=== PATIENT | female | born 1955 | race Caucasian/White ===

== ENCOUNTER 2020-03-17 12:08 | Day surgery (SDC) | payer OTHER, SELFPAY ==
[2020-03-11 13:39] VITALS: BMI 32.4
[2020-03-17 12:54] VITALS: BMI 32.4
[2020-03-17 12:56] VITALS: BP 137/65; PULSE 64; RESP 16; TEMP 36.3; O2SAT 95
--- NOTE | 2020-03-17 13:58 | HO.ANESPROP2 ---
[facility] [place] Past Medical History Medical History Arthritis Celiac disease Depression Elevated cholesterol GERD (gastroesophageal reflux disease) HTN (hypertension) Sleep apnea TIA (transient ischemic attack) Surgical History Surgical History H/O hemorrhoidectomy H/O shoulder surgery H/O: hysterectomy History of bladder suspension procedure Hx of cholecystectomy Hx of colonoscopy Hx of esophagogastroduodenoscopy Social History Social History Smoking Status: Never smoker Use of substances other than those prescribed or required for medical reasons: No Advance Directives Information Provided: No Recently lost weight without trying: No Meds Allergies Allergy/AdvReac Type Severity Reaction Status Date / Time cheese [CHEESE] Allergy Unknown + ALLERGY Verified 03/17/20 12:50 TESTING egg [EGGS] Allergy Unknown + ALLERGY Verified 03/17/20 12:51 TEST gluten [GLUTEN] Allergy Unknown + ALLERGY Verified 03/17/20 12:51 TEST milk [MILK] Allergy Unknown + ALLERGY Verified 03/17/20 12:51 TEST soy [SOY] Allergy Unknown + ALLERGY Verified 03/17/20 12:51 TEST strawberry [STRAWBERRY] Allergy Unknown + ALLERGY Verified 03/17/20 12:51 TEST banana [BANANA] AdvReac Unknown + ALLERGY Verified 03/17/20 12:49 TEST Home Medications Medication Instructions Recorded Confirmed Type aspirin 81 mg PO DAILY 03/11/20 03/11/20 History atorvastatin 20 mg PO BEDTIME 03/11/20 03/11/20 History bisacodyl [Dulcolax (bisacodyl)] 10 mg PO BEDTIME 03/11/20 03/11/20 History fluoxetine 20 mg PO DAILY 03/11/20 03/11/20 History rabeprazole 20 mg PO BID 03/11/20 03/11/20 History sertraline 100 mg PO DAILY 03/11/20 03/11/20 History simethicone 180 mg PO BID 03/11/20 03/11/20 History zolpidem 10 mg PO BEDTIME PRN 03/11/20 03/11/20 History Exam Exam Date and Time: March 17, 2020 1358 Height,Weight and Vital Signs: Height 5 ft 4.5 in Weight 87.09 kg Last Vital Signs Temp 97.3 F 03/17/20 12:56 Pulse 64 03/17/20 12:56 Resp 16 03/17/20 12:56 BP 137/65 03/17/20 12:56 Pulse Ox 95 03/17/20 12:56 Airway Mallampati Class: II TM Dist: >3cm Neck ROM: Full Denture: Upper Heart: RRR Lungs: CTA BL
--- NOTE | 2020-03-17 14:03 | MHC.SHP ---
Pre-Procedural Eval Section A Changes since office visit: Yes Patient answered all questions The History & Physical has been completed within 30 days and I have reviewed it.: No Section B Chief Complaint: FAMILY HX OF COLON CA Details of Present Illness: Colon cancer screening Chronic constipation Relevant Family History (Specify if Yes): Yes Present Medications: see Short Stay Collaborative assessment Medical History: Significant History (GERD, depression, allergic rhinitis, Htn, Celiac disease, constipation, gallstones) Allergies: Allergies Allergy/AdvReac Type Severity Reaction Status Date / Time cheese [CHEESE] Allergy Unknown + ALLERGY Verified 03/17/20 12:50 TESTING egg [EGGS] Allergy Unknown + ALLERGY Verified 03/17/20 12:51 TEST gluten [GLUTEN] Allergy Unknown + ALLERGY Verified 03/17/20 12:51 TEST milk [MILK] Allergy Unknown + ALLERGY Verified 03/17/20 12:51 TEST soy [SOY] Allergy Unknown + ALLERGY Verified 03/17/20 12:51 TEST strawberry [STRAWBERRY] Allergy Unknown + ALLERGY Verified 03/17/20 12:51 TEST banana [BANANA] AdvReac Unknown + ALLERGY Verified 03/17/20 12:49 TEST Review of Systems Sugical H&P ROS: Negative: Constitution, Cardiovascular, Respiratory and Neurological and Yes, Specify: Gastrointestinal (chronic constipation) Exam Surgical H&P Exam: Normal: HEENT, Normal: Heart, Normal: Lungs, Normal: Extremities, Normal: Abdomen and Normal: Skin Plan Diagnosis/Plan: Unchanged Patient has been examined and remains a candidate for the planned procedure
[2020-03-17] MEDS: Lactated Ringers 1,000 ML 50 ML IVCONT (14:04)
--- NOTE | 2020-03-17 14:04 | PM.OP ---
Brief Operative Note Date of procedure: 03/17/20 Pre-op diagnosis: Colon cancer screening, chronic constipation Post-op diagnosis: other (Colon polyps, diverticulosis, hemorrhoids) Procedure: COLONOSCOPY PROCEDURE NOTE Consent: Indications for the procedure and potential complications of bleeding, perforation, reaction to medications and missed diagnosis were discussed with the patient and informed consent was obtained. Instrument: Olympus PCF H 190 L variable stiffness pediatric colonoscope Monitoring: Vital signs and clinical assessment, intermittent blood pressure monitoring, continuous EKG monitoring, Pulse oximetry and Carbon Dioxide monitoring were done throughout the procedure. Colon withdrawl time was 32 minutes. Procedure: The patient was placed in the left lateral decubitis position and pre-procedure medications were administered. After a digital rectal examination of the ano-rectum, the video colonoscope was inserted into the rectum and advanced through the colon to the cecum. The colonoscope was slowly withdrawn in a retrograde panoramic fashion and the colon mucosa was carefully examined including a retroflexed view of the rectum. Findings and interventions are described below. Procedure Difficulty: The colon was long and tortuous and there was some loop formation Findings: Terminal Ileum: Not evaluated Cecum: Normal Ascending Colon: Normal Transverse Colon: Two 5-6 mm sessile polyps removed with a cold bx. Descending Colon: A 4-5 mm sessile polyp removed with a cold bx and moderate diverticulosis Sigmoid Colon: Severe diverticulosis with luminal narrowing Rectum: A 4-5 mm sessile polyp removed with a cold bx and a 6-7 mm sessile polyp removed with a cold snare. Ano-rectum: Moderate internal hemorrhoids Colon preparation: Good after copious irrigation Impression and Post Procedure Diagnosis: Colonoscopy Findings: Five small polyps removed Moderate to severe diverticulosis seen in the left colon Moderate hemorrhoids on retroflexed exam. Plan: Await pathology results Patient has an appointment on 03/24/20 in the [facility] with Alma Parsons NP. Repeat Colonoscopy interval based on path results - in 3-5 years if polyps are adenomatous and 10 years if polyps are hyperplastic. Above findings were reviewed with the patient and colon polyps and diverticulosis handouts were given in the discharge area Anesthesia: MAC (Dr Harding & Romelia Tee CRNA) Surgeon: Raúl Blandon Pathology: other (A. TC polyps x 2, B. DC polyp x 1, C. Rectal polyps x 2) Condition: stable Disposition: PACU
[2020-03-17 15:12] VITALS: BP 94/68; PULSE 77; RESP 12; TEMP 36.4; O2SAT 95
[2020-03-17 15:28] VITALS: BP 135/71; PULSE 65; RESP 14; O2SAT 97
[2020-03-17 15:46] VITALS: BP 135/59; PULSE 63; RESP 11; O2SAT 99
--- NOTE | 2020-03-17 16:32 | SUR.PHASEI ---
AMBULATED TO BATHROOM, CONTACT GUARD FOR SUPPORT. REPORTS MILD DIZZINESS. OFFERED PO FLUIDS REFUSED AT THIS TIME. NO NAUSEA. PATIENT REPORTS DIZZINESS RESOLVING. CONVERSING WITH RN. AWAITING DISCHARGE HOME WITH FAMILY
== END 2020-03-17 23:59 | disposition home or self-care (01) ==
PROVIDERS: PCP Family Medicine; Visit Provider Internal Medicine Gastroenterology
PROC: 0DJD8ZZ Inspection of Lower Intestinal Tract, Via Natural or Artificial Opening Endoscopic (ICD-10-PCS; CPT 45378; principal; 2020-03-17 13:00)
DX: Z12.11 Encounter for screening for malignant neoplasm of colon (principal); Z80.0 Family history of malignant neoplasm of digestive organs; D12.3 Benign neoplasm of transverse colon; K63.5 Polyp of colon; K62.1 Rectal polyp; K57.30 Diverticulosis of large intestine without perforation or abscess without bleeding; K64.8 Other hemorrhoids; K90.0 Celiac disease; K21.9 Gastro-esophageal reflux disease without esophagitis; I10 Essential (primary) hypertension; G47.33 Obstructive sleep apnea (adult) (pediatric); Z79.82 Long term (current) use of aspirin; Z79.899 Other long term (current) drug therapy; Z90.49 Acquired absence of other specified parts of digestive tract; Z90.710 Acquired absence of both cervix and uterus; Z86.73 Personal history of transient ischemic attack (TIA), and cerebral infarction without residual deficits; Z91.012 Allergy to eggs; Z91.011 Allergy to milk products; Z91.018 Allergy to other foods
CPT/HCPCS: 45385; 45380; 88305

== ENCOUNTER → 2020-03-24 15:03 | Outpatient (BNVA) | payer OTHER, SELFPAY | PROVIDERS: PCP Family Medicine; Referring Provider Family Medicine; Visit Provider Nurse Practitioner Family | DX: K59.04 Chronic idiopathic constipation (principal); K57.30 Diverticulosis of large intestine without perforation or abscess without bleeding; K64.8 Other hemorrhoids; Z79.899 Other long term (current) drug therapy; Z86.010 Personal history of colon polyps; Z98.890 Other specified postprocedural states; Z80.0 Family history of malignant neoplasm of digestive organs | CPT/HCPCS: 99214 ==

== ENCOUNTER → 2020-05-06 16:30 | Outpatient (BNVA) | payer OTHER, SELFPAY | PROVIDERS: Visit Provider Physician Assistant | DX: Z76.89 Persons encountering health services in other specified circumstances (principal) ==

== ENCOUNTER → 2020-05-22 08:18 | Outpatient (BNVA) | payer OTHER, SELFPAY | PROVIDERS: PCP Internal Medicine; Referring Provider Internal Medicine; Visit Provider Physician Assistant | DX: E66.9 Obesity, unspecified (principal); Z68.33 Body mass index [BMI] 33.0-33.9, adult | CPT/HCPCS: Q3014 ==

== ENCOUNTER → 2020-06-02 08:24 | Outpatient (BNVA) | payer OTHER, SELFPAY | PROVIDERS: PCP Internal Medicine; Visit Provider Physician Assistant | DX: E66.9 Obesity, unspecified (principal); Z68.33 Body mass index [BMI] 33.0-33.9, adult | CPT/HCPCS: Q3014 ==

== ENCOUNTER → 2020-06-03 15:29 | Outpatient (BNVA) | payer OTHER, SELFPAY | PROVIDERS: PCP Internal Medicine; Visit Provider Physician Assistant | DX: E66.9 Obesity, unspecified (principal); Z68.33 Body mass index [BMI] 33.0-33.9, adult | CPT/HCPCS: 99212 ==

== ENCOUNTER 2020-06-16 12:35 | Outpatient (REF) | payer OTHER, SELFPAY ==
[2020-06-16 13:21] LABS: Basophils Absolute Auto 0.1 X10*3/uL (0.0-0.2); Basophils Percent Auto 0.8 % (0-2); Eosinophils Absolute Auto 0.2 X10*3/uL (0.0-0.4); Eosinophils Percent Auto 3.8 % (0-4); Hematocrit 42.8 % (37-47); Hemoglobin 14.4 g/dl (12.0-16.0); Imm Gran Abs Auto 0.01 X10*3/uL (0.00-0.03); Imm Gran Pct Auto 0.2 % (0.0-0.4); Lymphocytes Absolute Auto 2.7 X10*3/uL (1.2-4.9); Lymphocytes Percent Auto 45.8 % (20-40); MANUAL DIFF FLAG NO; Mean Corpuscular HGB Conc 33.6 g/dl (31.0-35.0); Mean Corpuscular Hemoglobin 28.5 pg (27.0-33.0); Mean Corpuscular Volume 84.6 fL (80-98); Mean Platelet Volume 10.7 fL (9.4-12.3); Monocytes Absolute Auto 0.4 X10*3/uL (0.1-1.2); Neutrophils Absolute Auto 2.5 X10*3/uL (2.0-8.3); Neutrophils Percent Auto 42.4 % (45-73); Platelet Count 229 X10*3/uL (160-400); Red Blood Count 5.06 X10*6/uL (4.20-5.50); Red Cell Distribution Width 12.8 % (11.0-16.0)
[2020-06-16 13:32] LABS: Estimated Average Glucose 117 mg/dL; Hemoglobin A1c % 5.7 %
[2020-06-16 13:48] LABS: Alanine Aminotransferase 71 U/L (0-31); Albumin Level 4.5 g/dL (3.5-5.0); Alkaline Phosphatase 117 U/L (39-117); Anion Gap 15 (12-20); Aspartate Amino Transferase 63 U/L (5-31); Blood Urea Nitrogen 15 mg/dL (9-16); C Reactive Protein 0.78 mg/dL (< or = 0.50); Calcium 9.4 mg/dL (8.4-10.2); Carbon Dioxide 27 mmol/L (22-29); Chloride 101 mmol/L (96-108); Cholesterol 169 mg/dL; Estimated Glomerular Filt Rate > 60; Glucose Fasting 108 mg/dL (60-99); HDL Cholesterol 48 mg/dL; Iron 84 mcg/dL (30-160); LDL Cholesterol Calculated 103 mg/dl; Percent Iron Saturation 24 % (15-50); Potassium 3.8 mmol/l (3.3-5.1); Sodium 139 mmol/L (135-145); Total Iron Binding Capacity 349 mcg/dL (228-428); Total Protein 7.9 g/dL (6.5-8.0); Triglycerides 93 mg/dL; Unsaturated Iron Binding 265 ug/dL
[2020-06-16 14:09] LABS: Ferritin 173 ng/mL (10-250); TSH reflex Free T4 1.29 mIU/mL (0.32-4.0); Vitamin D 25-OH Total 27.8 ng/mL (>30)
[2020-06-16 14:20] LABS: Vitamin B12 722 pg/mL (200-900)
[2020-06-17 17:28] LABS: Calcium (PTHI) 9.6 mg/dL (8.6-10.4); PTHI 71 pg/mL (14-64)
[2020-06-17 18:13] LABS: Insulin Level Total 15.3 uIU/mL
[2020-06-19 06:56] LABS: Zinc 85 mcg/dL (60-130)
[2020-06-20 21:12] LABS: Vitamin A 49 mcg/dL (38-98)
[2020-06-21 10:23] LABS: Vitamin B1 6 nmol/L (8-30)
== END 2020-06-16 12:36 | disposition home or self-care (01) ==
LOC: HO.LAB 12:35
PROVIDERS: PCP Family Medicine; Visit Provider Physician Assistant
DX: E66.01 Morbid (severe) obesity due to excess calories (principal); E66.9 Obesity, unspecified
CPT/HCPCS: 36415; 80053; 80061; 82306; 82607; 82728; 82746; 83036; 83525; 83540; 83970; 84425; 84443; 84590; 84630; 85025; 86140

== ENCOUNTER → 2020-07-06 08:25 | Outpatient (BNVA) | payer OTHER, SELFPAY | PROVIDERS: PCP Internal Medicine; Visit Provider Dietitian, Registered ==

== ENCOUNTER → 2020-07-15 13:58 | Outpatient (BNVA) | payer OTHER, SELFPAY | PROVIDERS: PCP Family Medicine; Visit Provider Physician Assistant ==

== ENCOUNTER → 2020-07-21 08:06 | Outpatient (BNVA) | payer OTHER, SELFPAY | PROVIDERS: PCP Internal Medicine; Visit Provider Physician Assistant | DX: E66.9 Obesity, unspecified (principal) | CPT/HCPCS: Q3014 ==

== ENCOUNTER 2020-07-30 14:55 | Outpatient (REF) | payer OTHER, SELFPAY ==
--- NOTE | ~2020-07-30 | MM_ITS ---
EXAMINATION: BONE DENSITOMETRY CLINICAL INDICATION: Hyperparathyroidism. CT abdomen and pelvis noncontrast 08/19/2019. COMPARISON: Baseline BD dated 06/08/2010. TECHNIQUE: Using a [employer] DXA System (software version: 13.1) manufactured by [employer], dual-energy x-ray absorptiometry was performed of the lumbar spine, left hip, and left forearm radius 33%. The images are of good technical quality. Summary results are attached. FINDINGS: AP SPINE L1-L3 (excluding L4): The data of L1-L4 has been changed to exclude the L4 vertebral body, because statistical variation at this level may cause overestimation of lumbar spine density. Current: BMD 0.833 g/cm2, Z-score -1.7, T-score -2.8, osteoporosis, 12.3% decrease from baseline (<5% change is not significant). Baseline: BMD 0.950 g/cm2. LEFT FEMUR, NECK: Current: BMD 0.727 g/cm2, Z-score -1.1, T-score -2.2, osteopenia. Baseline: BMD 0.803 g/cm2. LEFT FEMUR, TOTAL: Current: BMD 0.815 g/cm2, Z-score -0.7, T-score -1.5, osteopenia, 2.7% decrease from baseline (<5% change is not significant). Baseline: BMD 0.838 g/cm2. LEFT FOREARM RADIUS 33%: BMD 0.689 g/cm2, Z-score -0.8, T-score -2.1, osteopenia. Prior: Not previously measured. IDENTIFIED RISK FACTORS: Menopause, low calcium intake, family history (parent hip fracture), history of fracture (adult), hyperparathyroidism, secondary osteoporosis. HISTORY OF FRACTURE: Ankle. MEDICATIONS: Calcium, vitamin D. MM/XR DEXA appendicular skeleton IMPRESSION: 1. DIAGNOSIS: Osteoporosis based on the lowest T-score value of -2.8 in the lumbar spine applying World Health Organization criteria. 2. 10-YEAR FRACTURE RISK PREDICTION, FRAX: Major osteoporotic fracture (clinical spine, forearm, hip or shoulder) 19.9%. Hip fracture 2.0%. 3. Treatment Recommendations: NOF guidelines recommend consideration for treatment in postmenopausal women and men age 50 and older presenting with the following: -A hip or vertebral (clinical or morphometric) fracture. -T-score less than or equal to -2.5 at the femoral neck or spine after appropriate evaluation to exclude secondary causes. -Low bone mass at the hip or spine and a 10-year fracture probability by FRAX of greater than or equal to 3% for hip fracture or greater than or equal to 20% for major osteoporotic fracture based on the [place] adapted WHO algorithm. 4. Other Recommendations: All treatment decisions require clinical judgment and consideration of individual patient factors, including patient preferences, comorbidities, previous drug use, risk factors not captured in the FRAX model (e.g. frailty, falls, vitamin D deficiency, increased bone turnover, interval significant decline in bone density) and possible under or overestimation of fracture risk by FRAX. Additional medical evaluation for secondary cause of low bone mineral density may be appropriate. FUTURE SCAN RECOMMENDATION: People with diagnosed cases of osteoporosis or at high risk for fracture should have regular bone mineral density tests. For patients eligible for Medicare, routine testing is allowed once every 2 years. The testing frequency can be increased to one year for patients who have rapidly progressing disease, those who are receiving or discontinuing medical therapy to restore bone mass, or have additional risk factors.
== END 2020-07-30 14:56 | disposition home or self-care (01) ==
LOC: HO.MAMMO 14:55
PROVIDERS: Visit Provider Family Medicine
DX: Z13.820 Encounter for screening for osteoporosis (principal); Z78.0 Asymptomatic menopausal state; E21.3 Hyperparathyroidism, unspecified; Z79.899 Other long term (current) drug therapy
CPT/HCPCS: 77081

== ENCOUNTER → 2020-08-12 15:45 | Outpatient (BNVA) | payer OTHER, SELFPAY | PROVIDERS: PCP Family Medicine; Visit Provider Physician Assistant ==

== ENCOUNTER → 2020-08-21 07:53 | Outpatient (BNVA) | payer OTHER, SELFPAY | PROVIDERS: PCP Internal Medicine; Visit Provider Physician Assistant | DX: E66.9 Obesity, unspecified (principal); Z71.3 Dietary counseling and surveillance | CPT/HCPCS: Q3014 ==

== ENCOUNTER → 2020-10-19 14:29 | Outpatient (BNVA) | payer OTHER, SELFPAY | PROVIDERS: PCP Family Medicine; Referring Provider Family Medicine; Visit Provider Physician Assistant | DX: E66.9 Obesity, unspecified (principal); Z68.30 Body mass index [BMI] 30.0-30.9, adult | CPT/HCPCS: 99212 ==

== ENCOUNTER → 2020-11-17 15:12 | Outpatient (BNVA) | payer OTHER, SELFPAY | PROVIDERS: PCP Family Medicine; Visit Provider Nurse Practitioner Family | CPT/HCPCS: Q3014 ==

== ENCOUNTER → 2020-11-18 13:12 | Outpatient (BNVA) | payer OTHER, SELFPAY | PROVIDERS: PCP Family Medicine; Referring Provider Family Medicine; Visit Provider Physician Assistant | DX: E66.9 Obesity, unspecified (principal); Z68.29 Body mass index [BMI] 29.0-29.9, adult | CPT/HCPCS: 99212 ==

== ENCOUNTER 2020-11-28 08:53 | Emergency (ER) | payer OTHER, SELFPAY ==
--- NOTE | 2020-11-28 | ECG_ITS ---
Test Reason : CP Blood Pressure : / mmHG Vent. Rate : 079 BPM Atrial Rate : 079 BPM P-R Int : 162 ms QRS Dur : 076 ms QT Int : 384 ms P-R-T Axes : 042 024 055 degrees QTc Int : 440 ms Normal sinus rhythm Normal ECG When compared with ECG of 19-OCT-2016 16:38, No significant change was found Referred By: Jessica Jay Electronically Signed By:JOSELYN WINCHESTER
--- NOTE | ~2020-11-28 | XR_ITS ---
EXAMINATION: CHEST 2 VIEWS CLINICAL INFORMATION: pt c left scapular/back pain radiating to chest x 4 days . COMPARISON: 10/19/2016 chest x-ray. TECHNIQUE: PA and lateral views of the chest obtained. FINDINGS: The lungs are well expanded. No focal infiltrate, effusion, edema, or pneumothorax. Cardiac and mediastinal silhouettes are within normal limits for technique. No acute bony abnormality seen with cervical spine hardware again noted XR/XR chest 2V IMPRESSION: No evidence of acute disease
[2020-11-28 08:59] VITALS: BP 188/77; PULSE 79; RESP 18; TEMP 37.1; O2SAT 100; BMI 29.2
--- NOTE | 2020-11-28 09:42 | PC.NURSE ---
EKG documented for ID#[id number]
[2020-11-28] MEDS: Ketorolac Tromethamine 30 MG/ML VIAL IVPUSH (09:51)
[2020-11-28] MEDS: Lidocaine 4 % Patch ADH..PATCH 1 PATCH TRANSDERMA (09:52)
[2020-11-28] MEDS: diazePAM 5 MG TABLET PO (09:53)
[2020-11-28 09:56] LABS: MANUAL DIFF FLAG NO
--- NOTE | 2020-11-28 10:01 | PC.NURSE ---
Patient to ED complaining of chest pain x 4 days. Reports pain travels from left shoulder/upper back to chest. Describes as sharp and constant. Respirations regular and even. Skin PWD. Patient is alert and oriented, tearful. Reports some stress at home. IV established and labs drawn. EKG obtained by cytology technologist at bedside showing normal sinus rhythm. Placed on life educator. Hamida AG at bedside to evaluate.
[2020-11-28 10:06] LABS: Basophils Percent Auto 0.5 % (0-2); Eosinophils Absolute Auto 0.3 X10*3/uL (0.0-0.4); Eosinophils Percent Auto 4.7 % (0-4); Hematocrit 41.1 % (37-47); Hemoglobin 13.6 g/dl (12.0-16.0); Imm Gran Abs Auto 0.01 X10*3/uL (0.00-0.03); Imm Gran Pct Auto 0.2 % (0.0-0.4); Lymphocytes Absolute Auto 2.4 X10*3/uL (1.2-4.9); Mean Corpuscular HGB Conc 33.1 g/dl (31.0-35.0); Mean Corpuscular Hemoglobin 28.1 pg (27.0-33.0); Mean Corpuscular Volume 84.9 fL (80-98); Mean Platelet Volume 10.7 fL (9.4-12.3); Monocytes Absolute Auto 0.4 X10*3/uL (0.1-1.2); Monocytes Percent Auto 5.5 % (2-11); Neutrophils Absolute Auto 3.3 X10*3/uL (2.0-8.3); Neutrophils Percent Auto 51.1 % (45-73); Platelet Count 272 X10*3/uL (160-400); Red Blood Count 4.84 X10*6/uL (4.20-5.50); Red Cell Distribution Width 13.2 % (11.0-16.0); White Blood Count 6.4 X10*3/uL (4.8-10.8)
[2020-11-28 10:22] LABS: Glucose Urine UA NEG (NEG); Leukocyte Esterase Urine TRACE (NEG); Nitrite Urine NEG (NEG); PH 5.5 (5.0-8.0); UACC Culture Trigger YES; Urine Blood NEG (NEG); Urine Ketones NEG (NEG); Urine Protein NEG (NEG-TRACE)
[2020-11-28 10:23] LABS: Appearance Urine HAZY; Color Urine STRAW
[2020-11-28 10:23] LABS: B Type Natriuretic Peptide 22 pg/mL (<100); Troponin-I High Sensitivity < 3.5 ng/L (<3.5-17.0)
--- NOTE | 2020-11-28 10:28 | ED.CHESTPAIN ---
HPI - Chest Pain General Chief Complaint: Chest Pain Stated Complaint: chest pain Time Seen by Provider: 11/28/20 09:03 Source: patient Mode of arrival: ambulatory Limitations: no limitations History of Present Illness HPI narrative: 65-year-old female with a past medical history of hypertension, hyperlipidemia, TIA currently on a baby aspirin daily, obesity, gout, arthritis, celiac disease, GERD, chronic idiopathic constipation, urinary incontinence, insomnia and depression presenting to the ED with complaints of atraumatic left back/scapular pain radiating to her left chest for the past 4 days that has been constant worse today. Reports it feels like someone is hammering her back. Reports she has been taking Motrin [id number] no symptomatic relief. Denies any trauma/fall/lifting recently. She cannot recall what she was doing when this started although it did not wake her up from her sleep. She denies anything making the pain better or worse. She denies any other symptoms related to this which include but is not limited to dizziness, lightheadedness, headaches, changes in vision, jaw pain, paresthesias, nausea/vomiting, palpitations, shortness of breath, cough, dyspnea exertion, orthopnea, abdominal pain, diarrhea, constipation, dysuria, hematuria, lower extremity edema, rashes carefully checked paraplegic paraplegic or any other symptoms complaints or concerns at this time. MD complaint: chest pain Pertinent past history: other (HTN/HLD/TIA) Onset (ago): day(s) (Four days worse today) Timing of current episode: constant, increasing and still present Prior episodes: No Onset: other (Cannot recall) Pain location: posterior (Started at left scapula) Pain radiation: other (To left chest) Severity: moderate Quality: other (Like a hammer is hitting her she reports) Relieving factors: nothing Exacerbating factors: nothing Treatment prior to arrival: other (She reports she took Motrin last night no symptomatic relief) Related Data Home Medications Medication Instructions Recorded Confirmed atorvastatin 20 mg PO BEDTIME 03/11/20 10/19/20 allopurinol 100 mg tablet 100 mg PO DAILY 06/03/20 10/19/20 aspirin 81 mg tablet,delayed 81 mg PO DAILY 06/03/20 10/19/20 release celecoxib 100 mg capsule 100 mg PO BID 06/03/20 10/19/20 docusate sodium 100 mg capsule 100 mg PO BID PRN 06/03/20 10/19/20 fluticasone propionate 50 1 spray INTRANASAL BID 06/03/20 10/19/20 mcg/actuation nasal spray,suspension gabapentin 300 mg capsule 300 mg PO BEDTIME 06/03/20 10/19/20 hydrochlorothiazide 25 mg tablet 25 mg PO DAILY 06/03/20 10/19/20 loratadine 10 mg tablet 10 mg PO DAILY 06/03/20 10/19/20 simethicone 180 mg capsule 180 mg PO QID 06/03/20 10/19/20 zolpidem 5 mg tablet 5 mg PO BEDTIME PRN 06/03/20 10/19/20 Previous Rx's Medication Instructions Recorded calcium citrate 250 mg PO BID #30 tab 06/23/20 cholecalciferol (vitamin D3) 50 50 mcg PO DAILY #30 cap 06/23/20 mcg (2,000 unit) capsule thiamine HCl (vitamin B1) 100 mg 100 mg PO DAILY 30 Days #30 tab 06/23/20 tablet bisacodyl 5 mg tablet,delayed 10 mg PO BEDTIME 30 Days #60 tab 11/17/20 release rabeprazole 20 mg tablet,delayed 40 mg PO BID #120 tab 11/17/20 release acetaminophen [Tylenol Extra 1,000 mg PO QID PRN #14 tab 11/28/20 Strength] diazepam [Valium] 5 mg PO TID PRN #14 tab 11/28/20 lidocaine HCl [Aspercreme 1 appl TOPICAL BID PRN #120 g 11/28/20 (lidocaine HCl)] naproxen 500 mg PO BID PRN #10 tab 11/28/20 oxycodone 5 mg PO BID PRN #10 tab 11/28/20 Allergies Allergy/AdvReac Type Severity Reaction Status Date / Time cheese [CHEESE] Allergy Unknown + ALLERGY Verified 11/18/20 13:54 TESTING egg [EGGS] Allergy Unknown + ALLERGY Verified 11/18/20 13:54 TEST gluten [GLUTEN] Allergy Unknown + ALLERGY Verified 11/18/20 13:54 TEST milk [MILK] Allergy Unknown + ALLERGY Verified 11/18/20 13:54 TEST soy [SOY] Allergy Unknown + ALLERGY Verified 11/18/20 13:54 TEST strawberry [STRAWBERRY] Allergy Unknown + ALLERGY Verified 11/18/20 13:54 TEST banana [BANANA] AdvReac Unknown + ALLERGY Verified 11/18/20 13:54 TEST Review of Systems Review of Systems: Constitutional : No Weight loss, No Fever, No Chills, No Night Sweats, No Fatigue, No Malaise ENT/Mouth : No Hearing loss, No Ear Pain, No Nasal Congestion, No Sinus Pain, No Hoarseness, No sore throat, No Rhinorrhea, No Swallowing Difficulty Eyes: No Eye Pain, No Swelling, No Redness, No Foreign Body, No Discharge, No Vision Changes Cardiovascular : Positive chest pain, No SOB, no Dyspnea on Exertion, No Orthopnea, No Edema, No extremity swelling, No Palpitations Respiratory : No Cough, No Sputum, No Wheezing, No Dyspnea Gastrointestinal : No Nausea, No Vomiting, No Diarrhea, No abdominal Pain, No Hematochezia, No Melena Genitourinary : No irregular bleeding, No Dysuria, No Urinary Frequency, No Hematuria, No Urinary Incontinence, No Urgency, No Flank Pain, No Urinary Flow Changes, No Hesitancy Musculoskeletal : Positive left scapula pain, No joint pain, No Myalgias, No Joint Swelling Skin : No Skin Lesions, No rash Neuro : No Weakness, No Numbness, No Paresthesias, No Loss of Consciousness, No Dizziness, No Headache Psych : No Anxiety/Panic, No Depression, No SI/HI/AH/VH Heme/Lymph: No Bruising, No Bleeding,No Lymphadenopathy Endocrine : No Polyuria, No Polydipsia, No Temperature Intolerance Yes all other systems are reviewed and are negative [facility], [facility] Past Medical History Attestation statement: The following information was validated with the patient. Medical History Allergic rhinitis Arthritis Celiac disease Chronic idiopathic constipation Depression Elevated cholesterol GERD (gastroesophageal reflux disease) Hemorrhoids HTN (hypertension) Insomnia Obesity (BMI 30-39.9) Overweight (BMI 25.0-29.9) Sleep apnea TIA (transient ischemic attack) Urinary incontinence Surgical History H/O hemorrhoidectomy H/O shoulder surgery H/O: hysterectomy History of bladder suspension procedure Hx of cholecystectomy Hx of colonoscopy Hx of esophagogastroduodenoscopy S/P colonoscopy Family History Family History Father Myocardial infarction NIDDY (non-insulin dependent diabetes mellitus in young) Mother Breast cancer Colon cancer NIDDY (non-insulin dependent diabetes mellitus in young) Hypertension Sister AIDS (acquired immune deficiency syndrome) NIDDY (non-insulin dependent diabetes mellitus in young) Hypertension Maternal Grandfather Bone cancer Maternal Grandmother Bone cancer Social History Social History Household Members: None Alcohol intake: never Patient Tobacco Use Status: Never used Tobacco Use of substances other than those prescribed or required for medical reasons: No Advance Directives: Yes Advance Directives Information Provided: Yes Advance Directives on File: No Physical Exam Vital Signs: Vital Signs: Last Vital Signs Temp 98.7 F 11/28/20 08:59 Pulse 79 11/28/20 08:59 Resp 18 11/28/20 08:59 BP 188/77 H 11/28/20 08:59 Pulse Ox 100 11/28/20 08:59 Body Mass Index 29.2 vital signs have been reviewed as normal and appeared to be correct. Blood pressure normal. Heart rate normal. Respiration rate normal. Temperature normal. Oxygen saturation normal. Appearance: Alert. Oriented X3. No acute distress. Head: Normal external exam. Normocephalic. Atraumatic. Eyes: PERRLA. EOMI. Conjunctiva and sclera normal. Eyelids normal. ENT: Pharynx normal. Uvula midline. Moist mucous membranes. Neck: Normal inspection. Neck supple. FROM. No adenopathy. Thyroid Normal. No meningeal signs. No neck mass noted. CVS: Normal heart rate and rhythm. Heart sound normal. Pulses normal throughout. No murmurs/rales/gallops. Respiratory: No respiratory distress. Painless inspiration. Breath sounds normal. No wheezes/rales/rhonchi noted. Chest nontender. No accessory muscle usage noted or decreased air movement noted. Abdomen: Soft and nontender. Bowel sounds normal in all 4 quadrants. No distention noted. No organomegaly noted. No visible injury noted. Back: No CVA tenderness. Full range of motion noted. No rashes/lesion/induration/fluctuance or signs of infection noted. Skin: Skin warm and dry. Normal skin color. Normal skin turgor. No rashes/lesions/lacerations noted. Extremities: To left scapula patient has reproducible tenderness/muscle spasm. No signs of infection. No tenderness to palpation to left AC joint. No laxity is noted. No edema to upper extremity noted No lower extremity edema. Otherwise all other Extremities exhibit normal range of motion and nontender. Neuro: Oriented X 3. No motor deficit. No sensory deficit. Reflexes normal. Normal steady gait. No focal neuro deficits noted. Vascular: + radial pulses/+ 2 distal pedal pulses/+2 dorsalis pedis b/l. Normal cap refill. No cyanosis noted to upper extremity nails and lower extremity toes nails. Course Course Course Narrative: 11am - 65-year-old female presenting to the ED with complaints of atraumatic left back/scapular pain radiating to her left chest for the past 4 days that has been constant worse today. Reports it feels like someone is hammering her back. Reports she has been taking Motrin [id number] no symptomatic relief. Not on any blood thinner. Denies any injuries that she can recall. - Labs obtained and all within normal limits. UA within normal limits no evidence of UTI. Chest x-ray within normal limits no acute processes are noted. EKG is normal sinus rhythm no acute ischemic changes are noted with ventricular rate of 79 with normal WI interval normal QRS duration with QT/QTC interval. Patient reports mild to moderate symptomatic relief after given the Toradol/Valium and lidocaine patch. Therefore will DC home with similar therapy and instructions to return if any new or worsening symptoms to follow up with primary care provider. Patient understands agrees with this plan. MDM - Chest Pain Medical Records Data Attestation: I reviewed the patient's medical records. Lab Data Attestation: I reviewed the patient's lab results. Result diagrams: 11/28/20 09:35 11/28/20 09:35 Labs: Lab Results 11/28/20 11/28/20 11/28/20 Range/Units 09:35 09:35 09:35 WBC 6.4 (4.8-10.8) X10*3/uL RBC 4.84 (4.20-5.50) X10*6/uL Hgb 13.6 (12.0-16.0) g/dl Hct 41.1 (37-47) % MCV 84.9 (80-98) fL MCH 28.1 (27.0-33.0) pg MCHC 33.1 (31.0-35.0) g/dl RDW 13.2 (11.0-16.0) % Plt Count 272 (160-400) X10*3/uL MPV 10.7 (9.4-12.3) fL Immature Gran % (Auto) 0.2 (0.0-0.4) % Neut % (Auto) 51.1 (45-73) % Lymph % (Auto) 38.0 (20-40) % [place] % (Auto) 5.5 (2-11) % Eos % (Auto) 4.7 H (0-4) % Baso % (Auto) 0.5 (0-2) % Lymph # (Auto) 2.4 (1.2-4.9) X10*3/uL [place] # (Auto) 0.4 (0.1-1.2) X10*3/uL Eos # (Auto) 0.3 (0.0-0.4) X10*3/uL Baso # (Auto) 0.0 (0.0-0.2) X10*3/uL Abs Immat Gran (auto) 0.01 (0.00-0.03) X10*3/uL Absolute Neuts (auto) 3.3 (2.0-8.3) X10*3/uL Absolute Nucleated RBC 0.000 (0.0-0.012) X10*3/uL Nucleated RBC % (auto) 0.0 (0.0-0.2) /100WBC PT (10.8-13.0) SEC INR (0.9-1.1) Sodium 140 (135-145) mmol/L Potassium 4.0 (3.3-5.1) mmol/L Chloride 107 (96-108) mmol/L Carbon Dioxide 22 (22-29) mmol/L Anion Gap 15 (12-20) BUN 18 H (9-16) mg/dL Creatinine 0.74 (0.5-1.4) mg/dL Estim Creat Clear Calc 76.2 Estimated GFR > 60 Random Glucose 104 (60-115) mg/dL Calcium 9.6 (8.4-10.2) mg/dL Magnesium 2.0 (1.6-2.6) mg/dL Total Bilirubin 0.5 (0.0-1.0) mg/dL AST 22 D (5-31) U/L ALT 15 (0-31) U/L Alkaline Phosphatase 106 (39-117) U/L Troponin I High Sens < 3.5 (<3.5-17.0) ng/L B-Natriuretic Peptide 22 (<100) pg/mL Total Protein 7.8 (6.5-8.0) g/dL Albumin 4.4 (3.5-5.0) g/dL Urine Color Urine Appearance Urine pH (5.0-8.0) Ur Specific [place] (1.005-1.025) Urine Protein (NEG-TRACE) MG/DL Urine Glucose (UA) (NEG) MG/DL Urine Ketones (NEG) MG/DL Urine Blood (NEG) Urine Nitrite (NEG) Ur Leukocyte Esterase (NEG) Urine RBC (0) /HPF Urine WBC (0-4) /HPF Ur Squamous Epith Cells /LPF Urine Bacteria /LPF 11/28/20 11/28/20 Range/Units 10:16 10:31 WBC (4.8-10.8) X10*3/uL RBC (4.20-5.50) X10*6/uL Hgb (12.0-16.0) g/dl Hct (37-47) % MCV (80-98) fL MCH (27.0-33.0) pg MCHC (31.0-35.0) g/dl RDW (11.0-16.0) % Plt Count (160-400) X10*3/uL MPV (9.4-12.3) fL Immature Gran % (Auto) (0.0-0.4) % Neut % (Auto) (45-73) % Lymph % (Auto) (20-40) % [place] % (Auto) (2-11) % Eos % (Auto) (0-4) % Baso % (Auto) (0-2) % Lymph # (Auto) (1.2-4.9) X10*3/uL [place] # (Auto) (0.1-1.2) X10*3/uL Eos # (Auto) (0.0-0.4) X10*3/uL Baso # (Auto) (0.0-0.2) X10*3/uL Abs Immat Gran (auto) (0.00-0.03) X10*3/uL Absolute Neuts (auto) (2.0-8.3) X10*3/uL Absolute Nucleated RBC (0.0-0.012) X10*3/uL Nucleated RBC % (auto) (0.0-0.2) /100WBC PT 12.5 (10.8-13.0) SEC INR 1.1 (0.9-1.1) Sodium (135-145) mmol/L Potassium (3.3-5.1) mmol/L Chloride (96-108) mmol/L Carbon Dioxide (22-29) mmol/L Anion Gap (12-20) BUN (9-16) mg/dL Creatinine (0.5-1.4) mg/dL Estim Creat Clear Calc Estimated GFR Random Glucose (60-115) mg/dL Calcium (8.4-10.2) mg/dL Magnesium (1.6-2.6) mg/dL Total Bilirubin (0.0-1.0) mg/dL AST (5-31) U/L ALT (0-31) U/L Alkaline Phosphatase (39-117) U/L Troponin I High Sens (<3.5-17.0) ng/L B-Natriuretic Peptide (<100) pg/mL Total Protein (6.5-8.0) g/dL Albumin (3.5-5.0) g/dL Urine Color STRAW Urine Appearance HAZY Urine pH 5.5 (5.0-8.0) Ur Specific [place] 1.020 (1.005-1.025) Urine Protein NEG (NEG-TRACE) MG/DL Urine Glucose (UA) NEG (NEG) MG/DL Urine Ketones NEG (NEG) MG/DL Urine Blood NEG (NEG) Urine Nitrite NEG (NEG) Ur Leukocyte Esterase TRACE H (NEG) Urine RBC 1-4 (0) /HPF Urine WBC 1-4 (0-4) /HPF Ur Squamous Epith Cells 2+ /LPF Urine Bacteria 1+ /LPF Imaging Data Chest x-ray: Attestation: I personally reviewed and interpreted this imaging study as follows: Radiologist's impression: FINDINGS: The lungs are well expanded. No focal infiltrate, effusion, edema, or pneumothorax. Cardiac and mediastinal silhouettes are within normal limits for technique. No acute bony abnormality seen with cervical spine hardware again noted XR/XR chest 2V IMPRESSION: No evidence of acute disease ECG Data ECG #1: Attestation: I personally reviewed and interpreted this ECG as follows: ECG interpretation date: 11/28/20 ECG interpretation time: 09:02 Interpretation: Normal sinus rhythm and circulated 79 with normal WI interval normal QRS duration with QT/QTC interval. No acute ischemic change noted. Similar compared to prior EKG 10/19/2016. Discharge Plan Discharge Clinical Impression: Pain of left scapula, Left-sided chest wall pain Patient Disposition: Home, Self-Care Instructions: Muscle Spasm (ED) Prescriptions: New acetaminophen [Tylenol Extra Strength] 500 mg tablet 1,000 mg PO QID PRN (Reason: fever or pain) Qty: 14 RF: 0 naproxen 500 mg tablet 500 mg PO BID PRN (Reason: pain) Qty: 10 RF: 0 diazepam [Valium] 5 mg tablet 5 mg PO TID PRN (Reason: muscle spasm) Qty: 14 RF: 0 oxycodone 5 mg tablet 5 mg PO BID PRN (Reason: pain) Qty: 10 RF: 0 lidocaine HCl [Aspercreme (lidocaine HCl)] 4 % cream 1 appl topical BID PRN (Reason: pain) Qty: 120 RF: 0 No Action thiamine HCl (vitamin B1) 100 mg tablet 100 mg PO DAILY 30 Days Qty: 30 RF: 5 cholecalciferol (vitamin D3) 50 mcg (2,000 unit) capsule 50 mcg PO DAILY Qty: 30 RF: 5 calcium citrate 250 mg calcium tablet 250 mg PO BID Qty: 30 RF: 5 atorvastatin 20 mg Tablet 20 mg PO BEDTIME RF: 0 zolpidem 5 mg tablet 5 mg PO BEDTIME PRNRF: 0 loratadine 10 mg tablet 10 mg PO DAILY RF: 0 fluticasone propionate 50 mcg/actuation spray,suspension 1 spray intranasal BID RF: 0 hydrochlorothiazide 25 mg tablet 25 mg PO DAILY RF: 0 aspirin 81 mg tablet,delayed release (DR/EC) 81 mg PO DAILY RF: 0 allopurinol 100 mg tablet 100 mg PO DAILY RF: 0 simethicone 180 mg capsule 180 mg PO QID RF: 0 docusate sodium 100 mg capsule 100 mg PO BID PRNRF: 0 celecoxib 100 mg capsule 100 mg PO BID RF: 0 gabapentin 300 mg capsule 300 mg PO BEDTIME RF: 0 bisacodyl 5 mg tablet,delayed release (DR/EC) 10 mg PO BEDTIME 30 Days Qty: 60 RF: 3 rabeprazole 20 mg tablet,delayed release (DR/EC) 40 mg PO BID Qty: 120 RF: 3 Referrals: Albertina Danielle MD [Primary Care Provider] - 2 days Print Language: [place] Citizen
[2020-11-28 10:35] LABS: Bacteria Urine 1+ /LPF; Squamous Epithelial Cell Urine 2+ /LPF
[2020-11-28 10:35] LABS: Alanine Aminotransferase 15 U/L (0-31); Albumin Level 4.4 g/dL (3.5-5.0); Alkaline Phosphatase 106 U/L (39-117); Anion Gap 15 (12-20); Aspartate Amino Transferase 22 U/L (5-31); Bilirubin Total 0.5 mg/dL (0.0-1.0); Blood Urea Nitrogen 18 mg/dL (9-16); Calcium 9.6 mg/dL (8.4-10.2); Carbon Dioxide 22 mmol/L (22-29); Chloride 107 mmol/L (96-108); Creatinine Clr Calc Pharmacy 76.2; Estimated Glomerular Filt Rate > 60; Glucose Random 104 mg/dL (60-115); Sodium 140 mmol/L (135-145); Total Protein 7.8 g/dL (6.5-8.0)
[2020-11-28 10:45] LABS: INTERNATIONAL NORM RATIO 1.1 (0.9-1.1); Prothrombin Time 12.5 SEC (10.8-13.0)
[2020-11-28] MEDS: oxyCODONE HCl Immed Release 5 MG TABLET PO (11:25)
== END 2020-11-28 11:54 | disposition home or self-care (01) ==
PROVIDERS: Physician Assistant Medical; Emergency Provider Emergency Medicine; PCP Family Medicine
DX: R07.89 Other chest pain (principal); M25.512 Pain in left shoulder; I10 Essential (primary) hypertension; Z86.73 Personal history of transient ischemic attack (TIA), and cerebral infarction without residual deficits; Z79.82 Long term (current) use of aspirin; Z79.899 Other long term (current) drug therapy
CPT/HCPCS: 36415; 71046; 80053; 81001; 81003; 83735; 83880; 84484; 85025; 85610; 87086; 93005; 96374; 99285; J1885

== ENCOUNTER 2021-01-08 15:00 | Outpatient (REF) | payer OTHER, SELFPAY ==
[2021-01-08 17:22] LABS: C Reactive Protein 0.76 mg/dL (< or = 0.50)
[2021-01-08 17:44] LABS: TSH reflex Free T4 1.38 uIU/mL (0.32-4.0)
[2021-01-12 13:56] LABS: Transglutaminase Ab IgG 1 U/mL; Transglutaminase IgA 3 U/mL
== END 2021-01-08 15:01 | disposition home or self-care (01) ==
LOC: HO.LAB 15:00
PROVIDERS: PCP Family Medicine; Visit Provider Nurse Practitioner Family
DX: R10.11 Right upper quadrant pain (principal); R14.0 Abdominal distension (gaseous); K21.9 Gastro-esophageal reflux disease without esophagitis; K90.0 Celiac disease
CPT/HCPCS: 36415; 83516; 84443; 86140; 99212

== ENCOUNTER → 2021-04-09 13:18 | Outpatient (BNVA) | payer OTHER, SELFPAY | PROVIDERS: PCP Family Medicine; Referring Provider Family Medicine; Visit Provider Nurse Practitioner Family | DX: K90.0 Celiac disease (principal); K21.9 Gastro-esophageal reflux disease without esophagitis; K59.04 Chronic idiopathic constipation | CPT/HCPCS: 99212 ==

== ENCOUNTER 2021-07-02 14:32 | Outpatient (REF) | payer OTHER, SELFPAY ==
--- NOTE | ~2021-07-02 | MM_ITS ---
EXAMINATION: MM SCREENING DIGITAL BREAST TOMOSYNTHESIS, BILATERAL CLINICAL INFORMATION: Screening. Asymptomatic. The lifetime risk of breast cancer based on the Tyrer-Cuzick Model is 9%. COMPARISON: Mammography: 02/22/2018, 09/17/2015, 02/19/2014 TECHNIQUE: Digital breast tomosynthesis is performed in both the craniocaudal and mediolateral oblique views along with computer-aided detection (CAD). Synthesized 2D images are generated from the tomosynthesis. FINDINGS: There are scattered areas of fibroglandular density (ACR BI-RADS breast composition Category b). There are no significant masses, abnormal calcifications, or other abnormalities. Parenchymal pattern is similar to prior studies. There is no developing density or architectural abnormality. The axilla and skin contours are unremarkable. No significant changes. MM/MM tomosynthesis screening BI IMPRESSION: No mammographic evidence of malignancy. ASSESSMENT: BI-RADS 1: Negative RECOMMENDATION: Routine annual mammography screening. This patient's information was entered into a reminder system with a target due date for their next mammogram.
== END 2021-07-02 14:33 | disposition home or self-care (01) ==
LOC: HO.MAMMO 14:32
PROVIDERS: PCP Family Medicine; Visit Provider Family Medicine
DX: Z12.31 Encounter for screening mammogram for malignant neoplasm of breast (principal)
CPT/HCPCS: 77063; 77067

== ENCOUNTER 2021-07-08 12:47 | Outpatient (REF) | payer OTHER, SELFPAY ==
[2021-07-08 15:22] LABS: TSH reflex Free T4 1.12 uIU/mL (0.32-4.0)
[2021-07-08 15:43] LABS: Folate 7.9 ng/mL (> or = 4.0); Vitamin B12 653 pg/mL (200-900)
[2021-07-13 17:07] LABS: Vitamin D 25-OH, D2 <4 ng/mL; Vitamin D 25-OH, D3 33 ng/mL; Vitamin D 25-OH, Total 33 ng/mL (30-100)
== END 2021-07-08 12:48 | disposition home or self-care (01) ==
LOC: HO.LAB 12:47
PROVIDERS: PCP Family Medicine; Referring Provider Family Medicine; Visit Provider Nurse Practitioner Family
DX: K90.0 Celiac disease (principal); K21.9 Gastro-esophageal reflux disease without esophagitis; K59.04 Chronic idiopathic constipation; R19.7 Diarrhea, unspecified; E55.9 Vitamin D deficiency, unspecified
CPT/HCPCS: 36415; 82306; 82607; 82746; 84443; 99212

== ENCOUNTER 2021-07-13 08:46 | Outpatient (REF) | payer OTHER, SELFPAY | END 2021-07-13 08:47 | disposition home or self-care (01) | LOC: HO.LNP 08:46 | PROVIDERS: Visit Provider Nurse Practitioner Family | DX: K21.9 Gastro-esophageal reflux disease without esophagitis (principal) | CPT/HCPCS: 87338 ==

== ENCOUNTER 2021-10-11 07:57 | Day surgery (SDC) | payer OTHER, SELFPAY ==
[2021-10-06 09:03] VITALS: BMI 29.0
--- NOTE | 2021-10-08 09:34 | P.CONAN_ITS ---
Documented by User: Renetta Kilpatrick NP 10/08/21 09:34 HPI - Anesthesia Eval Consult details Narrative: 66yo F for Upper Endoscopy PMFSH Active Problems Active Problems: All Active Problems (Updated 04/11/21 @ 21:44 by April Jackson, [facility]) Vitamin B1 deficiency (Acute) Gout (Acute) Overweight (BMI 25.0-29.9) (Acute) Obesity (BMI 30-39.9) (Acute) Arthritis (Acute) Celiac disease (Acute) Depression (Acute) Elevated cholesterol (Acute) GERD (gastroesophageal reflux disease) (Acute) HTN (hypertension) (Acute) Sleep apnea (Acute) TIA (transient ischemic attack) (Acute) Chronic idiopathic constipation (Acute) Urinary incontinence (Acute) Allergic rhinitis (Acute) Insomnia (Acute) S/P colonoscopy (Acute) Past Medical History Medical History Allergic rhinitis Arthritis Celiac disease Chronic idiopathic constipation Depression Elevated cholesterol GERD (gastroesophageal reflux disease) Hemorrhoids HTN (hypertension) Hx of hemorrhoids Insomnia Obesity (BMI 30-39.9) Overweight (BMI 25.0-29.9) Sleep apnea TIA (transient ischemic attack) Urinary incontinence Vitamin B1 deficiency Family History Family History Father Myocardial infarction NIDDY (non-insulin dependent diabetes mellitus in young) Mother Breast cancer Colon cancer NIDDY (non-insulin dependent diabetes mellitus in young) Hypertension Sister AIDS (acquired immune deficiency syndrome) NIDDY (non-insulin dependent diabetes mellitus in young) Hypertension Maternal Grandfather Bone cancer Maternal Grandmother Bone cancer Surgical History Surgical History H/O hemorrhoidectomy H/O shoulder surgery H/O: hysterectomy History of bladder suspension procedure Hx of cholecystectomy Hx of colonoscopy Hx of esophagogastroduodenoscopy S/P colonoscopy Social History Social History Household Members: None Alcohol intake: never Patient Tobacco Use Status: Never used Tobacco Use of substances other than those prescribed or required for medical reasons: No Are you DNR?: No Advance Directives: No Advance Directives Information Provided: Yes Recently lost weight without trying: No Meds Allergies Allergy/AdvReac Type Severity Reaction Status Date / Time cheese [CHEESE] Allergy Unknown + ALLERGY Verified 07/08/21 13:05 TESTING egg [EGGS] Allergy Unknown + ALLERGY Verified 07/08/21 13:05 TEST gluten [GLUTEN] Allergy Unknown + ALLERGY Verified 07/08/21 13:05 TEST milk [MILK] Allergy Unknown + ALLERGY Verified 07/08/21 13:05 TEST soy [SOY] Allergy Unknown + ALLERGY Verified 07/08/21 13:05 TEST strawberry [STRAWBERRY] Allergy Unknown + ALLERGY Verified 07/08/21 13:05 TEST banana [BANANA] AdvReac Unknown + ALLERGY Verified 07/08/21 13:05 TEST Home Medications Medication Instructions Recorded Confirmed Last Taken Type atorvastatin 20 mg tablet 20 mg PO BEDTIME 03/11/20 10/19/20 Unknown History allopurinol 100 mg tablet 100 mg PO DAILY 06/03/20 10/19/20 Unknown History aspirin 81 mg tablet,delayed 81 mg PO DAILY 06/03/20 10/19/20 Unknown History release celecoxib 100 mg capsule 100 mg PO BID 06/03/20 10/19/20 Unknown History docusate sodium 100 mg capsule 100 mg PO BID PRN 06/03/20 10/19/20 Unknown History fluticasone propionate 50 1 spray INTRANASAL BID 06/03/20 10/19/20 Unknown History mcg/actuation nasal spray,suspension gabapentin 300 mg capsule 300 mg PO BEDTIME 06/03/20 10/19/20 Unknown History hydrochlorothiazide 25 mg tablet 25 mg PO DAILY 06/03/20 10/19/20 Unknown History loratadine 10 mg tablet 10 mg PO DAILY 06/03/20 10/19/20 Unknown History simethicone 180 mg capsule 180 mg PO QID 06/03/20 10/19/20 Unknown History zolpidem 5 mg tablet 5 mg PO BEDTIME PRN 06/03/20 10/19/20 Unknown History alendronate 70 mg tablet 70 mg PO QWEEK 01/08/21 Unknown History enalapril maleate 10 mg tablet 10 mg PO DAILY 01/08/21 Unknown History Exam Exam Date and Time: October 08, 2021 0934 Height,Weight and Vital Signs: Height 5 ft 4 in Weight 76.657 kg Assessment and Plan Assessment Anesthesia Assessment: Chart Reviewed Documented by User: Salma Monterroso MD 10/11/21 09:22 [facility] Past Medical History Medical History Allergic rhinitis Arthritis Celiac disease Chronic idiopathic constipation Depression Elevated cholesterol GERD (gastroesophageal reflux disease) Hemorrhoids HTN (hypertension) Hx of hemorrhoids Insomnia Obesity (BMI 30-39.9) Overweight (BMI 25.0-29.9) Sleep apnea TIA (transient ischemic attack) Urinary incontinence Vitamin B1 deficiency Family History Family History Father Myocardial infarction NIDDY (non-insulin dependent diabetes mellitus in young) Mother Breast cancer Colon cancer NIDDY (non-insulin dependent diabetes mellitus in young) Hypertension Sister AIDS (acquired immune deficiency syndrome) NIDDY (non-insulin dependent diabetes mellitus in young) Hypertension Maternal Grandfather Bone cancer Maternal Grandmother Bone cancer Family history of problems with anesthesia: No Surgical History Surgical History H/O hemorrhoidectomy H/O shoulder surgery H/O: hysterectomy History of bladder suspension procedure Hx of cholecystectomy Hx of colonoscopy Hx of esophagogastroduodenoscopy S/P colonoscopy History of Problems with Anesthesia: No Social History Social History Household Members: None Alcohol intake: never Patient Tobacco Use Status: Never used Tobacco Use of substances other than those prescribed or required for medical reasons: No Are you DNR?: No Advance Directives: No Advance Directives Information Provided: Yes Recently lost weight without trying: No Meds Allergies Allergy/AdvReac Type Severity Reaction Status Date / Time cheese [CHEESE] Allergy Unknown + ALLERGY Verified 07/08/21 13:05 TESTING egg [EGGS] Allergy Unknown + ALLERGY Verified 07/08/21 13:05 TEST gluten [GLUTEN] Allergy Unknown + ALLERGY Verified 07/08/21 13:05 TEST milk [MILK] Allergy Unknown + ALLERGY Verified 07/08/21 13:05 TEST soy [SOY] Allergy Unknown + ALLERGY Verified 07/08/21 13:05 TEST strawberry [STRAWBERRY] Allergy Unknown + ALLERGY Verified 07/08/21 13:05 TEST banana [BANANA] AdvReac Unknown + ALLERGY Verified 07/08/21 13:05 TEST Home Medications Medication Instructions Recorded Confirmed Last Taken Type atorvastatin 20 mg tablet 20 mg PO BEDTIME 03/11/20 10/19/20 Unknown History allopurinol 100 mg tablet 100 mg PO DAILY 06/03/20 10/19/20 Unknown History aspirin 81 mg tablet,delayed 81 mg PO DAILY 06/03/20 10/19/20 Unknown History release celecoxib 100 mg capsule 100 mg PO BID 06/03/20 10/19/20 Unknown History docusate sodium 100 mg capsule 100 mg PO BID PRN 06/03/20 10/19/20 Unknown History fluticasone propionate 50 1 spray INTRANASAL BID 06/03/20 10/19/20 Unknown History mcg/actuation nasal spray,suspension gabapentin 300 mg capsule 300 mg PO BEDTIME 06/03/20 10/19/20 Unknown History hydrochlorothiazide 25 mg tablet 25 mg PO DAILY 06/03/20 10/19/20 Unknown History loratadine 10 mg tablet 10 mg PO DAILY 06/03/20 10/19/20 Unknown History simethicone 180 mg capsule 180 mg PO QID 06/03/20 10/19/20 Unknown History zolpidem 5 mg tablet 5 mg PO BEDTIME PRN 06/03/20 10/19/20 Unknown History alendronate 70 mg tablet 70 mg PO QWEEK 01/08/21 Unknown History enalapril maleate 10 mg tablet 10 mg PO DAILY 01/08/21 Unknown History Exam Airway Mallampati Class: II TM Dist: >3cm Neck ROM: Full Denture: Upper Heart: rrr Lungs: cta Assessment and Plan Assessment Anesthesia Assessment: Anesthesia Plan Discussed and Chart Reviewed Final Anesthetic Review Family History of Problems with Anesthesia: No History of Problems with Anesthesia: No NPO: Yes ASA Class: II Final Preanesthetic Review: No Changes in Pt Med Stat, Meds/Allgs Chart Reviewed and Consent Obtained/Reviewed Patient Risk: Intermediate Procedure Risk: Intermediate Anesthetic Plan Anesthetic Plan: MAC: Disposition: Standard PACU
[2021-10-11 08:42] VITALS: BP 126/59; PULSE 64; RESP 18; TEMP 36.2; O2SAT 98
--- NOTE | 2021-10-11 08:47 | MHC.SHP ---
Pre-Procedural Eval Section A Date of Service: 10/11/21 The patient is an INPATIENT: No The History & Physical has been completed within 30 days and I have reviewed it.: No Section B Chief Complaint: Celiac disease,reflux disease Relevant Family History (Specify if Yes): Yes Relevant Social History: None Present Medications: see Short Stay Collaborative assessment Medical History: Significant History (Allergic rhinitis Arthritis Celiac disease Chronic idiopathic constipation Depression Elevated cholesterol GERD (gastroesophageal reflux disease) Hemorrhoids HTN (hypertension) Hx of hemorrhoids Insomnia Obesity (BMI 30-39.9) Overweight (BMI 25.0-29.9) Sleep apnea TIA (transient ischemic attack) [place]) History of Previous Operations: Relevant previous surgery/procedure and date(s) (H/O hemorrhoidectomy H/O shoulder surgery H/O: hysterectomy History of bladder suspension procedure Hx of cholecystectomy Hx of colonoscopy Hx of esophagogastroduodenoscopy S/P colonoscopy) Allergies: Allergies Allergy/AdvReac Type Severity Reaction Status Date / Time cheese [CHEESE] Allergy Unknown + ALLERGY Verified 07/08/21 13:05 TESTING egg [EGGS] Allergy Unknown + ALLERGY Verified 07/08/21 13:05 TEST gluten [GLUTEN] Allergy Unknown + ALLERGY Verified 07/08/21 13:05 TEST milk [MILK] Allergy Unknown + ALLERGY Verified 07/08/21 13:05 TEST soy [SOY] Allergy Unknown + ALLERGY Verified 07/08/21 13:05 TEST strawberry [STRAWBERRY] Allergy Unknown + ALLERGY Verified 07/08/21 13:05 TEST banana [BANANA] AdvReac Unknown + ALLERGY Verified 07/08/21 13:05 TEST Review of Systems Sugical H&P ROS: Negative: Constitution, Cardiovascular and Respiratory and Yes, Specify: Gastrointestinal (GERD, constipation) Exam Surgical H&P Exam: Normal: Heart, Normal: Lungs, Normal: Extremities and Normal: Abdomen Plan Diagnosis/Plan: Unchanged I have reviewed the history and physical and performed a pertinent physical examination on my patient. No changes have occurred unless specified.
--- NOTE | 2021-10-11 08:50 | P.OP_ITS ---
Operative Note Operative Note Date of Service: 10/11/21 Narrative: Pre-op diagnosis: GERD, dyspepsia, abdominal pain, gluten inrolerance Post-op diagnosis:?other (GERD, Hiatal hernia, Gastritis, duodenal diverticulum) Procedure: FLEXIBLE TRANSORAL UPPER GASTROINTESTINAL ENDOSCOPY WITH BIOPSIES Consent:?Indications for the procedure and potential complications of bleeding, perforation, reaction to medications and missed diagnosis were discussed with the patient and informed consent was obtained. Instrument:?Olympus GIF H 190 mid size upper endoscope Monitoring: Vital signs and clinical assessment, continuous EKG monitoring, Pulse oximetry, Carbon Dioxide monitoring and blood pressure monitoring were done throughout the procedure. Procedure:?The patient was placed in the left lateral decubitis position and pre-procedure medications were administered and a bite block was placed. The endoscope was inserted into the mouth and advanced under direct vision to the third part of duodenum. A careful inspection was made as the upper endoscope was withdrawn including a retroflexed examination of the proximal stomach; Findings and interventions are described below. Findings: Larynx:? Normal Esophagus: GE junction at 34 cms, small hiatal hernia 34 to 36 cms. A small 1 cms healing erosion at the GE junction. Stomach: Moderate gastric erythema. Biopsies were obtained. Grade 2 flap valve on retroflexed examination of the cardia. Duodenum: Normal bulb.? A small diverticulum in the medial wall of descending duodenum. Biopsies were obtained from 3rd part of duodenum to check for celiac sprue. Intervention: Biopsies as noted above Impression and Post Procedure Diagnosis: Endoscopy Findings: ESOPHAGUS:? GE junction at 34 cms, small hiatal hernia 34 to 36 cms. A small 1 cms healing erosion at the GE junction. STOMACH: Gastritis DUODENUM: Normal - biopsied to check for celiac sprue Plan: Await pathology results Patient has an appointment on 10/26/21 in the [facility] with April Jackson FNP- [facility] . Above findings were reviewed with the patient and [GERD] and [Gastritis] handouts were given in the discharge area Surgeon: Raúl Blandon MD Anesthesia:?MAC (Dr Addison) Was an Supervisor Payroll used for this Procedure?:?Yes Supervisor Payroll:?Janiya Monsalve Estimated blood loss (mL):?0 Pathology:?other (A. small bowel bxs, R/O celiac (has antibodies)? B. gastric antrum, R/O H. pylori) Condition:?stable Disposition:?PACU
[2021-10-11] MEDS: Lactated Ringers 1,000 ML 100 ML IVCONT (09:19)
[2021-10-11 09:54] VITALS: BP 124/68; PULSE 76; RESP 16; TEMP 36.2; O2SAT 96
[2021-10-11 10:09] VITALS: BP 125/75; PULSE 70; RESP 16; TEMP 36.2; O2SAT 99
== END 2021-10-11 11:19 | disposition home or self-care (01) ==
PROVIDERS: PCP Family Medicine; Visit Provider Internal Medicine Gastroenterology
PROC: 0DJ08ZZ Inspection of Upper Intestinal Tract, Via Natural or Artificial Opening Endoscopic (ICD-10-PCS; CPT 43235; principal; 2021-10-11 09:20)
DX: K90.0 Celiac disease (principal); K21.9 Gastro-esophageal reflux disease without esophagitis; K90.41 Non-celiac gluten sensitivity; K29.50 Unspecified chronic gastritis without bleeding; K57.10 Diverticulosis of small intestine without perforation or abscess without bleeding; R10.9 Unspecified abdominal pain; K44.9 Diaphragmatic hernia without obstruction or gangrene; K59.04 Chronic idiopathic constipation; I10 Essential (primary) hypertension; E78.00 Pure hypercholesterolemia, unspecified; J30.9 Allergic rhinitis, unspecified; Z79.899 Other long term (current) drug therapy; Z79.51 Long term (current) use of inhaled steroids; Z90.49 Acquired absence of other specified parts of digestive tract
CPT/HCPCS: 43239; 88305; 88342

== ENCOUNTER → 2021-10-29 15:44 | Outpatient (REF) | payer OTHER, SELFPAY ==
--- NOTE | 2021-10-29 15:50 | ECG_ITS ---
Test Reason : htn, preproc Blood Pressure : / mmHG Vent. Rate : 064 BPM Atrial Rate : 064 BPM P-R Int : 160 ms QRS Dur : 072 ms QT Int : 404 ms P-R-T Axes : 048 041 043 degrees QTc Int : 416 ms Normal sinus rhythm Normal ECG When compared with ECG of 28-NOV-2020 09:02, No significant change was found Referred By: Desi Wheeler Electronically Signed By:JOSELYN WINCHESTER
[2021-10-29 16:59] LABS: Hematocrit 36.8 % (37.0-47.0); Hemoglobin 12.3 g/dl (12.0-16.0); Mean Corpuscular HGB Conc 33.4 g/dl (31.0-35.0); Mean Corpuscular Hemoglobin 28.3 pg (27.0-33.0); Mean Corpuscular Volume 84.8 fL (80.0-98.0); Mean Platelet Volume 10.2 fL (9.4-12.3); Platelet Count 256 X10*3/uL (160-400); Red Blood Count 4.34 X10*6/uL (4.20-5.50); Red Cell Distribution Width 12.5 % (11.0-16.0)
[2021-10-29 17:03] LABS: Estimated Average Glucose 126 mg/dL
[2021-10-29 17:11] LABS: INTERNATIONAL NORM RATIO 1.1 (0.9-1.1); Prothrombin Time 12.1 SEC (9.9-13.0)
[2021-10-29 17:37] LABS: Alanine Aminotransferase 17 U/L (0-31); Alkaline Phosphatase 95 U/L (39-117); Anion Gap 12 (12-20); Aspartate Amino Transferase 17 U/L (5-31); Bilirubin Total 0.5 mg/dL (0.0-1.0); Blood Urea Nitrogen 10 mg/dL (9-16); Calcium 9.1 mg/dL (8.4-10.2); Carbon Dioxide 24 mmol/L (22-29); Chloride 106 mmol/L (96-108); Estimated Glomerular Filt Rate > 60; Glucose Random 91 mg/dL (60-115); Potassium 3.9 mmol/L (3.3-5.1); Sodium 138 mmol/L (135-145); Total Protein 6.9 g/dL (6.5-8.0)
[2021-10-29 18:23] LABS: Creatinine Urine 63.01 mg/dL; Microalbumin Urine < 5.0 mg/L
[2021-11-01 04:03] LABS: ~HepC Num1 0.27 S/CO (0.00-0.79); ~Hepatitis C Antibody Nonreactive (Nonreactive)
[2021-11-01 04:13] LABS: HIV AB/AG Nonreactive (Nonreactive); HIV Num 1 0.07 S/CO (0.00-0.99)
== END ==
LOC: HO.CARD 15:44
PROVIDERS: Absent Provider Family Medicine; PCP Family Medicine; Visit Provider Nurse Practitioner Primary Care
DX: Z01.818 Encounter for other preprocedural examination (principal); Z11.4 Encounter for screening for human immunodeficiency virus [HIV]; I10 Essential (primary) hypertension
CPT/HCPCS: 36415; 80053; 82043; 83036; 85027; 85610; 86803; 87389; 93005

== ENCOUNTER → 2021-12-17 10:51 | Outpatient (BNVA) | payer OTHER, SELFPAY | PROVIDERS: PCP Family Medicine; Visit Provider Nurse Practitioner Family | DX: K21.9 Gastro-esophageal reflux disease without esophagitis (principal); K90.0 Celiac disease; K59.04 Chronic idiopathic constipation; Z79.899 Other long term (current) drug therapy | CPT/HCPCS: 99212 ==

== ENCOUNTER 2022-03-04 12:55 | Outpatient (REF) | payer OTHER, SELFPAY ==
--- NOTE | ~2022-03-04 | US_ITS ---
EXAMINATION: ULTRASOUND EXTREMITY NONVASCULAR CLINICAL INFORMATION: Mass/lump in right lower leg COMPARISON: None TECHNIQUE: Sonographic evaluation in the region of concern of the anterior right thigh. FINDINGS: In the area of concern there is a mixed echogenicity structure which has internal low echogenicity and increased echogenicity. There is no Doppler vascularity. The margins are somewhat ill-defined. This measures 11.7 x 8.3 x 6.4 cm. This is superficially positioned compared to the musculature. US/US extremity nonvascular IMPRESSION: Elongated complex structure in the anterior thigh at the region of concern. Suspect that this is complex fluid, as there is no Doppler vascularity. This could represent hematoma. Follow-up ultrasound can be performed to evaluate for improvement/resolution. In the absence of trauma, MRI could be considered to evaluate further.
== END 2022-03-04 12:56 | disposition home or self-care (01) ==
LOC: HO.US 12:55
PROVIDERS: PCP Family Medicine; Visit Provider Family Medicine
DX: R22.41 Localized swelling, mass and lump, right lower limb (principal)
CPT/HCPCS: 76882

== ENCOUNTER → 2022-03-30 09:49 | Outpatient (BNVA) | payer OTHER, SELFPAY | PROVIDERS: PCP Family Medicine; Visit Provider Surgery | DX: R22.41 Localized swelling, mass and lump, right lower limb (principal); K90.0 Celiac disease; G47.30 Sleep apnea, unspecified; K21.9 Gastro-esophageal reflux disease without esophagitis; Z98.890 Other specified postprocedural states; Z86.73 Personal history of transient ischemic attack (TIA), and cerebral infarction without residual deficits | CPT/HCPCS: 99202 ==

== ENCOUNTER → 2022-10-03 11:15 | Outpatient (BNVA) | payer OTHER, SELFPAY | PROVIDERS: PCP Family Medicine; Referring Provider Family Medicine; Visit Provider Nurse Practitioner Family | DX: Z76.0 Encounter for issue of repeat prescription (principal); K21.9 Gastro-esophageal reflux disease without esophagitis; K59.04 Chronic idiopathic constipation | CPT/HCPCS: 99212 ==

== ENCOUNTER → 2022-12-21 13:30 | Outpatient (BNV) | payer OTHER, SELFPAY | PROVIDERS: PCP Family Medicine; Visit Provider Radiology Diagnostic Radiology | DX: Z12.31 Encounter for screening mammogram for malignant neoplasm of breast (principal) | CPT/HCPCS: 77063; 77067 ==

== ENCOUNTER 2022-12-21 13:32 | Outpatient (REF) | payer OTHER, SELFPAY ==
--- NOTE | ~2022-12-21 | MM_ITS ---
EXAMINATION: MM SCREENING DIGITAL BREAST TOMOSYNTHESIS, BILATERAL CLINICAL INFORMATION: Screening. Asymptomatic. The lifetime risk of breast cancer based on the Tyrer-Cuzick Model is 7.1 %. COMPARISON: Mammography: This study is compared with prior exams dating back to 2018. TECHNIQUE: Digital breast tomosynthesis is performed in both the craniocaudal and mediolateral oblique views along with computer-aided detection (CAD). Synthesized 2D images are generated from the tomosynthesis. FINDINGS: The breasts are almost entirely fatty (ACR BI-RADS breast composition Category a). There are no significant masses, abnormal calcifications, or other abnormalities. MM/MM tomosynthesis screening BI IMPRESSION: No mammographic evidence of malignancy. ASSESSMENT: BI-RADS BI-RADS 1 - Negative RECOMMENDATION: Routine annual mammography screening. 1 year F/U This examination should not preclude the clinical evaluation of a suspicious palpable abnormality. This patient's information was entered into a reminder system with a target due date for their next mammogram.
--- NOTE | ~2022-12-21 | MM_ITS ---
EXAMINATION: BONE DENSITOMETRY CLINICAL INDICATION: Osteoporosis. COMPARISON: Previous BD dated 07/30/2020 and baseline BD dated 06/08/2010. TECHNIQUE: Using a [employer] DXA System (software version: 13.1) manufactured by [employer], dual-energy x-ray absorptiometry was performed of the lumbar spine and left hip. The images are of good technical quality. Summary results are attached. FINDINGS: LEFT FEMUR, NECK: Current: BMD 0.674 g/cm2, Z-score -1.2, T-score -2.6, osteoporosis. Prior: BMD 0.727 g/cm2. Baseline: BMD 0.803 g/cm2. LEFT FEMUR, TOTAL: Current: BMD 0.726 g/cm2, Z-score -1.1, T-score -2.2, osteopenia, 10.9% decrease from previous, 13.4% decrease from baseline (<5% change is not significant). Prior: BMD 0.815 g/cm2. Baseline: BMD 0.838 g/cm2. AP SPINE L1-L4: Current: BMD 0.890 g/cm2, Z-score -1.0, T-score -2.4, osteopenia, 0.0% no change from previous, 6.4% decrease from baseline (<5% change is not significant). Prior: BMD 0.890 g/cm2. Baseline: BMD 0.951 g/cm2. IDENTIFIED RISK FACTORS: Menopause, family history (parental hip fracture), history of fracture (adult), osteoporosis. HISTORY OF FRACTURE: Other. Spine. MEDICATIONS: Calcium supplements or multivitamin, vitamin D. MM/XR DEXA axial skeleton IMPRESSION: 1. DIAGNOSIS: Severe osteoporosis based on the lowest T-score value of -2.6 in the femoral neck and history of fracture applying World Health Organization criteria. 2. 10-YEAR FRACTURE RISK PREDICTION, FRAX: According to the guidelines, FRAX calculation should only be performed on patients in the osteopenia bone density category. Therefore, FRAX was not performed on this patient. 3. Treatment Recommendations: NOF guidelines recommend consideration for treatment in postmenopausal women and men age 50 and older presenting with the following: -A hip or vertebral (clinical or morphometric) fracture. -T-score less than or equal to -2.5 at the femoral neck or spine after appropriate evaluation to exclude secondary causes. -Low bone mass at the hip or spine and a 10-year fracture probability by FRAX of greater than or equal to 3% for hip fracture or greater than or equal to 20% for major osteoporotic fracture based on the [place] adapted WHO algorithm. 4. Other Recommendations: All treatment decisions require clinical judgment and consideration of individual patient factors, including patient preferences, comorbidities, previous drug use, risk factors not captured in the FRAX model (e.g. frailty, falls, vitamin D deficiency, increased bone turnover, interval significant decline in bone density) and possible under or overestimation of fracture risk by FRAX. Additional medical evaluation for secondary cause of low bone mineral density may be appropriate. FUTURE SCAN RECOMMENDATION: People with diagnosed cases of osteoporosis or at high risk for fracture should have regular bone mineral density tests. For patients eligible for Medicare, routine testing is allowed once every 2 years. The testing frequency can be increased to one year for patients who have rapidly progressing disease, those who are receiving or discontinuing medical therapy to restore bone mass, or have additional risk factors.
== END 2022-12-21 13:33 | disposition home or self-care (01) ==
LOC: HO.MAMMO 13:32
PROVIDERS: PCP Family Medicine; Visit Provider Family Medicine
DX: Z12.31 Encounter for screening mammogram for malignant neoplasm of breast (principal); Z13.820 Encounter for screening for osteoporosis; M81.0 Age-related osteoporosis without current pathological fracture; Z78.0 Asymptomatic menopausal state
CPT/HCPCS: 77063; 77067; 77080

== ENCOUNTER 2023-02-20 12:21 | Outpatient (REF) | payer OTHER, SELFPAY ==
--- NOTE | ~2023-02-20 | XR_ITS ---
EXAMINATION: XR SHOULDER, RIGHT CLINICAL INFORMATION: Right shoulder pain. Limited range of motion. COMPARISON: Right shoulder radiographs dated 09/26/2014. TECHNIQUE: AP external rotation, Grashey, scapular Y, and axillary views of the right shoulder. FINDINGS: No acute fracture or dislocation. [id number] acromioclavicular osteoarthritis. Glenohumeral joint space narrowing with prominent marginal osteophytes. No osseous erosion. No concerning lytic or blastic osseous lesion. Ossification adjacent to the greater tuberosity measuring up to 1.0 cm, consistent with junctional fiber calcific tendinitis. XR/XR shoulder RT min 2V IMPRESSION: 1. [id number] glenohumeral osteoarthritis. 2. Wavi-[id number] acromioclavicular osteoarthritis. 3. Distal supraspinatus calcific tendinitis.
== END 2023-02-20 12:22 | disposition home or self-care (01) ==
LOC: HO.HHCX 12:21
PROVIDERS: Visit Provider Family Medicine
DX: M25.511 Pain in right shoulder (principal)
CPT/HCPCS: 73030

== ENCOUNTER 2023-02-28 12:22 | Outpatient (AMB) | payer OTHER, SELFPAY ==
--- NOTE | 2023-02-28 12:35 | MHC.OFFVIS ---
Intake Vital Signs 02/28/23 12:49 Height 5 ft 4 in Weight 166 lb BMI 28.5 Intake Visit Reasons: RECORDER GRAVITY PROSPECTING- RT Shoulder pain Intake Note: Roberth 67 year old female who presents today as a new patient with complaints of right shoulder pain and weakness. The patient did undergo left shoulder surgery approximately 10 years ago. She denies any pain or weakness in her left shoulder. She describes her right shoulder pain as sharp in nature. She did injure her right shoulder several years ago while lifting a heavy object. Since that time her symptoms have gotten worse in spite of continued non operative treatments. She has done physical therapy which aggravated her pain. She has also tried Tylenol and anti-inflammatory medicines which gave her minimal relief. She has had injections in the past which gave her only temporary relief. The patient states that she has difficulty lifting her right hand above shoulder height. 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 Allergies cheese [CHEESE] Allergy (Unknown, Verified 02/28/23 12:49) + ALLERGY TESTING egg [EGGS] Allergy (Unknown, Verified 02/28/23 12:49) + ALLERGY TEST gluten [GLUTEN] Allergy (Unknown, Verified 02/28/23 12:49) + ALLERGY TEST milk [MILK] Allergy (Unknown, Verified 02/28/23 12:49) + ALLERGY TEST soy [SOY] Allergy (Unknown, Verified 02/28/23 12:49) + ALLERGY TEST strawberry [STRAWBERRY] Allergy (Unknown, Verified 02/28/23 12:49) + ALLERGY TEST banana [BANANA] Adverse Reaction (Unknown, Verified 02/28/23 12:49) + ALLERGY TEST Medication List - Last Reconciled 02/28/23 by Fletcher Wong MD acetaminophen (Tylenol Extra Strength) 1,000 mg (2 x 500 mg) PO QID PRN allopurinol 100 mg PO DAILY aspirin 81 mg PO DAILY atorvastatin 20 mg PO BEDTIME bisacodyl 10 mg (2 x 5 mg) PO BEDTIME celecoxib 100 mg PO BID cholecalciferol (vitamin D3) 50 mcg PO DAILY diazepam (Valium) 5 mg PO TID PRN enalapril maleate 10 mg PO DAILY famotidine 40 mg PO BEDTIME fluticasone propionate 50 mcg/actuation 1 spray intranasal BID gabapentin 300 mg PO BEDTIME hydrochlorothiazide 25 mg PO DAILY lidocaine HCl 4% (Aspercreme (lidocaine HCl)) 1 appl topical BID PRN loratadine 10 mg PO DAILY lubiprostone (Amitiza) 24 mcg PO BID omeprazole 40 mg PO DAILY peg 3350-electrolytes 236-22.74-6.74 -5.86 gram 240 mL PO Q10M simethicone 180 mg PO QID thiamine HCl (vitamin B1) 100 mg PO DAILY 30 days zolpidem 5 mg PO BEDTIME PRN PFSH Medical History (Updated 02/28/23 @ 12:58 by Fletcher Wong MD) Hx of hemorrhoids Vitamin B1 deficiency Hemorrhoids Overweight (BMI 25.0-29.9) Obesity (BMI 30-39.9) Insomnia Allergic rhinitis Urinary incontinence Chronic idiopathic constipation Arthritis Celiac disease GERD (gastroesophageal reflux disease) TIA (transient ischemic attack) Depression Sleep apnea Elevated cholesterol HTN (hypertension) Surgical History (Updated 02/28/23 @ 12:37 by SUZANNE Madera) S/P colonoscopy H/O hemorrhoidectomy Hx of cholecystectomy History of bladder suspension procedure H/O: hysterectomy H/O shoulder surgery Hx of colonoscopy Hx of esophagogastroduodenoscopy Family History Father Myocardial infarction NIDDY (non-insulin dependent diabetes mellitus in young) Mother Breast cancer Colon cancer NIDDY (non-insulin dependent diabetes mellitus in young) Hypertension Sister AIDS (acquired immune deficiency syndrome) NIDDY (non-insulin dependent diabetes mellitus in young) Hypertension Maternal Grandfather Bone cancer Maternal Grandmother Bone cancer Social History Household Members: None Alcohol intake: never Patient Tobacco Use Status: Never used Tobacco Physical Exam Vital Signs: BMI result Body Mass Index 28.5 Const Other: Well-nourished well-developed very friendly female awake alert and oriented x3 in no acute distress Extrem Other: Bilateral upper extremity examination shows good capillary refill, no skin lesions noted, normal sensation light touch Right shoulder examination shows decreased range of motion when compared to her left shoulder, 4/5 strength with supraspinatus testing, positive impingement signs, tenderness over her acromioclavicular joint, no instability Results Reviewed Results Reviewed: X-rays of the patient's right shoulder show severe acromioclavicular joint narrowing, a type 2 acromion, no acute bony abnormalities Assessment & Plan Assessment & Plan (1) Right shoulder pain: Code(s): M25.511 - Pain in right shoulder Plan Ms. Castillo presents with right shoulder pain and weakness due to impingement syndrome as well as possible full-thickness rotator cuff tearing. Thus, I will send her for an MRI of her right shoulder for further evaluation. I will see her back once the MRI is completed to discuss the findings and treatment options. She will continue with her range of motion exercises in the meantime to prevent stiffness. Feel free to call me at any time should questions regarding her orthopedic management arise. Thank you very much for asking me to see this very friendly patient during I spent 22 minutes in reviewing the patient's records and imaging studies, seeing the patient and documenting in the medical record. Orders: Orders MR shoulder RT wo con Today M25.511 - Pain in right shoulder Coding Level of Care Code New Pt Level 2 (04839) Diagnoses Right shoulder pain M25.511
[2023-02-28 12:49] VITALS: BMI 28.5
== END 2023-02-28 13:02 | disposition home or self-care (01) ==
PROVIDERS: PCP Family Medicine; Visit Provider Orthopaedic Surgery
DX: M25.511 Pain in right shoulder (principal)
CPT/HCPCS: 99202

== ENCOUNTER → 2023-02-28 12:22 | Outpatient (BNVA) | payer OTHER, SELFPAY | PROVIDERS: PCP Family Medicine; Visit Provider Orthopaedic Surgery | DX: M25.511 Pain in right shoulder (principal) | CPT/HCPCS: 99202 ==

== ENCOUNTER 2023-03-06 10:09 | Day surgery (SDC) | payer OTHER, SELFPAY ==
--- NOTE | 2023-03-03 10:13 | HO.ANESPROP2 ---
Documented by User: Renetta Kilpatrick NP 03/03/23 10:14 HPI - Anesthesia Eval Consult details Narrative: 67yo F for Colonoscopy PMFSH Active Problems Active Problems: All Active Problems (Updated 02/28/23 @ 12:37 by Beba Pop [facility]) Right shoulder pain (Acute) H/O cosmetic plastic surgery (Acute) Vitamin B1 deficiency (Acute) Gout (Acute) Overweight (BMI 25.0-29.9) (Acute) Obesity (BMI 30-39.9) (Acute) Arthritis (Acute) Celiac disease (Acute) Depression (Acute) Elevated cholesterol (Acute) GERD (gastroesophageal reflux disease) (Acute) HTN (hypertension) (Acute) Sleep apnea (Acute) TIA (transient ischemic attack) (Acute) Chronic idiopathic constipation (Acute) Urinary incontinence (Acute) Allergic rhinitis (Acute) Insomnia (Acute) S/P colonoscopy (Acute) Past Medical History Medical History Hx of hemorrhoids Vitamin B1 deficiency Hemorrhoids Overweight (BMI 25.0-29.9) Obesity (BMI 30-39.9) Insomnia Allergic rhinitis Urinary incontinence Chronic idiopathic constipation Arthritis Celiac disease GERD (gastroesophageal reflux disease) TIA (transient ischemic attack) Depression Sleep apnea Elevated cholesterol HTN (hypertension) Family History Family History Father Myocardial infarction NIDDY (non-insulin dependent diabetes mellitus in young) Mother Breast cancer Colon cancer NIDDY (non-insulin dependent diabetes mellitus in young) Hypertension Sister AIDS (acquired immune deficiency syndrome) NIDDY (non-insulin dependent diabetes mellitus in young) Hypertension Maternal Grandfather Bone cancer Maternal Grandmother Bone cancer Family history of problems with anesthesia: No Surgical History Surgical History S/P colonoscopy H/O hemorrhoidectomy Hx of cholecystectomy History of bladder suspension procedure H/O: hysterectomy H/O shoulder surgery Hx of colonoscopy Hx of esophagogastroduodenoscopy History of Problems with Anesthesia: No Social History Social History Household Members: None Alcohol intake: never Patient Tobacco Use Status: Former Tobacco user Quit Date: 3 months Use of substances other than those prescribed or required for medical reasons: No Are you DNR?: No Advance Directives: No Advance Directives Information Provided: Yes Meds Allergies Allergy/AdvReac Type Severity Reaction Status Date / Time cheese [CHEESE] Allergy Unknown + ALLERGY Verified 02/28/23 12:49 TESTING egg [EGGS] Allergy Unknown + ALLERGY Verified 02/28/23 12:49 TEST gluten [GLUTEN] Allergy Unknown + ALLERGY Verified 02/28/23 12:49 TEST milk [MILK] Allergy Unknown + ALLERGY Verified 02/28/23 12:49 TEST soy [SOY] Allergy Unknown + ALLERGY Verified 02/28/23 12:49 TEST strawberry [STRAWBERRY] Allergy Unknown + ALLERGY Verified 02/28/23 12:49 TEST banana [BANANA] AdvReac Unknown + ALLERGY Verified 02/28/23 12:49 TEST Home Medications Medication Instructions Recorded Confirmed Last Taken Type atorvastatin 20 mg tablet 20 mg PO BEDTIME 03/11/20 02/28/23 03/06/23 History allopurinol 100 mg tablet 100 mg PO DAILY 06/03/20 02/28/23 Unknown History aspirin 81 mg tablet,delayed 81 mg PO DAILY 06/03/20 02/28/23 Unknown History release celecoxib 100 mg capsule 100 mg PO BID 06/03/20 02/28/23 Unknown History fluticasone propionate 50 1 spray intranasal BID 06/03/20 02/28/23 Unknown History mcg/actuation nasal spray,suspension gabapentin 300 mg capsule 300 mg PO BEDTIME 06/03/20 02/28/23 Unknown History hydrochlorothiazide 25 mg tablet 25 mg PO DAILY 06/03/20 02/28/23 Unknown History loratadine 10 mg tablet 10 mg PO DAILY 06/03/20 02/28/23 Unknown History zolpidem 5 mg tablet 5 mg PO BEDTIME PRN 06/03/20 02/28/23 Unknown History enalapril maleate 10 mg tablet 10 mg PO DAILY 01/08/21 02/28/23 03/06/23 History Exam Exam Date and Time: March 03, 2023 101 Assessment and Plan Assessment Anesthesia Assessment: Chart Reviewed Final Anesthetic Review Family History of Problems with Anesthesia: No History of Problems with Anesthesia: No Documented by User: Beatris Gilbert MD 03/06/23 10:49 [facility] Past Medical History Medical History Hx of hemorrhoids Vitamin B1 deficiency Hemorrhoids Overweight (BMI 25.0-29.9) Obesity (BMI 30-39.9) Insomnia Allergic rhinitis Urinary incontinence Chronic idiopathic constipation Arthritis Celiac disease GERD (gastroesophageal reflux disease) TIA (transient ischemic attack) Depression Sleep apnea Elevated cholesterol HTN (hypertension) Family History Family History Father Myocardial infarction NIDDY (non-insulin dependent diabetes mellitus in young) Mother Breast cancer Colon cancer NIDDY (non-insulin dependent diabetes mellitus in young) Hypertension Sister AIDS (acquired immune deficiency syndrome) NIDDY (non-insulin dependent diabetes mellitus in young) Hypertension Maternal Grandfather Bone cancer Maternal Grandmother Bone cancer Surgical History Surgical History S/P colonoscopy H/O hemorrhoidectomy Hx of cholecystectomy History of bladder suspension procedure H/O: hysterectomy H/O shoulder surgery Hx of colonoscopy Hx of esophagogastroduodenoscopy Social History Social History Household Members: None Alcohol intake: never Patient Tobacco Use Status: Former Tobacco user Quit Date: 3 months Use of substances other than those prescribed or required for medical reasons: No Are you DNR?: No Advance Directives: No Advance Directives Information Provided: Yes Meds Allergies Allergy/AdvReac Type Severity Reaction Status Date / Time cheese [CHEESE] Allergy Unknown + ALLERGY Verified 02/28/23 12:49 TESTING egg [EGGS] Allergy Unknown + ALLERGY Verified 02/28/23 12:49 TEST gluten [GLUTEN] Allergy Unknown + ALLERGY Verified 02/28/23 12:49 TEST milk [MILK] Allergy Unknown + ALLERGY Verified 02/28/23 12:49 TEST soy [SOY] Allergy Unknown + ALLERGY Verified 02/28/23 12:49 TEST strawberry [STRAWBERRY] Allergy Unknown + ALLERGY Verified 02/28/23 12:49 TEST banana [BANANA] AdvReac Unknown + ALLERGY Verified 02/28/23 12:49 TEST Home Medications Medication Instructions Recorded Confirmed Last Taken Type atorvastatin 20 mg tablet 20 mg PO BEDTIME 03/11/20 02/28/23 03/06/23 History allopurinol 100 mg tablet 100 mg PO DAILY 06/03/20 02/28/23 Unknown History aspirin 81 mg tablet,delayed 81 mg PO DAILY 06/03/20 02/28/23 Unknown History release celecoxib 100 mg capsule 100 mg PO BID 06/03/20 02/28/23 Unknown History fluticasone propionate 50 1 spray intranasal BID 06/03/20 02/28/23 Unknown History mcg/actuation nasal spray,suspension gabapentin 300 mg capsule 300 mg PO BEDTIME 06/03/20 02/28/23 Unknown History hydrochlorothiazide 25 mg tablet 25 mg PO DAILY 06/03/20 02/28/23 Unknown History loratadine 10 mg tablet 10 mg PO DAILY 06/03/20 02/28/23 Unknown History zolpidem 5 mg tablet 5 mg PO BEDTIME PRN 06/03/20 02/28/23 Unknown History enalapril maleate 10 mg tablet 10 mg PO DAILY 01/08/21 02/28/23 03/06/23 History Exam Airway Mallampati Class: II TM Dist: >3cm Neck ROM: Full Denture: Upper Loose/Missing/Broken Teeth: Yes and Upper Heart: RRR Lungs: CTA Assessment and Plan Assessment Anesthesia Assessment: Anesthesia Plan Discussed Final Anesthetic Review NPO: Yes ASA Class: III Final Preanesthetic Review: Meds/Allgs Chart Reviewed, Consent Obtained/Reviewed and Anes Risks/Benef Reviewed Patient Risk: Intermediate Procedure Risk: Low Anesthetic Plan Anesthetic Plan: MAC: Disposition: Standard PACU
[2023-03-06 10:23] VITALS: BP 147/82; PULSE 51; RESP 18; TEMP 36.8; O2SAT 100; BMI 28.1
--- NOTE | 2023-03-06 10:27 | MHC.SHP ---
Pre-Procedural Eval Section A Date of Service: 03/06/23 The patient is an INPATIENT: No The History & Physical has been completed within 30 days and I have reviewed it.: No Section B Chief Complaint: colon polyp surveillance, chronic constipation Details of Present Illness: surveillance for colon polyps Relevant Family History (Specify if Yes): Yes Relevant Social History: None Present Medications: see Short Stay Collaborative assessment Medical History: Significant History (Celiac disease Chronic idiopathic constipation Depression Elevated cholesterol GERD (gastroesophageal reflux disease) Hemorrhoids HTN (hypertension) Hx of hemorrhoids Insomnia Obesity (BMI 30-39.9) Overweight (BMI 25.0-29.9) Sleep apnea TIA (transient ischemic attack) Urinary incontinence Vitamin B1) History of Previous Operations: Relevant previous surgery/procedure and date(s) (H/O hemorrhoidectomy H/O shoulder surgery H/O: hysterectomy History of bladder suspension procedure Hx of cholecystectomy Hx of colonoscopy Hx of esophagogastroduodenoscopy S/P colonoscopy) Allergies: Allergies Allergy/AdvReac Type Severity Reaction Status Date / Time cheese [CHEESE] Allergy Unknown + ALLERGY Verified 02/28/23 12:49 TESTING egg [EGGS] Allergy Unknown + ALLERGY Verified 02/28/23 12:49 TEST gluten [GLUTEN] Allergy Unknown + ALLERGY Verified 02/28/23 12:49 TEST milk [MILK] Allergy Unknown + ALLERGY Verified 02/28/23 12:49 TEST soy [SOY] Allergy Unknown + ALLERGY Verified 02/28/23 12:49 TEST strawberry [STRAWBERRY] Allergy Unknown + ALLERGY Verified 02/28/23 12:49 TEST banana [BANANA] AdvReac Unknown + ALLERGY Verified 02/28/23 12:49 TEST Review of Systems Sugical H&P ROS: Negative: Constitution, Cardiovascular, Respiratory and Gastrointestinal Exam Surgical H&P Exam: Normal: Heart, Normal: Lungs, Normal: Extremities and Normal: Abdomen Plan Diagnosis/Plan: Unchanged I have reviewed the history and physical and performed a pertinent physical examination on my patient. No changes have occurred unless specified. Time Spent With Patient Time: Total time managing care of this patient today ____ minutes.
[2023-03-06 10:35] VITALS: BMI 28.7
--- NOTE | 2023-03-06 10:43 | W.PM.OPN ---
Operative Note Operative Note Date of Service: 03/06/23 Narrative: COLONOSCOPY TILL CECUM WITH BIOPSIES AND SNARE POLYPECTOMY Pre-op diagnosis: Surveillance for colon polyp Post-op diagnosis:? colon polyps, diverticulosis, hemorrhoids Endoscopist:? Raúl Blandon MD Anesthesia:?MAC Consent: Indications for the procedure and potential complications of bleeding, perforation, reaction to medications and missed diagnosis were discussed with the patient and informed consent was obtained. Instrument: Olympus PCF H 190 L variable stiffness pediatric colonoscope Monitoring: Vital signs and clinical assessment, intermittent blood pressure monitoring, continuous EKG monitoring, Pulse oximetry and Carbon Dioxide monitoring were done throughout the procedure. Please see anesthesia flowsheet. Colon withdrawl time was 18 minutes. Procedure: The patient was placed in the left lateral decubitis position and pre-procedure medications were administered. After a digital rectal examination of the ano-rectum, the video colonoscope was inserted into the rectum and advanced through the colon to the cecum. The colonoscope was slowly withdrawn in a retrograde panoramic fashion and the colon mucosa was carefully examined including a retroflexed view of the rectum. Findings and interventions are described below. Procedure Difficulty: Without difficulty Findings: Terminal Ileum: Not evaluated Cecum: A 12 -15 mm sessile polyp adjacent to the ICV. Polyp was removed with a hot snare and retrieved with a Miranda Net. A 6-7 mm sessile polyp - removed with a hot snare Ascending Colon: Normal Transverse Colon: A 3-4 mm sessile polyp - removed with a cold bx. Descending Colon: moderate diverticulosis Sigmoid Colon: Moderate diverticulosis Rectum: Normal Ano-rectum: Moderate internal hemorrhoids Colon preparation: Good after some irrigation Impression and Post Procedure Diagnosis: Colonoscopy Findings: Two small and one medium sized polyps removed Moderate diverticulosis seen in the left colon Moderate hemorrhoids on retroflexed exam. Plan: Await pathology results Patient has an appointment on 03/27/23 in the [facility] with April Jackson FNP-BC. Repeat Colonoscopy interval based on path results - in 3-5 years if polyps are adenomatous and 10 years if polyps are hyperplastic. Above findings were reviewed with the patient and colon polyps and diverticulosis handouts were given in the discharge area
[2023-03-06] MEDS: Lactated Ringers 1,000 ML 100 ML IVCONT (10:58)
[2023-03-06 11:45] VITALS: BP 146/54; PULSE 72; RESP 18; TEMP 36.2; O2SAT 100
[2023-03-06 12:00] VITALS: BP 140/69; PULSE 61; RESP 18; O2SAT 100
[2023-03-06 12:18] VITALS: BP 142/70; PULSE 67; RESP 17; TEMP 36.1; O2SAT 100
== END 2023-03-06 14:41 | disposition home or self-care (01) ==
PROVIDERS: PCP Family Medicine; Visit Provider Internal Medicine Gastroenterology
PROC: 0DJD8ZZ Inspection of Lower Intestinal Tract, Via Natural or Artificial Opening Endoscopic (ICD-10-PCS; CPT 45378; principal; 2023-03-06 11:50)
DX: Z12.11 Encounter for screening for malignant neoplasm of colon (principal); Z86.010 Personal history of colon polyps; D12.3 Benign neoplasm of transverse colon; D12.0 Benign neoplasm of cecum; K59.04 Chronic idiopathic constipation; K57.30 Diverticulosis of large intestine without perforation or abscess without bleeding; K64.8 Other hemorrhoids; K21.9 Gastro-esophageal reflux disease without esophagitis; K90.0 Celiac disease; I10 Essential (primary) hypertension; E78.00 Pure hypercholesterolemia, unspecified; Z79.82 Long term (current) use of aspirin; Z79.899 Other long term (current) drug therapy
CPT/HCPCS: 45385; 45380; 88305

== ENCOUNTER → 2023-03-06 10:09 | Outpatient (BNV) | payer OTHER, SELFPAY | PROVIDERS: PCP Family Medicine; Visit Provider Internal Medicine Gastroenterology | DX: Z12.11 Encounter for screening for malignant neoplasm of colon (principal); K57.30 Diverticulosis of large intestine without perforation or abscess without bleeding; K64.8 Other hemorrhoids; D12.0 Benign neoplasm of cecum; D12.3 Benign neoplasm of transverse colon | CPT/HCPCS: 45380; 45385 ==

== ENCOUNTER 2023-03-27 10:52 | Outpatient (AMB) | payer OTHER, SELFPAY ==
--- NOTE | 2023-03-27 11:02 | A.OFFVIS_ITS ---
Intake Vital Signs 03/27/23 11:03 Height 5 ft 4 in Weight 171 lb 8.314 oz BMI 29.4 BP 154/81 H Blood Pressure Location Lt brachial Position Sitting Pulse 75 Intake Visit Reasons: s/p colonoscopy Intake Note: Patient returns to post operative follow up s/p colonoscopy. Elizabet underwent colonoscopy with Dr. Blandon on 03/06/23. CC:Patient reports she has been able to have BMs with Dulcolax and Amitiza. Patient states she has celiac disease and would like to have an endoscopy done. Denies having other GI symptoms or concerns today. Surgical First Assistant Required: No Accompanied by: Self / Same As Patient Allergies cheese [CHEESE] Allergy (Unknown, Verified 03/27/23 11:11) + ALLERGY TESTING egg [EGGS] Allergy (Unknown, Verified 03/27/23 11:11) + ALLERGY TEST gluten [GLUTEN] Allergy (Unknown, Verified 03/27/23 11:11) + ALLERGY TEST milk [MILK] Allergy (Unknown, Verified 03/27/23 11:11) + ALLERGY TEST soy [SOY] Allergy (Unknown, Verified 03/27/23 11:11) + ALLERGY TEST strawberry [STRAWBERRY] Allergy (Unknown, Verified 03/27/23 11:11) + ALLERGY TEST banana [BANANA] Adverse Reaction (Unknown, Verified 03/27/23 11:11) + ALLERGY TEST HPI s/p colonoscopy HPI Details LAST VISIT: GERD (gastroesophageal reflux disease) Continue on omeprazole and famotidine. Discussed with patient avoiding dietary triggers and late night snacking. Staying upright for minimal 3 hours after meals discussed with her. Chronic idiopathic constipation Referral for Dulcolax tablets sent to pharmacy. Patient states that she was doing well and when she was taking them. Patient was encouraged to increase fluid intake and activity to promote better bowel motility. I will see patient in 6 months, sooner on as needed basis. Patient is agreeable to this plan and verbalizes understanding of instructions. She was given the opportunity to ask questions and all questions answered. ? COLONOSCOPY: Findings: Terminal Ileum: Not evaluated Cecum: A 12 -15 mm sessile polyp adjacent to the ICV. Polyp was removed with a hot snare and retrieved with a Miranda Net. A 6-7 mm sessile polyp - removed with a hot snare Ascending Colon: Normal Transverse Colon: A 3-4 mm sessile polyp - removed with a cold bx. Descending Colon: moderate diverticulosis Sigmoid Colon: Moderate diverticulosis Rectum: Normal Ano-rectum: Moderate internal hemorrhoids Colon preparation: Good after some irrigation Impression and Post Procedure Diagnosis: Colonoscopy Findings: Two small and one medium sized polyps removed Moderate diverticulosis seen in the left colon Moderate hemorrhoids on retroflexed exam. Plan: Repeat Colonoscopy interval based on path results - in 3-5 years if polyps are adenomatous and 10 years if polyps are hyperplastic. PATHOLOGY: Diagnosis A. Colon, transverse, polypectomy: Early features of sessile serrated polyp/lesion without cytologic dysplasia. B. Colon, cecum, polypectomy x2: Tubular adenoma (2); negative for high-grade dysplasia TODAY'S VISIT Patient is here today for follow-up and to discuss colonoscopy results. Patient reports no ill effects from prep, anesthesia procedure itself. Patient reports that she is moving her bowels better now. Reports that she is taking Dulcolax which is helping her move her bowels better. Patient has not been taking Amitiza. Patient reports that she is taking omeprazole in the morning and famotidine at bedtime. Her symptoms of acid reflux or suppressed. Patient denies any dyspepsia, dysphagia or odynophagia. Denies any melena, hematochezia, unintentional weight loss or ribbon like stools. Patient has a history of celiac disease will need to go for upper endoscopy soon. Colonoscopy results discussed with patient. Tubular adenoma found in the cecum, negative for dysplasia or carcinoma. Overall patient reports that she has been feeling better. Tries to avoid dietary triggers. Trying to avoid gluten. Denies any abdominal pain, discomfort, cramping. [facility] Medical History (Updated 04/08/23 @ 15:58 by April Jackson, [facility]-) Diverticulosis Tubular adenoma Hx of hemorrhoids Vitamin B1 deficiency Hemorrhoids Overweight (BMI 25.0-29.9) Obesity (BMI 30-39.9) Insomnia Allergic rhinitis Urinary incontinence Chronic idiopathic constipation Arthritis Celiac disease GERD (gastroesophageal reflux disease) TIA (transient ischemic attack) Depression Sleep apnea Elevated cholesterol HTN (hypertension) Surgical History (Updated 03/27/23 @ 11:16 by DAVE Robbins) S/P colonoscopy H/O hemorrhoidectomy Hx of cholecystectomy History of bladder suspension procedure H/O: hysterectomy H/O shoulder surgery Hx of colonoscopy Hx of esophagogastroduodenoscopy Family History Father Myocardial infarction NIDDY (non-insulin dependent diabetes mellitus in young) Mother Breast cancer Colon cancer NIDDY (non-insulin dependent diabetes mellitus in young) Hypertension Sister AIDS (acquired immune deficiency syndrome) NIDDY (non-insulin dependent diabetes mellitus in young) Hypertension Maternal Grandfather Bone cancer Maternal Grandmother Bone cancer Social History Household Members: None Alcohol intake: never Patient Tobacco Use Status: Former Tobacco user Quit Date: 3 months Review of Systems Const Denies weight gain and Denies weight loss ENT Reports no additional complaints, Denies dysphagia and Denies odynophagia Card Reports no additional complaints Resp Reports no additional complaints GI Denies abdominal pain, Denies belching, Denies melena, Denies bloating, Denies change in bowel habits, Denies dysphagia, Denies excessive flatus, Denies dyspepsia, Denies heartburn, Denies diarrhea, Denies loose stools, Denies nausea, Denies odynophagia and Denies vomiting Reports no additional complaints Musc Reports no additional complaints Neuro Reports no additional complaints Psych Reports no additional complaints Endo Reports no additional complaints Physical Exam Vital Signs: Last Vital Signs Pulse 75 03/27/23 11:03 BP 154/81 H 03/27/23 11:03 BMI result Body Mass Index 29.4 Const General: healthy appearing, no acute distress and well developed Nutritional Appearance: obese Orientation/consciousness: patient oriented x3 HEENT Head: Yes normal to inspection, Yes normocephalic and Yes atraumatic Face and sinus: Yes normal facial exam Mouth: Normal oral and palatal mucosa present Throat: Yes posterior oropharynx normal, Yes tonsils normal and Yes uvula midline Eyes General: appearance normal, both eyes and all related structures Neck Neck: Yes normal visual inspection, Yes full ROM and Yes trachea midline Thyroid: Thyroid normal Resp Effort & Inspection: normal respiratory effort, able to speak in complete sentences, no tracheal deviation and symmetric chest movement Auscultation: clear to auscultation bilaterally Cardio Rate: regular rate Heart sounds: S1 normal heart sound present and S2 normal heart sound present GI Inspection: Yes normal to inspection, No distended and Yes obesity Palpation (GI): Soft to palpation, not firm, nontender and No hepatosplenomegaly present Auscultation: normal bowel sounds General: Yes no CVA tenderness Back/Spine/Pelvis Back: no CVA tenderness Skin General skin exam: elasticity normal, turgor normal and dry skin Neuro General: patient oriented x3 Psych Appearance: grossly normal Mental Status: mental status grossly normal Affect: normal affect Assessment & Plan Assessment & Plan (1) Celiac disease: Code(s): K90.0 - Celiac disease (2) GERD (gastroesophageal reflux disease): Code(s): K21.9 - Gastro-esophageal reflux disease without esophagitis Qualifiers: Esophagitis presence: esophagitis presence not specified Qualified Code(s): K21.9 - Gastro-esophageal reflux disease without esophagitis (3) Chronic idiopathic constipation: Code(s): K59.04 - Chronic idiopathic constipation (4) Tubular adenoma: Code(s): D36.9 - Benign neoplasm, unspecified site (5) Diverticulosis: Code(s): K57.90 - Diverticulosis of intestine, part unspecified, without perforation or abscess without bleeding Plan Tubular adenoma found in cecum, no dysplasia or carcinoma. Moderate diverticulosis found to left side of her colon. Patient will repeat colonoscopy in 3 years. Patient can start taking probiotics. Continue high-fiber diet. Continue pantoprazole in the morning and famotidine at bedtime. Patient was encouraged to avoid dietary triggers and late night snacking. Staying upright for minimum 3 hours after meals discussed with patient. Patient had upper endoscopy in October of 2021, biopsy confirmed celiac disease. Patient was encouraged to continue avoiding gluten. Patient denies any epigastric pain postprandially. Continue current therapy and gluten free diet adherence. We can check transglutaminase for diet adherence next visit. High-fiber diet discussed with patient. Due to her gluten allergy patient needs to avoid wheat. She can take [id number] fiber supplements. Probiotic recommended and ordered.. I will see patient in 5 months, sooner on as needed basis. Patient is agreeable to this plan and verbalizes understanding of instructions. She was given the opportunity to ask questions and all questions answered. Thank you for allowing me to participate in her care Medications: New lactobacillus combination no.9 (Adult 50 Plus Probiotic) administer with a meal 4,000 mmu cells PO DAILY 90 caps 3RF Refilled famotidine 40 mg PO BEDTIME 90 tabs 3RF K21.9 - Gastro-esophageal reflux disease without esophagitis Discontinued lubiprostone Discontinued Reason: Doctor's Order 24 mcg PO BID 60 caps 3RF Coding Level of Care Code Est Pt Level 4 (69446) Diagnoses Celiac disease K90.0 Gastroesophageal reflux disease, unspecified whether esophagitis present K21.9 Esophagitis presence: esophagitis presence not specified Chronic idiopathic constipation K59.04 Tubular adenoma D36.9 Diverticulosis K57.90 Time Spent (min) 35 Comment 20 spent with patient and additional 15 minutes spent reviewing her records
[2023-03-27 11:03] VITALS: BP 154/81; PULSE 75; BMI 29.4
== END 2023-03-27 11:37 | disposition home or self-care (01) ==
PROVIDERS: Visit Provider Nurse Practitioner Family
DX: K90.0 Celiac disease (principal); K21.9 Gastro-esophageal reflux disease without esophagitis; D36.9 Benign neoplasm, unspecified site; K57.90 Diverticulosis of intestine, part unspecified, without perforation or abscess without bleeding
CPT/HCPCS: 99214

== ENCOUNTER → 2023-03-27 10:52 | Outpatient (BNVA) | payer OTHER, SELFPAY | PROVIDERS: Visit Provider Nurse Practitioner Family | DX: K90.0 Celiac disease (principal); K21.9 Gastro-esophageal reflux disease without esophagitis; K59.04 Chronic idiopathic constipation; K57.90 Diverticulosis of intestine, part unspecified, without perforation or abscess without bleeding; D36.9 Benign neoplasm, unspecified site | CPT/HCPCS: 99212 ==

== ENCOUNTER 2023-04-06 13:41 | Outpatient (REF) | payer OTHER, SELFPAY ==
[2023-04-06 16:20] LABS: Anion Gap 15 (12-20); Blood Urea Nitrogen 10 mg/dL (9-16); Carbon Dioxide 24 mmol/L (22-29); Chloride 104 mmol/L (96-108); Estimated Glomerular Filt Rate > 60; Glucose Random 99 mg/dL (60-115); Potassium 4.6 mmol/L (3.3-5.1); Sodium 138 mmol/L (135-145)
== END 2023-04-06 13:42 | disposition home or self-care (01) ==
LOC: HO.HHCL 13:41
PROVIDERS: Visit Provider Family Medicine
DX: I10 Essential (primary) hypertension (principal)
CPT/HCPCS: 36415; 80048

== ENCOUNTER 2023-05-03 11:00 | Outpatient (RCR) | payer OTHER, SELFPAY | END 2023-05-29 13:21 | disposition home or self-care (01) | LOC: HO.PT 11:00 | PROVIDERS: PCP Family Medicine; Visit Provider Family Medicine | DX: M25.511 Pain in right shoulder (principal) | CPT/HCPCS: 97110; 97140; 97162 ==

== ENCOUNTER 2023-05-08 18:53 | Outpatient (REF) | payer OTHER, SELFPAY ==
--- NOTE | ~2023-05-08 | MR_ITS ---
EXAMINATION: MR SHOULDER WITHOUT CONTRAST, RIGHT CLINICAL INFORMATION: Pain in the right shoulder. COMPARISON: X-ray of the right shoulder February 2023. TECHNIQUE: MRI of the shoulder without contrast was performed on a high-field scanner. FINDINGS: ROTATOR CUFF: Supraspinatus and infraspinatus: There is a focal bursal sided partial tear involving approximately 50% of the supraspinatus tendon thickness. I do not see a full-thickness defect. The tear measures 7 mm transverse and 5 mm AP. Additional heterogeneity of the tendon compatible with tendinosis. Additional focal area of low signal embedded within the junction of the infraspinatus and supraspinatus tendon compatible with a calcific deposit measuring approximately 5 mm with some mild surrounding tendon heterogeneity. Calcification is identified on prior x-rays dating back to September 2014. Mild heterogeneity of the surrounding tendon. Findings compatible with concomitant calcific tendinosis or minimal calcific tendinitis. Minimal heterogeneity of the remaining infraspinatus compatible with tendinosis. No atrophy or fatty infiltration of either muscle. Teres minor: Normal. Subscapularis: Minimal heterogeneity compatible with tendinosis or minimal intrasubstance partial tearing at the insertion. No measurable defect. Muscle: Normal. BICEPS: Mild heterogeneity of the intra-articular portion of the biceps which also appears slightly enlarged. This is compatible with tendinosis and perhaps areas of intrasubstance partial tearing. No transverse defect or tendon retraction. CORACOACROMIAL ARCH: The undersurface of the acromion is curved with no subacromial spur. There is [id number] hypertrophic osteoarthritis of the acromioclavicular joint. LABRUM/CAPSULE: There is a blunted and attenuated appearance of the posterior half of the superior labrum. Additional heterogeneity and increased signal in the upper two-thirds portion of the posterior labrum. Anterior and inferior labrum intact. Findings indicative of nondisplaced tearing of the superior and posterior labrum. GLENOHUMERAL JOINT/MARROW: There is scattered nonuniform up to high-grade cartilage loss in the glenoid most prominent in the posterior half. There is associated subchondral cystic change and marginal osteophytes. There is also scattered cartilage heterogeneity and nonuniform up high-grade cartilage loss in the humeral head cartilage. Prominent marginal osteophytes are noted inferiorly. Overall moderate glenohumeral arthrosis. There is a mild joint effusion and synovitis associated with this. MR/MR shoulder RT wo con IMPRESSION: 1. Partial tear of the supraspinatus tendon. 2. Calcific tendinosis versus minimal calcific tendinitis at the junction of the supraspinatus and infraspinatus tendons. 3. Tendinosis and/or minimal intrasubstance partial tearing of the subscapularis. 4. Tendinosis and perhaps small areas of intrasubstance partial tearing of the intra-articular portion of the biceps. 5. Vuph-cs-cucqodkw hypertrophic osteoarthritis of the acromioclavicular joint. 6. Moderate osteoarthritis of the glenohumeral joint. 2. Degenerative tearing of the superior and posterior labrum.
== END 2023-05-08 18:54 | disposition home or self-care (01) ==
LOC: HO.MRI 18:53
PROVIDERS: PCP Family Medicine; Visit Provider Orthopaedic Surgery
DX: M25.511 Pain in right shoulder (principal)
CPT/HCPCS: 73221

== ENCOUNTER 2023-08-28 10:33 | Outpatient (AMB) | payer OTHER, SELFPAY ==
[2023-08-28 11:12] VITALS: BP 147/70; PULSE 76
--- NOTE | 2023-08-28 11:12 | MHC.OFFVIS ---
Intake Vital Signs 08/28/23 11:12 Height 5 ft 4 in Weight 175 lb 0.752 oz BMI 30.0 BP 147/70 H Blood Pressure Location Rt brachial Position Sitting Pulse 76 Intake Visit Reasons: 5 month follow up GERD, celiac, constipation Intake Note: Elizabet returns to in office 5 months follow up of GERD, celiac, and constipation. CC: Patient reports having regular BMs with medications. Denies having any GI concern today. Principal Statistical Scientist Required: Yes Accompanied by: Self / Same As Patient Allergies cheese [CHEESE] Allergy (Unknown, Verified 03/27/23 11:11) + ALLERGY TESTING egg [EGGS] Allergy (Unknown, Verified 03/27/23 11:11) + ALLERGY TEST gluten [GLUTEN] Allergy (Unknown, Verified 03/27/23 11:11) + ALLERGY TEST milk [MILK] Allergy (Unknown, Verified 03/27/23 11:11) + ALLERGY TEST No Known Drug Allergies Allergy (Unknown, Verified 08/28/23 11:15) none soy [SOY] Allergy (Unknown, Verified 03/27/23 11:11) + ALLERGY TEST strawberry [STRAWBERRY] Allergy (Unknown, Verified 03/27/23 11:11) + ALLERGY TEST banana [BANANA] Adverse Reaction (Unknown, Verified 03/27/23 11:11) + ALLERGY TEST HPI 5 month follow up GERD, celiac, constipation HPI Details LAST VISIT Plan Tubular adenoma found in cecum, no dysplasia or carcinoma. Moderate diverticulosis found to left side of her colon. Patient will repeat colonoscopy in 3 years. Patient can start taking probiotics. Continue high-fiber diet. Continue pantoprazole in the morning and famotidine at bedtime. Patient was encouraged to avoid dietary triggers and late night snacking. Staying upright for minimum 3 hours after meals discussed with patient. Patient had upper endoscopy in October of 2021, biopsy confirmed celiac disease. Patient was encouraged to continue avoiding gluten. Patient denies any epigastric pain postprandially. Continue current therapy and gluten free diet adherence. We can check transglutaminase for diet adherence next visit. High-fiber diet discussed with patient. Due to her gluten allergy patient needs to avoid wheat. She can take [id number] fiber supplements. Probiotic recommended and ordered.. I will see patient in 5 months, sooner on as needed basis. Patient is agreeable to this plan and verbalizes understanding of instructions. She was given the opportunity to ask questions and all questions answered. ? Thank you for allowing me to participate in her care Medications New lactobacillus combination no.9 (Adult 50 Plus Probiotic) administer with a meal 4,000 mmu cells PO DAILY 90 caps 3RF Refilled famotidine 40 mg PO BEDTIME 90 tabs 3RF K21.9 Discontinued lubiprostone Discontinued Reason: Doctor's Order 24 mcg PO BID 60 caps 3RF TODAY'S VISIT: Patient is here today for follow-up. Patient reports that she has been doing well. Symptoms of acid reflux are suppressed with PPI and H2 mackenzie. Patient reports that she takes it every day. Patient states that if she will have symptoms if she misses medications for couple days. Patient is trying to stay away from gluten as much as possible. Last transglutaminase was negative. Patient reports that she is also using her bowels without any issues. Currently patient is taking Dulcolax every evening and is able to move her bowels. Denies melena, hematochezia, unintentional weight loss or ribbon like stools. Patient denies dyspepsia, dysphagia or odynophagia. Patient reports that she has been doing well [facility] Medical History Diverticulosis Tubular adenoma Hx of hemorrhoids Vitamin B1 deficiency Hemorrhoids Overweight (BMI 25.0-29.9) Obesity (BMI 30-39.9) Insomnia Allergic rhinitis Urinary incontinence Chronic idiopathic constipation Arthritis Celiac disease GERD (gastroesophageal reflux disease) TIA (transient ischemic attack) Depression Sleep apnea Elevated cholesterol HTN (hypertension) Surgical History S/P colonoscopy H/O hemorrhoidectomy Hx of cholecystectomy History of bladder suspension procedure H/O: hysterectomy H/O shoulder surgery Hx of colonoscopy Hx of esophagogastroduodenoscopy Family History Father Myocardial infarction NIDDY (non-insulin dependent diabetes mellitus in young) Mother Breast cancer Colon cancer NIDDY (non-insulin dependent diabetes mellitus in young) Hypertension Sister AIDS (acquired immune deficiency syndrome) NIDDY (non-insulin dependent diabetes mellitus in young) Hypertension Maternal Grandfather Bone cancer Maternal Grandmother Bone cancer Social History Household Members: None Alcohol intake: never Patient Tobacco Use Status: Former Tobacco user Quit Date: 3 months Review of Systems Const Denies weight gain and Denies weight loss ENT Reports no additional complaints, Denies dysphagia and Denies odynophagia Card Reports no additional complaints Resp Reports no additional complaints GI Denies abdominal pain, Denies belching, Denies melena, Denies bloating, Denies change in bowel habits, Denies dysphagia, Denies excessive flatus, Denies dyspepsia, Denies heartburn, Denies diarrhea, Denies loose stools, Denies nausea, Denies odynophagia and Denies vomiting Musc Reports no additional complaints Neuro Reports no additional complaints Psych Reports no additional complaints Endo Reports no additional complaints Physical Exam Vital Signs: Last Vital Signs Pulse 76 08/28/23 11:12 BP 147/70 H 08/28/23 11:12 BMI result Body Mass Index 30.0 Const General: healthy appearing, no acute distress and well developed Nutritional Appearance: obese Orientation/consciousness: patient oriented x3 Resp Effort & Inspection: normal respiratory effort, able to speak in complete sentences, no tracheal deviation and symmetric chest movement Auscultation: clear to auscultation bilaterally Cardio Rate: regular rate GI Inspection: Yes normal to inspection, No distended and Yes obesity Palpation (GI): Soft to palpation, not firm, nontender and No hepatosplenomegaly present Auscultation: normal bowel sounds General: Yes no CVA tenderness Back/Spine/Pelvis Back: no CVA tenderness Skin General skin exam: elasticity normal, turgor normal and dry skin Neuro General: patient oriented x3 Psych Appearance: grossly normal Mental Status: mental status grossly normal Assessment & Plan Assessment & Plan (1) Celiac disease: Code(s): K90.0 - Celiac disease (2) GERD (gastroesophageal reflux disease): Code(s): K21.9 - Gastro-esophageal reflux disease without esophagitis Qualifiers: Esophagitis presence: esophagitis presence not specified Qualified Code(s): K21.9 - Gastro-esophageal reflux disease without esophagitis (3) Chronic idiopathic constipation: Code(s): K59.04 - Chronic idiopathic constipation (4) Tubular adenoma: Code(s): D36.9 - Benign neoplasm, unspecified site (5) Diverticulosis: Code(s): K57.90 - Diverticulosis of intestine, part unspecified, without perforation or abscess without bleeding Plan Continue current management with omeprazole and famotidine. Patient was also encouraged to avoid dietary triggers and late night snacking. Staying upright for minimum 3 hours after meals discussed with patient. Continue Dulcolax daily. Avoid dietary triggers. Gluten free diet. Patient was encouraged to increase fluid intake and activity to promote better bowel motility. Patient will return to the office in 6 months, sooner on as needed basis. Patient is agreeable to this plan and verbalizes understanding of instructions. She was given the opportunity to ask questions and all questions answered. Thank you for allowing me to participate in her care Orders: Orders Transglutaminase IgA 6 Months R10.9 - Unspecified abdominal pain Transglutaminase Ab IgG 6 Months R10.9 - Unspecified abdominal pain Coding Level of Care Code Est Pt Level 3 (76910) Diagnoses Celiac disease K90.0 Gastroesophageal reflux disease, unspecified whether esophagitis present K21.9 Esophagitis presence: esophagitis presence not specified Chronic idiopathic constipation K59.04 Tubular adenoma D36.9 Diverticulosis K57.90 Time Spent (min) 30 Comment 20 minutes spent with patient and additional 10 minutes spent reviewing her records
== END 2023-08-28 11:30 | disposition home or self-care (01) ==
PROVIDERS: PCP Family Medicine; Visit Provider Nurse Practitioner Family
DX: K90.0 Celiac disease (principal); K21.9 Gastro-esophageal reflux disease without esophagitis; K57.90 Diverticulosis of intestine, part unspecified, without perforation or abscess without bleeding; Z86.010 Personal history of colon polyps
CPT/HCPCS: 99213

== ENCOUNTER → 2023-08-28 10:33 | Outpatient (BNVA) | payer OTHER, SELFPAY | PROVIDERS: PCP Family Medicine; Visit Provider Nurse Practitioner Family | DX: K90.0 Celiac disease (principal); K21.9 Gastro-esophageal reflux disease without esophagitis; K59.04 Chronic idiopathic constipation; D36.9 Benign neoplasm, unspecified site; K57.90 Diverticulosis of intestine, part unspecified, without perforation or abscess without bleeding | CPT/HCPCS: 99212 ==

== ENCOUNTER 2023-10-12 10:14 | Outpatient (REF) | payer OTHER, SELFPAY ==
[2023-10-13 20:19] LABS: Transglutaminase Ab IgG <1.0 U/mL
== END 2023-10-12 10:15 | disposition home or self-care (01) ==
LOC: HO.HHCL 10:14
PROVIDERS: Visit Provider Nurse Practitioner Family
DX: R10.9 Unspecified abdominal pain (principal)
CPT/HCPCS: 36415; 86364

== ENCOUNTER 2023-11-27 09:09 | Outpatient (REF) | payer OTHER, SELFPAY ==
[2023-11-27 11:53] LABS: Alanine Aminotransferase 20 U/L (0-31); Albumin Level 4.2 g/dL (3.5-5.0); Alkaline Phosphatase 114 U/L (39-117); Aspartate Amino Transferase 22 U/L (5-31); Bilirubin Direct 0.2 mg/dL (0.0-0.5); Bilirubin Total 0.5 mg/dL (0.0-1.0); Cholesterol 171 mg/dL (<200); HDL Cholesterol 48 mg/dL (>40); LDL Cholesterol Calculated 100 mg/dL (<100); Total Protein 7.7 g/dL (6.5-8.0); Triglycerides 119 mg/dL (<150)
== END 2023-11-27 09:10 | disposition home or self-care (01) ==
LOC: HO.HHCL 09:09
PROVIDERS: Visit Provider Family Medicine
DX: E78.5 Hyperlipidemia, unspecified (principal)
CPT/HCPCS: 36415; 80061; 80076

== ENCOUNTER 2024-02-15 13:10 | Outpatient (REF) | payer OTHER, SELFPAY ==
--- NOTE | ~2024-02-15 | XR_ITS ---
EXAMINATION: XR FOOT, LEFT CLINICAL INFORMATION: Left foot pain at first MTP joint x2 days. History of gout. COMPARISON: None available. TECHNIQUE: AP, lateral, and oblique views of the left foot. FINDINGS: Bones are osteopenic. No fracture or malalignment. No erosions. No stress reactions. Joint spaces appear relatively well preserved. Small enthesopathic spur is present at the Achilles tendon insertion on the calcaneus. No appreciable chondrocalcinosis. XR/XR foot LT min 3V IMPRESSION: 1. No acute osseous findings. No appreciable chondrocalcinosis. No erosions to suggest gout. 2. Osteopenia. Electronically signed by: Poncho Deal MD 03/04/2024 11:10 PM EDT
[2024-02-15 16:35] LABS: MANUAL DIFF FLAG NO
[2024-02-15 16:47] LABS: Basophils Percent Auto 0.5 % (0-2); Eosinophils Absolute Auto 0.3 X10*3/uL (0.0-0.4); Eosinophils Percent Auto 3.9 % (0-4); Hemoglobin 12.5 g/dl (12.0-16.0); Imm Gran Abs Auto 0.02 X10*3/uL (0.00-0.03); Imm Gran Pct Auto 0.3 % (0.0-0.4); Lymphocytes Absolute Auto 2.9 X10*3/uL (1.2-4.9); Lymphocytes Percent Auto 37.5 % (20-40); Mean Corpuscular HGB Conc 32.9 g/dl (31.0-35.0); Mean Corpuscular Volume 85.2 fL (80.0-98.0); Mean Platelet Volume 10.7 fL (9.4-12.3); Monocytes Absolute Auto 0.4 X10*3/uL (0.1-1.2); Monocytes Percent Auto 5.6 % (2-11); Neutrophils Absolute Auto 4.1 x10*3/uL (2.0-8.3); Neutrophils Percent Auto 52.2 % (45-73); Platelet Count 313 X10*3/uL (160-400); Red Blood Count 4.46 X10*6/uL (4.20-5.50); Red Cell Distribution Width 13.4 % (11.0-16.0); White Blood Count 7.8 X10*3/uL (4.8-10.8)
[2024-02-15 17:10] LABS: Estimated Average Glucose 120 mg/dL; Hemoglobin A1c % 5.8 % (<6.0)
[2024-02-15 17:15] LABS: Alanine Aminotransferase 18 U/L (0-31); Albumin Level 4.2 g/dL (3.5-5.0); Alkaline Phosphatase 125 U/L (39-117); Anion Gap 14 (12-20); Aspartate Amino Transferase 23 U/L (5-31); Bilirubin Direct 0.2 mg/dL (0.0-0.5); Bilirubin Total 0.6 mg/dL (0.0-1.0); Blood Urea Nitrogen 11 mg/dL (9-16); Calcium 9.6 mg/dL (8.4-10.2); Carbon Dioxide 23 mmol/L (22-29); Chloride 107 mmol/L (96-108); Cholesterol 160 mg/dL (<200); Estimated Glomerular Filt Rate 57; Glucose Random 115 mg/dL (60-115); HDL Cholesterol 47 mg/dL (>40); LDL Cholesterol Calculated 75 mg/dL (<100); Magnesium 2.1 mg/dL (1.6-2.6); Sodium 140 mmol/L (135-145); Total Protein 7.7 g/dL (6.5-8.0); Triglycerides 191 mg/dL (<150)
[2024-02-15 17:26] LABS: Uric Acid 6.9 mg/dL (2.4-5.7)
[2024-02-15 17:30] LABS: TSH reflex Free T4 1.03 uIU/mL (0.32-4.0); Vitamin D 25-OH Total 46.1 ng/mL (>30)
== END 2024-02-15 13:11 | disposition home or self-care (01) ==
LOC: HO.HHCL 13:10
PROVIDERS: Referring Provider Family Medicine; Visit Provider Family Medicine
DX: I10 Essential (primary) hypertension (principal); E55.9 Vitamin D deficiency, unspecified; R73.03 Prediabetes; E78.5 Hyperlipidemia, unspecified; K90.0 Celiac disease; M79.672 Pain in left foot
CPT/HCPCS: 36415; 73630; 80048; 80061; 80076; 82306; 83036; 83735; 84443; 84550; 85025

== ENCOUNTER 2024-02-21 11:35 | Outpatient (REF) | payer OTHER, SELFPAY ==
--- NOTE | ~2024-02-21 | MM_ITS ---
EXAMINATION: MM SCREENING DIGITAL BREAST TOMOSYNTHESIS, BILATERAL CLINICAL INFORMATION: Screening. Asymptomatic. COMPARISON: Mammography: Comparison is made with available priors TECHNIQUE: Digital breast mammography with tomosynthesis is performed in both the craniocaudal and mediolateral oblique views along with computer-aided detection (CAD). FINDINGS: There are scattered areas of fibroglandular density (ACR BI-RADS breast composition Category b). There are no significant masses, abnormal calcifications, or other abnormalities. MM/MM tomosynthesis screening BI IMPRESSION: No mammographic evidence of malignancy. ASSESSMENT: BI-RADS BI-RADS 1 - Negative RECOMMENDATION: Routine annual mammography screening. 1 year F/U This examination should not preclude the clinical evaluation of a suspicious palpable abnormality. This patient's information was entered into a reminder system with a target due date for their next mammogram. Electronically signed by: Carmen Kyle DO 03/06/2024 10:21 AM EDT
== END 2024-02-21 11:36 | disposition home or self-care (01) ==
LOC: HO.MAMMO 11:35
PROVIDERS: PCP Family Medicine; Visit Provider Family Medicine
DX: Z12.31 Encounter for screening mammogram for malignant neoplasm of breast (principal)
CPT/HCPCS: 77063; 77067

== ENCOUNTER → 2024-02-21 11:45 | Outpatient (BNV) | payer OTHER, SELFPAY | PROVIDERS: PCP Family Medicine; Visit Provider Internal Medicine | DX: Z12.31 Encounter for screening mammogram for malignant neoplasm of breast (principal) | CPT/HCPCS: 77063; 77067 ==

== ENCOUNTER 2024-03-11 10:44 | Outpatient (AMB) | payer OTHER, SELFPAY ==
[2024-03-11 10:53] VITALS: BP 126/58; PULSE 62; O2SAT 98; BMI 30.3
--- NOTE | 2024-03-11 10:53 | MHC.OFFVIS ---
Vital Signs 03/11/24 10:53 Height 5 ft 4 in Weight 176 lb 5.917 oz BMI 30.3 BP 126/58 L Blood Pressure Location Rt brachial Position Sitting Pulse 62 Pulse Source Pulse Oximeter Pulse Oximetry (%) 98 Oxygen Delivery Method Room Air Intake Visit Reasons: 6 mnth follow up Intake Note: Elizabet presents in office today for a scheduled 6 mos FUV. CC; Pt did have lab orders placed at last visit which were fulfilled. Pt is here to discuss the results of their recent bloodwork. Pt denies any new Rx at last visit. Pt reports that they have been well since their last visit. Pt denies any new sx or concerns at this time. Senior Sourcing Manager Required: Yes Senior Sourcing Manager Services: Senior Sourcing Manager Offered & Declined Allergies cheese [CHEESE] Allergy (Unknown, Verified 03/11/24 10:54) + ALLERGY TESTING egg [EGGS] Allergy (Unknown, Verified 03/11/24 10:54) + ALLERGY TEST gluten [GLUTEN] Allergy (Unknown, Verified 03/11/24 10:54) + ALLERGY TEST milk [MILK] Allergy (Unknown, Verified 03/11/24 10:54) + ALLERGY TEST No Known Drug Allergies Allergy (Unknown, Verified 03/11/24 10:54) none soy [SOY] Allergy (Unknown, Verified 03/11/24 10:54) + ALLERGY TEST strawberry [STRAWBERRY] Allergy (Unknown, Verified 03/11/24 10:54) + ALLERGY TEST banana [BANANA] Adverse Reaction (Unknown, Verified 03/11/24 10:54) + ALLERGY TEST HPI HPI 6 mnth follow up: Details: LAST VISIT Celiac disease GERD (gastroesophageal reflux disease) Chronic idiopathic constipation Tubular adenoma Diverticulosis Plan Continue current management with omeprazole and famotidine. Patient was also encouraged to avoid dietary triggers and late night snacking. Staying upright for minimum 3 hours after meals discussed with patient. Continue Dulcolax daily. Avoid dietary triggers. Gluten free diet. Patient was encouraged to increase fluid intake and activity to promote better bowel motility. Patient will return to the office in 6 months, sooner on as needed basis. Patient is agreeable to this plan and verbalizes understanding of instructions. She was given the opportunity to ask questions and all questions answered. ? Thank you for allowing me to participate in her care Orders Orders Transglutaminase IgA 6 Months R10.9 Transglutaminase Ab IgG 6 Months R10.9 TODAY'S VISIT Patient is here today for follow-up and to discuss lab results. Patient reports that she has been feeling well. Reports that she has been avoiding gluten and her symptoms of epigastric discomfort subsided. Patient denies any dyspepsia, dysphagia or odynophagia. Reports that omeprazole and famotidine will not working well for her. Patient is taking Dulcolax tablets and is moving her bowels patient denies melena, hematochezia, unintentional weight loss or ribbon like stools. Patient denies any GI PFSH Medical History Diverticulosis Tubular adenoma Hx of hemorrhoids Vitamin B1 deficiency Hemorrhoids Overweight (BMI 25.0-29.9) Obesity (BMI 30-39.9) Insomnia Allergic rhinitis Urinary incontinence Chronic idiopathic constipation Arthritis Celiac disease GERD (gastroesophageal reflux disease) TIA (transient ischemic attack) Depression Sleep apnea Elevated cholesterol HTN (hypertension) Surgical History S/P colonoscopy H/O hemorrhoidectomy Hx of cholecystectomy History of bladder suspension procedure H/O: hysterectomy H/O shoulder surgery Hx of colonoscopy Hx of esophagogastroduodenoscopy Family History Father Myocardial infarction NIDDY (non-insulin dependent diabetes mellitus in young) Mother Breast cancer Colon cancer NIDDY (non-insulin dependent diabetes mellitus in young) Hypertension Sister AIDS (acquired immune deficiency syndrome) NIDDY (non-insulin dependent diabetes mellitus in young) Hypertension Maternal Grandfather Bone cancer Maternal Grandmother Bone cancer Social History Household Members: None Alcohol intake: never Patient Tobacco Use Status: Former Tobacco user Review of Systems Const Denies weight gain and Denies weight loss ENT Reports no additional complaints, Denies dysphagia and Denies odynophagia Card Reports no additional complaints Resp Reports no additional complaints GI Denies abdominal pain, Denies belching, Denies melena, Denies bloating, Denies change in bowel habits, Denies constipation, Denies dysphagia, Denies excessive flatus, Denies dyspepsia, Denies heartburn, Denies diarrhea, Denies loose stools, Denies nausea, Denies odynophagia and Denies vomiting Reports no additional complaints Musc Reports no additional complaints Neuro Reports no additional complaints Psych Reports no additional complaints Endo Reports no additional complaints Physical Exam Vital Signs: BMI result Body Mass Index 30.3 Const General: healthy appearing and no acute distress Nutritional Appearance: obese Orientation/consciousness: patient oriented x3 Resp Effort & Inspection: normal respiratory effort, able to speak in complete sentences, no tracheal deviation and symmetric chest movement Auscultation: clear to auscultation bilaterally Cardio Rate: regular rate GI Inspection: Yes normal to inspection, No distended and Yes obesity Palpation (GI): Soft to palpation, not firm, nontender and No hepatosplenomegaly present Auscultation: normal bowel sounds General: Yes no CVA tenderness Back/Spine/Pelvis Back: no CVA tenderness Skin General skin exam: elasticity normal, turgor normal and dry skin Neuro General: patient oriented x3 Psych Appearance: grossly normal Mental Status: mental status grossly normal Assessment & Plan Assessment & Plan (1) Diverticulosis: Code(s): K57.90 - Diverticulosis of intestine, part unspecified, without perforation or abscess without bleeding Category: Medical (2) Celiac disease: Code(s): K90.0 - Celiac disease Category: Medical (3) GERD (gastroesophageal reflux disease): Code(s): K21.9 - Gastro-esophageal reflux disease without esophagitis Category: Medical Qualifiers: Esophagitis presence: esophagitis presence not specified Qualified Code(s): K21.9 - Gastro-esophageal reflux disease without esophagitis (4) Chronic idiopathic constipation: Code(s): K59.04 - Chronic idiopathic constipation Category: Medical Plan Continue gluten free diet. Continue omeprazole and famotidine. Avoid dietary triggers and late night snacking. Staying upright for minimum 3 hours after meals discussed with patient. Continue Dulcolax tablets daily. Increase fluid intake and activity to promote better bowel motility. Follow-up in the office in 6 months, sooner on as needed basis. She is agreeable to this plan and verbalizes understanding of instructions. She was given the opportunity to ask questions and all questions answered. Thank you for allowing me to participate in her care Medications: Refilled bisacodyl 10 mg (2 x 5 mg) PO BEDTIME 180 tabs 3RF K59.04 - Chronic idiopathic constipation cholecalciferol (vitamin D3) 50 mcg PO DAILY 90 caps 2RF omeprazole 40 mg PO DAILY 90 caps 2RF K21.9 - Gastro-esophageal reflux disease without esophagitis famotidine 40 mg PO BEDTIME 90 tabs 3RF K21.9 - Gastro-esophageal reflux disease without esophagitis Coding Level of Care Code Est Pt Level 3 (15582) Diagnoses Diverticulosis K57.90 Celiac disease K90.0 Gastroesophageal reflux disease, unspecified whether esophagitis present K21.9 Esophagitis presence: esophagitis presence not specified Chronic idiopathic constipation K59.04 Time Spent (min) 25 Comment 15 minutes spent with patient and additional 10 minutes spent reviewing her records
== END 2024-03-11 11:18 | disposition home or self-care (01) ==
PROVIDERS: PCP Family Medicine; Visit Provider Nurse Practitioner Family
DX: K57.90 Diverticulosis of intestine, part unspecified, without perforation or abscess without bleeding (principal); K90.0 Celiac disease; K21.9 Gastro-esophageal reflux disease without esophagitis
CPT/HCPCS: 99213

== ENCOUNTER → 2024-03-11 10:44 | Outpatient (BNVA) | payer OTHER, SELFPAY | PROVIDERS: PCP Family Medicine; Visit Provider Nurse Practitioner Family | DX: K90.0 Celiac disease (principal); K21.9 Gastro-esophageal reflux disease without esophagitis; K57.90 Diverticulosis of intestine, part unspecified, without perforation or abscess without bleeding | CPT/HCPCS: 99212 ==

== ENCOUNTER 2024-05-01 20:48 | Emergency (ER) | payer OTHER, SELFPAY ==
--- NOTE | ~2024-05-01 | XR_ITS ---
EXAMINATION: XR CHEST 1 VIEW CLINICAL INFORMATION: SOB. COMPARISON: XR Chest 11/28/2020 TECHNIQUE: Frontal view of the chest was obtained. FINDINGS: Lower cervical anterior plate and screw fixation instrumentation noted. Normal appearance of the cardiomediastinal structures. No effusions or pneumothoraces. No focal pulmonary consolidation. Normal pattern of pulmonary vasculature. XR/XR chest 1V IMPRESSION: No acute cardiopulmonary abnormalities. Electronically signed by: Lior Nye MD 05/01/2024 11:56 PM [facility]
[2024-05-01 20:51] VITALS: BP 168/101; PULSE 105; O2SAT 100
--- NOTE | 2024-05-01 20:54 | ECG_ITS ---
Test Reason : SOB Blood Pressure : / mmHG Vent. Rate : 097 BPM Atrial Rate : 097 BPM P-R Int : 148 ms QRS Dur : 072 ms QT Int : 370 ms P-R-T Axes : 030 011 021 degrees QTc Int : 469 ms Normal sinus rhythm Nonspecific ST abnormality Abnormal ECG When compared with ECG of 29-OCT-2021 16:01, Vent. rate has increased BY 33 BPM QT has lengthened Referred By: Generic ED Physician Electronically Signed By:SRI ALVA MD
[2024-05-01 21:07] VITALS: BP 181/74; PULSE 95; RESP 21; TEMP 36.8; O2SAT 96; BMI 31.8
[2024-05-01 21:12] VITALS: BP 147/67; PULSE 95; RESP 17; RESP 21; TEMP 36.8; O2SAT 96
[2024-05-01 21:18] LABS: MANUAL DIFF FLAG NO
[2024-05-01 21:20] LABS: Basophils Percent Auto 0.4 % (0-2); Eosinophils Absolute Auto 0.4 X10*3/uL (0.0-0.4); Hemoglobin 12.3 g/dl (12.0-16.0); Imm Gran Abs Auto 0.03 X10*3/uL (0.00-0.03); Imm Gran Pct Auto 0.3 % (0.0-0.4); Lymphocytes Absolute Auto 4.2 X10*3/uL (1.2-4.9); Lymphocytes Percent Auto 45.8 % (20-40); Mean Corpuscular HGB Conc 34.2 g/dl (31.0-35.0); Mean Corpuscular Hemoglobin 27.6 pg (27.0-33.0); Mean Corpuscular Volume 80.9 fL (80.0-98.0); Mean Platelet Volume 9.9 fL (9.4-12.3); Monocytes Absolute Auto 0.6 X10*3/uL (0.1-1.2); Monocytes Percent Auto 6.8 % (2-11); Neutrophils Absolute Auto 3.9 x10*3/uL (2.0-8.3); Neutrophils Percent Auto 42.7 % (45-73); Platelet Count 251 X10*3/uL (160-400); Red Blood Count 4.45 X10*6/uL (4.20-5.50); Red Cell Distribution Width 13.6 % (11.0-16.0); White Blood Count 9.2 X10*3/uL (4.8-10.8)
[2024-05-01 21:33] LABS: Anion Gap 17 (12-20); Blood Urea Nitrogen 12 mg/dL (9-16); Calcium 9.2 mg/dL (8.4-10.2); Carbon Dioxide 21 mmol/L (22-29); Chloride 107 mmol/L (96-108); Creatinine Clr Calc Pharmacy 74.2; Estimated Glomerular Filt Rate > 60; Glucose Random 119 mg/dL (60-115); Potassium 3.5 mmol/L (3.3-5.1); Sodium 141 mmol/L (135-145)
[2024-05-01 21:42] LABS: Troponin-I High Sensitivity < 2.7 ng/L (<3.5-17.0)
[2024-05-01 22:17] LABS: Influenza A PCR NEGATIVE (Negative); Influenza B PCR NEGATIVE (Negative); Resp Syncy Virus RNA Qual PCR NEGATIVE (Negative); SARS COV2 PCR INHOUSE NEGATIVE (Negative)
--- NOTE | 2024-05-01 23:37 | ED_ITS ---
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 Reports that they were initially experiencing cold-like symptoms but the cough is progressively worsening. Tried albuterol treatment at home with minimal relief; reports that nebulizing treatment given in the ambulance improved symptoms. Patient has a history of asthma that is generally exacerbated by seasonal changes and illness. Denies abdominal pain, nausea, vomiting, diarrhea, constipation. Denies fever, chest pain, palpitations. MD elicited complaint: shortness of breath and cough Pertinent past history: asthma Onset (ago): day(s) (Cough and cold-like symptoms began approximately 4 days ago. Shortness of breath and wheezing began today) Context: recent illness Timing: constant (Shortness of breath is constant) and intermittent (Cough is intermittent) Severity: moderate Exacerbating factors: exertion and allergies Known history of: asthma Associated symptoms: cough and wheezing Treatment prior to arrival: bronchodilator Related Data Home Medications ?Medication ?Instructions ?Recorded ?Confirmed atorvastatin 20 mg tablet 20 mg PO BEDTIME 03/11/20 02/28/23 allopurinol 100 mg tablet 100 mg PO DAILY 06/03/20 02/28/23 celecoxib 100 mg capsule 100 mg PO BID 06/03/20 02/28/23 fluticasone propionate 50 1 spray intranasal BID 06/03/20 02/28/23 mcg/actuation nasal spray,suspension gabapentin 300 mg capsule 300 mg PO BEDTIME 06/03/20 02/28/23 hydrochlorothiazide 25 mg tablet 25 mg PO DAILY 06/03/20 02/28/23 loratadine 10 mg tablet 10 mg PO DAILY 06/03/20 02/28/23 amlodipine 5 mg tablet 5 mg PO DAILY 03/27/23 enalapril maleate 20 mg tablet 20 mg PO DAILY 03/27/23 albuterol sulfate 2.5 mg/3 mL mg inhalation 08/28/23 (0.083 %) solution for nebulization albuterol sulfate 90 mcg/actuation inhalation 08/28/23 aerosol inhaler (Ventolin HFA) Previous Rx's ?Medication ?Instructions ?Recorded acetaminophen 500 mg tablet 1,000 mg (2 x 500 mg) PO QID PRN 11/28/20 (Tylenol Extra Strength) fever or pain #14 tabs diazepam 5 mg tablet (Valium) 5 mg PO TID PRN muscle spasm #14 11/28/20 tabs simethicone 180 mg capsule 180 mg PO QID #120 caps 02/11/22 lactobacillus combination no.9 4 4,000 mmu cells PO DAILY #90 caps 03/27/23 billion cell capsule (Adult 50 Plus Probiotic) thiamine HCl (vitamin B1) 100 mg 100 mg PO DAILY 30 days #30 tabs 05/31/23 tablet bisacodyl 5 mg tablet,delayed 10 mg (2 x 5 mg) PO BEDTIME #180 03/11/24 release tabs cholecalciferol (vitamin D3) 50 50 mcg PO DAILY #90 caps 03/11/24 mcg (2,000 unit) capsule famotidine 40 mg tablet 40 mg PO BEDTIME #90 tabs 03/11/24 omeprazole 40 mg capsule,delayed 40 mg PO DAILY #90 caps 03/11/24 release prednisone 20 mg tablet 40 mg (2 x 20 mg) PO DAILY #8 tabs 05/02/24 Allergies Allergy/AdvReac Type Severity Reaction Status Date / Time cheese [CHEESE] Allergy Unknown + ALLERGY Verified 05/01/24 21:09 TESTING egg [EGGS] Allergy Unknown + ALLERGY Verified 05/01/24 21:09 TEST gluten [GLUTEN] Allergy Unknown + ALLERGY Verified 05/01/24 21:09 TEST milk [MILK] Allergy Unknown + ALLERGY Verified 05/01/24 21:09 TEST No Known Drug Allergies Allergy Unknown none Verified 05/01/24 21:09 soy [SOY] Allergy Unknown + ALLERGY Verified 05/01/24 21:09 TEST strawberry [STRAWBERRY] Allergy Unknown + ALLERGY Verified 05/01/24 21:09 TEST banana [BANANA] AdvReac Unknown + ALLERGY Verified 05/01/24 21:09 TEST Review of Systems 2 Review of Systems: Neuro: Alert and oriented. Denies headache. Denies numbness and tingling of extremities Constitutional: Reports chills. Denies fever, weakness HEENT: Denies headache. Denies visual disturbances, erythema, discharge of the eyes. Denies auditory changes, tinnitus. Reports nasal congestion, nasal discharge. Reports throat irritation. Denies difficulty swallowing Cardiac: Denies chest pain, palpitations Pulmonary: Reports shortness of breath, dry cough, wheezing GI: Denies abdominal pain, nausea, vomiting, diarrhea, constipation Integumentary: Denies changes to skin including erythema, rashes, pruritus MSK: Reports full range of motion in all extremities Yes all other systems are reviewed and are negative Constitutional: Constitutional: Reports as per HPI and Reports no additional constitutional complaints Comments: Reports chills Eyes: Eyes: Reports as per HPI and Reports no additional eye complaints C omments: Denies visual disturbances ENT: Reports system reviewed and no additional complaints, except as documented and Reports as per HPI Comments: Reports nasal congestion, nasal discharge Cardiovascular: Cardiovascular: Reports as per HPI, Reports no additional cardiovascular complaints, Reports dyspnea and Reports dyspnea on exertion C omments: Denies chest pain, palpitations Respiratory: Respiratory: Reports as per HPI, Reports no additional respiratory complaints, Reports cough, Reports dyspnea, Reports dyspnea on exertion and Reports wheezing Gastrointestinal: Gastrointestinal: Reports as per HPI and Reports no additional gastrointestinal complaints Musculoskeletal: Musculoskeletal: Reports no additional musculoskeletal complaints and Reports as per HPI Integumentary/Breasts: Skin/Breast: Reports system reviewed and no additional complaints, except as docu and Reports as per HPI Neurologic: Reports system reviewed and no additional complaints, except as documented and Reports as per HPI Comments: Patient is a alert and oriented Psychiatric: Psychiatric: Reports no additional psychiatric complaints and Reports as per HPI Endocrine: Endocrine: Reports no additional endocrine complaints and Reports as per HPI Hematologic/Lymphatic: Hematologic/Lymphatic: Reports no additional hematologic/lymphatic complaints and Reports as per HPI Allergic/Immunologic: Allergic/Immunologic: Reports as per HPI, Reports seasonal rhinorrhea and Reports wheezing PMFSH Past Medical History Medical History Diverticulosis Tubular adenoma Hx of hemorrhoids Vitamin B1 deficiency Hemorrhoids Overweight (BMI 25.0-29.9) Obesity (BMI 30-39.9) Insomnia Allergic rhinitis Urinary incontinence Chronic idiopathic constipation Arthritis Celiac disease GERD (gastroesophageal reflux disease) TIA (transient ischemic attack) Depression Sleep apnea Elevated cholesterol HTN (hypertension) Surgical History S/P colonoscopy H/O hemorrhoidectomy Hx of cholecystectomy History of bladder suspension procedure H/O: hysterectomy H/O shoulder surgery Hx of colonoscopy Hx of esophagogastroduodenoscopy Family History Family History Father Myocardial infarction NIDDY (non-insulin dependent diabetes mellitus in young) Mother Breast cancer Colon cancer NIDDY (non-insulin dependent diabetes mellitus in young) Hypertension Sister AIDS (acquired immune deficiency syndrome) NIDDY (non-insulin dependent diabetes mellitus in young) Hypertension Maternal Grandfather Bone cancer Maternal Grandmother Bone cancer Social History Social History Household Members: None Alcohol intake: never Patient Tobacco Use Status: Former Tobacco user Smoked in Last 30 Days: No Use of substances other than those prescribed or required for medical reasons: No Advance Directives: No Advance Directives Information Provided: Yes Do you have a plan to hurt others: No Plan Physical Exam 2 Vital Signs: Vital Signs: Last Vital Signs Temp 98.0 F 05/02/24 02:23 Pulse 98 05/02/24 02:23 Resp 16 05/02/24 02:23 BP 128/59 L 05/02/24 02:23 Pulse Ox 97 05/02/24 02:23 O2 Del Method Room Air 05/02/24 02:23 BMI result Body Mass Index 31.8 Const: Other: Patient is found sitting up in bed; they are calm and cooperative but are requesting to be discharged. They are able to speak in complete in full sentences but do have a notable cough. General: cooperative, healthy appearing, comfortable, well developed, alert and awake Nutritional Appearance: average body habitus and well nourished Orientation/consciousness: patient oriented x3 HEENT: Other: Head is normocephalic, atraumatic; no notable abnormalities. Hearing is intact; external ears appear to be normal. Nasal discharge and congestion are noted; no presence of blood. External mouth appears to be without abnormalities. Face is symmetric Head: Yes normal to inspection, Yes normocephalic and Yes atraumatic E ars: hearing grossly normal bilaterally and external ears normal General nose exam: Normal external nose present and Normal nares present Face and sinus: Yes normal facial exam and Yes face symmetric Mouth: lip normal Eyes: Other: Pupils are PERRL. EOM intact. External structures of the eyes appear to be intact with no abnormalities General: appearance normal, both eyes and all related structures P eriorbital: periorbital findings normal Eyelids: Yes eyelids normal C onjunctivae: conjunctivae normal Sclerae: sclerae normal Pupils: Equal, round and reactive pupils present EOM: EOMs intact bilaterally Neck: Other: Full range of motion of the cervical spine. No pain upon rotation of the head Neck: Yes full ROM Resp: Other: Wheezing is heard upon auscultation. Notable cough is present. Patient does not appear to be in significant respiratory distress. They are able to speak in complete in full sentences Effort & Inspection: normal respiratory effort, able to speak in complete sentences and Actively coughing Auscultation: wheezes Cardio: Other: Heart is normal for rate, rhythm, quality. No murmurs, rubs, gallops Rate: regular rate Rhythm: regular rhythm GI: Other: Abdomen is soft, nontender, nondistended. Bowel sounds are present Inspection: Yes normal to inspection Palpation (GI): Soft to palpation Auscultation: normal bowel sounds Skin: Other: Skin is warm, dry, appropriate for collar. No noted rashes, lesions, erythema. General skin exam: no rashes or lesions noted Neuro: Other: Patient is alert and oriented. Speech appears to be normal; manager enterprise services are utilized throughout encounter. CMS intact in all extremities General: patient oriented x3 Cranial nerves: Yes Equal, round and reactive pupils present Extrem: Other: Full range of motion in all extremities; no noted pedal edema General: Yes normal to inspection and Yes full ROM Psych: Other: Patient does not appear to be in a state of behavioral distress; they are calm and cooperative; able to answer all questions appropriately Appearance: grossly normal Mental Status: mental status grossly normal Speech and movement: Normal speech and movement present Affect: normal affect Attitude: cooperative Thought process: Normal thought process present Thought content: Normal thought content present Insight: Good insight present (Psych) Judgement: Good judgement present (Psych) Course Reevaluation(s) Reevaluation #1: She ambulated, her sats remain 98% on room air Time: 01:54 Medications Administered Discontinued Medications Generic Name Dose Route Start Last Admin Trade Name Freq PRN Reason Stop Dose Admin Albuterol Sulfate 10 mg 05/01/24 23:39 05/01/24 23:52 Albuterol Sulfate (0.083%) 2.5 Mg/3 Ml Vial.Neb INHALE 05/01/24 23:40 10 mg ONCE ONE Administration Albuterol Sulfate 7.5 mg 05/02/24 00:35 05/02/24 00:43 Albuterol Sulfate (0.083%) 2.5 Mg/3 Ml Vial.Neb INHALE 05/02/24 00:36 7.5 mg ONCE ONE Administration Magnesium Sulfate 2 gm in 50 mls @ 25 mls/hr 05/01/24 23:39 05/02/24 00:48 Magnesium Sulfate/H2o IV 05/02/24 01:38 Infused ONCE ONE Infusion Methylprednisolone Sodium Succinate 125 mg 05/01/24 23:39 05/02/24 00:12 Methylprednisolone Sod Succ 125 Mg/2 Ml Vial IVPUSH 05/01/24 23:40 125 mg ONCE ONE Administration Medical Decision Making Medical Decision Making MDM Narrative: I Sendy Carballo personally assessed and manage the patient, JESUS Sexton observed in helped to formulate the documentation. 60-year-old female seen in the ED for concerns regarding shortness of breath and associated dry cough. Reports that they were initially experiencing cold-like symptoms but the cough is progressively worsening. Tried albuterol treatment at home with minimal relief; reports that nebulizing treatment given in the ambulance improved symptoms. Patient has a history of asthma that is generally exacerbated by seasonal changes and illness. Denies abdominal pain, nausea, vomiting, diarrhea, constipation. Denies fever, chest pain, palpitations. DDX: - asthma exacerbation; likely given that patient has a history of asthma and they are currently experiencing shortness of breath, cough, wheezing - allergic rhinitis/seasonal allergies; consider given patient has a history of seasonal allergies and are currently experiencing nasal discharge and cough. With a unlikely that this is the only underlying pathology as patient is also exhibiting wheezing upon auscultation - COVID/flu/RSV; consider given reports of recent cold-like symptoms and current cough although this is unlikely the only underlying pathology - pneumonia; consider given reports of recent cold-like symptoms, cough, chills. Unlikely due to absence of fever. We will need to obtain chest x-ray in order to determine if this is the underlying pathology - acute bronchitis; consider given reports of recent cold-like symptoms, cough, wheezing Plan: - vital signs; continue to monitor to assess for hypoxia or other drastic changes in vitals - nebulizing treatment; given wheezing is still present upon auscultation, may need to consider steroid - EKG; in order to assess for underlying cardiac or pulmonary abnormality - chest x-ray; to assess for pneumonia or other underlying pulmonary or cardiac abnormality - CBC: To assess for underlying hematologic or infectious process - CMP: To assess for metabolic or electrolyte abnormalities - COVID/flu/RSV swab: To assess for the presence of COVID, flu, RSV Per Sendy Carballo PA-C The patient is here with asthma exacerbation, I agree with the above differential. She is receiving magnesium Solu-Medrol and albuterol. Once she has completed treatment we will ambulate make sure she does not drop her oxygen. Screening labs including viral panel and chest x-ray were obtained. ACS was considered given chest pain, however this is induced by her asthma, this is not consistent with ACS, a cardiac enzyme was obtained. I have independently reviewed the following tests: Labs: No leukocytosis, not anemic, no electrolyte abnormality troponin negative and viral panel was negative as well EKG: normal sinus rhythm, rate of 97, no ischemic changes no ectopy, QT 469, Chest x-ray: XR/XR chest 1V IMPRESSION: No acute cardiopulmonary abnormalities. Electronically signed by: Lior Nye MD 05/01/2024 11:56 PM [facility] Lab Data 05/01/24 21:06 05/01/24 21:06 Labs: Lab Results 05/01/24 05/01/24 Range/Units 21:06 21:34 WBC 9.2 (4.8-10.8) X10*3/uL RBC 4.45 (4.20-5.50) X10*6/uL Hgb 12.3 (12.0-16.0) g/dl Hct 36.0 L (37.0-47.0) % MCV 80.9 (80.0-98.0) fL MCH 27.6 (27.0-33.0) pg MCHC 34.2 (31.0-35.0) g/dl RDW 13.6 (11.0-16.0) % Plt Count 251 (160-400) X10*3/uL MPV 9.9 (9.4-12.3) fL Immature Gran % (Auto) 0.3 (0.0-0.4) % Neut % (Auto) 42.7 L (45-73) % Lymph % (Auto) 45.8 H (20-40) % Worth % (Auto) 6.8 (2-11) % Eos % (Auto) 4.0 (0-4) % Baso % (Auto) 0.4 (0-2) % Lymph # (Auto) 4.2 (1.2-4.9) X10*3/uL Worth # (Auto) 0.6 (0.1-1.2) X10*3/uL Eos # (Auto) 0.4 (0.0-0.4) X10*3/uL Baso # (Auto) 0.0 (0.0-0.2) X10*3/uL Abs Immat Gran (auto) 0.03 (0.00-0.03) X10*3/uL Absolute Neuts (auto) 3.9 (2.0-8.3) x10*3/uL Absolute Nucleated RBC 0.000 (0.0-0.012) X10*3/uL Nucleated RBC % (auto) 0.0 (0.0-0.2) /100WBC Sodium 141 (135-145) mmol/L Potassium 3.5 (3.3-5.1) mmol/L Chloride 107 (96-108) mmol/L Carbon Dioxide 21 L (22-29) mmol/L Anion Gap 17 (12-20) BUN 12 (9-16) mg/dL Creatinine 0.76 (0.5-1.4) mg/dL Estim Creat Clear Calc 74.2 Estimated GFR > 60 Random Glucose 119 H (60-115) mg/dL Calcium 9.2 (8.4-10.2) mg/dL Troponin I High Sens < 2.7 (<3.5-17.0) ng/L Influenza Type A (PCR) NEGATIVE (Negative) Influenza Type B (PCR) NEGATIVE (Negative) RSV RNA Qual (PCR) NEGATIVE (Negative) SARS-CoV-2 RNA (RT-PCR) NEGATIVE (Negative) Discharge Plan Discharge Clinical Impression: Asthma exacerbation Patient Disposition: Home, Self-Care Instructions: Asthma (ED) Additional Instructions: You were treated for asthma exacerbation. All of your labs including a viral panel were normal, there were no concerning changes on the chest x-ray was clear. Use your home nebulizing treatments as directed. Take the steroid as directed. Follow up with your primary care provider as needed Prescriptions: New prednisone 20 mg tablet 40 mg PO DAILY Qty: 8 0RF No Action simethicone 180 mg capsule 180 mg PO QID Qty: 120 0RF thiamine HCl (vitamin B1) 100 mg tablet 100 mg PO DAILY 30 Days Qty: 30 6RF atorvastatin 20 mg Tablet 20 mg PO BEDTIME acetaminophen [Tylenol Extra Strength] 500 mg tablet 1,000 mg PO QID PRN (Reason: fever or pain) Qty: 14 0RF diazepam [Valium] 5 mg tablet 5 mg PO TID PRN (Reason: muscle spasm) Qty: 14 0RF loratadine 10 mg tablet 10 mg PO DAILY fluticasone propionate 50 mcg/actuation spray,suspension 1 spray intranasal BID hydrochlorothiazide 25 mg tablet 25 mg PO DAILY allopurinol 100 mg tablet 100 mg PO DAILY celecoxib 100 mg capsule 100 mg PO BID gabapentin 300 mg capsule 300 mg PO BEDTIME enalapril maleate 20 mg tablet 20 mg PO DAILY amlodipine 5 mg tablet 5 mg PO DAILY Adult 50 Plus Probiotic 4 billion cell capsule 4,000 mmu cells PO DAILY Qty: 90 3RF Rx Instructions: administer with a meal albuterol sulfate 2.5 mg /3 mL (0.083 %) solution for nebulization inhalation albuterol sulfate [Ventolin HFA] 90 mcg/actuation HFA aerosol inhaler inhalation bisacodyl 5 mg tablet,delayed release (DR/EC) 10 mg PO BEDTIME Qty: 180 3RF cholecalciferol (vitamin D3) 50 mcg (2,000 unit) capsule 50 mcg PO DAILY Qty: 90 2RF omeprazole 40 mg capsule,delayed release(DR/EC) 40 mg PO DAILY Qty: 90 2RF famotidine 40 mg tablet 40 mg PO BEDTIME Qty: 90 3RF Interventions: ED Discharge Assessment Last Done: 05/02/24 02:23 Discharge Date/Time: 05/02/24 02:24 Print Language: [place]
[2024-05-01 23:52] VITALS: PULSE 80; RESP 16; O2SAT 98
[2024-05-01] MEDS: Albuterol Sulfate (0.083%) 2.5 MG/3 ML VIAL.NEB 10 MG INHALE (23:52)
[2024-05-02] VITALS: BP 141/64; PULSE 78; RESP 16; TEMP 37; O2SAT 95
[2024-05-02] MEDS: Magnesium Sulfate/H2O 2 GM/50 ML PIGGYBACK IV (00:12)
[2024-05-02] MEDS: methylPREDNISolone Sod Succ 125 MG/2 ML VIAL IVPUSH (00:12)
[2024-05-02] MEDS: Albuterol Sulfate (0.083%) 2.5 MG/3 ML VIAL.NEB 7.5 MG INHALE (00:43)
[2024-05-02 00:44] VITALS: PULSE 78; RESP 16; O2SAT 95
--- NOTE | 2024-05-02 00:54 | PC.NURSE ---
mag infused at rate per mar per Mey AG verbal order.
[2024-05-02 01:30] VITALS: O2SAT 98
[2024-05-02 02:00] VITALS: BP 128/59; PULSE 98; RESP 16; TEMP 36.7; O2SAT 97
[2024-05-02 02:23] VITALS: BP 128/59; PULSE 98; RESP 16; TEMP 36.7; O2SAT 97
== END 2024-05-02 02:24 | disposition home or self-care (01) ==
PROVIDERS: Emergency Provider Emergency Medicine; PCP Family Medicine
DX: J45.901 Unspecified asthma with (acute) exacerbation (principal); Z03.818 Encounter for observation for suspected exposure to other biological agents ruled out; I10 Essential (primary) hypertension; E78.00 Pure hypercholesterolemia, unspecified; Z79.02 Long term (current) use of antithrombotics/antiplatelets; Z79.899 Other long term (current) drug therapy
CPT/HCPCS: 0241U; 36415; 71045; 80048; 84484; 85025; 93005; 94640; 96365; 96375; 99285; J2919; J3475

== ENCOUNTER → 2024-05-01 20:54 | Outpatient (BNV) | payer OTHER, SELFPAY | PROVIDERS: Emergency Provider Emergency Medicine; PCP Family Medicine; Visit Provider Internal Medicine Cardiovascular Disease | DX: R06.02 Shortness of breath (principal) | CPT/HCPCS: 93010 ==

== ENCOUNTER 2024-10-31 12:16 | Outpatient (REF) | payer OTHER, SELFPAY ==
--- OUTSIDE RECORDS SUMMARY | 2024-10-31 12:30 | XMS_ITS | Encounter Summary ---
Author Organization [employer] Address [address] [place] [address] Care Team Providers Care Manager Building Name Role Phone Albertina Danielle MD Primary Care Provider [phone]- [phone] Erika Pratt PharmD Unavailable [phone] April Jackson Unavailable Encounter Details Date Type Department Care Team (Late st Contact Info) Description 10/31/2024 Telephone [facility] [address] [place], [place] [phone] Albertina Danielle MD [address] [place], [place] [phone] Social History Tobacco Use Types Packs/Day Years Used Date Smoking Tobacco: Never Smokeless Tobacco: Never Alcohol Use Standard Drinks/Week Comments Never 0 (1 standard drink = 0.6 oz pur e alcohol) Alcohol Answer Date Recorded Frequency of Alcohol Consumption Not on file 12/18/2023 Average Number of Drinks Not on file 024 Frequency of Binge Drinking Not on file 01/2024 Score 0 12/18/2023 Depression Answer Date Recorded Patient Health Questionnaire-9 Score 0 12/18/2023 Patient Health Questionnaire-9 Score 0 12/18/2023 Last PHQ-9: Questionnaire Data Not on file 0 12/18/2023 Housing Stability Answer Date Recorded What is your housing situation today? I have sofia anthony 05/22/[address] you li ve. Do you have problems with any of the following? I am not sure 05/22/2024 Food Insecurity Answer Date Recorded Within the past 12 months, y ou worried that your food would run out before you got money to buy more: Never True 05/22/2024 Within the past 12 months,th e food you bought just didn't last and you didn't have enough money to get more: Never True 04/2024 Transportation Answer Date Recorded In the past 12 months, has l ack of transportation kept you from medical appts, meetings, work or from getting things needed for daily living? No 05/22/2024 Utilities Answer Date Recorded In the past 12 months, has t he electric, gas, oil or water company threatened to shut off services in your home? No 05/22/2024 Depression Answer Date Recorded Patient Health Questionnaire-2 Score 0 12/18/2023 Internet Access Answer Date Recorded Internet Access Q1 No 05/22/2024 Internet Access Q2 Not on file 05/22/2024 Comments Unknown Sex and Gender Information Value Date Recorded Sex Assigned at Female 04/11/2022 10:16 AM EDT Legal Sex Female 10:16 AM EDT Gender Identity Female 04/11/2022 10:16 AM EDT Sexual Orientation Choose not to disclose 2021 10:16 AM EDT documented as of this encounter Miscellaneous Notes * Telephone Encounter - Albertina Danielle MD - 10/31/2024 12:04 PM EDT Please start PA for zepbound. Thank you. documented in this encounter Plan of Treatment Upcoming Encounters Date Type Department Care Team (Late st Contact Info) Description 01/22/2025 3:15 PM EDT Office Visit [facility] [address] [place] [address] Albertina Danielle MD [address] [place] [address] documented as of this encounter Goals Goal Patient Goal Type Associated Problems Recent Progress Patient-Stated? Author Blood Pressure < 150/90 Blood Pressure 143/78( 025 11:29 AM EDT) No Erika Lockett, PharmD documented as of this encounter Visit Diagnoses Not on filedocumented in this encounter Additional Health Concerns Assessment Noted Time PHQ-9 Depression Total Score: 0 12/18/19 10:49 AM EDT documented as of this encounter Care Teams Manager Building Relationship Specialty Start Date End Date Albertina Danielle MD [address] [place] [address] PCP - General Family Medicine 06/12/18 Erika Pratt, RomanD [address] [place] [address] Pharmacist Internal Medicine 03/01/23 April Jackson [address] [place] [address] Dr [address] Floor [place], [place] Gastroenterology 05/22/24 documented as of this encounter
--- OUTSIDE RECORDS SUMMARY | 2024-10-31 12:30 | XMS_ITS | Encounter Summary ---
Author Organization [employer] Address [address] [facility] 7t [place] [address] Care Team Providers Care Associate Faculty Name Role Phone Albertina Danielle MD Primary Care Provider +- [phone] Erika Pratt PharmD Unavailable April Jackson Unavailable Encounter Details Date Type Department Care Team ([facility] Contact Info) Description 03/09/2023 Abstract [facility] [address] [place] [address] Albertina Danielle MD [address] [place] [address] [phone] Tubular adenoma Social History Tobacco Use Types Packs/Day Years Used Date Smoking Tobacco: Never Smokeless Tobacco: Never Alcohol Use Standard Drinks/Week Comments Never 0 (1 standard drink = 0.6 oz pur e alcohol) Depression Answer Date Recorded Patient Health Questionnaire-9 Score 7 11/30/2022 Depression Answer Date Recorded Patient Health Questionnaire-2 Score 6 11/30/2022 Comments Unknown Sex and Gender Information Value Date Recorded Sex Assigned at Female 04/11/2022 10:16 AM EDT Legal Sex Female 10:16 AM EDT Gender Identity Female 04/11/2022 10:16 AM EDT Sexual Orientation Choose not to disclose 2021 10:16 AM EDT documented as of this encounter Plan of Treatment Upcoming Encounters Date Type Department Care Team (Late Contact Info) Description 01/22/2025 3:15 PM EDT Office Visit [facility] [address] [place] [address] Albertina Danielle MD 230 [place] [address] documented as of this encounter Goals Goal Patient Goal Type Associated Problems Recent Progress Patient-Stated? Author Blood Pressure < 150/90 Blood Pressure 143/78( 025 11:29 AM EDT) No Erika Lockett PharmD documented as of this encounter Procedures Procedure Name Priority Date/Time Associated Diagnosis Comments COLONOSCOPY Routine 03/06/2023 documented in this encounter Results * (ABNORMAL) Colonoscopy (03/06/2023) Colonoscopy Abnormal( A) Normal Comment:tubular adenoma us Historical Provider HEALTH MAINTENANCE Final Result documented in this encounter Visit Diagnoses Diagnosis Tubular adenoma Benign neoplasm of unspecified site documented in this encounter Additional Health Concerns Assessment Noted Time PHQ-9 Depression Total Score: 7 12/01/19 23 3:41 PM EDT documented as of this encounter Care Teams Associate Faculty Relationship Specialty Start Date End Date Albertina Danielle MD [address] [place] [address] PCP - General Family Medicine 06/12/18 Erika Pratt, Vidhya [address] [place] [phone] Pharmacist Internal Medicine 03/01/23 April Jackson [address] [place] [address] Dr 3rd Floor [place] [facility] 05/22/24 documented as of this encounter
--- OUTSIDE RECORDS SUMMARY | 2024-10-31 12:30 | XMS_ITS | Encounter Summary ---
Author Organization [employer] Address [address] [facility] 7t [place] [address] Care Team Providers Care Cephalometric Analyst Name Role Phone Albertina Danielle MD Primary Care Provider +1- [phone] Erika Pratt PharmD Unavailable +1- [phone] April Jackson Unavailable Reason for Visit * Reason Comments BP Check Encounter Details Date Type Department Care Team (Latest Contact Info) Description 10/25/2024 1:30 PM EDT Clinical Support [facility] [address] [place], [place] [phone] Tori Arevalo, RN [address] [place] [address] Primary hypertension Social History Tobacco Use Types Packs/Day Years [...] the past 12 months, has t he Bench, gas, oil or water company threatened to [...] AM EDT documented as of this encounter Last Filed Vital Signs Vital Sign Reading Time Taken Comments Blood Pressure 150/92 10/25/2024 1:35 PM EDT Pulse 85 10/25/2024 1:35 PM EDT Temperature - - Respiratory Rate 16 10/25/2024 1:35 PM EDT Oxygen Saturation 99% 10/25/2024 1:35 PM EDT Inhaled Oxygen Concentration - - Weight - - Height - - Body Mass Index - - documented in this encounter Progress Notes * Tori Arevalo, RN - 10/25/2024 1:30 PM EDT Pt is a pleasant 69yo bilingual ([place]/Citizen Of [place]) adult pt who presents to the office for blood pressure check nurse visit. S: At last appt 05/22/25, pt's BP noted to be 148/80. There was no follow up plan with nurses at that time. Pt is here today because [facility] staff called her to make an appt and pt informed them she is not taking her medications at which time RNs were madeaware. Pt is supposed to be taking: amlodipine 10mg daily. Also has carvedilol 3.125mg BID and enalapril 20mg daily on med list but per last OV note, pt wasn't taking then either. Today, pt denies any blurred vision, shortness of breath, chest pain, dizziness, or headaches. Pt reports that she has not taken ANY of her medications x2 weeks. Pt explains that she is sick of taking medications when they don't work. States blood pressure is the same regardless of what she takes. Pt reports that she has been using daughter's glucometer even though she doesn't have Dx of DM. Reports FBG the other day was in the 160s. Reports frequent dry mouth, denies any other Sx. O: blood pressure in office: 150/92, heart rate: 85, RR: 16. Blood pressure taken while pt was seated in normal chair with feet on the ground and legs uncrossed. Appropriate sized blood pressure cuffused and blood pressure was taken manually on left arm. Pt does report having home blood pressure monitor and that she has been checking blood pressure at home but did not bring log. Reports SBP 140s-160s. Doesn't recall DBP. Per ADA guidelines: blood pressure goal of </= 130/80 RBG checked: 112mg/dL pt reports ate chicken 5 minutes ago that her daughter got from the store. Heis not symptomatic for hypertension or hyperglycemia at this time. A: We had a long discussion about how different blood pressure meds work in different ways and thatthey are not one size fits all . This is why if one isn't working, she should let us know so that we can figure out the right combination for her. Explained that I respect her decision and her bodily autonomy but that we care about her and her health. Uncontrolled hypertension puts her at risk forheart attack or stroke. Pt verbalized understanding. Reinforcement of Lifestyle modification including low sodium diet and exercise. P: Was able to move up her appt with PCP so that they can discuss her stopping all medications. Keep blood pressure log and bring to appts. Future Appointments Date Time Provider Department Center 10/31/2024 11:15 AM Albertina Danielle MD MEDICINE [facility] Advised if having CP, palpitations, severe headache needs to go to the ED. Informed of NTTS in case she has any questions ro concerns while we are closed. Pt to F/U sooner as needed Pt agrees with plan Tori Arevalo RN documented in this encounter Plan of Treatment Upcoming Encounters Date Type Department Care Team (Late st Contact Info) Description 01/22/2025 3:15 PM EDT Office Visit [facility] [address] [place] [address] Albertina Danielle MD [address] [place] [address] documented as of this encounter Goals Goal Patient Goal Type Associated Problems Recent Progress Patient-Stated? Author Blood Pressure < 150/90 Blood Pressure 143/78( 025 11:29 AM EDT) No Erika Lockett PharmD documented as of this encounter Visit Diagnoses Diagnosis Primary hypertension Unspecified essential hypertension documented in this encounter Additional Health Concerns Assessment Noted Time PHQ-9 Depression Total Score: 0 12/18/19 10:49 AM EDT documented as of this encounter Care Teams Cephalometric Analyst Relationship Specialty Start Date End Date Albertina Danielle MD 230 [place] [address] PCP - General Family Medicine 06/12/18 Erika Pratt, PharmD [address] [place] [id number] Pharmacist Internal Medicine 03/01/23 April Jackson [address] [place] [address] Dr 3rd Floor [place] [facility] 05/22/24 documented as of this encounter
--- OUTSIDE RECORDS SUMMARY | 2024-10-31 12:30 | XMS_ITS | Encounter Summary ---
Author Organization [employer] Address [address] [facility] 7t [place] [address] Care Team Providers Care Web Development Consultant Name Role Phone Albertina Danielle MD Primary Care Provider +- [phone] Erika Pratt PharmD Unavailable April Jackson Unavailable Reason for Visit * Reason Comments Med Refill Encounter Details Date Type Department Care Team (Late st Contact Info) Description 01/23/[address] [facility] 230 [place], [place] [phone] Yeny Billings DO 230 [place], [place] [phone] Social History Tobacco Use Types Packs/Day Years [...] housing situation today? I have sofia anthony 04/06/[address] you li ve. Do you have problems with any of the following? None of the above 04/06/2023 Food Insecurity Answer Date Recorded Within the past 12 months, y ou worried that your food would run out before you got money to buy more: Never True 04/06/2023 Within the past 12 months,th e food you bought just didn't last and you didn't have enough money to get more: Never True Transportation Answer Date Recorded In the past 12 months, has l ack of transportation kept you from medical appts, meetings, work or from getting things needed for daily living? No;Yes, it has kept me from medical appointments or getting medications. 03/22/2023 Utilities Answer Date Recorded In the past 12 months, has t he electric, gas, oil or water company threatened to shut off services in your home? No 04/06/2023 Depression Answer Date Recorded Patient Health Questionnaire-2 Score 0 12/18/2023 Comments Unknown Sex and Gender Information Value [...] Description 01/22/2025 3:15 PM EDT Office Visit [facility] [address] [place] [address] Albertina Danielle MD [address] [place] [phone] documented as of this encounter Goals Goal Patient Goal Type Associated Problems Recent Progress Patient-Stated? Author Blood Pressure < 150/90 Blood Pressure 143/78( 025 11:29 AM EDT) No Erika Lockett, PharmD documented as of this encounter Visit Diagnoses Not on filedocumented in this encounter Additional Health Concerns Assessment Noted Time PHQ-9 Depression Total Score: 0 12/18/19 24 10:49 AM EDT documented as of this encounter Care Teams Web Development Consultant Relationship Specialty Start Date End Date Albertina Danielle MD [address] [place] [address] PCP - General Family Medicine 06/12/18 Erika Pratt PharmD [address] [place] [address] Pharmacist Internal Medicine 03/01/23 April Jackson [address] [place] [address] Dr 3rd Floor [place], [place] Gastroenterology 05/22/24 documented as of this encounter
--- OUTSIDE RECORDS SUMMARY | 2024-10-31 12:30 | XMS_ITS | Encounter Summary ---
Author Organization [employer] Address 75 [facility] 7t [place] [address] Care Team Providers Care Social Media Sr Strategy Manager Name Role Phone Albertina Danielle MD Primary Care Provider +- [phone] Erika Pratt PharmD Unavailable April Jackson Unavailable Reason for Visit * Reason Comments Med Refill Encounter Details Date Type Department Care Team ([facility] Contact Info) Description 09/09/2022 Refill [facility] 230 [place] [address] Marcela Norwood, BAND BOOKER [address] [place], [place] [phone] Total body pain Social History Tobacco Use Types Packs/Day Years Used Date Smoking Tobacco: Never Assessed Comments Unknown Sex and Gender Information Value Date Recorded Sex Assigned at Female 04/11/2022 10:16 AM EDT Legal Sex Female 10:16 AM EDT Gender Identity Female 04/11/2022 10:16 AM EDT Sexual Orientation Choose not to disclose 2021 10:16 AM EDT COVID-19 Exposure Response Date Recorded In the last 10 days, have yo u been in contact with someone who was confirmed or suspected to have Coronavirus/COVID-19? Unable to assess 09/09/2022 9:37 AM EDT documented as of this encounter Plan of Treatment Upcoming Encounters Date Type Department Care Team ([facility] Contact Info) Description 01/22/2025 3:15 PM EDT Office Visit [facility] 230 [place] [address] Albertina Danielle MD 230 [place] [address] documented as of this encounter Visit Diagnoses Diagnosis Total body pain documented in this encounter Care Teams Social Media Sr Strategy Manager Relationship Specialty Start Date End Date Albertina Danielle MD [address] [place] [address] PCP - General Family Medicine 06/12/18 Erika Pratt, RomanD [address] [place] [address] Pharmacist Internal Medicine 03/01/23 April Jackson [address] [place] [address] Dr 3rd Floor [place], [place] Gastroenterology 05/22/24 documented as of this encounter
--- OUTSIDE RECORDS SUMMARY | 2024-10-31 12:30 | XMS_ITS | Encounter Summary ---
Author Organization [employer] Address [address] [facility] 7t [place] [address] Care Team Providers Care Platform Supervisor Name Role Phone Albertina Danielle MD Primary Care Provider +- [phone] Erika Pratt PharmD Unavailable April Jackson Unavailable Reason for Visit * Reason Onset Date Comments chartprep 10/30/2024 Encounter Details Date Type Department Care Team (Late st Contact Info) Description 10/30/2024 Telephone [facility] 230 [place], [place] [phone] Albertina Danielle MD [address] [place], [place] [phone] chartprep Social History Tobacco Use Types Packs/Day Years [...] encounter Miscellaneous Notes * Telephone Encounter - Hoa Grier [place] - 10/30/2024 10:00 AM EDT ..Chart Prep Labs: not applicable Images: not applicable Vaccines due: Not Applicable Referrals: Not Applicable Screenings: Not Applicable Overdue care gaps: PQ9, GAD7, Disability , and Oral Health documented in this encounter Plan of Treatment Upcoming Encounters Date Type Department Care Team (Late st Contact Info) Description 01/22/2025 3:15 PM EDT Office Visit [facility] [address] [place] [address] Albertina Danielle MD [address] [place] [address] documented as of this encounter Goals Goal [...] documented as of this encounter Care Teams Platform Supervisor Relationship Specialty Start Date End Date Albertina Danielle MD [address] [place] [address] PCP - General Family Medicine 06/12/18 Erika Pratt, PharmD [address] [place] [address] Pharmacist Internal Medicine 03/01/23 April Jackson [address] [place] [address] Dr 3rd Floor [place], [place] Gastroenterology 05/22/24 documented as of this encounter
--- OUTSIDE RECORDS SUMMARY | 2024-10-31 12:30 | XMS_ITS | Encounter Summary ---
Author Organization [employer] [facility] Address [address] [place] [address] 7t [place] [address] Care Team Providers Care Home Support Worker Name Role Phone Albertina Danielle MD Primary Care Provider + [phone] Erika Pratt PharmD Unavailable April Jackson Unavailable Encounter Details Date Type Department Care Team (Late st Contact Info) Description 07/04/2022 Orders Only [facility] [address] [place] [address] Dolores Sue LPN Social History Tobacco Use Types Packs/Day Years [...] Description 01/22/2025 3:15 PM EDT Office Visit [facility] [address] [place] [address] Albertina Danielle MD [address] [place] [address] documented as of this encounter Visit Diagnoses Not on filedocumented in this encounter Care Teams Home Support Worker Relationship Specialty Start Date End Date Albertina Danielle MD [address] [place] [address] [place] [address] PCP - General Family Medicine 06/12/18 Erika Pratt, RomanD 230 [place] [address] Pharmacist Internal Medicine 03/01/23 April Jackson [address] [place] [address] Dr 3rd Floor [place], [place] Gastroenterology 05/22/24 documented as of this encounter
--- OUTSIDE RECORDS SUMMARY | 2024-10-31 12:30 | XMS_ITS | Encounter Summary ---
Author Organization [employer] Address [address] [facility] 7t [place] [address] Care Team Providers Care Instrumentation Supervisor Name Role Phone Albertina Danielle MD Primary Care Provider +- [phone] Erika Pratt PharmD Unavailable +1- [phone] April Jackson Unavailable Reason for Referral * Consultation (Routine) - Pending Review Specialty Diagnoses / Procedures Referred By [facility] Referred To Contact Orthopaedic Surgery Diagnoses Right shoulder pain, unspecified chronicity Albertina Danielle MD [address] [place] [address] Phone: tel: fax: Referral ID Status Reason Start Date Expiration Date Visits Requested Visits Authorized [id number] Pending Review Specialty Services Required 10/31/2024 10/31/2025 1 1 * Consultation (Routine) - Authorized Specialty Diagnoses / Procedures Referred By [employer] [facility] Referred To Contact Pharmacy Diagnoses Primary hypertension Albertina Daneille MD [address] [place] [address] Phone: tel: fax: Referral ID Status Reason Start Date Expiration Date Visits Requested Visits Authorized [id number] Authorized Consult and Treat 10/31/2024 10/31/2025 6 6 Scheduling Instructions She agrees to take meds, I will tell you more in person. Encounter Details Date Type Department Care Team (Late st Contact Info) Description 10/31/2024 11:15 AM EDT Office Visit [facility] [address] [facility] [place] [address] Albertina Danielle MD [address] [facility] [place] [address] Primary hypertension (Primary Dx); Prediabetes; Right shoulder pain, unspecified chronicity; Class 1 obesity due to excess calories with serious comorbidity and body mass index (BMI) of 31.0 to 31.9 in adult; Dietary counseling; Exercise counseling Social History Tobacco Use Types Packs/Day Years Used Date Smoking Tobacco: Never Smokeless Tobacco: Never Alcohol Use Standard Drinks/Week Comments Never 0 (1 standard drink = 0.6 oz pur e alcohol) Alcohol Answer Date Recorded Frequency of Alcohol Consumption Not on file 12/18/2023 Average Number of Drinks Not on file Frequency of Binge Drinking Not on file [...] Sign Reading Time Taken Comments Blood Pressure 143/78 10/31/2024 11:29 AM EDT Pulse 72 10/31/2024 11:29 AM EDT Temperature 36.4 ??C (97.5 ??F) 10/31/2024 11:29 AM E DT Respiratory Rate 18 10/31/2024 11:29 AM EDT Oxygen Saturation 98% 10/31/2024 11:29 AM EDT Inhaled Oxygen Concentration - - Weight 82.6 kg (182 lb) 10/31/2024 11:29 AM EDT Height 162.6 cm (5' 4 ) 10/31/2024 11:29 AM EDT Body Mass Index 31.24 10/31/2024 11:29 AM EDT documented in this encounter Miscellaneous Notes * Assessment & Plan Note - Migdalia Raya - 10/31/2024 12:08 PM EDTAssociated Problem(s): Right shoulder pain Dx possibly frozen shoulder. Will check X-ray. Referral orthopedics and PT 02/20/2023. Given phone number to call ortho for appt. 12/18/23 -re-referred to orthopedics 10/31/24 * Assessment & Plan Note - Migdalia Raya - 10/31/2024 12:06 PM EDTAssociated Problem(s): Primary hypertension -Blood pressure is slightly above goal -Has been intermittently enrolled in Collaborative Drug Therapy Managment Program with our PharmD since 02/2023 -Previously been on Amlodipine 10mg and carvedilol (Coreg) 3.125 MG - Placed another referral back to Pharmacy Collaborative Drug Therapy Managment Program with our PharmDALBERTO 10/31/24 -Continue lifestyle modifications -Continue current medications -Start enalapril-hydroCHLOROthiazide (Vasoretic) 10-25 MG 10/31/24 * Assessment & Plan Note - Migdalia Raya - 10/31/2024 11:59 AM EDTAssociated Problem(s): Prediabetes Lab Results Component Value Date HGBA1C 5.8 02/15/2024 HGBA1C 6.3 (A) 12/18/2023 HGBA1C 5.7 09/22/2023 HGBA1C 5.9 (H) 01/01/2021 HGBA1C 5.8 (H) 08/12/2020 GLUCOSE 115 02/15/202410/2224 reports a BGL of 180's. Will order repeat BGL and A1C. * Assessment & Plan Note - Migdalia Raya - 10/31/2024 11:58 AM EDTAssociated Problem(s): Class 1 obesity due to excess calories with serious comorbidity and body mass index (BMI) of 31.0 to 31.9 in adult Baseline weight: 182lbs -given BMI >30kg/m2 or >27kg/m2 with one or more weight related comorbidities pt is a candidate for glucagon-like peptide-1s (GLP-1) to assist with weight loss -pt has attempted > 3 months of dietary changes and increased physical activity without significant reduction in weight -patient counseled this medication is to be used in combination with reduced calorie diet and increased physical activity -Contraindication to phentermine: uncontrolled hypertension -Reviewed w/ pt side effects of GLP1 and how to mitigate incl eating small portions and do not eat through sensation of fullness. No personal or family h/o papillary thyroid cancer. No personal h/o pancreatitis. Does/does not have retinopathy. Refrigerate but do not freeze. -Prescribed Zepbound (tirzepatide) 10/31/24 Start 2.5mg subcutaneously q week x 1 month, then 5mg subcutaneously q week. May increased by 2.5mgq 4 weeks with max 15mg/wk documented in this encounter Plan of Treatment Upcoming Encounters Date Type Department Care Team (Late st Contact Info) Description 01/22/2025 3:15 PM EDT Office Visit [facility] 230 [place] [address] Albertina Danielle MD [address] [place], [place] [phone] Scheduled Orders Name Type Priority Associated Diagnoses Orde r Schedule Albumin, Random Urine W/Creatinine Lab Routine Primary hypertension Expected: 10/31/2024 (Approximate), Expires: 10/31/2025 Hepatic Function Panel Lab Routine Primary hypertension Expected: 10/31/2024 (Approximate), Expires: 10/31/2025 Lipid Panel, Standard Lab Routine Primary hypertension Expected: 10/31/2024 (Approximate), Expires: 10/31/2025 Hemoglobin A1c Lab Routine Prediabetes Expected: 10/31/2024 (Approximate), Expires: 10/31/2025 Basic Metabolic Panel Lab Routine Primary hypertension Expected: 10/31/2024 (Approximate), Expires: 10/31/2025 Basic Metabolic Panel Lab Routine Primary hypertension Expected: 11/14/2024 (Approximate), Expires: 10/31/2025 Scheduled Referrals Name Type Priority Associated Diagnoses Orde r Schedule Referral to Pharmacy CDTM Outpatient Referral Routine Primary hypertension Ordered: 10/31/2024 Referral to Orthopaedic Surgery Outpatient Referral Routine Right shoulder pain, unspecified chronicity Expected: 10/31/2024 (Approximate), Expires: 10/31/2025 documented as of this encounter Goals Goal Patient Goal Type Associated Problems Recent Progress Patient-Stated? Author Blood Pressure < 150/90 Blood Pressure 143/78( 025 11:29 AM EDT) No Erika Lockett, PharmD documented as of this encounter Visit Diagnoses Diagnosis Primary hypertension- Primary Unspecified essential hypertension Prediabetes Other abnormal glucose Right shoulder pain, unspecified chronicity Class 1 obesity due to excess calories with serious comorbidity and body mass index (BMI) of 31.0 to 31.9 in adult Dietary counseling Dietary surveillance and counseling Exercise counseling documented in this encounter Additional Health Concerns Assessment Noted Time PHQ-9 Depression Total Score: 0 12/18/19 10:49 AM EDT documented as of this encounter Care Teams Instrumentation Supervisor Relationship Specialty Start Date End Date Albertina Danielle MD [address] [place] [address] PCP - General Family Medicine 06/12/18 Erika Pratt, RomanD [address] [place] [address] Pharmacist Internal Medicine 03/01/23 April Jackson [address] [place] [address] Dr 3rd Floor [place], [place] Gastroenterology 05/22/24 documented as of this encounter
--- OUTSIDE RECORDS SUMMARY | 2024-10-31 12:30 | XMS_ITS | Encounter Summary ---
Author Organization [employer] Address [address] [facility] 7t [place] [address] Care Team Providers Care Ivf Embryologist Name Role Phone Albertina Danielle MD Primary Care Provider +- [phone] Erika Pratt PharmD Unavailable +1- [phone] April Jackson Unavailable Encounter Details Date Type Department Care Team (Late st Contact Info) Description 02/14/2024 Telephone [facility] [address] [place] [address] Erika Pratt, PharmD [address] [place], [place] [phone] Social History Tobacco Use Types Packs/Day Years [...] encounter Miscellaneous Notes * Telephone Encounter - Erika Pratt PharmD - 02/14/2024 1:48 PM EDT A new referral is needed for this patient to continue care in [facility] - Hypertension clinic. Please send at your earliest convenience. documented in this encounter Plan of Treatment Upcoming Encounters Date Type Department Care Team (Late st Contact Info) Description 01/22/2025 3:15 PM EDT Office Visit [facility] [address] [place] [address] Albertina Danielle MD [address] [place] [address] documented as of this encounter Goals Goal Patient Goal Type Associated Problems Recent Progress Patient-Stated? Author Blood Pressure < 150/90 Blood Pressure 143/78( 025 11:29 AM EDT) No Piers-Gambl e, Erika, PharmD documented as of this encounter Visit Diagnoses Not on filedocumented in this encounter Additional Health Concerns Assessment Noted Time PHQ-9 Depression Total Score: 0 12/18/19 24 10:49 AM EDT documented as of this encounter Care Teams Ivf Embryologist Relationship Specialty Start Date End Date Albertina Danielle MD [address] [place] [address] PCP - General Family Medicine 06/12/18 Erika Pratt, PharmD [address] [place] [address] Pharmacist Internal Medicine 03/01/23 April Jackson [address] [place] [address] Dr [address] Floor [place], [place] Gastroenterology 05/22/24 documented as of this encounter
--- OUTSIDE RECORDS SUMMARY | 2024-10-31 12:30 | XMS_ITS | Encounter Summary ---
Author Organization [employer] Address [address] [facility] 7t [place] [address] Care Team Providers Care Worsted Winder Name Role Phone Albertina Danielle MD Primary Care Provider +- [phone] Erika Pratt PharmD Unavailable April Jackson Unavailable Encounter Details Date Type Department Care Team (Late st Contact Info) Description 12/30/2022 Abstract [facility] [address] [place] [address] Albertina Danielle MD [address] [place], [place] [phone] Social History Tobacco Use Types Packs/Day Years [...] was confirmed or suspected to have Coronavirus/COVID-19? No / Unsure 11/30/2022 3:30 PM EDT documented as of this encounter Plan of Treatment Upcoming Encounters Date Type Department Care Team (Late st Contact Info) Description 01/22/2025 3:15 PM EDT Office Visit [facility] [address] [place] [address] Albertina Danielle MD [address] [place] [address] documented as of this encounter Visit Diagnoses Not on filedocumented in this encounter Additional Health Concerns Assessment Noted Time PHQ-9 Depression Total Score: 7 12/01/19 3:41 PM EDT documented as of this encounter Care Teams Worsted Winder Relationship Specialty Start Date End Date Albertina Danielle MD [address] [place] [phone] PCP - General Family Medicine 06/12/18 Erika Pratt, Vidhya [address] [place] [phone] Pharmacist Internal Medicine 03/01/23 April Jackson [address] [place] [address] Dr 3rd Floor [place] Gastroenterology 05/22/24 documented as of this encounter
--- OUTSIDE RECORDS SUMMARY | 2024-10-31 12:30 | XMS_ITS | Encounter Summary ---
Author Organization [employer] Address [address] [facility] 7t [place] [address] Care Team Providers Care Sheet Metal Production Worker Name Role Phone Albertina Danielle MD Primary Care Provider +- [phone] Erika Pratt PharmD Unavailable April Jackson Unavailable Encounter Details Date Type Department Care Team (Late st Contact Info) Description 10/02/2023 Orders Only [facility] [address] [place], [place] [phone] Albertina Danielle MD [address] [place], [place] [phone] Prediabetes (Primary Dx) Social History Tobacco Use Types Packs/Day Years Used Date Smoking Tobacco: Never Smokeless Tobacco: Never Alcohol Use Standard Drinks/Week Comments Never 0 (1 standard drink = 0.6 oz pur e alcohol) Depression Answer Date Recorded Patient Health Questionnaire-9 Score 7 11/30/2022 Housing Stability Answer Date Recorded What is [...] Description 01/22/2025 3:15 PM EDT Office Visit [facility] [address] [place] [phone] Albertina Danielle MD [address] [place] [address] documented as of this encounter Goals Goal Patient Goal Type Associated Problems Recent Progress Patient-Stated? Author Blood Pressure < 150/90 Blood Pressure 143/78( 025 11:29 AM EDT) No Erika Lockett PharmD documented as of this encounter Visit Diagnoses Diagnosis Prediabetes- Primary Other abnormal glucose documented in this encounter Additional Health Concerns Assessment Noted Time PHQ-9 Depression Total Score: 7 12/01/19 23 3:41 PM EDT documented as of this encounter Care Teams Sheet Metal Production Worker Relationship Specialty Start Date End Date Albertina Danielle MD [address] [place] [address] [phone] PCP - General Family Medicine 06/12/18 Erika Pratt PharmD [address] [place] [phone] Pharmacist Internal Medicine 03/01/23 April Jackson [address] [place] [address] Dr 3rd Floor [facility] 05/22/24 documented as of this encounter
--- OUTSIDE RECORDS SUMMARY | 2024-10-31 12:30 | XMS_ITS | Encounter Summary ---
Author Organization [employer] Address [address] [facility] 7t [place] [address] Care Team Providers Care Corporate Administrator Name Role Phone Albertina Danielle MD Primary Care Provider +- [phone] Erika Pratt PharmD Unavailable [phone]- [phone] April Jackson Unavailable Encounter Details Date Type Department Care Team (Latest Contact Info) Description 10/31/2024 Travel Social History Tobacco Use Types Packs/Day Years [...] PM EDT Office Visit [facility] [address] [place] [phone] Albertina Danielle MD [address] [place] [phone] documented as of this encounter Goals Goal [...] documented as of this encounter Care Teams Corporate Administrator Relationship Specialty Start Date End Date Albertina Danielle MD [address] [place] [phone] PCP - General Family Medicine 06/12/18 Erika Pratt, RomanD [address] [place] [phone] Pharmacist Internal Medicine 03/01/23 April Jackson [address] [place] [address] Dr 3rd Floor [facility] 05/22/24 documented as of this encounter
--- OUTSIDE RECORDS SUMMARY | 2024-10-31 12:30 | XMS_ITS | Encounter Summary ---
Author Organization [email or web address] [facility] Address [address] [facility] 7t [place] [address] Care Team Providers Care Personal Driver Name Role Phone Albertina Danielle MD Primary Care Provider + [phone] Erika Pratt PharmD Unavailable April Jackson Unavailable Encounter Details Date Type Department Care Team ([facility] Contact Info) Description 06/28/2022 Abstract [facility] [address] [place] [address] Albertina Danielle MD [address] [place], [place] [phone] Social History Tobacco Use Types Packs/Day Years [...] suspected to have Coronavirus/COVID-19? No / Unsure 06/01/2022 4:58 PM EST documented as of this encounter Plan of Treatment Upcoming Encounters Date Type Department Care Team ([facility] Contact Info) Description 01/22/2025 3:15 PM EDT Office Visit [facility] [address] [place] [address] [phone] Albertina Danielle MD [address] [place] [address] documented as of this encounter Procedures Procedure Name Priority Date/Time Associated Diagnosis Comments COLONOSCOPY Routine 03/17/2020 HPV HIGH RISK PCR Routine 09/17/2015 12: 00 AM EDT PAP SMEAR Routine 09/17/2015 12:00 AM EDT documented in this encounter Results * Colonoscopy (03/17/2020) Colonoscopy Tubular adenoma with Dr. Norman Historical Provider HEALTH MAINTENANCE Final Result * HPV High Risk PCR (09/17/2015 12:00 AM EDT) Swab Cervical swab / Unknown Historical Provider LAB MICROBIOLOGY - GENERA L ORDERABLES Final Result Performing Organization Address [place]/ZIP Co de Phone Number [facility] [address] [place] [address] [phone] * Pap Smear (09/17/2015 12:00 AM EDT) Swab Historical Provider LAB CYTOLOGY ORDERABLES F inal Result Performing Organization Address [place] Co de Phone Number [facility] [address] [place] [address] [phone] documented in this encounter Visit Diagnoses Not on filedocumented in this encounter Care Teams Personal Driver Relationship Specialty Start Date End Date Albertina Danielle MD [address] [place] [phone] PCP - General Family Medicine 06/12/18 Erika Pratt, RomanD [address] [place] [phone] Pharmacist Internal Medicine 03/01/23 April Jackson [address] [place] [address] 3rd Floor [facility] 05/22/24 documented as of this encounter
--- OUTSIDE RECORDS SUMMARY | 2024-10-31 12:31 | XMS_ITS | Clinical Summary ---
Author Organization [employer] Address [address] [place] [address] [address] [place] [address] Care Team Providers Care Ground Wood Supervisor Name Role Phone Ablertina Danielle MD Primary Care Provider +- [phone] Erika Pratt PharmD Unavailable April Jackson Unavailable Allergies No known active allergies Medications Blood Glucose Monitoring Suppl (FreeStyle Lite) w/Device kitIndications:P rediabetes 1 each Once per day. 1 kit 10/16/19 24 Active Lancets 33G miscIndications: Prediabetes Test blood sugar once daily 100 each 11 10/16/19 24 Active Bisacodyl EC 5 MG EC tablet TAKE 2 TABLETS BY MOUTH EVERY DAY AT BEDTIME 02/22/20 24 Active famotidine (Pepcid) 40 MG tablet Take 40 mg by mouth at bedtime. 04/01/20 24 Active omeprazole (PriLOSEC) [address] capsule Take 40 mg by mouth Once per day. 04/01/20 24 Active cetirizine (ZyrTEC) 10 MG tabletIndication s:Allergic rhinitis, unspecified seasonality, unspecified trigger Take 1 tablet (10 mg) by mouth Once per day. 30 tablet 2 04/24/20 24 Active D3 Super Strength 50 MCG (1999 UT) capsuleIndicatio ns:Vitamin D deficiency Take 1 capsule (50 mcg) by mouth Once per day. 30 capsule 2 05/22/20 24 Active carvedilol (Coreg) 3.125 MG tabletIndication s:Primary hypertension Take 1 tablet (3.125 mg) by mouth with breakfast and with evening meal. 60 tablet 11 05/22/20 24 025 Active albuterol 108 (90 Base) MCG/ACT inhalerIndicatio ns:Mild intermittent asthma without complication Inhale 2 puffs every 4 (four) hours if needed for wheezing. 18 g 05/22/20 24 025 Active cyclobenzaprine (Flexeril) 10 MG tabletIndication s:Total body pain One tab po at bedtime prn pain of muscles, do not drive with medicaion 30 tablet 3 05/22/20 24 Active amLODIPine (Norvasc) 10 MG tabletIndication s:Primary hypertension TAKE 1 TABLET BY MOUTH EVERY MORNING 30 tablet 5 10/02/19 25 Active atorvastatin (Lipitor) 40 MG tabletIndication s:Dyslipidemia TAKE 1 TABLET BY MOUTH EVERY MORNING 90 tablet 10/02/19 25 Active Tirzepatide-Weig ht Management (Zepbound) 2.5 MG/0.5ML solution auto-injectorInd ications:Obesity Inject 0.5 mL (2.5 mg) under the skin 1 (one) time per week. Start 5.5 mg weekly x 4 weeks, then increased to 5 mg x 4 weeks, then increase to 7.5 mg weekly 2 mL 11/01/19 25 025 Active enalapril-hydroC HLOROthiazide (Vasoretic) 10-25 MG tabletIndication s:Primary hypertension Take 1 tablet by mouth Once per day. 30 tablet 11 11/01/19 25 026 Active glucose blood test stripIndications :Prediabetes Test blood sugar once daily 100 each 10/16/19 24 025 enalapril (Vasotec) 20 MG tabletIndication s:Primary hypertension TAKE 1 TABLET BY MOUTH EVERY MORNING 90 tablet 3 10/02/19 25 025 Discontinued Active Problems Patient Care Coordination No te Formatting of this note migh t be different from the original. CDTM HTN with Erika Pratt PharmD [facility] [place] [employer] Director: Mckayla, member services number [phone], provider services line, , option 4 [employer] [facility] Problem Noted Date Diagnosed Date Mild intermittent asthma without complication Overview (05/22/2024): - Prescribed albuterol 108 (90 Base) MCG/ACT inhaler 05/22/24 - Ordered Pulmonary Function Test 05/22/24 Assessment & Plan (05/22/2024 4:13 PM EST): - Prescribed albuterol 108 (90 Base) MCG/ACT inhaler 05/22/24 - Ordered Pulmonary Function Test 05/22/24 Cardiac risk counseling 03/20/2024 Overview (03/20/2024): Calculated 03/20/24 intermediate risk The 10-year ASCVD risk score (Siena ESPITIA, et al., 2019) is: 11% Values used to calculate the score: Age: 68 years Sex: Female Is Non- : No Diabetic: No Tobacco smoker: No Systolic Blood Pressure: 136 mmHg Is BP treated: Yes HDL Cholesterol: 47 mg/dL Total Cholesterol: 160 mg/dL Lab Results Component Value Date LDLCHOL 129 (H) 12/02/2022 LDLCHOL 154 (H) 01/01/2021 -Atherosclerotic Cardiovascular Disease (ASCVD) Risk Calculator is intended for a person age 40-79 without ASCVD and with LDL-cholesterol < 190/mg/dl to assesses the chances of developing heart disease over the next 10 years. -ACC/AHA risk categories based on a person's estimated 10-year risk of CVD: ?Low - <5 percent ?Borderline risk - 5 to 7.4 percent ?Intermediate risk- 7.5 to 19.9 percent ?High risk- >=20 percent -Tobacco cessation: not applicable -Statin therapy:atorvastatin 40mg -Importance of moderate physical activity and nutrition interventions discussed. Physical exam 12/18/2023 Class 1 obesity due to exces s calories with serious comorbidity and body mass index (BMI) of 31.0 to 31.9 in adult 12/18/2023 Overview (10/31/2024): Baseline weight: 182lbs -given BMI >30kg/m2 or [...] 5mg subcutaneously q week. May increased by 2.5mg q 4 weeks with max 15mg/wk Assessment & Plan (10/31/2024 11:58 AM EDT): Baseline weight: 182lbs -given BMI >30kg/m2 or [...] 5mg subcutaneously q week. May increased by 2.5mg q 4 weeks with max 15mg/wk Prediabetes 10/02/2023 Overview (10/31/2024): Lab Results Component Value Date HGBA1C 5.8 02/15/2024 HGBA1C 6.3 (A) 12/18/2023 HGBA1C 5.7 09/22/2023 HGBA1C 5.9 (H) 01/01/2021 HGBA1C 5.8 (H) 08/12/2020 GLUCOSE 115 02/15/202410/2224 reports a BGL of 180's. Will order repeat BGL and A1C. Assessment & Plan (10/31/2024 11:59 AM EDT): Lab Results Component Value Date HGBA1C 5.8 02/15/2024 HGBA1C 6.3 (A) 12/18/2023 HGBA1C 5.7 09/22/2023 HGBA1C 5.9 (H) 01/01/2021 HGBA1C 5.8 (H) 08/12/2020 GLUCOSE 115 02/15/202410/2224 reports a BGL of 180's. Will order repeat BGL and A1C. Assessment & Plan (12/18/2023 8:42 AM EDT): Lab Results Component Value Date HGBA1C 5.7 09/22/2023 HGBA1C 5.9 (H) 01/01/2021 HGBA1C 5.8 (H) 08/12/2020 GLUCOSE 99 04/06/2023 Right shoulder pain 02/20/2023 Overview (10/31/2024): Dx possibly frozen shoulder. Will check X-ray. Referral orthopedics and PT 02/20/2023. Given phone number to call ortho for appt. 12/18/23 -re-referred to orthopedics 10/31/24 Assessment & Plan (10/31/2024 12:08 PM EDT): Dx possibly frozen shoulder. Will check X-ray. Referral orthopedics and PT 02/20/2023. Given phone number to call ortho for appt. 12/18/23 -re-referred to orthopedics 10/31/24 Assessment & Plan (12/18/2023 11:01 AM EDT): Dx possibly frozen shoulder. Will check X-ray. Referral orthopedics and PT 02/20/2023. Given phone number to call ortho for appt. 12/18/23 Assessment & Plan (02/20/2023 11:02 AM EDT): Dx possibly frozen shoulder. Will check X-ray. Referral orthopedics and PT 02/20/2023. Other specified health status 11/30/2022 Overview (12/18/2023): -Next PE due after 12/17/2024. -Eye care done in [facility], last done 10/2022. -Follow with [facility] dentist -Healthcare proxy given and filled Assessment & Plan (12/18/2023 11:13 AM EDT): -Next PE due after 12/17/2024. -Eye care done in [facility], last done 10/2022. -Follow with [facility] dentist -Healthcare proxy given and filled Assessment & Plan (11/30/2022 4:08 PM EDT): Next PE due after 12/01/2023. Eye care done in [facility], last done 10/2022. 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 -Continue Vitamin D. -Discontinued Fosamax 11/30/2022. -Dexa scan ordered 11/30/2022. -Advised exercise with light weights. -repeat DEXA 12/2022 with severe osteoporosis, referred to endocrinology 12/26/2022 for assistance in tx due to not tolerating oral bisphosphonate -Pt was given the number to [facility] 01/20/2023 to call and check status of appointment. Assessment & Plan (02/20/2023 10:47 AM EDT): Diagnosed on Dexa scan 07/2020. -Continue Vitamin D. -Discontinued Fosamax 11/30/2022. -Dexa scan ordered 11/30/2022. -Advised exercise with light weights. -repeat DEXA 12/2022 with severe osteoporosis, referred to endocrinology 12/26/2022 for assistance in tx due to not tolerating oral bisphosphonate -Pt was given the number to [facility] 01/20/2023 to call and check status of appointment. Assessment & Plan (01/20/2023 9:56 AM EDT): Diagnosed on Dexa scan 07/2020. -Continue Vitamin D. -Discontinued Fosamax 11/30/2022. -Dexa scan ordered 11/30/2022. -Advised exercise with light weights. -repeat DEXA 12/2022 with severe osteoporosis, referred to endocrinology 12/26/2022 for assistance in tx due to not tolerating oral bisphosphonate -Pt was given the number to [facility] 01/20/2023 to call and check status of appointment. Assessment & Plan (12/26/2022 9:54 AM EDT): Diagnosed on Dexa scan 07/2020. -Continue Vitamin D. -Discontinued Fosamax 11/30/2022. -Dexa scan ordered 11/30/2022. -Advised exercise with light weights. -repeat DEXA 12/2022 with severe osteoporosis, referred to endocrinology 12/26/2022 for assistance in tx due to not tolerating oral bisphosphonate Tubular adenoma 06/01/2022 Overview (03/09/2023): - Colonoscopy on 03/17/2020 and 03/06/23 with tubular adenoma, next due 3-5 years, 03/2028 Assessment & Plan (11/30/2022 2:53 PM EDT): - Colonoscopy on 03/17/2020 with tubular adenoma, next due 3-5 years, 03/2025 Primary hypertension 07/22/2021 Overview (10/31/2024): -Blood pressure is slightly above goal -Has been intermittently enrolled in [facility] Therapy [facility]agment Program with our PharmD since 02/2023 -Previously been on Amlodipine 10mg and carvedilol (Coreg) 3.125 MG - Placed another referral back to Pharmacy Collaborative Drug Therapy Managment Program with our PharmD, ALBERTO 10/31/24 -Continue lifestyle modifications -Continue current medications -Start enalapril-hydroCHLOROthiazide (Vasoretic) 10-25 MG 10/31/24 Assessment & Plan (10/31/2024 12:06 PM EDT): -Blood pressure is slightly above goal -Has been intermittently enrolled in Collaborative Drug Therapy Managment Program with our PharmD since 02/2023 -Previously been on Amlodipine 10mg and carvedilol (Coreg) 3.125 MG - Placed another referral back to Pharmacy Collaborative Drug Therapy Managment Program with our PharmDALBERTO 10/31/24 -Continue lifestyle modifications -Continue current medications -Start enalapril-hydroCHLOROthiazide (Vasoretic) 10-25 MG 10/31/24 Assessment & Plan (05/22/2024 4:18 PM EST): -Blood pressure is at goal -Enrolled in Collaborative Drug Therapy Managment Program with our PharmD since 02/2023 -Continue lifestyle modifications -Continue current medications -Amlodipine was increased to 10mg 10/16/23 with CDTM - Prescribed carvedilol (Coreg) 3.125 MG tablet 05/22/24 - Referral to Pharmacy Collaborative Drug Therapy Managment Program with our PharmDALBERTO 05/22/24 Assessment & Plan (12/18/2023 10:56 AM EDT): -Blood pressure is at goal -Enrolled in Collaborative Drug Therapy Managment Program with our PharmD since 02/2023 -Continue lifestyle modifications -Continue current medications -Amlodipine was increased to 10mg 10/16/23 with CDTM Assessment & Plan (02/20/2023 11:07 AM EDT): -Blood pressure is not at goal -Continue lifestyle modifications -Continue current medications -Pt is unsure what medications she is taking. -Will refer to CDTM 02/20/2023. Assessment & Plan (11/30/2022 2:55 PM EDT): -Blood pressure is at goal -Continue lifestyle modifications -Continue current medications Gout 07/22/2021 Overview (05/22/2024): Continue allopurinol 100mg daily. - Highest uric acid was 8.8 in December 2017 , uric acid on current dose was 5.7 in November 2018. - Ordered Uric Acid 05/22/24 Assessment & Plan (05/22/2024 4:16 PM EST): Continue allopurinol 100mg daily. - Highest uric acid was 8.8 in December 2017 , uric acid on current dose was 5.7 in November 2018. - Ordered Uric Acid 05/22/24 Assessment & Plan (11/30/2022 2:54 PM EDT): Continue allopurinol 100mg daily. Highest uric acid was 8.8 in December 2017 , uric acid on current dose was 5.7 in November 2018. Vitamin D deficiency 07/22/2021 Overview (05/22/2024): Vitamin D,1,25 (OH)2, Total Date Value Ref Range Status 12/02/2022 66 18 - 72 pg/mL Final - Prescribed D3 Super Strength 50 MCG (2000 UT) capsule 05/22/24 - Ordered Vitamin D, 25-Hydroxy, Total, Immunoassay 05/22/24 Assessment & Plan (05/22/2024 4:21 PM EST): Vitamin D,1,25 (OH)2, Total Date Value Ref Range Status 12/02/2022 66 18 - 72 pg/mL Final - Prescribed D3 Super Strength 50 MCG (2000 UT) capsule 05/22/24 - Ordered Vitamin D, 25-Hydroxy, Total, Immunoassay 05/22/24 Assessment & Plan (02/20/2023 10:54 AM EDT): Vitamin D,1,25 (OH)2, Total Date Value Ref Range Status 12/02/2022 66 18 - 72 pg/mL Final Assessment & Plan (11/30/2022 2:53 PM EDT): Vitamin D was 23 on 07/01/2020. She was started on Vitamin D3 by weight loss clinic on 06/23/2020 - Vitamin D level was nml on 08/12/2020 at 34. Continue Vitamin D supplementation Total body pain 11/02/2017 Overview (05/22/2024): - Prescribed cyclobenzaprine (Flexeril) 10 MG tablet 05/22/24 - Advised to only take before bed 05/22/24 Assessment & Plan (05/22/2024 4:20 PM EST): - Prescribed cyclobenzaprine (Flexeril) 10 MG tablet 05/22/24 - Advised to only take before bed 05/22/24 Celiac disease 02/14/2013 Overview (03/12/2024): -biopsy confirmed with positive labs. Diagnosed based on skin biopsy and confirmed with GI biopsy -EGD 01/03/[address] Emerson cline consistent with celiac diease -Note from Dr. Jackson, 03/11/24 reviewed: Continue gluten free diet. Continue omeprazole and famotidine. Avoid dietary triggers and late night snacking. Staying upright for minimum 3 hours after meals discussed with patient. Continue Dulcolax tablets daily. Increase fluid intake and activity to promote better bowel motility. Follow-up in the office in 6 months, sooner on as needed basis. Assessment & Plan (12/18/2023 11:01 AM EDT): -biopsy confirmed with positive labs. Diagnosed based on skin biopsy and confirmed with GI biopsy -EGD 01/03/[address] Emerson cline consistent with celiac diease -continue gluten free diet Assessment & Plan (02/20/2023 10:54 AM EDT): -biopsy confirmed with positive labs. Diagnosed based on skin biopsy and confirmed with GI biopsy -EGD 01/03/[address] Emerson cline consistent with celiac diease -continue gluten free diet Assessment & Plan (11/30/2022 2:52 PM EDT): Biopsy confirmed with positive labs. Diagnosed based on skin biopsy and confirmed with GI biopsy. Following gluten-free diet. - EGD 01/03/18 for GI sx with Dr. Norman- biopsies were consistent with celiac disease. - Abd US 01/09/18 showed an echogenic liver. - Continue gluten free diet Anxiety 08/30/2012 Dyslipidemia 02/24/2012 Overview (05/22/2024): Lab Results Component Value Date CHOL 160 02/15/2024 CHOL 171 11/27/2023 TRIG 191 (H) 02/15/2024 TRIG 119 11/27/2023 TRIG 158 (H) 12/02/2022 HDL 47 02/15/2024 HDL 48 11/27/2023 LDLCHOLCAL 75 02/15/2024 LDLCHOLCAL 100 (H) 11/27/2023 -been on 20 mg Atorvastatin for a while with elevated levels - Atorvastatin to 40 mg increased 12/2023 Assessment & Plan (05/22/2024 4:22 PM EST): Lab Results Component Value Date CHOL 160 02/15/2024 CHOL 171 11/27/2023 TRIG 191 (H) 02/15/2024 TRIG 119 11/27/2023 TRIG 158 (H) 12/02/2022 HDL 47 02/15/2024 HDL 48 11/27/2023 LDLCHOLCAL 75 02/15/2024 LDLCHOLCAL 100 (H) 11/27/2023 -been on 20 mg Atorvastatin for a while with elevated levels - Atorvastatin to 40 mg increased 12/2023 Assessment & Plan (12/18/2023 10:59 AM EDT): Lab Results Component Value Date CHOLESTEROL 209 (H) 12/02/2022 LDLCHOL 129 (H) 12/02/2022 LDLCHOL 154 (H) 01/01/2021 LDLCHOL 156 (H) 01/01/2021 TRIG 119 11/27/2023 TRIG 158 (H) 12/02/2022 HDLCHOL 53 12/02/2022 CHOLHDLRAT 3.9 12/02/2022 -been on 20 mg Atorvastatin for a while with elevated levels -Today, 12/18/23 will increase Atorvastatin to 40 mg -will f/u and repeat labs in 1 month. Assessment & Plan (11/30/2022 2:56 PM EDT): Lab Results Component Value Date CHOLESTEROL 244 (H) 01/01/2021 LDLCHOL 154 (H) 01/01/2021 LDLCHOL 156 (H) 01/01/2021 LDLCHOL 122 (H) 07/01/2020 HDLCHOL 59 01/01/2021 CHOLHDLRAT 4.1 01/01/2021 Dermatitis 02/24/2012 Allergic rhinitis 12/23/2011 Depressive disorder 12/23/2011 Gastroesophageal reflux disease 12/23/2011 Primary insomnia 12/23/2011 Overview (12/15/2023): Pt report insomnia without improvement with melatonin, CBD, THC gummies. She was on Ambien in past but ii do not recommend due to GERHARD and risk of memory loss which she had before with Ambien. Sleep hygrine discussed. Assessment & Plan (12/15/2023 9:14 AM EDT): Pt report insomnia without improvement with melatonin, CBD, THC gummies. She was on Ambien in past but ii do not recommend due to GERHARD and risk of memory loss which she had before with Ambien. Sleep hygrine discussed. Assessment & Plan (11/30/2022 2:53 PM EDT): Pt report insomnia without improvement with melatonin, CBD, THC gummies. She was on Ambien in past but ii do not recommend due to GERHARD and risk of memory loss which she had before with Ambien. Sleep hygrine discussed. Urinary incontinence 12/23/2011 Resolved Problems Problem Noted Date Diagnosed Date Resolved Date Exercise counseling 12/18/2023 11/01/19 25 Dietary counseling 12/18/2023 Encounters Date Type Department Care Team Description 10/31/2024 11:15 AM EDT Office Visit [facility] [address] [place] [phone] Albertina Danielle MD Primary hypertension (Primary Dx); Prediabetes; Right shoulder pain, unspecified chronicity; Class 1 obesity due to excess calories with serious comorbidity and body mass index (BMI) of 31.0 to 31.9 in adult; Dietary counseling; Exercise counseling 10/31/[address] [facility] [address] [place] [phone] Albertina Danielle MD 10/31/2024 Travel 10/30/[address] [facility] [address] [place] [phone] Albertina Danielle MD chartprep 10/25/2024 1:30 PM EDT Clinical Support [facility] [address] [place] [phone] Tori Arevalo, RN Primary hypertension 10/25/2024 Travel 10/21/[address] [facility] [address] [place] [address] Erika Pratt, PharmD 10/16/[address] [facility] [address] [place] [phone] Albertina Danielle MD 10/03/[address] [facility] [address] [place] [address] Albertina Danielle MD 09/29/[address] [facility] [address] [place] [phone] Albertina Danielle MD Dyslipidemia 09/29/[address] [facility] [address] [place] [phone] Erika Pratt, PharmD Primary hypertension [address] [facility] [address] [place] [address] Albertina Danielle MD November Recalls 2024 Travel from Last 3 Months Immunizations Immunization Administration Dates Next Due HepB-CpG 02/15/2024,11/23/2023 Influenza, IIV3, injectable 03/13/2009 Moderna Covid-19 Vaccine 12+ 12/21/2020,11/24/19 21 Pneumococcal Conjugate PCV 20 03/18/2022 RSV Bivalent 10/12/2023 Tdap 06/29/2017 Zoster, Recombinant 08/05/2021,05/28/2021 Family History Medical History Relation Name Comments Diabetes type II Father Heart disease Father Breast cancer Mother Colon cancer Mother Diabetes type II Mother Diabetes Sister HIV Sister Hypertension Sister Relation Name Status Comments Father Mother Sister Social History Tobacco Use Types Packs/Day Years Used Date Smoking Tobacco: Never Smokeless Tobacco: Never Tobacco Cessation:Counseling Given: Not Answered Alcohol Use Standard Drinks/Week Comments Never 0 [...] not to disclose 2021 10:16 AM EDT Last Filed Vital Signs Vital Sign Reading [...] Mass Index 31.24 10/31/2024 11:29 AM EDT Plan of Treatment Upcoming Encounters Date Type Department Care Team (Late st Contact Info) Description 01/22/2025 3:15 PM EDT Office Visit [facility] [address] [place] [address] Albertina Danielle MD [address], [place] [id number] Health Maintenance Due Date Last Done Comments CT Colonography 1955 FIT DNA/Cologuard 1955 FIT 1955 FOBT 1955 Sigmoidoscopy 1955 Influenza Vaccine (#1) 2024 03/13/2009 Postp oned from 02/11/2024 (Patient Refused) Alcohol/Substance Use Screening 12/17/2024 12/18/2023 Depression Screening 12/17/2024 12/18/2023, 12/18/19 24 Diabetes: Hemoglobin A1C 02/14/2025 024, 12/18/2023, 09/22/2023, Additional history exists COVID-19 Vaccine ( season) 2025 12/21/2020, 11/23/2020 Postponed from 02/11/2024 (Patient Refused) SDOH Screening 05/22/2025 05/22/2024 Tobacco Screening 10/31/2025 10/31/2024 Mammogram 02/20/2026 02/21/2024, 12/10, 07/02/2021, Additional history exists DTaP/Tdap/Td Vaccines (2 - Td or Tdap) 06/29/2027 06/29/2017 Colonoscopy 03/06/2028 03/06/2023, 03/17/2020 Colorectal Cancer Screening 03/06/2028 Lipid Panel 02/14/2029 02/15/2024, 11/10, 12/02/2022, Additional history exists Zoster Vaccines Completed 08/05/2021, 05/28/2021 Hepatitis C Screening Completed 10/29/2021, 022 Pneumococcal Vaccine: 50+ Years Completed 03/18/2022 RSV Patients and Patients Aged 60 years or older Completed 10/12/2023 Hepatitis B Vaccines Completed 02/15/2024, 11/23/19 24 HIB Vaccines Aged Out No longer eligi ble based on patient's age to complete this topic HPV Vaccines Aged Out No longer eligi ble based on patient's age to complete this topic Hepatitis A Vaccines Aged Out No long er eligible based on patient's age to complete this topic IPV Vaccines Aged Out No longer eligi ble based on patient's age to complete this topic Meningococcal B Vaccine Aged Out No l onger eligible based on patient's age to complete this topic Meningococcal Vaccine Aged Out No shailesh bryan eligible based on patient's age to complete this topic RSV under 20 months Aged Out No longe r eligible based on patient's age to complete this topic Rotavirus Vaccines Aged Out No longer eligible based on patient's age to complete this topic Goals Goal Patient Goal Type Associated Problems Recent Progress Patient-Stated? Author Blood Pressure < 150/90 Blood Pressure 143/78( 025 11:29 AM EDT) No Erika Lockett PharmD Procedures Procedure Name Priority Date/Time Associated Diagnosis Comments BI MAMMOGRAM SCREENING TOMOSYNTHESIS BILATERAL Routine 02/21/2024 11:40 AM EDT HEMOGLOBIN A1C Routine 02/15/2024 11:15 AM EDT Prediabetes LIPID PANEL, STANDARD Routine 02/15/2024 11:15 AM EDT Dyslipidemia HM COLONOSCOPY Routine 03/06/2023 HEPATITIS C ANTIBODY (EXTERNAL RESULTS ONLY) Routine 10/29/2021 3:52 PM EDT from Last 3 Months or Most Recently Relevant to Health Maintenance Results * BI Mammogram Screening Tomosynthesis Bilateral (02/21/2024 11:40 AM EDT) Anatomical Region Laterality Modality Breast Bilateral Mammography 02/21/2024 11:4 0 AM EDT Narrative 03/06/2024 10:24 AM EDT ? [facility] ? [address] ?[place] [address] ? Mammography Report ? Signed ? Patient: Castillo,Elizabet ?MR#: [id number] ?? 2 ? : 1955 ?Acct:[id number] ? Age/Sex: 68 / F ?ADM Date: 02/21/24 ? Loc: HO.MAMMO ? Attending Dr: Albertina Danielle MD ? Ordering Physician: Albertina Danielle MD ?Results: 1N ?? egative ? Date of Service: 02/21/24 ?Follow Up: 1 Year From Orig ?? inal Mammogram ? Procedure(s): MM tomosynthesis screening BI ?? Accession Number(s): [id number] ? cc: Albertina Danielle MD ? EXAMINATION: ?? MM SCREENING DIGITAL BREAST TOMOSYNTHESIS, BILATERAL ? CLINICAL INFORMATION: ? Screening. Asymptomatic. ? COMPARISON: ?? Mammography: Comparison is made with available priors ? TECHNIQUE: ?? Digital breast mammography with tomosynthesis is performed in both the ?? craniocaudal and mediolateral oblique views along with computer-aided ?? detection (CAD). ? FINDINGS: ?? There are scattered areas of fibroglandular density (ACR BI-RADS breast ?? composition Category b). ? There are no significant masses, abnormal calcifications, or other ?? abnormalities. ? MM/MM tomosynthesis screening BI ?? IMPRESSION: ?? No mammographic evidence of malignancy. ? ASSESSMENT: ? BI-RADS BI-RADS 1 - Negative ? RECOMMENDATION: ?? Routine annual mammography screening. ? 1 year F/U ? This examination should not preclude the clinical evaluation of a ?? suspicious palpable abnormality. ? This patient's information was entered into a reminder system with a ?? target due date for their next mammogram. ? Electronically signed by: ??Carmen Kyle DO ??03/06/2024 10:21 AM EDT ? Dictated By: ?Cramen Kyle DO ? Signed By: ?<Electronically signed by Carmen Kyle, DO in OV> ? 03/06/24 1021 ? DD/ 1140 ? TD/TT: 02/21/24 1158 ? Instrument Setter: ? Procedure Note Doncheko, Image - 03/06/2024 [facility] [address] [place] [address] Mammography Report Signed Patient: Rell Castillo#: [id number] 2 : 6Acct:[id number] Age/Sex: 68 / FADM Date: 02/21/24 Loc: HO.MAMMO Attending Dr: Albertina Danielle MD Ordering Physician: Albertina Danielle MDResults: 1N egative Date of Service: 02/21/24Follow Up: 1 Year From Orig inal Mammogram Procedure(s): MM tomosynthesis screening BI Accession Number(s): [id number] cc: Albertina Danielle MD EXAMINATION: MM SCREENING DIGITAL BREAST TOMOSYNTHESIS, BILATERAL CLINICAL INFORMATION: Screening. Asymptomatic. COMPARISON: Mammography: Comparison is made with available priors TECHNIQUE: Digital breast mammography with tomosynthesis is performed in both the craniocaudal and mediolateral oblique views along with computer-aided detection (CAD). FINDINGS: There are scattered areas of fibroglandular density (ACR BI-RADS breast composition Category b). There are no significant masses, abnormal calcifications, or other abnormalities. MM/MM tomosynthesis screening BI IMPRESSION: No mammographic evidence of malignancy. ASSESSMENT: BI-RADS BI-RADS 1 - Negative RECOMMENDATION: Routine annual mammography screening. 1 year F/U This examination should not preclude the clinical evaluation of a suspicious palpable abnormality. This patient's information was entered into a reminder system with a target due date for their next mammogram. Electronically signed by: Carmen Kyle DO 03/06/2024 10:21 AM EDT RP Dictated By: Carmen Kyle DO Signed By: <Electronically signed by Carmen Kyle DO in OV> 03/06/24 1021 DD/ 1140 TD/TT: 02/21/24 1158 Instrument Setter: Albertina Danielle MD IMG BI PROCEDURES Edited R esult - Final * Hemoglobin A1c (02/15/2024 11:15 AM EDT) Hemoglobin A1c 5.8 <6.0 % [facility] Comment:Hemoglobin A1C Refer ence Range Adults: 4.8 - 6.0 % Non diabetic: < 6.0 % Goal: < 7.0 %Additional Action Suggested: > 8.0 %Note: Hemoglobin A1c results are invalid for patients with abnormal amounts of HbF. Blood transfusions may impact the HbA1c concentration in the patient sample. Estimated Average Glucose 120 mg/dL [facility] Comment:eAG = Estimated ave rage glucose which is %A1C expressed asaverage glucose, using the formula of the U0C-EgknxwlSlzngae Glucose study (ADAG), Diabetes Care, Vol.31,#8,Jan. 2007 Blood Venous blood specimen / Unknown 02/15/2024 11:15 AM EDT 02/15/2024 4:32 PM EDT Albertina Danielle MD LAB BLOOD ORDERABLES Final Result [facility] [address] [place] [address] [phone] * (ABNORMAL) Lipid Panel, Standard (02/15/2024 11:15 AM EDT) Triglycerides 191(H) <150 mg/dL [facility] Comment:Desirable Triglyceri de: less than 150 mg/dLBorderline High Triglyceride 150-199 mg/dLHigh Triglyceride: 200-499 mg/dLVery High Triglyceride: greater than or equal to 5OO mg/dL Cholesterol 160 <200 mg/dL [facility] Comment:Desirable Cholestero l: less than 200 mg/dLBorderline High Cholesterol: 200-239 mg/dLHigh Cholesterol: greater than 239 mg/dL LDL Cholesterol Calculated 75 <100 mg/dL [facility] Comment:Desirable LDL: less than 100 mg/dLNear Optimal/Above Optimal LDL: 110- 129 mg/dLBorderline High LDL: 130-159 mg/dLHigh LDL: 160-189 mg/dLVery High LDL: greater than or equal to 190 mg/dL HDL Cholesterol 47 >40 mg/dL [facility] Comment:Desirable HDL: great er than 40 mg/dL Note: This HDL assay may give artificially low results in patients with liver disease. Blood Venous blood specimen / Unknown 02/15/2024 11:15 AM EDT 02/15/2024 4:32 PM EDT Albertina Danielle MD LAB BLOOD ORDERABLES Final Result [facility] [address] [place] [phone] [phone] * (ABNORMAL) Hm Colonoscopy (03/06/2023) Colonoscopy Abnormal( A) Normal Comment:tubular adenoma Susannah Soliman MD HEALTH MAINTENANCE Final Result * Hepatitis C Antibody (10/29/2021 3:52 PM EDT) Hepatitis C Antibody Nonreactive Blood 10/29/2021 3:52 PM EDT us Historical Provider POINT OF CARE TEST ENTER/ EDIT ORDERABLES Final Result from Last 3 Months or Most Recently Relevant to Health Maintenance Insurance 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
[2024-10-31 13:27] LABS: Estimated Average Glucose 126 mg/dL; Hemoglobin A1C 144.2368 umol/L; Total Hemoglobin (HGBA1C) 3395.5962 umol/L
[2024-10-31 13:34] LABS: Alanine Aminotransferase 36 U/L (0-31); Albumin Level 4.2 g/dL (3.5-5.0); Alkaline Phosphatase 107 U/L (39-117); Anion Gap 10 (12-20); Aspartate Amino Transferase 36 U/L (5-31); Bilirubin Direct 0.2 mg/dL (0.0-0.5); Bilirubin Total 0.6 mg/dL (0.0-1.0); Blood Urea Nitrogen 12 mg/dL (9-16); Calcium 9.3 mg/dL (8.4-10.2); Carbon Dioxide 26 mmol/L (22-29); Chloride 107 mmol/L (96-108); Cholesterol 225 mg/dL (<200); Estimated Glomerular Filt Rate > 60; Glucose Random 90 mg/dL (60-115); HDL Cholesterol 46 mg/dL (>40); LDL Cholesterol Calculated 137 mg/dL (<100); Potassium 4.2 mmol/L (3.3-5.1); Sodium 139 mmol/L (135-145); Total Protein 7.5 g/dL (6.5-8.0); Triglycerides 214 mg/dL (<150)
[2024-10-31 13:57] LABS: Creatinine Urine 158.18 mg/dL; Microalbum/Creatinine Ratio Ur 8.2 ug/mg cr (<30)
== END 2024-10-31 12:17 | disposition home or self-care (01) ==
LOC: HO.HHCL 12:16
PROVIDERS: Visit Provider Family Medicine
DX: I10 Essential (primary) hypertension (principal); R73.03 Prediabetes
CPT/HCPCS: 36415; 80048; 80061; 80076; 82043; 82570; 83036

== ENCOUNTER 2024-11-11 13:24 | Outpatient (REF) | payer OTHER, SELFPAY ==
--- NOTE | ~2024-11-11 | XR_ITS ---
EXAMINATION: XR ABDOMEN 1 VIEW (KUB) HISTORY: constipation x 8 days COMPARISON: There are no prior studies available for comparison. FINDINGS: Four supine views of the abdomen are submitted. The bowel gas pattern is unremarkable, without evidence of mechanical obstruction. There is a large amount of stool throughout the colon. There are surgical clips in the right upper quadrant. No abnormal calcifications are identified. There are no abnormal soft tissue masses. The bones are intact. XR/XR KUB IMPRESSION: Large amount of stool throughout the colon. Electronically signed by: Fredis Wan MD 11/11/2024 01:52 PM EDT
--- OUTSIDE RECORDS SUMMARY | 2024-11-11 14:29 | XMS_ITS | Encounter Summary ---
Author Organization [facility] Address [address] [facility] [address] [place] [address] Care Team Providers Care Waitstaff Captain Name Role Phone Albertina Danielle MD Primary Care Provider +- [phone] Erika Pratt PharmD Unavailable April Jackson Unavailable Encounter Details Date Type Department Care Team ([facility] Contact Info) Description 03/09/2023 Abstract [facility] [address] [place] [phone] Albertina Danielle MD [address] [place] [address] Tubular adenoma Social History Tobacco Use Types [...] Department Care Team (Late Contact Info) Description 11/12/2024 1:00 PM EDT Medication Management [facility] [address] [place] [address] [phone] Erika Pratt PharmD [address] [facility] [place] [address] 01/22/2025 3:15 PM EDT Office Visit [facility] [address] [facility] [place] [address] Albertina Danielle MD [address] [facility] [place], [place] [phone] documented as of this encounter Goals Goal Patient Goal Type Associated Problems Recent Progress Patient-Stated? Author Blood Pressure < 150/90 Blood Pressure 148/81( 025 1:05 PM EDT) No Erika Lockett PharmD documented as [...] documented as of this encounter Care Teams Waitstaff Captain Relationship Specialty Start Date End Date Albertina Danielle MD [address] [facility] [address] [place], [place] [phone] PCP - General Family Medicine 06/12/18 Erika Pratt, PharmD [address] [place], [place] [phone] Pharmacist Internal Medicine 03/01/23 April Jackson [address] [place] [address] Dr [address] Floor [place] Gastroenterology 05/22/24 documented as of this encounter
== END 2024-11-11 13:25 | disposition home or self-care (01) ==
LOC: HO.HHCX 13:24
PROVIDERS: Visit Provider Internal Medicine
DX: K59.09 Other constipation (principal)
CPT/HCPCS: 74018

== ENCOUNTER → 2024-11-11 13:24 | Outpatient (BNV) | payer OTHER, SELFPAY | PROVIDERS: Visit Provider Radiology Diagnostic Radiology | DX: K56.41 Fecal impaction (principal) | CPT/HCPCS: 74018 ==

== ENCOUNTER 2024-11-12 13:49 | Emergency (ER) | payer OTHER, SELFPAY ==
[2024-11-12 13:56] VITALS: BP 129/78; PULSE 85; RESP 18; TEMP 36.4; O2SAT 99; BMI 29.2
--- NOTE | 2024-11-12 13:59 | ED_ITS ---
HPI - General Adult General Chief complaint: Abdominal Pain Stated complaint: Constipation Time Seen by Provider: 11/12/24 20:05 History of Present Illness ED Provider: Hope ANNE narrative: The patient is a 69-year-old female who does not feel that she has had a significant bowel movement 9 days. Yesterday she went to an urgent care center. She had a KUB done. She was given an enema. She did not get better. She feels that her abdomen is distended and that she is somewhat uncomfortable. No real abdominal pain. No fever, sweats, chills. She has had a decreased appetite. She came to the emergency room because she is not feeling better and she thinks she is significantly constipated. Related Data Home Medications ?Medication ?Instructions ?Recorded ?Confirmed atorvastatin 20 mg tablet 20 mg PO BEDTIME 03/11/20 02/28/23 allopurinol 100 mg tablet 100 mg PO DAILY 06/03/20 02/28/23 celecoxib 100 mg capsule 100 mg PO BID 06/03/20 02/28/23 fluticasone propionate 50 1 spray intranasal BID 06/03/20 02/28/23 mcg/actuation nasal spray,suspension gabapentin 300 mg capsule 300 mg PO BEDTIME 06/03/20 02/28/23 hydrochlorothiazide 25 mg tablet 25 mg PO DAILY 06/03/20 02/28/23 loratadine 10 mg tablet 10 mg PO DAILY 06/03/20 02/28/23 amlodipine 5 mg tablet 5 mg PO DAILY 03/27/23 enalapril maleate 20 mg tablet 20 mg PO DAILY 03/27/23 albuterol sulfate 2.5 mg/3 mL mg inhalation 08/28/23 (0.083 %) solution for nebulization albuterol sulfate 90 mcg/actuation inhalation 08/28/23 aerosol inhaler (Ventolin HFA) Previous Rx's ?Medication ?Instructions ?Recorded acetaminophen 500 mg tablet 1,000 mg (2 x 500 mg) PO QID PRN 11/28/20 (Tylenol Extra Strength) fever or pain #14 tabs diazepam 5 mg tablet (Valium) 5 mg PO TID PRN muscle spasm #14 11/28/20 tabs simethicone 180 mg capsule 180 mg PO QID #120 caps 02/11/22 lactobacillus combination no.9 4 4,000 mmu cells PO DAILY #90 caps 10/16/23 billion cell capsule (Adult 50 Plus Probiotic) thiamine HCl (vitamin B1) 100 mg 100 mg PO DAILY 30 days #30 tabs 05/31/23 tablet bisacodyl 5 mg tablet,delayed 10 mg (2 x 5 mg) PO BEDTIME #180 03/11/24 release tabs cholecalciferol (vitamin D3) 50 50 mcg PO DAILY #90 caps 03/11/24 mcg (2,000 unit) capsule famotidine 40 mg tablet 40 mg PO BEDTIME #90 tabs 03/11/24 omeprazole 40 mg capsule,delayed 40 mg PO DAILY #90 caps 03/11/24 release prednisone 20 mg tablet 40 mg (2 x 20 mg) PO DAILY #8 tabs 05/02/24 polyethylene glycol 3350 17 17 g PO DAILY #238 grams 11/12/24 gram/dose oral powder (Miralax) Allergies Allergy/AdvReac Type Severity Reaction Status Date / Time cheese [CHEESE] Allergy Unknown + ALLERGY Verified 11/12/24 13:57 TESTING egg [EGGS] Allergy Unknown + ALLERGY Verified 11/12/24 13:57 TEST gluten [GLUTEN] Allergy Unknown + ALLERGY Verified 11/12/24 13:57 TEST milk [MILK] Allergy Unknown + ALLERGY Verified 11/12/24 13:57 TEST No Known Drug Allergies Allergy Unknown none Verified 11/12/24 13:57 soy [SOY] Allergy Unknown + ALLERGY Verified 11/12/24 13:57 TEST strawberry [STRAWBERRY] Allergy Unknown + ALLERGY Verified 11/12/24 13:57 TEST banana [BANANA] AdvReac Unknown + ALLERGY Verified 11/12/24 13:57 TEST Review of Systems 2 Review of Systems: Yes all other systems are reviewed and are negative PMFSH Past Medical History Medical History Diverticulosis Tubular adenoma Hx of hemorrhoids Vitamin B1 deficiency Hemorrhoids Overweight (BMI 25.0-29.9) Obesity (BMI 30-39.9) Insomnia Allergic rhinitis Urinary incontinence Chronic idiopathic constipation Arthritis Celiac disease GERD (gastroesophageal reflux disease) TIA (transient ischemic attack) Depression Sleep apnea Elevated cholesterol HTN (hypertension) Surgical History S/P colonoscopy H/O hemorrhoidectomy Hx of cholecystectomy History of bladder suspension procedure H/O: hysterectomy H/O shoulder surgery Hx of colonoscopy Hx of esophagogastroduodenoscopy Family History Family History Father Myocardial infarction NIDDY (non-insulin dependent diabetes mellitus in young) Mother Breast cancer Colon cancer NIDDY (non-insulin dependent diabetes mellitus in young) Hypertension Sister AIDS (acquired immune deficiency syndrome) NIDDY (non-insulin dependent diabetes mellitus in young) Hypertension Maternal Grandfather Bone cancer Maternal Grandmother Bone cancer Social History Social History Household Members: None Alcohol intake: never Patient Tobacco Use Status: Former Tobacco user Smoked in Last 30 Days: No Use of substances other than those prescribed or required for medical reasons: No Advance Directives: No Advance Directives Information Provided: Yes Do you have a plan to hurt others: No Plan Physical Exam ED Vital Signs: Vital Signs - 24 hr 11/12/24 13:56 11/12/24 19:29 11/12/24 22:08 Temperature 97.6 F 97.6 F Pulse Rate 85 94 91 Respiratory Rate 18 16 18 Blood Pressure 129/78 170/80 H 161/96 H Pulse Oximetry 99 99 98 Oxygen Delivery Method Room Air Room Air Room Air 11/12/24 22:09 Temperature 98.6 F Pulse Rate 89 Respiratory Rate 16 Blood Pressure 161/86 H Pulse Oximetry 98 Oxygen Delivery Method Room Air BMI result Body Mass Index 29.2 Const Other: The patient is awake, alert, pleasant, cooperative. She does not appear in acute distress or seem acutely ill. Orientation/consciousness: patient oriented x3 HENMT Other: Face is symmetrical. Mucous membranes moist. Eyes Visual Villanueva: normal visual villanueva by confrontation Neck Neck: Yes normal visual inspection and Yes full ROM Resp Effort & Inspection: normal respiratory effort Auscultation: clear to auscultation bilaterally Cardio Rate: regular rate Rhythm: regular rhythm Heart sounds: S1 normal heart sound present and S2 normal heart sound present GI Other: The abdomen is somewhat protuberant but not significantly tender. I performed a digital rectal exam after the patient had already received a Fleet enema from nursing. Rectal tone was normal. There was no stool in the rectum. Skin General skin exam: no rashes or lesions noted Neuro General: patient oriented x3, gait normal, tone normal, moves all extremities, no focal motor deficits and CN's II-XI intact bilaterally Extrem General: Yes no pedal edema and Yes no calf tenderness Course Course Course Narrative: RME, this is a rapid medical exam performed by Jonathan Canales please refer to primary provider for complete H&P- 69-year-old female presents for evaluation of abdominal pain with constipation. She was seen at the [facility] yesterday and given an enema without relief. She had a KUB yesterday showing large stool burden but no clear obstruction. Plan for labs Medications Administered Discontinued Medications Generic Name Dose Route Start Last Admin Trade Name Freq PRN Reason Stop Dose Admin Magnesium Citrate 300 ml 11/12/24 21:58 11/12/24 22:07 Magnesium Citrate 300 Ml Solution PO 11/12/24 21:59 300 ml ONCE ONE Administration Sodium Biphosphate/Sodium Phosphate 133 ml 11/12/24 20:08 11/12/24 20:15 Sodium Phosphate,[place]-Dibasic 133 Ml Enema ND 11/12/24 20:09 133 ml ONCE ONE Administration Sodium Biphosphate/Sodium Phosphate 133 ml 11/12/24 20:40 11/12/24 21:24 Sodium Phosphate,[place]-Dibasic 133 Ml Enema ND 11/12/24 20:41 133 ml ONCE ONE Administration Medical Decision Making Medical Decision Making MDM Narrative: The patient is a 69-year-old woman who feels she has not had a bowel movement in at least 9 days. She had a KUB done as an outpatient yesterday that showed a large amount of stool in the colon. The patient has been given a Fleet enema by nursing prior to my performing an initial digital rectal exam. She had a small amount of stool output after the Fleet enema. I then performed a digital rectal exam that showed an empty rectum. I administered a 2nd Fleet enema. She then had significantly more stool and felt significantly better. She will be discharged with a bottle of magnesium citrate that she should drink at home. She should also take regular MiraLax going forward. Lab Data 11/12/24 14:21 11/12/24 15:54 Labs: Lab Results 11/12/24 11/12/24 Range/Units 14:21 15:54 WBC 6.9 (4.8-10.8) X10*3/uL RBC 4.83 (4.20-5.50) X10*6/uL Hgb 13.4 (12.0-16.0) g/dl Hct 38.9 (37.0-47.0) % MCV 80.5 (80.0-98.0) fL MCH 27.7 (27.0-33.0) pg MCHC 34.4 (31.0-35.0) g/dl RDW 13.4 (11.0-16.0) % Plt Count 275 (160-400) X10*3/uL MPV 9.7 (9.4-12.3) fL Immature Gran % (Auto) 0.1 (0.0-0.4) % Neut % (Auto) 50.0 (45-73) % Lymph % (Auto) 39.3 (20-40) % [place] % (Auto) 6.0 (2-11) % Eos % (Auto) 3.6 (0-4) % Baso % (Auto) 1.0 (0-2) % Lymph # (Auto) 2.7 (1.2-4.9) X10*3/uL [place] # (Auto) 0.4 (0.1-1.2) X10*3/uL Eos # (Auto) 0.3 (0.0-0.4) X10*3/uL Baso # (Auto) 0.1 (0.0-0.2) X10*3/uL Abs Immat Gran (auto) 0.01 (0.00-0.03) X10*3/uL Absolute Neuts (auto) 3.4 (2.0-8.3) x10*3/uL Absolute Nucleated RBC 0.000 (0.0-0.012) X10*3/uL Nucleated RBC % (auto) 0.0 (0.0-0.2) /100WBC Sodium 135 (135-145) mmol/L Potassium 4.1 (3.3-5.1) mmol/L Chloride 98 (96-108) mmol/L Carbon Dioxide 28 (22-29) mmol/L Anion Gap 13 (12-20) BUN 10 (9-16) mg/dL Creatinine 0.86 (0.5-1.4) mg/dL Estim Creat Clear Calc 62.1 Estimated GFR > 60 Random Glucose 91 (60-115) mg/dL Calcium 10.4 H D (8.4-10.2) mg/dL Total Bilirubin 0.9 (0.0-1.0) mg/dL AST 44 H (5-31) U/L ALT 70 H (0-31) U/L Alkaline Phosphatase 128 H (39-117) U/L Total Protein 8.2 H (6.5-8.0) g/dL Albumin 4.7 (3.5-5.0) g/dL Lipase 11 (8-78) U/L Discharge Plan Discharge Clinical Impression: Constipation Patient Disposition: Home, Self-Care Instructions: Constipation (ED) Additional Instructions: please drink the bottle of magnesium citrate at home tonight or tomorrow. My hope is this will help clean you out. I would also recommend that you try using MiraLax again. I have sent a prescription for MiraLax to your pharmacy. You can take this once a day. You can even take it 2 times a day if you feel you might need that much. Please make a follow up appointment with your regular doctor. Return to the emergency room if you are significantly worse. Prescriptions: New polyethylene glycol 3350 [Miralax] 17 gram/dose powder 17 g PO DAILY Qty: 238 0RF No Action simethicone 180 mg capsule 180 mg PO QID Qty: 120 0RF thiamine HCl (vitamin B1) 100 mg tablet 100 mg PO DAILY 30 Days Qty: 30 6RF atorvastatin 20 mg Tablet 20 mg PO BEDTIME acetaminophen [Tylenol Extra Strength] 500 mg tablet 1,000 mg PO QID PRN (Reason: fever or pain) Qty: 14 0RF diazepam [Valium] 5 mg tablet 5 mg PO TID PRN (Reason: muscle spasm) Qty: 14 0RF prednisone 20 mg tablet 40 mg PO DAILY Qty: 8 0RF loratadine 10 mg tablet 10 mg PO DAILY fluticasone propionate 50 mcg/actuation spray,suspension 1 spray intranasal BID hydrochlorothiazide 25 mg tablet 25 mg PO DAILY allopurinol 100 mg tablet 100 mg PO DAILY celecoxib 100 mg capsule 100 mg PO BID gabapentin 300 mg capsule 300 mg PO BEDTIME enalapril maleate 20 mg tablet 20 mg PO DAILY amlodipine 5 mg tablet 5 mg PO DAILY Adult 50 Plus Probiotic 4 billion cell capsule 4,000 mmu cells PO DAILY Qty: 90 3RF Rx Instructions: administer with a meal albuterol sulfate 2.5 mg /3 mL (0.083 %) solution for nebulization inhalation albuterol sulfate [Ventolin HFA] 90 mcg/actuation HFA aerosol inhaler inhalation bisacodyl 5 mg tablet,delayed release (DR/EC) 10 mg PO BEDTIME Qty: 180 3RF cholecalciferol (vitamin D3) 50 mcg (2,000 unit) capsule 50 mcg PO DAILY Qty: 90 2RF omeprazole 40 mg capsule,delayed release(DR/EC) 40 mg PO DAILY Qty: 90 2RF famotidine 40 mg tablet 40 mg PO BEDTIME Qty: 90 3RF Referrals: Albertina Danielle MD [Primary Care Provider] - ( constipation) Interventions: ED Discharge Assessment Last Done: 11/12/24 22:09 Discharge Date/Time: 11/12/24 22:10 Print Language: Slovenian
[2024-11-12 14:26] LABS: MANUAL DIFF FLAG NO
[2024-11-12 14:31] LABS: Basophils Absolute Auto 0.1 X10*3/uL (0.0-0.2); Eosinophils Absolute Auto 0.3 X10*3/uL (0.0-0.4); Eosinophils Percent Auto 3.6 % (0-4); Hematocrit 38.9 % (37.0-47.0); Hemoglobin 13.4 g/dl (12.0-16.0); Imm Gran Abs Auto 0.01 X10*3/uL (0.00-0.03); Imm Gran Pct Auto 0.1 % (0.0-0.4); Lymphocytes Absolute Auto 2.7 X10*3/uL (1.2-4.9); Lymphocytes Percent Auto 39.3 % (20-40); Mean Corpuscular HGB Conc 34.4 g/dl (31.0-35.0); Mean Corpuscular Hemoglobin 27.7 pg (27.0-33.0); Mean Corpuscular Volume 80.5 fL (80.0-98.0); Mean Platelet Volume 9.7 fL (9.4-12.3); Monocytes Absolute Auto 0.4 X10*3/uL (0.1-1.2); Neutrophils Absolute Auto 3.4 x10*3/uL (2.0-8.3); Platelet Count 275 X10*3/uL (160-400); Red Blood Count 4.83 X10*6/uL (4.20-5.50); Red Cell Distribution Width 13.4 % (11.0-16.0); White Blood Count 6.9 X10*3/uL (4.8-10.8)
[2024-11-12 16:19] LABS: Alanine Aminotransferase 70 U/L (0-31); Albumin Level 4.7 g/dL (3.5-5.0); Alkaline Phosphatase 128 U/L (39-117); Anion Gap 13 (12-20); Aspartate Amino Transferase 44 U/L (5-31); Bilirubin Total 0.9 mg/dL (0.0-1.0); Blood Urea Nitrogen 10 mg/dL (9-16); Calcium 10.4 mg/dL (8.4-10.2); Carbon Dioxide 28 mmol/L (22-29); Chloride 98 mmol/L (96-108); Creatinine Clr Calc Pharmacy 62.1; Estimated Glomerular Filt Rate > 60; Glucose Random 91 mg/dL (60-115); Lipase 11 U/L (8-78); Potassium 4.1 mmol/L (3.3-5.1); Sodium 135 mmol/L (135-145); Total Protein 8.2 g/dL (6.5-8.0)
--- OUTSIDE RECORDS SUMMARY | 2024-11-12 17:05 | XMS_ITS | Encounter Summary ---
Author Organization [employer] Address [address] [facility] [address] [place] [address] Care Team Providers Care Model Making Supervisor Name Role Phone Albertina Danielle MD Primary Care Provider +- [phone] Erika Pratt PharmD Unavailable April Jackson Unavailable Encounter Details Date Type Department Care Team ([facility] Contact Info) Description 03/09/[address] [facility] [address] [place] [phone] Albertina Danielle MD [address] [place] [address] [phone] Tubular adenoma Social History Tobacco Use Types [...] EDT Office Visit [facility] [address] [place] [phone] Albertina Danielle MD [address] [place] [address] documented as of this encounter Goals Goal [...] documented as of this encounter Care Teams Model Making Supervisor Relationship Specialty Start Date End Date Albertina Danielle MD [address] [place] [address] PCP - General Family Medicine 06/12/18 Erika Pratt, Vidhya [address] [place] [phone] Pharmacist Internal Medicine 03/01/23 April Jackson [address] [place] [address] Dr [address] Floor [place] Gastroenterology 05/22/24 documented as of this encounter
[2024-11-12 19:29] VITALS: BP 170/80; PULSE 94; RESP 16; TEMP 36.4; O2SAT 99
--- NOTE | 2024-11-12 19:34 | PC.NURSE ---
assumed care of pt, AOX4 , respirations even and unlabored. constipation with bloating x 9 days, no pain. Enema given yesterday, no relief. VSS, awaiting ED
[2024-11-12] MEDS: Sodium Phosphate,Mono-Dibasic 133 ML ENEMA PR ×2 (20:15→21:24)
--- NOTE | 2024-11-12 20:17 | PC.NURSE ---
pt tolerated enema well, no pain reported
[2024-11-12] MEDS: Magnesium Citrate 300 ML SOLUTION PO (22:07)
[2024-11-12 22:08] VITALS: BP 161/96; PULSE 91; RESP 18; O2SAT 98
[2024-11-12 22:09] VITALS: BP 161/86; PULSE 89; RESP 16; TEMP 37; O2SAT 98
== END 2024-11-12 22:10 | disposition home or self-care (01) ==
PROVIDERS: Physician Assistant; Emergency Provider Emergency Medicine; PCP Family Medicine
DX: K59.00 Constipation, unspecified (principal); I10 Essential (primary) hypertension; E78.00 Pure hypercholesterolemia, unspecified; Z86.73 Personal history of transient ischemic attack (TIA), and cerebral infarction without residual deficits; Z79.02 Long term (current) use of antithrombotics/antiplatelets; Z79.899 Other long term (current) drug therapy
CPT/HCPCS: 36415; 80053; 83690; 85025; 99283; 99284

== ENCOUNTER 2024-12-04 11:32 | Outpatient (AMB) | payer OTHER, SELFPAY ==
--- NOTE | 2024-12-04 11:35 | MHC.OFFVIS ---
Vital Signs 12/04/24 11:38 Height 5 ft 4 in Weight 169 lb 12.095 oz BMI 29.1 BP 176/98 H Blood Pressure Location Lt brachial Position Sitting Pulse 80 Intake Visit Reasons: abd pain, heartburn fatigue, feels like know in st Intake Note: Elizabet presents in the office as a follow up for abdominal pains and heartburn. CC: issues over a month - bloating, gas, constipation, persistent abdominal pains. No blood when she has a BM - laxatives are not working and she still feels the same. She feels a lump in the epigastric region. Pains are all over - she felt the ball raised in her sleep - it started moving in the area and it was very painful. Solar Power Installer Required: No Allergies cheese (CHEESE) Allergy (Unknown, Verified 12/04/24 11:38) + ALLERGY TESTING egg (EGGS) Allergy (Unknown, Verified 12/04/24 11:38) + ALLERGY TEST gluten (GLUTEN) Allergy (Unknown, Verified 12/04/24 11:38) + ALLERGY TEST milk (MILK) Allergy (Unknown, Verified 12/04/24 11:38) + ALLERGY TEST No Known Drug Allergies Allergy (Unknown, Verified 12/04/24 11:38) none soy (SOY) Allergy (Unknown, Verified 12/04/24 11:38) + ALLERGY TEST strawberry (STRAWBERRY) Allergy (Unknown, Verified 12/04/24 11:38) + ALLERGY TEST banana (BANANA) Adverse Reaction (Unknown, Verified 12/04/24 11:38) + ALLERGY TEST HPI HPI abd pain, heartburn fatigue, feels like know in st: Details: LAST VISIT: Diverticulosis Celiac disease GERD (gastroesophageal reflux disease) Chronic idiopathic constipation Plan Continue gluten free diet. Continue omeprazole and famotidine. Avoid dietary triggers and late night snacking. Staying upright for minimum 3 hours after meals discussed with patient. Continue Dulcolax tablets daily. Increase fluid intake and activity to promote better bowel motility. Follow-up in the office in 6 months, sooner on as needed basis. She is agreeable to this plan and verbalizes understanding of instructions. She was given the opportunity to ask questions and all questions answered. ? Thank you for allowing me to participate in her care Medications Refilled bisacodyl 10 mg (2 x 5 mg) PO BEDTIME 180 tabs 3RF K59.04 cholecalciferol (vitamin D3) 50 mcg PO DAILY 90 caps 2RF omeprazole 40 mg PO DAILY 90 caps 2RF K21.9 famotidine 40 mg PO BEDTIME 90 tabs 3RF K21.9 TODAY'S VISIT Patient is here today accompanied by her [id number]. She reports to have epigastric pain and bloating. Continues to be constipated. Seen in the ER for pain and constipation will. Was given MiraLax and senna, however she reports that it is not helping. Patient took Dulcolax in the past as well as Linzess and Amitiza without any help. Patient follows gluten free diet her [id number] also is has celiac disease. Patient reports that her symptoms of acid reflux are suppressed for the most part. She is taking omeprazole and is helping for the most part. She is also taking famotidine at night time. Patient denies any melena, hematochezia. Denies any dyspepsia, dysphagia or odynophagia. Patient feels abdominal bloating not just after meals but also during the night time. She feels like there is a balloon/large ball in the upper stomach that is causing her pain. Pain feels achy, crampy. Patient feels like the ball is moving. Patient reports it feels like she has a baby moving in her stomach . Patient denies any nausea or vomiting [facility] Medical History Diverticulosis Tubular adenoma Hx of hemorrhoids Vitamin B1 deficiency Hemorrhoids Overweight (BMI 25.0-29.9) Obesity (BMI 30-39.9) Insomnia Allergic rhinitis Urinary incontinence Chronic idiopathic constipation Arthritis Celiac disease GERD (gastroesophageal reflux disease) TIA (transient ischemic attack) Depression Sleep apnea Elevated cholesterol HTN (hypertension) Surgical History S/P colonoscopy H/O hemorrhoidectomy Hx of cholecystectomy History of bladder suspension procedure H/O: hysterectomy H/O shoulder surgery Hx of colonoscopy Hx of esophagogastroduodenoscopy Family History Father Myocardial infarction NIDDY (non-insulin dependent diabetes mellitus in young) Mother Breast cancer Colon cancer NIDDY (non-insulin dependent diabetes mellitus in young) Hypertension Sister AIDS (acquired immune deficiency syndrome) NIDDY (non-insulin dependent diabetes mellitus in young) Hypertension Maternal Grandfather Bone cancer Maternal Grandmother Bone cancer Social History Household Members: None Alcohol intake: never Patient Tobacco Use Status: Former Tobacco user Review of Systems Const Denies weight gain and Denies weight loss ENT Reports no additional complaints, Denies dysphagia and Denies odynophagia Card Reports no additional complaints Resp Reports cough and Reports wheezing (Mild ) GI Reports abdominal pain (Epigastric), Denies belching, Denies melena, Reports bloating, Denies change in bowel habits, Reports constipation, Denies dysphagia, Denies excessive flatus, Reports dyspepsia, Reports heartburn, Denies diarrhea, Denies loose stools, Denies nausea, Denies odynophagia and Denies vomiting Reports no additional complaints Musc Reports no additional complaints Neuro Reports no additional complaints Psych Reports no additional complaints Endo Reports no additional complaints Aller/Immun Reports wheezing (Mild ) Physical Exam Vital Signs: Last Vital Signs Pulse 80 12/04/24 11:38 BP 176/98 H 12/04/24 11:38 BMI result Body Mass Index 29.1 Const General: healthy appearing and no acute distress Nutritional Appearance: obese Orientation/consciousness: patient oriented x3 Resp Effort & Inspection: normal respiratory effort, able to speak in complete sentences, no tracheal deviation and symmetric chest movement Auscultation: wheezes (Mild expiratory wheeze) upper bilaterally Cardio Rate: regular rate GI Inspection: Yes normal to inspection, No distended and Yes obesity Palpation (GI): Soft to palpation, not firm, nontender and No hepatosplenomegaly present Auscultation: normal bowel sounds General: Yes no CVA tenderness Back/Spine/Pelvis Back: no CVA tenderness Skin General skin exam: elasticity normal, turgor normal and dry skin Neuro General: patient oriented x3 Psych Appearance: grossly normal Mental Status: mental status grossly normal Assessment & Plan Assessment & Plan (1) GERD (gastroesophageal reflux disease): Code(s): K21.9 - Gastro-esophageal reflux disease without esophagitis Category: Medical Qualifiers: Esophagitis presence: esophagitis presence not specified Qualified Code(s): K21.9 - Gastro-esophageal reflux disease without esophagitis (2) Celiac disease: Code(s): K90.0 - Celiac disease Category: Medical (3) Chronic idiopathic constipation: Code(s): K59.04 - Chronic idiopathic constipation Category: Medical (4) Diverticulosis: Code(s): K57.90 - Diverticulosis of intestine, part unspecified, without perforation or abscess without bleeding Category: Medical (5) Postprandial abdominal bloating: Code(s): R14.0 - Abdominal distension (gaseous) (6) Epigastric pain: Code(s): R10.13 - Epigastric pain Plan Patient continues to be constipated despite multiple changes in her medication regimen. We will try Motegrity. Patient was also encouraged to increase fluid intake and activity to promote better bowel motility. Patient continues to have epigastric pain as well as bloating. She is avoiding gluten as best as she can. Recommended again gluten scanner paulie so she can use it when grocery shopping. Discussed with patient low FODMAP diet. List of food recommended as well as list of food to avoid given to patient. Patient will call us in couple weeks if she continues to be constipated. Otherwise patient will follow-up in our office in 4 weeks. Patient is agreeable to current plan of care and verbalizes understanding of instructions. She was given the opportunity to ask questions and all questions answered. Thank you for allowing me to participate in her care Additional note. Patient is asking for refill on her albuterol inhaler. Patient is having mild asthma episode in the past few days. Unable to read her PCP. Script sent with no additional refills. Patient was encouraged to follow-up with PCP. Pulmonology referral sent Orders: Referrals Pulmonology Referral J45.904 - Unspecified asthma, uncomplicated Medications: New prucalopride (Motegrity) 2 mg PO DAILY 30 tabs 2RF K59.04 - Chronic idiopathic constipation Changed From albuterol sulfate 90 mcg/actuation (Ventolin HFA) inhalation To albuterol sulfate 90 mcg/actuation (Ventolin HFA) 2 puffs inhalation Q6-8H PRN 8.5 grams 0RF shortness of breath or wheezing Refilled omeprazole 40 mg PO DAILY 90 caps 2RF K21.9 - Gastro-esophageal reflux disease without esophagitis Coding Level of Care Code Est Pt Level 4 (45131) Complex EM visit Add On G2211 Diagnoses Gastroesophageal reflux disease, unspecified whether esophagitis present K21.9 Esophagitis presence: esophagitis presence not specified Celiac disease K90.0 Chronic idiopathic constipation K59.04 Diverticulosis K57.90 Postprandial abdominal bloating R14.0 Epigastric pain R10.13 Time Spent (min) 40 Comment 25 minutes spent with patient and additional 15 minutes spent reviewing her records
[2024-12-04 11:38] VITALS: BP 176/98; PULSE 80; BMI 29.1
== END 2024-12-04 12:11 | disposition home or self-care (01) ==
LOC: HO.HGI 11:33
PROVIDERS: PCP Family Medicine; Visit Provider Nurse Practitioner Family
DX: K21.9 Gastro-esophageal reflux disease without esophagitis (principal); K90.0 Celiac disease; K57.90 Diverticulosis of intestine, part unspecified, without perforation or abscess without bleeding; R14.0 Abdominal distension (gaseous); R10.13 Epigastric pain
CPT/HCPCS: 99214; G2211

== ENCOUNTER → 2024-12-04 11:32 | Outpatient (BNVA) | payer OTHER, SELFPAY | PROVIDERS: PCP Family Medicine; Visit Provider Nurse Practitioner Family | DX: K21.9 Gastro-esophageal reflux disease without esophagitis (principal); R53.83 Other fatigue; K90.0 Celiac disease; R14.0 Abdominal distension (gaseous); R10.13 Epigastric pain | CPT/HCPCS: 99212 ==

== ENCOUNTER 2024-12-19 13:17 | Outpatient (AMB) | payer OTHER, SELFPAY ==
--- OUTSIDE RECORDS SUMMARY | 2024-12-19 13:20 | XMS_ITS | Encounter Summary ---
Author Organization [employer] Address [address] [facility] [address] [place] [address] Care Team Providers Care Crew Scheduler Name Role Phone Albertina Danielle MD Primary Care Provider +- [phone] Erika Pratt PharmD Unavailable April Jackson Unavailable Encounter Details Date Type Department Care Team ([facility] Contact Info) Description 03/09/2023 Abstract [facility] MEDICINE [address] [place] [phone] Albertina Danielle MD [address] [place] [address] [id number] Tubular adenoma Social History Tobacco Use Types [...] Description 01/22/2025 3:15 PM EDT Office Visit [facility] MED[facility]INE [address] [place] [phone] Albertina Danielle MD [address] [place] [address] documented as of this encounter Goals Goal Patient Goal Type Associated Problems Recent Progress Patient-Stated? Author Blood Pressure < 150/90 Blood Pressure 138/80( 025 2:09 PM EDT) No Erika Lockett PharmD documented [...] documented as of this encounter Care Teams Crew Scheduler Relationship Specialty Start Date End Date Albertina Danielle MD [address] [place] [address] PCP - General Family Medicine 06/12/18 Erika Pratt, Vidhya [address] [place] [phone] Pharmacist Internal Medicine 03/01/23 April Jackson [address] [place] [address] Dr [address] Floor [place] Gastroenterology 05/22/24 documented as of this encounter
--- NOTE | 2024-12-19 13:23 | A.OFFVIS_ITS ---
Vital Signs 12/19/24 13:24 Height 5 ft 4 in Weight 169 lb BMI 29.0 Intake Visit Reasons: Right shoulder pain and weakness Intake Note: Roberth 69 year old female who presents with complaints of progressively worsening right shoulder pain and weakness. The patient states that she injured her shoulder approximately 2 years ago while lifting a heavy object. Since that time she has had difficulty lifting her right hand above shoulder height. She has failed the last 6 weeks of conservative treatment which has included physical therapy exercises, a home exercise program, Tylenol and anti- inflammatory medicines. She has had cortisone injections in the past which gave her minimal relief. At this point the patient's right shoulder pain and weakness are interfering with her activities of daily living and her ability to sleep well through the night. Rotary Derrick Operator Required: Yes Rotary Derrick Operator Language: Business Applications Analyst Services: Rotary Derrick Operator Present Rotary Derrick Operator Name: SUZANNE Woodard/NITHIN Allergies cheese (CHEESE) Allergy (Unknown, Verified 12/19/24 13:24) + ALLERGY TESTING egg (EGGS) Allergy (Unknown, Verified 12/19/24 13:24) + ALLERGY TEST gluten (GLUTEN) Allergy (Unknown, Verified 12/19/24 13:24) + ALLERGY TEST milk (MILK) Allergy (Unknown, Verified 12/19/24 13:24) + ALLERGY TEST No Known Drug Allergies Allergy (Unknown, Verified 12/19/24 13:24) none soy (SOY) Allergy (Unknown, Verified 12/19/24 13:24) + ALLERGY TEST strawberry (STRAWBERRY) Allergy (Unknown, Verified 12/19/24 13:24) + ALLERGY TEST banana (BANANA) Adverse Reaction (Unknown, Verified 12/19/24 13:24) + ALLERGY TEST Medication List - Last Reconciled 12/19/24 by Fletcher Wong MD acetaminophen (Tylenol Extra Strength) 1,000 mg (2 x 500 mg) PO QID PRN albuterol sulfate 90 mcg/actuation (Ventolin HFA) 2 puffs inhalation Q6-8H PRN albuterol sulfate mg inhalation allopurinol 100 mg PO DAILY amlodipine 10 mg PO QAM atorvastatin 40 mg PO QAM bisacodyl 10 mg (2 x 5 mg) PO BEDTIME celecoxib 100 mg PO BID cholecalciferol (vitamin D3) 50 mcg PO DAILY diazepam (Valium) 5 mg PO TID PRN enalapril-hydrochlorothiazide 10-25 mg 1 tab PO DAILY famotidine 40 mg PO BEDTIME fluticasone propionate 50 mcg/actuation 1 spray intranasal BID gabapentin 300 mg PO BEDTIME glycerin (adult) (Fleet Glycerin (Adult) rectal suppository) 1 supp AR DAILY PRN lactobacillus combination no.9 (Adult 50 Plus Probiotic) 4,000 mmu cells PO DAILY loratadine 10 mg PO DAILY omeprazole 40 mg PO DAILY peg 3350-electrolytes 236-22.74-6.74 -5.86 gram (Golytely) 240 mL PO Q10M polyethylene glycol 3350 (Miralax) 17 grams PO DAILY prucalopride (Motegrity) 2 mg PO DAILY PFSH Medical History Diverticulosis Tubular adenoma Hx of hemorrhoids Vitamin B1 deficiency Hemorrhoids Overweight (BMI 25.0-29.9) Obesity (BMI 30-39.9) Insomnia Allergic rhinitis Urinary incontinence Chronic idiopathic constipation Arthritis Celiac disease GERD (gastroesophageal reflux disease) TIA (transient ischemic attack) Depression Sleep apnea Elevated cholesterol HTN (hypertension) Surgical History S/P colonoscopy H/O hemorrhoidectomy Hx of cholecystectomy History of bladder suspension procedure H/O: hysterectomy H/O shoulder surgery Hx of colonoscopy Hx of esophagogastroduodenoscopy Family History Father Myocardial infarction NIDDY (non-insulin dependent diabetes mellitus in young) Mother Breast cancer Colon cancer NIDDY (non-insulin dependent diabetes mellitus in young) Hypertension Sister AIDS (acquired immune deficiency syndrome) NIDDY (non-insulin dependent diabetes mellitus in young) Hypertension Maternal Grandfather Bone cancer Maternal Grandmother Bone cancer Social History Household Members: None Alcohol intake: never Patient Tobacco Use Status: Former Tobacco user Physical Exam Vital Signs: BMI result Body Mass Index 29.0 Const Other: Well-nourished well-developed very friendly female awake alert and oriented x3 in no acute distress Extrem Other: Bilateral upper extremity examination shows good capillary refill, no skin lesions noted, normal sensation light touch Right shoulder examination shows decreased range of motion when compared to her left shoulder, 4/5 strength with supraspinatus testing, positive impingement signs, tenderness over her acromioclavicular joint, no instability Results Reviewed Results Reviewed: X-rays of the patient's right shoulder taken previously show severe acromioclavicular joint narrowing, a type 2 acromion, no acute bony abnormalities Assessment & Plan Assessment & Plan (1) Rotator cuff insufficiency of right shoulder: Code(s): M25.311 - Other instability, right shoulder Category: Medical Plan Ms. Castillo presents with progressively worsening right shoulder pain and weakness due to impingement syndrome and possible full-thickness rotator cuff tearing. Thus, I will send the patient for an MRI of her right shoulder for further evaluation. I will see her back once the MRI is completed to discuss the findings and treatment options. Feel free to call me at any time should questions regarding her orthopedic management arise. I spent 21 minutes in reviewing the patient's records and imaging studies, seeing the patient and documenting in the medical record. Orders: Orders MR shoulder RT wo con 12/23/24 M25.311 - Other instability, right shoulder Coding Level of Care Code Est Pt Level 3 (97990) Complex EM visit Add On G2211 Diagnoses Rotator cuff insufficiency of right shoulder M25.311
[2024-12-19 13:24] VITALS: BMI 29.0
== END 2024-12-19 13:47 | disposition home or self-care (01) ==
LOC: HO.HOS 13:17
PROVIDERS: PCP Family Medicine; Visit Provider Orthopaedic Surgery
DX: M25.311 Other instability, right shoulder (principal)
CPT/HCPCS: 99213; G2211

== ENCOUNTER → 2024-12-19 13:17 | Outpatient (BNVA) | payer OTHER, SELFPAY | PROVIDERS: PCP Family Medicine; Visit Provider Orthopaedic Surgery | DX: M25.311 Other instability, right shoulder (principal) | CPT/HCPCS: 99212 ==

== ENCOUNTER 2024-12-29 16:32 | Outpatient (REF) | payer OTHER, SELFPAY ==
--- NOTE | ~2024-12-29 | MR_ITS ---
CLINICAL HISTORY: M25.311 - Other instability, right shoulder MR right shoulder without contrast Comparison: MR/HI/SR - MR SHOULDER WITHOUT IV CONTRAST RIGHT - 05/08/23 19:29 EST CR/HI/SR - XR SHOULDER 2 OR MORE VIEWS RIGHT - 02/20/23 12:44 EDT Findings: No fracture or dislocation of the osseous structures. There is edema in the humeral head deep to the supraspinatus footplate, increased. Cystic change in the humeral head deep to subscapularis, unchanged. Edema in the glenoid most prominent at the anterior aspect, increased. Glenoid cystic change, also present on the prior study. Acromioclavicular joint degenerative change with mild joint space narrowing, moderate osteophytosis and mild subchondral edema, similar to the prior study. Small joint effusion, similar to the prior study. Trace fluid in the subacromial/subdeltoid bursa, increased. There is increased signal in the supraspinatus, infraspinatus and subscapularis tendons, increased. There is a partial tear of the supraspinatus tendon at the bursal and articular surfaces, greater of the bursal surface, more pronounced than on the prior study. No complete tear or retraction. No muscular atrophy. There is a partial tear of the infraspinatus tendon along the articular surface, new. There is a partial tear of the subscapularis tendon along the articular surface, unchanged. There is no complete tear of infraspinatus or subscapularis. No muscular atrophy. Teres minor is unremarkable. There is a tear the labrum which is more extensive than on the prior study and involves the superior /posterior, posterior and inferior aspects. The anterior superior labrum is favored to be intact with sublabral recess, although a tear may also be considered. At the inferior aspect of the labrum there is paralabral cyst measuring 9 mm, new. There is full-thickness glenohumeral chondromalacia with large osteophytosis, similar to the prior study. The biceps tendon and bicipital-labral anchor are intact. The coracoacromial and coracohumeral ligaments are intact. Cutaneous and subcutaneous tissues are normal. The quadrilateral space is unremarkable. Impression: Interval increase in degenerative edema within the humeral head and glenoid. Small joint effusion, similar to the prior study. Trace fluid in the subacromial/subdeltoid bursa, increased. Interval worsening of supraspinatus, infraspinatus and subscapularis tendinopathy. Increase in partial tear of the supraspinatus tendon. New partial tear of the infraspinatus tendon. Unchanged partial tear of the subscapularis tendon. Tear of the labrum which is more extensive than on the prior study. New paralabral cyst at the inferior aspect. This document has been electronically signed by: Bryanna Hamilton MD on 01/01/2025 16:13:28
== END 2024-12-29 16:33 | disposition home or self-care (01) ==
LOC: HO.MRI 16:32
PROVIDERS: PCP Family Medicine; Visit Provider Orthopaedic Surgery
DX: M25.331 Other instability, right wrist (principal)
CPT/HCPCS: 73221

== ENCOUNTER → 2024-12-29 16:32 | Outpatient (BNV) | payer OTHER, SELFPAY | PROVIDERS: PCP Family Medicine; Visit Provider Radiology Diagnostic Radiology | DX: M25.311 Other instability, right shoulder (principal) | CPT/HCPCS: 73221 ==

== ENCOUNTER 2025-01-07 11:48 | Outpatient (AMB) | payer OTHER, SELFPAY ==
--- NOTE | 2025-01-07 11:49 | MHC.OFFVIS ---
Vital Signs 01/07/25 11:54 Height 5 ft 4 in Weight 169 lb BMI 29.0 BP 146/78 H Blood Pressure Location Rt brachial Position Sitting Pulse 68 Pulse Source Pulse Oximeter Pulse Oximetry (%) 100 Oxygen Delivery Method Room Air Intake Visit Reasons: 4 / 5 wks f/u Intake Note: Est pt for mgmt of GERD + CIC. CC: Pt denies any changes since last visit. No new concerns. Clinical Radiologist Required: Yes Clinical Radiologist Services: Clinical Radiologist Offered & Declined Accompanied by: Self / Same As Patient Allergies cheese (CHEESE) Allergy (Unknown, Verified 01/07/25 11:59) + ALLERGY TESTING egg (EGGS) Allergy (Unknown, Verified 01/07/25 11:59) + ALLERGY TEST gluten (GLUTEN) Allergy (Unknown, Verified 01/07/25 11:59) + ALLERGY TEST milk (MILK) Allergy (Unknown, Verified 01/07/25 11:59) + ALLERGY TEST No Known Drug Allergies Allergy (Unknown, Verified 01/07/25 11:59) none soy (SOY) Allergy (Unknown, Verified 01/07/25 11:59) + ALLERGY TEST strawberry (STRAWBERRY) Allergy (Unknown, Verified 01/07/25 11:59) + ALLERGY TEST banana (BANANA) Adverse Reaction (Unknown, Verified 01/07/25 11:59) + ALLERGY TEST HPI HPI 4 / 5 wks f/u: Details: LAST VISIT GERD (gastroesophageal reflux disease) Celiac disease Chronic idiopathic constipation Diverticulosis Postprandial abdominal bloating Epigastric pain Plan Patient continues to be constipated despite multiple changes in her medication regimen. We will try Motegrity. Patient was also encouraged to increase fluid intake and activity to promote better bowel motility. Patient continues to have epigastric pain as well as bloating. She is avoiding gluten as best as she can. Recommended again gluten scanner paulie so she can use it when grocery shopping. Discussed with patient low FODMAP diet. List of food recommended as well as list of food to avoid given to patient. Patient will call us in couple weeks if she continues to be constipated. Otherwise patient will follow-up in our office in 4 weeks. Patient is agreeable to current plan of care and verbalizes understanding of instructions. She was given the opportunity to ask questions and all questions answered. ? Thank you for allowing me to participate in her care ? Additional note. Patient is asking for refill on her albuterol inhaler. Patient is having mild asthma episode in the past few days. Unable to read her PCP. Script sent with no additional refills. Patient was encouraged to follow-up with PCP. Pulmonology referral sent Referrals Pulmonology Referral J45.909 New prucalopride (Motegrity) 2 mg PO DAILY 30 tabs 2RF K59.04 Changed Changed From albuterol sulfate 90 mcg/actuation (Ventolin HFA) inhalation Changed To albuterol sulfate 90 mcg/actuation (Ventolin HFA) 2 puffs inhalation Q6-8H PRN 8.5 grams 0RF shortness of breath or wheezing Refilled omeprazole 40 mg PO DAILY 90 caps 2RF K21.9 TODAY'S VISIT: Patient is here today for follow-up. Patient reports that she has been doing well. Takes omeprazole in the morning and famotidine at bedtime as needed. Patient is avoiding gluten. Denies dyspepsia, dysphagia or odynophagia. Patient reports that she is moving her bowels now. Currently she is using Dulcolax in the evening. Patient tried Motegrity, however states that it was not helpful so she stopped using. Patient denies melena, hematochezia, unintentional weight loss or ribbon like stools. Patient reports less bloating. Patient denies any other GI concerning symptoms. Good appetite. Reports to be eating healthier. [facility] Medical History Diverticulosis Tubular adenoma Hx of hemorrhoids Vitamin B1 deficiency Hemorrhoids Overweight (BMI 25.0-29.9) Obesity (BMI 30-39.9) Insomnia Allergic rhinitis Urinary incontinence Chronic idiopathic constipation Arthritis Celiac disease GERD (gastroesophageal reflux disease) TIA (transient ischemic attack) Depression Sleep apnea Elevated cholesterol HTN (hypertension) Surgical History S/P colonoscopy H/O hemorrhoidectomy Hx of cholecystectomy History of bladder suspension procedure H/O: hysterectomy H/O shoulder surgery Hx of colonoscopy Hx of esophagogastroduodenoscopy Family History Father Myocardial infarction NIDDY (non-insulin dependent diabetes mellitus in young) Mother Breast cancer Colon cancer NIDDY (non-insulin dependent diabetes mellitus in young) Hypertension Sister AIDS (acquired immune deficiency syndrome) NIDDY (non-insulin dependent diabetes mellitus in young) Hypertension Maternal Grandfather Bone cancer Maternal Grandmother Bone cancer Social History Household Members: None Alcohol intake: never Patient Tobacco Use Status: Former Tobacco user Review of Systems Const Denies weight gain and Denies weight loss ENT Reports no additional complaints, Denies dysphagia and Denies odynophagia Card Reports no additional complaints Resp Reports cough and Reports wheezing (Mild ) GI Reports abdominal pain (Epigastric), Denies belching, Denies melena, Reports bloating, Denies change in bowel habits, Reports constipation, Denies dysphagia, Denies excessive flatus, Reports dyspepsia, Reports heartburn, Denies diarrhea, Denies loose stools, Denies nausea, Denies odynophagia and Denies vomiting Reports no additional complaints Musc Reports no additional complaints Neuro Reports no additional complaints Psych Reports no additional complaints Endo Reports no additional complaints Aller/Immun Reports wheezing (Mild ) Physical Exam Const General: healthy appearing and no acute distress Nutritional Appearance: obese Orientation/consciousness: patient oriented x3 Resp Effort & Inspection: normal respiratory effort, able to speak in complete sentences, no tracheal deviation and symmetric chest movement Auscultation: wheezes (Mild expiratory wheeze) upper bilaterally Cardio Rate: regular rate GI Inspection: Yes normal to inspection, No distended and Yes obesity Palpation (GI): Soft to palpation, not firm, nontender and No hepatosplenomegaly present Auscultation: normal bowel sounds General: Yes no CVA tenderness Back/Spine/Pelvis Back: no CVA tenderness Skin General skin exam: elasticity normal, turgor normal and dry skin Neuro General: patient oriented x3 Psych Appearance: grossly normal Mental Status: mental status grossly normal Assessment & Plan Assessment & Plan (1) GERD (gastroesophageal reflux disease): Code(s): K21.9 - Gastro-esophageal reflux disease without esophagitis Category: Medical Qualifiers: Esophagitis presence: esophagitis presence not specified Qualified Code(s): K21.9 - Gastro-esophageal reflux disease without esophagitis (2) Celiac disease: Code(s): K90.0 - Celiac disease Category: Medical (3) Chronic idiopathic constipation: Code(s): K59.04 - Chronic idiopathic constipation Category: Medical (4) Diverticulosis: Code(s): K57.90 - Diverticulosis of intestine, part unspecified, without perforation or abscess without bleeding Category: Medical (5) Postprandial abdominal bloating: Code(s): R14.0 - Abdominal distension (gaseous) (6) Epigastric pain: Code(s): R10.13 - Epigastric pain Plan Patient will continue taking omeprazole in the morning and famotidine as needed at bedtime. Avoid dietary triggers in late night snacking. Staying upright for minimum 3 hours after meals discussed with patient. Increase fluid intake and activity to promote better bowel motility. Increase fiber intake. Patient will continue taking Dulcolax daily. Follow-up in 3-4 months, sooner on as needed basis. She is agreeable to this plan and verbalizes understanding of instructions. She was given the opportunity to ask questions and all questions answered. Thank you for allowing me to participate in her care Medications: Refilled bisacodyl 10 mg (2 x 5 mg) PO BEDTIME 180 tabs 3RF K59.04 - Chronic idiopathic constipation Coding Level of Care Code Est Pt Level 4 (65413) Complex EM visit Add On G2211 Diagnoses Gastroesophageal reflux disease, unspecified whether esophagitis present K21.9 Esophagitis presence: esophagitis presence not specified Celiac disease K90.0 Chronic idiopathic constipation K59.04 Diverticulosis K57.90 Postprandial abdominal bloating R14.0 Epigastric pain R10.13 Time Spent (min) 40 Comment 25 minutes spent with patient and additional 15 minutes spent reviewing her records
[2025-01-07 11:54] VITALS: BP 146/78; PULSE 68; O2SAT 100; BMI 29.0
--- OUTSIDE RECORDS SUMMARY | 2025-01-07 12:51 | XMS_ITS | Data Portability ---
Author Organization [employer] [facility], [place] [facility] Address [address] [place] [address] Care Team Providers Care Act Tutor Name Role Phone [facility] Referring Provider Assessment Encounter Date Assessment Date Assessment LastModified by Organization Details LastModified Time 05/29/2023 05/29/2023 I provided real -time medical direction via phone for this encounter, and was available for additional phone based assistance as needed. I have reviewed and agree with the Assessment and Plan as documented by the Drop Crew Laborer. Patient given the opportunity to ask questions. Advised if develops CP/severe SOB/turning blue/uncontrolle d n/v/d /AMS/ syncope/ hi fever unresponsive to APAP to call 911- verbalized understanding of instructions [email or web address] Not available 05/30/2023 08:57:25 Plan of Treatment Reminders Order Date Submit Date Provider Last Modified By Organization Details Last Modified Time Details Appointments None recorded. Lab rapid SARS CoV 2 Ag, QL IA, respiratory specimen 2022 023 [email or web address], [id number] 3 13:19:56 rapid flu (A+B) 2022 023 [email or web address], [phone] 3 13:20:01 rapid strep group A, throat 2022 023 [email or web address], [phone] 3 13:20:02 Referral None recorded. Procedures None recorded. Surgeries None recorded. Imaging None recorded. Medication Orders ipratropium 0.5 mg-albutero l 3 mg (2.5 mg base)/3 mL nebulizatio n soln 2022 023 [email or web address] 0 Not available 3 13:19:52 albuterol sulfate HFA 90 mcg/actuati on aerosol inhaler 2022 023 [facility], [address], [place], [id number], 3 18:06:11 albuterol sulfate 2.5 mg/3 mL (0.083 %) solution for nebulizatio n 2022 023 [email or web address] 0 [facility], [address], [place], [id number], 3 13:19:51 albuterol sulfate 2.5 mg/3 mL (0.083 %) solution for nebulizatio n 2022 023 [facility], [address] [place] [address], [id number], 4 17:41:44 prednisone 20 mg tablet 2022 023 [facility], [address] [place] [address], [id number], 3 18:06:10 prednisone 20 mg tablet 2022 023 [email or web address] 0 [facility], [address], [place], [id number], 3 13:19:51 azithromyci n 250 mg tablet 2022 023 [facility], [address], [place], [id number], 3 18:06:13 azithromyci n 250 mg tablet 2022 023 [email or web address] 0 [facility], [address] [place] [address], [id number], 13:19:51 Patient TargetsNo targets recorded. Patient InstructionsNo instructions recorded. Reason for Referral None Reported. Results Created Date Observation Date Name Description Value Unit Range Abnormal Flag Note LastModifiedBy Organization Detail LastModifiedTime 05/29/2005/29/2023 rapid strep group A, throa t Strep negati ve Not Available [facility] ed [address] [place] [address], [id number] 05/29/2023 12:40:02 05/29/2005/29/2023 rapid flu (A+B) Flu negati ve Not Available [facility] ed [address] [place] [address], [id number] 05/29/2023 12:39:54 05/29/2005/29/2023 rapid SARS CoV 2 Ag, QL IA, respi rator y speci men rapid SARS CoV 2 Ag, QL IA, respiratory specimen negati ve Not Available [facility] [address] [place] [address], [id number] 05/29/2023 12:39:53 Result Notes None recorded. Medical Equipment None Reported. Allergies No known drug allergies Medications Name Sig Start Date Stop Date Status Note LastModified by Organization Details LastModified Time medbox status USE DIRECTED active Not Available Not Available No t Available atorvastatin 20 mg tablet TAKE 1 TABLET BY MOUTH EVERY MORNING active Not Available Not Available No t Available ipratropium 0.5 mg-albuterol 3 mg (2.5 mg base)/3 mL nebulization soln 3 ml unidose now 2022 active Not Available Not Available Not Avai lable enalapril maleate 10 mg tablet TAKE 1 TABLET BY MOUTH EVERY MORNING active Not Available Not Available No t Available albuterol sulfate 2.5 mg/3 mL (0.083 %) solution for nebulization INHALE 1 AMPULE USING A NEBULIZER BY MOUTH EVERY 4 TO 6 HOURS NEEDED active Not Available Not Available No t Available azithromycin 250 mg tablet TAKE 1 TABLET BY MOUTH EVERY DAY FOR FOUR DAYS active Not Available Not Available No t Available enalapril maleate 20 mg tablet TAKE 1 TABLET BY MOUTH EVERY MORNING active Not Available Not Available No t Available famotidine 40 mg tablet TAKE 1 TABLET BY MOUTH AT BEDTIME active Not Available Not Available No t Available prednisone 20 mg tablet TAKE 2 TABLETS BY MOUTH EVERY DAY AFTER MEALS FOR FOUR DAYS (START 05/30/23) active Not Available Not Available No t Available alendronate 70 mg tablet take 1 tablet once a week with 6 to 8 oz of water 30 min before first food of day. do not lie down for 30 minutes active Not Available Not Available No t Available thiamine HCl (vitamin B1) 100 mg tablet TAKE 1 TABLET BY MOUTH EVERY MORNING active Not Available Not Available No t Available amlodipine 5 mg tablet TAKE 1 TABLET BY MOUTH EVERY MORNING active Not Available Not Available No t Available allopurinol 100 mg tablet TAKE 1 TABLET BY MOUTH EVERY DAY active Not Available Not Available No t Available omeprazole 40 mg capsule,eun yed release TAKE 1 CAPSULE BY MOUTH EVERY MORNING active Not Available Not Available No t Available aspirin 81 mg tablet,delay ed release TAKE 1 TABLET BY MOUTH EVERY DAY active Not Available Not Available No t Available acetaminophe n 500 mg tablet TAKE 1 TABLET BY MOUTH EVERY 8 HOURS NEEDED FOR MILD PAIN, MODERATE PAIN, OR FOR HEADACHE active Not Available Not Available No t Available hydrocortiso ne 2.5 % topical cream APPLY TOPICALLY TO AFFECTED AREA(S) ONCE DAILY DIRECTED active Not Available Not Available Not Available bisacodyl 5 mg tablet,delay ed release TAKE 2 TABLETS BY MOUTH EVERY DAY AT BEDTIME active Not Available Not Available No t Available colchicine 0.6 mg tablet TAKE 1 TABLET BY MOUTH EVERY MORNING active Not Available Not Available No t Available fluticasone propionate 50 mcg/actuatio n nasal spray,suspen chinedu USE 1 SPRAY IN EACH NOSTRIL TWICE DAILY active Not Available Not Available Not Available loratadine 10 mg tablet TAKE 1 TABLET BY MOUTH ONCE DAILY active Not Available Not Available No t Available Ventolin HFA 90 mcg/actuatio n aerosol inhaler INHALE 2 PUFFS BY MOUTH EVERY 4 HOURS NEEDED active Not Available Not Available No t Available acidophilus 25 million cell-pectin, citrus 100 mg tablet TAKE 1 TABLET BY MOUTH EVERY DAY WITH A MEAL active Not Available Not Available No t Available lubiprostone 24 mcg capsule TAKE 1 CAPSULE BY MOUTH TWICE DAILY active Not Available Not Available No t Available GaviLyte-G 236 gram-22.74 gram-6.74 gram-5.86 gram oral solution MIX AND DRINK 240 ML BY MOUTH EVERY 10 MINUTES UNTIL BOWEL MOVEMENT IS CLEAR. FOLLOW INSTRUCTION S GIVEN BY THE DOCTOR FROM GI OFFICE active Not Available Not Available No t Available blood pressure test kit-large cuff USE DIRECTED 3 TIMES PER WEEK active Not Available Not Available No t Available Vitamin D3 50 mcg (2,000 unit) capsule TAKE 1 CAPSULE BY MOUTH EVERY MORNING active Not Available Not Available No t Available Vitals Date Recorded Oxygen saturation Oxygen saturation in Arterial blood by Pulse oximetry Body temperature Body weight Body height Respiratory rate Heart rate Systolic And Diastolic Provider Name and Address Organization Details Last Updated DateTime 3 97 % 97 % 98.3 [degF] 00868.3 92 g 162.56 cm 16 /min 89 /min 155/80 mm[Hg] Not Available [facility] - production 3 12:39:13 Social History None recorded. Functional Status None recorded. Mental Status None recorded. Family History Nothing Reported. Medical History No medical history recorded. Gynecological HistoryNo gynecological history recorded. Obstetrics History GPAL:G 0 P 0 0 0 0 Past Encounters Encounter ID Performer Location Encounter Start Date Encounter Closed Date Diagnosis/Indication Diagnosis SNOMED-CT Code Diagnosis ICD10 Code Diagnosis Note [id number] Jocelynn Keller MD [facility] [address] [place] [phone] 05/29/2023 12:39:11 05/30/2023 10:22:17 Exacerbation of intermittent asthma 419505835 J45.21 With likely bacterial bronchitis /all rapid test -6 days after symptom onset and she reports a very congested cough-radha ent initially more rhonchorou s, after DuoNeb wheezing became audible and it resolved with albuterol neb. Patient needs a new albuterol MDI and the medic left her due to being on the she has the nebulizer and knows how to use it so I will prescribe nebulized albuterol as well. She is not a diabetic-p rednisone added severe wheezing and I will cover her with azithromyc in.She reports she has someone to pecan picker her prescripti ons today aware to start them tomorrow. Advised close follow-up with PCP and to call us for repeat visit if not improving in several days-medic reviewed the red flags and she verbalized understand ing Health Concerns Section Related Observation LastModified by Organization Detai ls LastModified Time None Recorded Concern Status LastModified by Organization Details LastModified Time None Recorded Advance Directives Directive None Recorded Payers Insurance Date Sequence Insurance Name Policy Number Policy Mendoza Covered Member ID Mendoza Member ID Guarantor Name 11/04/2023 1 [facility] - DOS ON OR AFTER 2022 - DUAL ELIGIBLE - LONGTERM OPTIONS AND ONE CARE (MEDICARE REPLACEMENT/ADV ANTAGE - HMO) Elizabet Castillo [id number] Elizabet Castillo [facility]BGymax Episode No OBEpisode recorded.
== END 2025-01-07 12:10 | disposition home or self-care (01) ==
LOC: HO.HGI 11:48
PROVIDERS: PCP Family Medicine; Visit Provider Nurse Practitioner Family
DX: K21.9 Gastro-esophageal reflux disease without esophagitis (principal); K90.0 Celiac disease; K57.90 Diverticulosis of intestine, part unspecified, without perforation or abscess without bleeding; R14.0 Abdominal distension (gaseous); R10.13 Epigastric pain
CPT/HCPCS: 99214; G2211

== ENCOUNTER → 2025-01-07 11:48 | Outpatient (BNVA) | payer OTHER, SELFPAY | PROVIDERS: PCP Family Medicine; Visit Provider Nurse Practitioner Family | DX: M25.511 Pain in right shoulder (principal); M25.811 Other specified joint disorders, right shoulder; K21.9 Gastro-esophageal reflux disease without esophagitis; K90.0 Celiac disease; K57.90 Diverticulosis of intestine, part unspecified, without perforation or abscess without bleeding; R14.0 Abdominal distension (gaseous); R10.13 Epigastric pain | CPT/HCPCS: 99212 ==

== ENCOUNTER 2025-01-07 14:11 | Outpatient (AMB) | payer OTHER, SELFPAY ==
--- NOTE | 2025-01-07 14:26 | A.OFFVIS_ITS ---
Vital Signs 01/07/25 14:27 Height 5 ft 4 in Weight 169 lb BMI 29.0 BP 171/88 H Blood Pressure Location Rt brachial Position Sitting Pulse 75 Intake Visit Reasons: OV-MRI review Right Shoulder Intake Note: Roberth 69 year old female who presents with complaints of progressively worsening right shoulder pain. The patient states that she injured her shoulder approximately 2 years ago while lifting a heavy object. Since that time she has had difficulty lifting her right hand above shoulder height. She has failed the last 6 weeks of conservative treatment which has included physical therapy exercises, a home exercise program, Tylenol and anti-inflammatory medicines. She has had cortisone injections in the past which gave her minimal relief. At this point the patient's right shoulder pain and weakness are interfering with her activities of daily living and her ability to sleep well through the night. [employer] Required: Yes Cleaner Furniture Services: [employer] Furn[employer] Present Cleaner Furniture Name: Jesus Alberto [id number] [employer] Allergies cheese (CHEESE) Allergy (Unknown, Verified 01/07/25 14:31) + ALLERGY TESTING egg (EGGS) Allergy (Unknown, Verified 01/07/25 14:31) + ALLERGY TEST gluten (GLUTEN) Allergy (Unknown, Verified 01/07/25 14:31) + ALLERGY TEST milk (MILK) Allergy (Unknown, Verified 01/07/25 14:31) + ALLERGY TEST No Known Drug Allergies Allergy (Unknown, Verified 01/07/25 14:31) none soy (SOY) Allergy (Unknown, Verified 01/07/25 14:31) + ALLERGY TEST strawberry (STRAWBERRY) Allergy (Unknown, Verified 01/07/25 14:31) + ALLERGY TEST banana (BANANA) Adverse Reaction (Unknown, Verified 01/07/25 14:31) + ALLERGY TEST Medication List - Last Reconciled 01/07/25 by Fletcher Wong MD acetaminophen (Tylenol Extra Strength) 1,000 mg (2 x 500 mg) PO QID PRN albuterol sulfate 90 mcg/actuation (Ventolin HFA) 2 puffs inhalation Q6-8H PRN albuterol sulfate mg inhalation allopurinol 100 mg PO DAILY amlodipine 10 mg PO QAM atorvastatin 40 mg PO QAM bisacodyl 10 mg (2 x 5 mg) PO BEDTIME celecoxib 100 mg PO BID cholecalciferol (vitamin D3) (Vitamin D3) 50 mcg PO DAILY diazepam (Valium) 5 mg PO TID PRN enalapril-hydrochlorothiazide 10-25 mg 1 tab PO DAILY famotidine 40 mg PO BEDTIME fluticasone propionate 50 mcg/actuation 1 spray intranasal BID gabapentin 300 mg PO BEDTIME glycerin (adult) (Fleet Glycerin (Adult) rectal suppository) 1 supp GA DAILY PRN lactobacillus combination no.9 (Adult 50 Plus Probiotic) 4,000 mmu cells PO DAILY loratadine 10 mg PO DAILY omeprazole 40 mg PO DAILY polyethylene glycol 3350 (Miralax) 17 grams PO DAILY PFSH Medical History Diverticulosis Tubular adenoma Hx of hemorrhoids Vitamin B1 deficiency Hemorrhoids Overweight (BMI 25.0-29.9) Obesity (BMI 30-39.9) Insomnia Allergic rhinitis Urinary incontinence Chronic idiopathic constipation Arthritis Celiac disease GERD (gastroesophageal reflux disease) TIA (transient ischemic attack) Depression Sleep apnea Elevated cholesterol HTN (hypertension) Surgical History S/P colonoscopy H/O hemorrhoidectomy Hx of cholecystectomy History of bladder suspension procedure H/O: hysterectomy H/O shoulder surgery Hx of colonoscopy Hx of esophagogastroduodenoscopy Family History Father Myocardial infarction NIDDY (non-insulin dependent diabetes mellitus in young) Mother Breast cancer Colon cancer NIDDY (non-insulin dependent diabetes mellitus in young) Hypertension Sister AIDS (acquired immune deficiency syndrome) NIDDY (non-insulin dependent diabetes mellitus in young) Hypertension Maternal Grandfather Bone cancer Maternal Grandmother Bone cancer Social History Household Members: None Alcohol intake: never Patient Tobacco Use Status: Former Tobacco user Physical Exam Vital Signs: Last Vital Signs Pulse 75 01/07/25 14:27 BP 171/88 H 01/07/25 14:27 BMI result Body Mass Index 29.0 Const Other: Well-nourished well-developed very friendly female awake alert and oriented x3 in no acute distress Extrem Other: Right shoulder examination shows decreased range of motion when compared to her left shoulder, 4+ out of 5 strength with supraspinatus testing, positive impingement signs, tenderness over her acromioclavicular joint, no instability Results Reviewed Results Reviewed: MRI of the patient's right shoulder show severe acromioclavicular joint narrowing, a type 2 acromion, signal change within her supraspinatus tendon due to partial-thickness tearing versus a small full-thickness tear Assessment & Plan Assessment & Plan (1) Impingement of right shoulder: Code(s): M25.811 - Other specified joint disorders, right shoulder Category: Medical Plan Ms. Castillo presents with right shoulder pain due to impingement syndrome, acromioclavicular joint arthritis and partial-thickness rotator cuff tearing versus a small full-thickness tear. I had a lengthy discussion with the patient regarding the treatment options. At this point she has failed continued non operative treatments. The risks and benefits of right shoulder surgery were discussed at length with the patient. The patient wishes to proceed with surgery. Surgery will involve right shoulder arthroscopic distal clavicle excision, right shoulder arthroscopic acromioplasty and possible right shoulder mini open rotator cuff repair should a full-thickness tear be found at the time of her surgery. The patient will be scheduled for next available date. She will follow-up as instructed. Feel free to call me at any time should questions regarding her orthopedic management arise. I spent 20 minutes in reviewing the patient's records and imaging studies, seeing the patient and documenting in the medical record. Coding Level of Care Code Est Pt Level 3 (93883) Complex EM visit Add On G2211 Diagnoses Impingement of right shoulder M25.811
[2025-01-07 14:27] VITALS: BP 171/88; PULSE 75; BMI 29.0
--- OUTSIDE RECORDS SUMMARY | 2025-01-07 14:54 | XMS_ITS | Encounter Summary ---
Author Organization [employer] [facility] Address [address] [facility] 7t [place] [address] Care Team Providers Care Malthouse Laborer Name Role Phone Albertina Danielle MD Primary Care Provider +- [phone] Erika Pratt PharmD Unavailable April Jackson Unavailable Fletcher Wong MD Unavailable Encounter Details Date Type Department Care Team (Late st Contact Info) Description 03/09/2023 Abstract [facility] MEDICINE [address] [place], [place] [phone] Albertina Danielle MD [address] [place], [place] [phone] Tubular adenoma Social History Tobacco Use Types [...] Description 01/22/2025 3:15 PM EDT Office Visit [facility] MEDICINE [address] [facility] [address] Albertina Danielle MD [address] [place] [address] documented as of this encounter Goals Goal [...] documented as of this encounter Care Teams Malthouse Laborer Relationship Specialty Start Date End Date Albertina Danielle MD [address] [facility] [place] [address] PCP - General Family Medicine 06/12/18 Erika Pratt, PharmD [address] [place] [phone] Pharmacist Internal Medicine 03/01/23 April Jackson [address] [place] [address] 3rd Floor [facility] 05/22/24 Fletcher Wong MD [address] [place] [address] [address] [place] [address] Orthopaedic Surgery 12/19/24 documented as of this encounter
== END 2025-01-07 14:49 | disposition home or self-care (01) ==
LOC: HO.HOS 14:12
PROVIDERS: PCP Family Medicine; Visit Provider Orthopaedic Surgery
DX: M25.811 Other specified joint disorders, right shoulder (principal)
CPT/HCPCS: 99213; G2211

== ENCOUNTER 2025-01-31 13:13 | Outpatient (REF) | payer OTHER, SELFPAY ==
--- OUTSIDE RECORDS SUMMARY | 2025-01-31 13:15 | XMS_ITS | Encounter Summary ---
Author Organization [employer] Address [address] [facility] 7t [place] [address] Care Team Providers Care Donor Services Manager Name Role Phone Albertina Danielle MD Primary Care Provider [phone]- [phone] Erika Pratt PharmD Unavailable [phone] April Jackson Unavailable Fletcher Wong MD Unavailable Encounter Details Date Type Department Care Team (Late st Contact Info) Description 03/09/[address] [facility] MEDICINE [address] [place], [place] [phone] Albertina Danielle MD 230 [place], [place] [phone] Tubular adenoma Social History Tobacco Use Types [...] as of this encounter Plan of Treatment Not on file documented as of this encounter Goals Goal Patient Goal Type Associated Problems Recent Progress Patient-Stated? Author Blood Pressure < 150/90 Blood Pressure 140/72( 025 3:10 PM EDT) No Erika Lockett PharmD documented [...] documented as of this encounter Care Teams Donor Services Manager Relationship Specialty Start Date End Date Albertina Danielle MD [address] [place] [address] PCP - General Family Medicine 06/12/18 Erika Pratt, PharmD [address] [place] [address] Pharmacist Internal Medicine 03/01/23 April Jackson [address] [place] [address] Dr 3rd Floor [place] Gastroenterology 05/22/24 Fletcher Wong MD [address] [place] [address] [address] [place] [address] Orthopaedic Surgery 12/19/24 documented as of this encounter
[2025-01-31 15:09] LABS: Alanine Aminotransferase 43 U/L (0-31); Albumin Level 4.6 g/dL (3.5-5.0); Alkaline Phosphatase 114 U/L (39-117); Anion Gap 14 (12-20); Aspartate Amino Transferase 40 U/L (5-31); Blood Urea Nitrogen 14 mg/dL (9-16); Calcium 9.5 mg/dL (8.4-10.2); Carbon Dioxide 25 mmol/L (22-29); Chloride 101 mmol/L (96-108); Cholesterol 182 mg/dL (<200); Estimated Glomerular Filt Rate > 60; HDL Cholesterol 48 mg/dL (>40); Potassium 3.8 mmol/L (3.3-5.1); Sodium 136 mmol/L (135-145); Total Protein 8.1 g/dL (6.5-8.0); Triglycerides 217 mg/dL (<150); Uric Acid 7.9 mg/dL (2.4-5.7)
[2025-01-31 15:32] LABS: Microalbum/Creatinine Ratio Ur 5.9 ug/mg cr (<30)
[2025-02-03 16:38] LABS: TS Negative Control Passed; TS Panel A 0; TS Panel B 0; TS Positive Control Passed; TSpotTB Negative (Negative)
== END 2025-01-31 13:14 | disposition home or self-care (01) ==
LOC: HO.HHCL 13:13
PROVIDERS: PCP Family Medicine; Visit Provider Family Medicine
DX: Z11.1 Encounter for screening for respiratory tuberculosis (principal); M10.9 Gout, unspecified; E78.5 Hyperlipidemia, unspecified; E55.9 Vitamin D deficiency, unspecified; I10 Essential (primary) hypertension
CPT/HCPCS: 36415; 80048; 80061; 80076; 82043; 82306; 82570; 84550; 86481

== ENCOUNTER 2025-02-07 05:46 | Day surgery (SDC) | payer OTHER, SELFPAY ==
--- OUTSIDE RECORDS SUMMARY | 2025-01-08 09:39 | XMS_ITS | Encounter Summary ---
Author Organization [employer] [facility] Address [address] [facility] 7t [place] [address] Care Team Providers Care Fha Underwriter Name Role Phone Albertina Danielle MD Primary Care Provider +- [phone] Erika Pratt PharmD Unavailable April Jackson Unavailable Fletcher Wong MD Unavailable Encounter Details Date Type Department Care Team (Late st Contact Info) Description 03/09/2023 Abstract [facility] MEDICINE [address] [place], [place] [phone] Albertina Danielle MD [address] [place], [place] [phone] Tubular adenoma Social History Tobacco Use Types [...] Description 01/22/2025 3:15 PM EDT Office Visit [facility] MEDICINE [address] [facility] [place] [address] Albertina Danielle MD [address] [facility] [place] [address] documented as of this encounter Goals Goal [...] documented as of this encounter Care Teams Fha Underwriter Relationship Specialty Start Date End Date Albertina Danielle MD [address] [facility] [place] [address] PCP - General Family Medicine 06/12/18 Erika Pratt, PharmD [address] [place] [phone] Pharmacist Internal Medicine 03/01/23 April Jackson [address] [place] [address] 3rd Floor [facility] 05/22/24 Fletcher Wong MD [address] [place] [address] [address] [place] [address] Orthopaedic Surgery 12/19/24 documented as of this encounter
[2025-01-15 12:29] VITALS: BMI 28.7
[2025-02-07] VITALS (8 sets, daily range): BP systolic 106–135; BP diastolic 56–71; PULSE 66–74; RESP 16–20; TEMP 36.1–36.6; O2SAT 92–99; BMI 28.7
[2025-02-07] MEDS: Lactated Ringers 1,000 ML 100 ML IVCONT (06:14)
--- NOTE | 2025-02-07 07:15 | HO.ANESPROP2 ---
Documented by User: Renetta Kilpatrick NP 02/06/25 10:23 HPI - Anesthesia Eval Consult details Narrative: 69yo F for Right Shoulder Arthroscopy,distal clavicle excision,acromioplasty,with Mini Open RCR Medically optimized per PCP [facility] Active Problems Active Problems: All Active Problems Impingement of right shoulder (Acute) Rotator cuff insufficiency of right shoulder (Acute) Right shoulder pain (Acute) H/O cosmetic plastic surgery (Acute) Gout (Acute) Diverticulosis (Acute) Tubular adenoma (Acute) Vitamin B1 deficiency (Acute) Overweight (BMI 25.0-29.9) (Acute) Obesity (BMI 30-39.9) (Acute) Arthritis (Acute) Celiac disease (Acute) Depression (Acute) Elevated cholesterol (Acute) GERD (gastroesophageal reflux disease) (Acute) HTN (hypertension) (Acute) Sleep apnea (Acute) TIA (transient ischemic attack) (Acute) Chronic idiopathic constipation (Acute) Urinary incontinence (Acute) Allergic rhinitis (Acute) Insomnia (Acute) S/P colonoscopy (Acute) Past Medical History Medical History Teeth missing HLD (hyperlipidemia) Chronic sinusitis GERHARD (obstructive sleep apnea) Diverticulosis Tubular adenoma Hx of hemorrhoids Vitamin B1 deficiency Hemorrhoids Overweight (BMI 25.0-29.9) Obesity (BMI 30-39.9) Insomnia Allergic rhinitis Urinary incontinence Chronic idiopathic constipation Arthritis Celiac disease GERD (gastroesophageal reflux disease) TIA (transient ischemic attack) Depression Elevated cholesterol HTN (hypertension) Family History Family History Father Myocardial infarction NIDDY (non-insulin dependent diabetes mellitus in young) Mother Breast cancer Colon cancer NIDDY (non-insulin dependent diabetes mellitus in young) Hypertension Sister AIDS (acquired immune deficiency syndrome) NIDDY (non-insulin dependent diabetes mellitus in young) Hypertension Maternal Grandfather Bone cancer Maternal Grandmother Bone cancer Surgical History Surgical History S/P colonoscopy H/O hemorrhoidectomy Hx of cholecystectomy History of bladder suspension procedure H/O: hysterectomy H/O shoulder surgery Hx of colonoscopy Hx of esophagogastroduodenoscopy History of Problems with Anesthesia: No Social History Social History (Updated 01/15/25 @ 12:41 by Mar Solorio RN) Household Members: None Housing: Apartment Are you a primary ocular care technologist to a significant other at home: No Do you presently have visiting nurse or other home services: No Alcohol intake: never Patient Tobacco Use Status: Former Tobacco user Tobacco use type: Cigarette Use of substances other than those prescribed or required for medical reasons: No Have you been hit, kicked, punched, or otherwise hurt by someone within the past year? If so, by whom?: No Are you DNR?: No Advance Directives: No Advance Directives Information Provided: Yes Advance Directives on File: No Poor oral hygiene: Yes (no upper teeth, partial lower) Meds Allergies Allergy/AdvReac Type Severity Reaction Status Date / Time cheese (CHEESE) Allergy Unknown + ALLERGY Verified 02/07/25 06:06 TESTING egg (EGGS) Allergy Unknown + ALLERGY Verified 02/07/25 06:06 TEST gluten (GLUTEN) Allergy Unknown + ALLERGY Verified 02/07/25 06:06 TEST milk (MILK) Allergy Unknown + ALLERGY Verified 02/07/25 06:06 TEST No Known Drug Allergies Allergy Unknown none Verified 02/07/25 06:06 soy (SOY) Allergy Unknown + ALLERGY Verified 02/07/25 06:06 TEST strawberry (STRAWBERRY) Allergy Unknown + ALLERGY Verified 02/07/25 06:06 TEST banana (BANANA) AdvReac Unknown + ALLERGY Verified 02/07/25 06:06 TEST Active Medications: Current Medications Cefazolin Sodium/Dextrose (Ancef) 2 gm in 50 mls @ 100 mls/hr IV PREOP ONE Stop: 02/07/25 05:57 Home Medications ?Medication ?Instructions ?Recorded ?Confirmed ?Last Taken ?Type allopurinol 100 mg tablet 100 mg PO DAILY 06/03/20 01/15/25 Unknown History fluticasone propionate 50 1 spray intranasal BID 06/03/20 01/15/25 Unknown History mcg/actuation nasal spray,suspension gabapentin 300 mg capsule 300 mg PO BEDTIME 06/03/20 01/15/25 Unknown History loratadine 10 mg tablet 10 mg PO DAILY 06/03/20 01/15/25 Unknown History albuterol sulfate 2.5 mg/3 mL mg inhalation 08/28/23 01/07/25 Unknown History (0.083 %) solution for nebulization amlodipine 10 mg tablet 10 mg PO QAM 12/04/24 01/15/25 02/07/25 History atorvastatin 40 mg tablet 40 mg PO QAM 12/04/24 01/15/25 Unknown History enalapril 10 1 tab PO DAILY 12/04/24 01/15/25 Unknown History mg-hydrochlorothiazide 25 mg tablet glycerin (adult) (Fleet Glycerin 1 supp [place] DAILY PRN constipation 12/04/24 01/15/25 Unknown History (Adult) rectal suppository) Exam Height,Weight and Vital Signs: Height 5 ft 4 in Weight 75.75 kg Pertinent Lab Results Pertinent Lab Results: Laboratory Tests 11/12/24 01/31/25 14:21 13:19 WBC 6.9 Hgb 13.4 Hct 38.9 Plt Count 275 Sodium 136 Potassium 3.8 Chloride 101 Carbon Dioxide 25 BUN 14 Creatinine 0.89 Narrative Narrative: EKG 2023 Vent. Rate : 097 BPM Atrial Rate : 097 BPM P-R Int : 148 ms QRS Dur : 072 ms QT Int : 370 ms P-R-T Axes : 030 011 021 degrees QTc Int : 469 ms Normal sinus rhythm Nonspecific ST abnormality Abnormal ECG When compared with ECG of 29-OCT-2021 16:01, Vent. rate has increased BY 33 BPM QT has lengthened Assessment and Plan Assessment Anesthesia Assessment: Chart Reviewed Final Anesthetic Review History of Problems with Anesthesia: No Documented by User: Yamilet Musa DO 02/07/25 07:51 [facility] Past Medical History Medical History Teeth missing HLD (hyperlipidemia) Chronic sinusitis GERHARD (obstructive sleep apnea) Diverticulosis Tubular adenoma Hx of hemorrhoids Vitamin B1 deficiency Hemorrhoids Overweight (BMI 25.0-29.9) Obesity (BMI 30-39.9) Insomnia Allergic rhinitis Urinary incontinence Chronic idiopathic constipation Arthritis Celiac disease GERD (gastroesophageal reflux disease) TIA (transient ischemic attack) Depression Elevated cholesterol HTN (hypertension) Family History Family History Father Myocardial infarction NIDDY (non-insulin dependent diabetes mellitus in young) Mother Breast cancer Colon cancer NIDDY (non-insulin dependent diabetes mellitus in young) Hypertension Sister AIDS (acquired immune deficiency syndrome) NIDDY (non-insulin dependent diabetes mellitus in young) Hypertension Maternal Grandfather Bone cancer Maternal Grandmother Bone cancer Family history of problems with anesthesia: No Surgical History Surgical History S/P colonoscopy H/O hemorrhoidectomy Hx of cholecystectomy History of bladder suspension procedure H/O: hysterectomy H/O shoulder surgery Hx of colonoscopy Hx of esophagogastroduodenoscopy History of Problems with Anesthesia: No Social History Social History (Updated 01/15/25 @ 12:41 by Mar Solorio RN) Household Members: None Housing: Apartment Are you a primary ocular care technologist to a significant other at home: No Do you presently have visiting nurse or other home services: No Alcohol intake: never Patient Tobacco Use Status: Former Tobacco user Tobacco use type: Cigarette Use of substances other than those prescribed or required for medical reasons: No Have you been hit, kicked, punched, or otherwise hurt by someone within the past year? If so, by whom?: No Are you DNR?: No Advance Directives: No Advance Directives Information Provided: Yes Advance Directives on File: No Poor oral hygiene: Yes (no upper teeth, partial lower) Meds Allergies Allergy/AdvReac Type Severity Reaction Status Date / Time cheese (CHEESE) Allergy Unknown + ALLERGY Verified 02/07/25 06:06 TESTING egg (EGGS) Allergy Unknown + ALLERGY Verified 02/07/25 06:06 TEST gluten (GLUTEN) Allergy Unknown + ALLERGY Verified 02/07/25 06:06 TEST milk (MILK) Allergy Unknown + ALLERGY Verified 02/07/25 06:06 TEST No Known Drug Allergies Allergy Unknown none Verified 02/07/25 06:06 soy (SOY) Allergy Unknown + ALLERGY Verified 02/07/25 06:06 TEST strawberry (STRAWBERRY) Allergy Unknown + ALLERGY Verified 02/07/25 06:06 TEST banana (BANANA) AdvReac Unknown + ALLERGY Verified 02/07/25 06:06 TEST Home Medications ?Medication ?Instructions ?Recorded ?Confirmed ?Last Taken ?Type allopurinol 100 mg tablet 100 mg PO DAILY 06/03/20 01/15/25 Unknown History fluticasone propionate 50 1 spray intranasal BID 06/03/20 01/15/25 Unknown History mcg/actuation nasal spray,suspension gabapentin 300 mg capsule 300 mg PO BEDTIME 06/03/20 01/15/25 Unknown History loratadine 10 mg tablet 10 mg PO DAILY 06/03/20 01/15/25 Unknown History albuterol sulfate 2.5 mg/3 mL mg inhalation 08/28/23 01/07/25 Unknown History (0.083 %) solution for nebulization amlodipine 10 mg tablet 10 mg PO QAM 12/04/24 01/15/25 02/07/25 History atorvastatin 40 mg tablet 40 mg PO QAM 12/04/24 01/15/25 Unknown History enalapril 10 1 tab PO DAILY 12/04/24 01/15/25 Unknown History mg-hydrochlorothiazide 25 mg tablet glycerin (adult) (Fleet Glycerin 1 supp [place] DAILY PRN constipation 12/04/24 01/15/25 Unknown History (Adult) rectal suppository) Exam Exam Date and Time: 02/07/25 0715 Height,Weight and Vital Signs: Height 5 ft 4 in Weight 75.75 kg Vital Signs Temperature 97.9 F 02/07/25 06:23 Pulse Rate 73 02/07/25 06:23 Respiratory Rate 18 02/07/25 06:23 Blood Pressure 135/62 02/07/25 06:23 Pulse Oximetry 99 02/07/25 06:23 Oxygen Delivery Method Room Air 02/07/25 06:23 Temperature 97.9 F 02/07/25 06:23 Pulse Rate 73 02/07/25 06:23 Respiratory Rate 18 02/07/25 06:23 Blood Pressure 135/62 02/07/25 06:23 Pulse Oximetry 99 02/07/25 06:23 Oxygen Delivery Method Room Air 02/07/25 06:23 Airway Mallampati Class: II TM Dist: >3cm Neck ROM: Limited Denture: Upper Heart: S1S2 Lungs: CTAB Assessment and Plan Assessment Anesthesia Assessment: Anesthesia Plan Discussed and Chart Reviewed Final Anesthetic Review Family History of Problems with Anesthesia: No History of Problems with Anesthesia: No NPO: Yes ASA Class: II Final Preanesthetic Review: No Changes in Pt Med Stat, Meds/Allgs Chart Reviewed, Consent Obtained/Reviewed and Anes Risks/Benef Reviewed Patient Risk: Low Procedure Risk: Intermediate Anesthetic Plan Anesthetic Plan: GA, Regional Block (right brachial plexus block) and Agree w/ Assess. and Plan Disposition: Standard PACU
--- NOTE | 2025-02-07 09:03 | PM.OP ---
Brief Operative Note Date of Service: 02/07/25 Pre-op diagnosis: Right shoulder impingement syndrome, right shoulder acromioclavicular joint arthritis, possible right shoulder rotator cuff tear Post-op diagnosis: other (Right shoulder impingement syndrome, right shoulder acromioclavicular joint arthritis, right shoulder adhesive capsulitis) Procedure: Right shoulder arthroscopic distal clavicle excision, right shoulder arthroscopic acromioplasty, right shoulder arthroscopic anterior capsular release, right shoulder manipulation under anesthesia Implants: None Surgeon: Fletcher Wong MD Anesthesia: GETA and regional Was an Reinforcing Steel Machine Operator used for this Procedure?: No Estimated blood loss (mL): 10 Pathology: none sent Condition: stable Disposition: PACU
--- NOTE | 2025-02-07 09:04 | W.PM.OPN ---
Operative Note Operative Note Date of Service: 02/07/25 Narrative: After the patient was identified as Elizabet Castillo and her right shoulder was initialed by myself the patient was brought to the holding area where a right shoulder interscalene regional block was performed by the anesthesiologist in routine fashion. The patient was then brought to the operating room where general anesthesia was induced by the anesthesiologist in routine fashion. The patient was given 2 g of IV Ancef preoperatively for infection prophylaxis. Examination under anesthesia of the patient's right shoulder showed decreased passive range of motion when compared to the left shoulder. The patient's right shoulder had passive forward flexion to 100 degrees compared to 170 degrees, external rotation to 20 degrees compared to 60 degrees, and internal rotation to 40 degrees compared to 60 degrees. The patient was gently positioned in the beach chair position with all bony prominences well padded. The patient's right shoulder region and upper extremity were prepped and draped in sterile fashion. A formal time-out was completed. A #11 scalpel blade was used to make a posterior portal 2 cm inferior and 1 cm medial to the posterolateral corner of the acromion. Blunt trocar technique was used to enter the glenohumeral joint in routine fashion. An anterior portal was made just lateral to the coracoid process after proper positioning was confirmed using a spinal needle. Diagnostic arthroscopy showed diffuse grade 1 and 2 degenerative changes of the glenoid and humeral head articular surfaces. The articular surfaces were made smooth using the arthroscopic shaver. There was no evidence of rotator cuff tearing. There was degenerative fraying of the anterior labrum. The frayed fibers were debrided using the arthroscopic shaver. The remaining labrum was intact. There was also degenerative fraying of the biceps tendon measuring approximately 10% of the tendon width. The frayed fibers were debrided using the arthroscopic shaver. Following the debridement the remainder of the tendon was intact. There was inflammation of the anterior joint capsule consistent with adhesive capsulitis. The ArthroCare Wand was then used to perform an anterior capsular release between the inferior border of the biceps tendon and the superior border of the subscapularis tendon. The arthroscope was then placed from the posterior portal into the subacromial space. A lateral portal was made 2 fingerbreadths lateral to the anterior lateral corner of the acromion. The ArthroCare Wand was used to ablate soft tissues along the undersurface of the acromion as well as to excise the coracoacromial ligament. There was a sharp spur along the undersurface of the acromion which was removed using the hooded bur. The arthroscope was then placed into the lateral portal and the acromioplasty was completed with the bur in the posterior portal using the posterior aspect of the acromion as a cutting block. The ArthroCare Wand was then brought in through the anterior portal and was used to ablate soft tissues along the acromioclavicular joint and distal clavicle. The posterior and superior ligamentous structures were left intact. A distal clavicle excision of 8 mm was performed using the fluted bur. Any remaining bursal tissue was removed using the arthroscopic shaver. The subacromial space was irrigated and then drained. All arthroscopic instruments were removed. A gentle manipulation under anesthesia was then performed. Full passive range of motion was easily attained. The 3 portals were closed with 3-0 nylon interrupted suture. The subacromial space was injected with Marcaine. Dry sterile dressing was placed over all incisions. The patient's right upper extremity was placed into a sling. The patient was awoken and extubated in the operating room. The patient was transferred to the recovery room in stable condition.
== END 2025-02-07 10:47 | disposition home or self-care (01) ==
PROVIDERS: PCP Family Medicine; Visit Provider Orthopaedic Surgery
PROC: (CPT 29824; principal; 2025-02-07 07:30)
DX: M75.41 Impingement syndrome of right shoulder (principal); M75.01 Adhesive capsulitis of right shoulder; M19.011 Primary osteoarthritis, right shoulder; M25.811 Other specified joint disorders, right shoulder; I10 Essential (primary) hypertension; E78.00 Pure hypercholesterolemia, unspecified; E51.9 Thiamine deficiency, unspecified; J30.9 Allergic rhinitis, unspecified; K21.9 Gastro-esophageal reflux disease without esophagitis; K90.0 Celiac disease; E66.3 Overweight; Z68.29 Body mass index [BMI] 29.0-29.9, adult; F32.A Depression, unspecified; Z79.899 Other long term (current) drug therapy; G47.33 Obstructive sleep apnea (adult) (pediatric); Z87.891 Personal history of nicotine dependence; Z86.73 Personal history of transient ischemic attack (TIA), and cerebral infarction without residual deficits; Z98.890 Other specified postprocedural states
CPT/HCPCS: 29824; 29825; 29826; J0131; J0165; J0690; J0696; J1100; J2003; J2250; J2371; J2405; J2704; J2795; J3010

== ENCOUNTER → 2025-02-07 05:46 | Outpatient (BNV) | payer OTHER, SELFPAY | PROVIDERS: PCP Family Medicine; Visit Provider Orthopaedic Surgery | DX: M75.41 Impingement syndrome of right shoulder (principal); M19.011 Primary osteoarthritis, right shoulder | CPT/HCPCS: 29823; 29824; 29826 ==

== ENCOUNTER 2025-02-20 10:36 | Outpatient (AMB) | payer OTHER, SELFPAY ==
--- NOTE | 2025-02-20 10:40 | A.OFFVIS_ITS ---
Vital Signs 02/20/25 10:52 Height 5 ft 4 in Weight 170 lb BMI 29.2 Handedness Right Intake Visit Reasons: PO RT shoulder 02/07/25 DR Intake Note: Elizabet is a 69 year old right hand dominant woman who presents with complaints of moderate discomfort in her right shoulder after undergoing right shoulder arthroscopic surgery on 02/07/2025. She continues with her home stretching program. She does take oxycodone which gives her fairly good relief. She denies any fevers or chills. Allergies cheese (CHEESE) Allergy (Unknown, Verified 02/20/25 10:52) + ALLERGY TESTING egg (EGGS) Allergy (Unknown, Verified 02/20/25 10:52) + ALLERGY TEST gluten (GLUTEN) Allergy (Unknown, Verified 02/20/25 10:52) + ALLERGY TEST milk (MILK) Allergy (Unknown, Verified 02/20/25 10:52) + ALLERGY TEST No Known Drug Allergies Allergy (Unknown, Verified 02/20/25 10:52) none soy (SOY) Allergy (Unknown, Verified 02/20/25 10:52) + ALLERGY TEST strawberry (STRAWBERRY) Allergy (Unknown, Verified 02/20/25 10:52) + ALLERGY TEST banana (BANANA) Adverse Reaction (Unknown, Verified 02/20/25 10:52) + ALLERGY TEST Medication List - Last Reconciled 02/20/25 by Fletcher Wong MD acetaminophen (Tylenol Extra Strength) 1,000 mg (2 x 500 mg) PO QID PRN albuterol sulfate 90 mcg/actuation (Ventolin HFA) 2 puffs inhalation Q6-8H PRN albuterol sulfate mg inhalation allopurinol 100 mg PO DAILY amlodipine 10 mg PO QAM atorvastatin 40 mg PO QAM bisacodyl 10 mg (2 x 5 mg) PO BEDTIME cholecalciferol (vitamin D3) (Vitamin D3) 50 mcg PO DAILY diazepam (Valium) 5 mg PO TID PRN fluticasone propionate 50 mcg/actuation 1 spray intranasal BID glycerin (adult) (Fleet Glycerin (Adult) rectal suppository) 1 supp ME DAILY PRN lactobacillus combination no.9 (Adult 50 Plus Probiotic) 4,000 mmu cells PO DAILY loratadine 10 mg PO DAILY omeprazole 40 mg PO DAILY oxycodone 10 mg (2 x 5 mg) PO Q4H PRN polyethylene glycol 3350 (Miralax) 17 grams PO DAILY PFSH Medical History Teeth missing HLD (hyperlipidemia) Chronic sinusitis GERHARD (obstructive sleep apnea) Diverticulosis Tubular adenoma Hx of hemorrhoids Vitamin B1 deficiency Hemorrhoids Overweight (BMI 25.0-29.9) Obesity (BMI 30-39.9) Insomnia Allergic rhinitis Urinary incontinence Chronic idiopathic constipation Arthritis Celiac disease GERD (gastroesophageal reflux disease) TIA (transient ischemic attack) Depression Elevated cholesterol HTN (hypertension) Surgical History S/P colonoscopy H/O hemorrhoidectomy Hx of cholecystectomy History of bladder suspension procedure H/O: hysterectomy H/O shoulder surgery Hx of colonoscopy Hx of esophagogastroduodenoscopy Family History Father Myocardial infarction NIDDY (non-insulin dependent diabetes mellitus in young) Mother Breast cancer Colon cancer NIDDY (non-insulin dependent diabetes mellitus in young) Hypertension Sister AIDS (acquired immune deficiency syndrome) NIDDY (non-insulin dependent diabetes mellitus in young) Hypertension Maternal Grandfather Bone cancer Maternal Grandmother Bone cancer Social History Household Members: None Housing: Apartment Are you a primary personal care service provider to a significant other at home: No Do you presently have visiting nurse or other home services: No 75 years or older and lives alone: No Alcohol intake: never Patient Tobacco Use Status: Former Tobacco user Tobacco use type: Cigarette Physical Exam Vital Signs: BMI result Body Mass Index 29.2 Extrem Other: Right shoulder examination shows that the surgical incisions are healing well, no erythema, moderate discomfort with active range of motion, no instability Assessment & Plan Assessment & Plan (1) Right shoulder pain: Code(s): M25.511 - Pain in right shoulder Category: Medical Plan Ms. Castillo is doing well after undergoing right shoulder arthroscopic surgery on 02/07/2025. Her sutures were removed and Steri-Strips placed over her incisions. She will continue with her home stretching program. She does not wish to go to formal physical therapy at this time. I did refill her prescription for oxycodone. She will contact me prior to her follow-up appointment in 4-6 weeks should any questions or concerns arise. Feel free to call me at any time should questions regarding her orthopedic management arise. Medications: Changed From oxycodone Partial Fill upon patient request. Take 1-2 tabs every 4 hours as needed for pain following your right shoulder surgery. 10 mg (2 x 5 mg) PO Q4H PRN 40 tabs 0RF pain To oxycodone Partial Fill upon patient request. 5 mg PO Q4H PRN 35 tabs 0RF pain Coding Level of Care Code Global (94585) Diagnoses Right shoulder pain M25.511
[2025-02-20 10:52] VITALS: BMI 29.2
== END 2025-02-20 11:05 | disposition home or self-care (01) ==
LOC: HO.HOS 10:36
PROVIDERS: PCP Family Medicine; Visit Provider Orthopaedic Surgery
DX: M25.511 Pain in right shoulder (principal)
CPT/HCPCS: 99024

== ENCOUNTER → 2025-02-20 10:36 | Outpatient (BNVA) | payer OTHER, SELFPAY | PROVIDERS: PCP Family Medicine; Visit Provider Orthopaedic Surgery | DX: M25.511 Pain in right shoulder (principal) | CPT/HCPCS: 99212 ==

== ENCOUNTER 2025-03-03 10:00 | Outpatient (REF) | payer OTHER, SELFPAY ==
--- OUTSIDE RECORDS SUMMARY | 2025-03-03 17:00 | XMS_ITS | Encounter Summary ---
Author Organization [employer] Address [address] [facility] 7t [place] [address] Care Team Providers Care Import/Export Agent Name Role Phone Albertina Danielle MD Primary Care Provider [phone]- [phone] April Jackson Unavailable Fletcher Wong MD Unavailable Erika Pratt PharmD Unavailable Reason for Visit * Reason Comments Vaginal Itching Encounter Details Date Type Department Care Team (Late st Contact Info) Description 03/03/2025 5:00 PM EDT Office Visit [facility] [address] [place] [address] Billie Emerson FNP [address] [place] [address] Vaginal itching Social History Tobacco Use Types Packs/Day Years [...] Answer Date Recorded Patient Health Questionnaire-9 Score 8 10/31/2024 Patient Health Questionnaire-9 Score 8 10/31/2024 Last PHQ-9: Questionnaire Data Not on file 0 10/31/2024 Housing Stability Answer Date Recorded What is [...] Answer Date Recorded Patient Health Questionnaire-2 Score 2 10/31/2024 Internet Access Answer Date Recorded Internet Access [...] Sign Reading Time Taken Comments Blood Pressure 144/86 03/03/2025 5:12 PM EDT Pulse 84 03/03/2025 5:12 PM EDT Temperature 36.7 C (98.1 F) 03/03/2025 5:12 PM EDT Respiratory Rate 16 03/03/2025 5:12 PM EDT Oxygen Saturation 99% 03/03/2025 5:12 PM EDT Inhaled Oxygen Concentration - - Weight 81.2 kg (179 lb) 03/03/2025 5:12 PM EDT Height - - Body Mass Index 30.73 10/31/2024 11:29 AM EDT documented in this encounter Progress Notes * TANIYA De Souza - 03/03/2025 5:00 PM EDT Elizabet Castillo is a 69 y.o. female who presents to the Walk in [place] for a sick visit. Patient reports Vaginal Itching and Discharge - Had sexual intercourse with long-term boyfriend two weeks prior to scheduled arm surgery - No symptoms before surgery - Underwent arm surgery on February 07, 2025 - Developed vaginal itching two days after surgery - Initial itching localized externally, later progressed to internal itching - Used bzch-[id number]-zpnzeyz vaginal cream (Vagisil), which provided partial relief - After one week of cream use, noticed onset of yellow, watery vaginal discharge, never experiencedbefore - No vaginal odor or 'cheesy' discharge - Denies vaginal dryness - No history of similar symptoms in the past - Expressed concern due to first sexual activity after more than 10 years of abstinence Partner's Symptoms - Boyfriend reported hematuria (blood in urine) two weeks before patient's surgery, following sexual intercourse - Boyfriend has history of kidney stone surgery - Patient concerned about possible infection transmission from partner Problem List[1] Review of Systems Constitutional: Negative for chills and fever. Respiratory: Negative for apnea, cough, chest tightness, shortness of breath and wheezing. Cardiovascular: Negative for chest pain and palpitations. Gastrointestinal: Negative for nausea and vomiting. Genitourinary: Negative for dysuria, flank pain, hematuria, pelvic pain and vaginal pain. Skin: Negative for pallor. Neurological: Negative for speech difficulty. Visit Vitals BP (!) 144/86 (BP Location: Right arm, Patient Position: Sitting, BP Cuff Size: Adult) Pulse 84 Temp 98.1 ??F (36.7 ??C) (Temporal) Resp 16 Wt 179 lb (81.2 kg) SpO2 99% BMI 30.73 kg/m?? Smoking Status Never BSA 1.92 m?? Physical Exam Vitals reviewed. Constitutional: Appearance: Normal appearance. HENT: Head: Atraumatic. Cardiovascular: Rate and Rhythm: Normal rate and regular rhythm. Pulses: Normal pulses. Heart sounds: Normal heart sounds. No murmur heard. Pulmonary: Effort: Pulmonary effort is normal. Breath sounds: Normal breath sounds. No wheezing. Neurological: Mental Status: She is alert and oriented to person, place, and time. Psychiatric: Mood and Affect: Mood normal. Behavior: Behavior normal. Visit Diagnoses Vaginal itching Vaginal itching with thin homogenous cream discharge No odor Will send vaginal discharge sample to lab for BV and urine for Chlamydia/ gonorrhea Patient decline further STI testing Recommended patient avoid unprotected sex whose status she doesn't know Recommended use of lubricant for sex, urinate before and after sex. Will treat according to outcome of lab result Relevant Orders Chlamydia/N. Gonorrhoeae RNA, TMA, Urogenitial Bacterial Vaginosis [1] Patient Active Problem List Diagnosis Allergic rhinitis Anxiety Primary hypertension Celiac disease Depressive disorder Dyslipidemia Gastroesophageal reflux disease Gout Osteoporosis Primary insomnia Total body pain Tubular adenoma Vitamin D deficiency Dermatitis Food allergic dermatitis Urinary incontinence Other specified health status Right shoulder pain Prediabetes Class 1 obesity due to excess calories with serious comorbidity and body mass index (BMI) of 31.0 to 31.9 in adult Cardiac risk counseling Mild intermittent asthma without complication Constipation documented in this encounter Plan of Treatment Upcoming Encounters Date Type Department Care Team (Late st Contact Info) Description 03/11/2025 1:30 PM EDT Medication Management [facility] [address] [place] [address] Erika Pratt PharmD [address] [place] [address] documented as of this encounter Goals Goal Patient Goal Type Associated Problems Recent Progress Patient-Stated? Author Blood Pressure < 150/90 Blood Pressure 144/86( 025 5:12 PM EDT) No Erika Lockett PharmD documented as of this encounter Procedures Procedure Name Priority Date/Time Associated Diagnosis Comments BACTERIAL VAGINOSIS PANEL Routine 03/03/2025 5:14 PM EDT Vaginal itching CHLAMYDIA/N. GONORRHOEAE RNA, TMA, UROGENITAL Routine 03/03/2025 5:14 PM EDT Vaginal itching documented in this encounter Results * (ABNORMAL) Bacterial Vaginosis (03/03/2025 5:14 PM EDT) TRICHOMONAS VAGINALIS DETECTION BY PCR DETECTED(A) Not Detect [facility] BACTERIAL VAGINOSIS DETECTION BY PCR POSITIVE(A) Negative [facility] Comment:The BV organism targ ets of the Xpert Xpress MVP test can becommensal in women; Xpert Xpress MVP positive results forbacterial vaginosis should be considered in conjunction withother clinical and patient information to determine thedisease status. Organisms that are not detected by the XpertXpress MVP test have also been reported to be associatedwith BV and aerobic vaginitis.The Xpert Xpress MVP test performance has not been evaluatedin patients under the age of 14. KASSY GROUP DETECTION BY PCR NOT DETECTED Not Detect [facility] Kassy glab krusei PCR NOT DETECTED Not Detect [facility] Swab Vaginal structure / Unknown 03/03/2025 5:14 PM EDT 03/04/2025 12:17 PM EDT Billie Emerson [facility] MICROBIOLOGY - GENERAL ORD ERABLES Final Result [facility] [address] [place] [phone] * Chlamydia/N. Gonorrhoeae RNA, TMA, Urogenitial (03/03/2025 5:14 PM EDT) CT PCR NOT DETECTED Not Detect. [facility] Comment:A not detected test result does not exclude the possibilityof infection because test results can be affected byimproper specimen collection, concurrent antibiotic therapy,or the number of organisms in the specimen which may bebelow the sensitivity of the test. As with many diagnostictests, results from the Xpert CT/NG assay should beinterpreted in conjunction with other laboratory andclinical data available to the clinician.Xpert CT/NG performance has not been evaluated in patientsless than 14 years of age. The assay should not be used forthe evaluationof suspected sexual abuse or for other medico-legalindications. Additional testing is recommended in anycircumstance when false positive or false negative resultscould lead to adverse medical, social or psychologicalconsequences. NG PCR NOT DETECTED Not Detect. [facility] Comment:A not detected test result does not exclude the possibilityof infection because test results can be affected byimproper specimen collection, concurrent antibiotic therapy,or the number of organisms in the specimen which may bebelow the sensitivity of the test. As with many diagnostictests, results from the Xpert CT/NG assay should beinterpreted in conjunction with other laboratory andclinical data available to the clinician.Xpert CT/NG performance has not been evaluated in patientsless than 14 years of age. The assay should not be used forthe evaluationof suspected sexual abuse or for other medico-legalindications. Additional testing is recommended in anycircumstance when false positive or false negative resultscould lead to adverse medical, social or psychologicalconsequences. Swab (Vaginal Swab) 03/03/2025 5:14 PM EDT 03/04/2025 12:17 PM EDT Billie Emerson [facility] MICROBIOLOGY - GENERAL ORD ERABLES Final Result [facility] [address] [place] [phone] documented in this encounter Visit Diagnoses Diagnosis Vaginal itching Pruritus of genital organs documented in this encounter Additional Health Concerns Assessment Noted Time PHQ-9 Depression Total Score: 8 11/01/19 25 1:07 PM EDT documented as of this encounter Care Teams Import/Export Agent Relationship Specialty Start Date End Date Albertina Danielle MD [address] [place] [id number] PCP - General Family Medicine 06/12/18 April Jackson [address] [place] [address] 3rd Floor [place] Gastroenterology 05/22/24 Fletcher Wong MD [address] [place] [address] [address] [place] [address] Orthopaedic Surgery 12/19/24 Erika Pratt, PharmD [address] [place] [phone] Pharmacist Pharmacy 02/20/25 documented as of this encounter
[2025-03-04 14:28] LABS: Bacterial Vaginosis PCR POSITIVE (Negative); Candida Group PCR NOT DETECTED (Not Detect); Candida glab krusei PCR NOT DETECTED (Not Detect); Trichomonas vaginalis PCR DETECTED (Not Detect)
[2025-03-04 15:02] LABS: CT PCR NOT DETECTED (Not Detect.); NG PCR NOT DETECTED (Not Detect.)
--- OUTSIDE RECORDS SUMMARY | 2025-03-04 15:10 | XMS_ITS | Encounter Summary ---
Author Organization [employer] Address [address] [facility] 7t [place] [address] Care Team Providers Care Feed Inspection Supervisor Name Role Phone Albertina Danielle MD Primary Care Provider [phone]- [phone] Piers-Luzmaria, Erika PharmD Unavailable April Jackson Unavailable Fletcher Wong MD Unavailable Piers-Dutta, Erika PharmD Unavailable Encounter Details Date Type Department Care Team (Late st Contact Info) Description 02/14/2024 Telephone [facility] [address] [place] [address] Piers-Dutta, Eirka, PharmD [address] [place], [place] [phone] Social History Tobacco Use Types Packs/Day Years [...] for this patient to continue care in [facility] - Hypertension clinic. Please send at your earliest convenience. documented in this encounter Plan of Treatment Upcoming Encounters Date Type Department Care Team (Late st Contact Info) Description 03/11/2025 1:30 PM EDT Medication Management [facility] [address] [place], [place] [phone] Erika Pratt PharmD [address] [place], [place] [phone] documented as of this encounter Goals Goal Patient Goal Type Associated Problems Recent Progress Patient-Stated? Author Blood Pressure < 150/90 Blood Pressure 144/86( 025 5:12 PM EDT) No Erkia Lockett, PharmD documented as of this encounter Visit Diagnoses Not on filedocumented in this encounter Additional Health Concerns Assessment Noted Time PHQ-9 Depression Total Score: 0 12/18/19 10:49 AM EDT documented as of this encounter Care Teams Feed Inspection Supervisor Relationship Specialty Start Date End Date Albertina Danielle MD [address] [place] [address] PCP - General Family Medicine 06/12/18 Erika Pratt, PharmD [address] [place] [phone] Pharmacist Internal Medicine 03/01/23 04/17/24 April Jackson [address] [place] [address] Dr 3rd Floor [place], [place] Gastroenterology 05/22/24 Fletcher Wong MD [address] [place] [address] Dr [address] [place] [address] Orthopaedic Surgery 12/19/24 Erika Pratt, PharmD [address] [place] [phone] Pharmacist Pharmacy 02/20/25 documented as of this encounter
--- OUTSIDE RECORDS SUMMARY | 2025-03-04 15:10 | XMS_ITS | Encounter Summary ---
Author Organization [employer] Address [address] [facility] 7t [place] [address] Care Team Providers Care Underwear Finisher Name Role Phone Albertina Danielle MD Primary Care Provider Christine Prattsa PharmD Unavailable [phone] April Jackson Unavailable Fletcher Wong MD Unavailable PiersAdalid, Erika PharmD Unavailable [phone] Reason for Visit * Reason Comments Med Refill Encounter Details Date Type Department Care Team ([facility] st Contact Info) Description 01/23/2024 Refill [facility] [address] [place], [place] [phone] Yeny Billings DO [address] [place], [place] [phone] Social History Tobacco Use Types Packs/Day Years [...] Description 03/11/2025 1:30 PM EDT Medication Management [facility] [address] [place] [address] Erika Pratt PharmD [address] [place] [address] documented as of this encounter Goals Goal Patient Goal Type Associated Problems Recent Progress Patient-Stated? Author Blood Pressure < 150/90 Blood Pressure 144/86( 025 5:12 PM EDT) No Erika Lockett, PharmD documented as of this encounter Visit Diagnoses Not on filedocumented in this encounter Additional Health Concerns Assessment Noted Time PHQ-9 Depression Total Score: 0 12/18/19 10:49 AM EDT documented as of this encounter Care Teams Underwear Finisher Relationship Specialty Start Date End Date Albertina Danielle MD [address] [place] [address] PCP - General Family Medicine 06/12/18 Erika Pratt, PharmD [address] [place] [phone] Pharmacist Internal Medicine 03/01/23 04/17/24 April Jackson [address] [place] [address] Dr 3rd Floor [place], [place] Gastroenterology 05/22/24 Fletcher Wong MD [address] [place] [address] Dr [address] [place] [address] Orthopaedic Surgery 12/19/24 Erika Pratt, PharmD [address] [place] [phone] Pharmacist Pharmacy 02/20/25 documented as of this encounter
--- OUTSIDE RECORDS SUMMARY | 2025-03-04 15:10 | XMS_ITS | Encounter Summary ---
Author Organization [employer] Address [address] [facility] 7t [place] [address] Care Team Providers Care President/[employer] Live Experiences Name Role Phone Albertina Danielle MD Primary Care Provider [phone]- [phone] April Jackson Unavailable Fletcher Wong MD Unavailable Erika Pratt PharmD Unavailable Encounter Details Date Type Department Care Team (Latest Contact Info) Description 03/03/2025 Travel Social History Tobacco Use Types Packs/Day [...] Description 03/11/2025 1:30 PM EDT Medication Management [facility] [address] [place] [address] Erika Pratt, PharmD [address] [place] [address] documented as of this encounter Goals Goal [...] documented as of this encounter Care Teams President/[employer] Production & Live Experiences Relationship Specialty Start Date End Date Albertina Danielle MD [address] [place] [address] PCP - General Family Medicine 06/12/18 April Jackson [address] [place] [address] 3rd Floor [place] Gastroenterology 05/22/24 Fletcher Wong MD [address] [place] [address] [address] [place] [address] Orthopaedic Surgery 12/19/24 Erika Pratt, RomanD [address] [place] [phone] Pharmacist Pharmacy 02/20/25 documented as of this encounter
--- OUTSIDE RECORDS SUMMARY | 2025-03-04 15:10 | XMS_ITS | Encounter Summary ---
Author Organization [employer] Address [address] [facility] 7t [place] [address] Care Team Providers Care Clay Products Machine Operator Name Role Phone Albertina Danielle MD Primary Care Provider [phone]- [phone] Terence, Erika PharmD Unavailable April Jackson Unavailable Fletcher Wong MD Unavailable PiersJose GDutta, Reika PharmD Unavailable [phone] Reason for Visit * Reason Comments Med Refill Encounter Details Date Type Department Care Team ([facility] st Contact Info) Description 09/09/2022 Refill [facility] [address] [place] [address] Marcela Norwood FNP [address] [place], [place] [phone] Total body pain Social History Tobacco Use [...] Description 03/11/2025 1:30 PM EDT Medication Management [facility] [address] [place] [address] Erika Pratt PharmD [address] [place] [address] documented as of this encounter Visit Diagnoses Diagnosis Total body pain documented in this encounter Care Teams [employer] Products Machine Operator Relationship Specialty Start Date End Date Albertina Danielle MD [address] [place] [address] [phone] PCP - General Family Medicine 06/12/18 Erika Pratt, RomanD [address] [place] [phone] Pharmacist Internal Medicine 03/01/23 04/17/24 April Jackson [address] [place] [address] Dr 3rd Floor [place], [place] Gastroenterology 05/22/24 Fletcher Wong MD [address] [place] [address] [address] [place] [address] Orthopaedic Surgery 12/19/24 Erika Pratt, RomanD [address] [place] [phone] Pharmacist Pharmacy 02/20/25 documented as of this encounter
--- OUTSIDE RECORDS SUMMARY | 2025-03-04 15:10 | XMS_ITS | Encounter Summary ---
Author Organization [employer] Address [address] [facility] 7t [place] [address] Care Team Providers Care Director Web Name Role Phone Albertina Danielle MD Primary Care Provider [phone]- [phone] Piers-Luzmaria, Erika PharmD Unavailable [phone] April Jackson Unavailable Fletcher Wong MD Unavailable Piers-Dutta, Erika PharmD Unavailable [phone] Encounter Details Date Type Department Care Team (Late st Contact Info) Description 07/04/2022 Orders Only [facility] [address] [place], [place] [phone] Dolores Sue LPN Social History Tobacco Use [...] Description 03/11/2025 1:30 PM EDT Medication Management [facility] [address] [place], [place] [phone] PiersChristine Cordobasa, PharmD [address] [place] [address] documented as of this encounter Visit Diagnoses Not on filedocumented in this encounter Care Teams Director Web Relationship Specialty Start Date End Date Albertina Danielle MD [address] [place] [address] PCP - General Family Medicine 06/12/18 Erika Pratt, PharmD [address] [place] [phone] Pharmacist Internal Medicine 03/01/23 04/17/24 April Jackson [address] [place] [address] 3rd Floor [place], [place] Gastroenterology 05/22/24 Fletcher Wong MD [address] [place] [address] [address] [place] [address] Orthopaedic Surgery 12/19/24 Erika Pratt, PharmD [address] [place] [phone] Pharmacist Pharmacy 02/20/25 documented as of this encounter
--- OUTSIDE RECORDS SUMMARY | 2025-03-04 15:10 | XMS_ITS | Encounter Summary ---
Author Organization [employer] Address [address] [facility] [address] [place] [address] Care Team Providers Care [employer] Faculty Name Role Phone Albertina Danielle MD Primary Care Provider [phone]- [phone] Erika Pratt PharmD Unavailable April Jackson Unavailable Fletcher Wong MD Unavailable Erika Pratt PharmD Unavailable Encounter Details Date Type Department Care Team (Late st Contact Info) Description 12/30/[address] [facility] [address] [place], [place] [phone] Albertina Danielle MD [address] [place], [place] [phone] Social History Tobacco Use Types Packs/Day Years [...] Description 03/11/2025 1:30 PM EDT Medication Management [facility] [address] [place] [address] Erika Pratt PharmD [address] [place] [address] documented as of this encounter Visit Diagnoses Not on filedocumented in this encounter Additional Health Concerns Assessment Noted Time PHQ-9 Depression Total Score: 7 12/01/19 3:41 PM EDT documented as of this encounter Care Teams [employer] Faculty Relationship Specialty Start Date End Date Albertina Danielle MD [address] [place] [phone] PCP - General Family Medicine 06/12/18 Erika Pratt PharmD [address] [place] [phone] Pharmacist Internal Medicine 03/01/23 04/17/24 April Jackson [address] [place] [address] Dr [address] Floor [place] Gastroenterology 05/22/24 Fletcher Wong MD [address] [place] [address] Dr [address] [place] [address] Orthopaedic Surgery 12/19/24 Erika Pratt PharmD [address] [place] [id number] Pharmacist Pharmacy 02/20/25 documented as of this encounter
--- OUTSIDE RECORDS SUMMARY | 2025-03-04 15:10 | XMS_ITS | Clinical Summary ---
Author Organization [employer] Address [address] [facility] [address] [place] [address] Care Team Providers Care Trapper Animal Name Role Phone Albertina Danielle MD Primary Care Provider [phone] April Jackson Unavailable Fletcher Wong MD Unavailable Erika Pratt PharmD Unavailable [phone] Allergies No known active allergies Medications Blood Glucose Monitoring Suppl (FreeStyle Lite) w/Device kitIndications:P rediabetes 1 each Once per day. 1 kit 10/16/19 24 Active Lancets 33G miscIndications: Prediabetes Test blood sugar once daily 100 each 11 10/16/19 24 Active D3 Super Strength 50 MCG (2000 UT) capsuleIndicatio ns:Vitamin D deficiency Take 1 [...] MORNING 30 tablet 5 10/02/19 25 Active glycerin (Adult) 2 g suppositoryIndic ations:Constipat ion, unspecified constipation type Insert 1 suppository (2 g) into the rectum if needed each day for constipation. 30 suppository 2 11/15/19 25 Active polyethylene glycol, PEG, 3350 (MiraLax) 17 GM/SCOOP powderIndication s:Constipation, unspecified constipation type 17 grams in 8-12 oz fluid like water at bedtime prn constipation 527 g 2 11/15/19 25 Active senna (Senokot) 8.6 MG tabletIndication s:Constipation, unspecified constipation type Take 1 tablet (8.6 mg) by mouth at bedtime. 60 tablet 2 11/15/19 25 Active atorvastatin (Lipitor) 40 MG tabletIndication s:Dyslipidemia Take 1 tablet (40 mg) by mouth in the morning. 90 tablet 01/23/20 25 Active enalapril-hydroC HLOROthiazide (Vasoretic) 10-25 MG tabletIndication s:Primary hypertension Take 1 tablet by mouth Once per day. 30 tablet 11 01/23/20 25 026 Active allopurinol (Zyloprim) 100 MG tabletIndication s:Gout of right foot, unspecified cause, unspecified chronicity Take 1 tablet (100 mg) by mouth Once per day. 90 tablet 3 02/03/20 25 026 Active famotidine (Pepcid) 40 MG tablet Take 40 mg by mouth at bedtime. 01/23/20 25 Active omeprazole (PriLOSEC) [address] capsule Take 1 capsule by mouth Once per day. 01/23/20 25 Active oxyCODONE (Roxicodone) 5 MG immediate release tablet 02/08/20 25 Active Active Problems Patient Care Coordination No te Formatting of this note migh t be different from the original. CDTM HTN with Erika Pratt PharmD [facility] Rn Internship: Mckayla, member services number [phone], provider services line, , option 4 Loader Operator Supervisor Agency: [facility] Problem Noted Date Diagnosed Date Constipation 11/14/2024 Overview (11/14/2024): Chronic constipation in setting of celiac disease. No evidence of bowel obstruction or infection. -continue gluten free diet -use Miralax 17 gm nightly until regular bowel movement -take bisacodyl 2 tabs at night until regular bowel movement -use glycerol suppositories prn in rectum daily until regular bowel movement -DECREASE fiber as likely causing bulky stool -once normal bowel movement, take senna 1-2 tabs every night Assessment & Plan (01/22/2025 4:09 PM EDT): Chronic constipation in setting of celiac disease. No evidence of bowel obstruction or infection. -continue gluten free diet -use Miralax 17 gm nightly until regular bowel movement -take bisacodyl 2 tabs at night until regular bowel movement -use glycerol suppositories prn in rectum daily until regular bowel movement -DECREASE fiber as likely causing bulky stool -once normal bowel movement, take senna 1-2 tabs every night Assessment & Plan (11/14/2024 2:04 PM EDT): Chronic constipation in setting of celiac disease. No evidence of bowel obstruction or infection. -continue gluten free diet -use Miralax 17 gm nightly until regular bowel movement -take bisacodyl 2 tabs at night until regular bowel movement -use glycerol suppositories prn in rectum daily until regular bowel movement -DECREASE fiber as likely causing bulky stool -once normal bowel movement, take senna 1-2 tabs every night -follow up with GI as scheduled in January 2025 -ER precautions discussed Mild intermittent asthma without complication Overview (05/22/2024): - Prescribed albuterol 108 (90 Base) MCG/ACT inhaler 05/22/24 - Ordered Pulmonary Function Test 05/22/24 Assessment & Plan (01/22/2025 4:09 PM EDT): Controlled without medication at this time. Assessment & Plan (05/22/2024 4:13 PM EST): [...] moderate physical activity and nutrition interventions discussed. Class 1 obesity due to exces s calories with serious comorbidity and body mass index (BMI) of 31.0 to 31.9 in adult 12/18/2023 Overview (01/22/2025): Baseline weight: 182lbs -given BMI >30kg/m2 or [...] do not freeze. -Prescribed Zepbound (tirzepatide) 10/31/24 -01/22/25 insurance did not cover Zepbound (tirzepatide) -given phone number to get into weight loss clinic 01/22/25 Assessment & Plan (01/22/2025 4:09 PM EDT): Baseline weight: 182lbs -given BMI >30kg/m2 [...] do not freeze. -Prescribed Zepbound (tirzepatide) 10/31/24 -01/22/25 insurance did not cover Zepbound (tirzepatide) -given phone number to get into weight loss clinic 01/22/25 Assessment & Plan (10/31/2024 11:58 AM EDT): [...] weeks with max 15mg/wk Prediabetes 10/02/2023 Overview (01/22/2025): Lab Results Component Value Date HGBA1C 6.0 10/31/2024 HGBA1C 5.8 02/15/2024 HGBA1C 6.3 (A) 12/18/2023 HGBA1C 5.7 09/22/2023 HGBA1C 5.9 (H) 01/01/2021 HGBA1C 5.8 (H) 08/12/2020 GLUCOSE 91 11/12/202410/2224 reports a BGL of 180's. Will order repeat BGL and A1C. Assessment & Plan (01/22/2025 4:09 PM EDT): Lab Results Component Value Date HGBA1C 6.0 10/31/2024 HGBA1C 5.8 02/15/2024 HGBA1C 6.3 (A) 12/18/2023 HGBA1C 5.7 09/22/2023 HGBA1C 5.9 (H) 01/01/2021 HGBA1C 5.8 (H) 08/12/2020 GLUCOSE 91 11/12/2024 Assessment & Plan (10/31/2024 11:59 AM EDT): [...] 99 04/06/2023 Right shoulder pain 02/20/2023 Overview (01/22/2025): Dx possibly frozen shoulder. Will check X-ray. Referral orthopedics and PT 02/20/2023. Given phone number to call ortho for appt. 12/18/23 -re-referred to orthopedics 10/31/24 -seen by Dr. Wong 12/19/24 Ms. Castillo presents with progressively worsening right shoulder pain and weakness due to impingement syndrome and possible full-thickness rotator cuff tearing. Thus, I will send the patien gwen for an MRI of her right shoulder for further evaluation. I will see her back once the MRI is completed to discuss the findings and treatment options. Feel free to call me at any time should questions regarding her orthopedic management arise. -MRI 12/29/24 Interval increase in degenerative edema within the humeral head and glenoid. Small joint effusion, similar to the prior study. Trace fluid in the subacromial/subdeltoid bursa, increased. Interval worsening of supraspinatus, infraspinatus and subscapularis tendinopathy. Increase in partial tear of the supraspinatus tendon. New partial tear of the infraspinatus tendon. Unchanged partial tear of the subscapularis tendon.Tear of the labrum which is more extensive than on the prior study. New paralabral cyst at the inferior aspect. -Seen by Dr. Wong 01/07/25 The risks and benefits of right shoulder surgery were discussedat length with the patient. The patient wishes to proceed with surgery. 01/22/25 The patient is at acceptable risk for the proposed procedure. Assessment & Plan (01/22/2025 4:09 PM EDT): Dx possibly frozen shoulder. Will check X-ray. Referral orthopedics and PT 02/20/2023. Given phone number to call ortho for appt. 12/18/23 -re-referred to orthopedics 10/31/24 -seen by Dr. Wong 12/19/24 Ms. Castillo presents with progressively worsening right shoulder pain and weakness due to impingement syndrome and possible full-thickness rotator cuff tearing. Thus, I will send the patien gwen for an MRI of her right shoulder for further evaluation. I will see her back once the MRI is completed to discuss the findings and treatment options. Feel free to call me at any time should questions regarding her orthopedic management arise. -MRI 12/29/24 Interval increase in degenerative edema within the humeral head and glenoid. Small joint effusion, similar to the prior study. Trace fluid in the subacromial/subdeltoid bursa, increased. Interval worsening of supraspinatus, infraspinatus and subscapularis tendinopathy. Increase in partial tear of the supraspinatus tendon. New partial tear of the infraspinatus tendon. Unchanged partial tear of the subscapularis tendon.Tear of the labrum which is more extensive than on the prior study. New paralabral cyst at the inferior aspect. -Seen by Dr. Wong 01/07/25 The risks and benefits of right shoulder surgery were discussedat length with the patient. The patient wishes to proceed with surgery. 01/22/25 The patient is at acceptable risk for the proposed procedure. Assessment & Plan (10/31/2024 12:08 PM EDT): [...] 02/20/2023. Other specified health status 11/30/2022 Overview (01/22/2025): -next comprehensive annual evaluation due after 01/22/26. -Eye care done in [facility], last done 10/2022. -Follow with [facility] dentist -Healthcare proxy given and filled Assessment & Plan (01/22/2025 4:09 PM EDT): -next comprehensive annual evaluation due after 01/22/26. -Eye care done in [facility], last done 10/2022. -Follow with [facility] dentist -Healthcare proxy given and filled Assessment & Plan (12/18/2023 11:13 AM EDT): -Next PE due after 12/17/2024. -Eye care done in [facility], last done 10/2022. -Follow with [facility] dentist -Healthcare proxy given and filled Assessment & Plan (11/30/2022 4:08 PM EDT): Next PE due after 12/01/2023. Eye care done in [facility], last done 10/2022. 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 -Continue Vitamin D. -Discontinued Fosamax 11/30/2022. -Dexa scan ordered 11/30/2022. -Advised exercise with light weights. -repeat DEXA 12/2022 with severe osteoporosis, referred to endocrinology 12/26/2022 for assistance in tx due to not tolerating oral bisphosphonate -Pt was given the number to [facility] 01/20/2023 to call and check status of appointment. Assessment & Plan (02/20/2023 10:47 AM EDT): Diagnosed on Dexa scan 07/2020. -Continue Vitamin D. -Discontinued Fosamax 11/30/2022. -Dexa scan ordered 11/30/2022. -Advised exercise with light weights. -repeat DEXA 12/2022 with severe osteoporosis, referred to endocrinology 12/26/2022 for assistance in tx due to not tolerating oral bisphosphonate -Pt was given the number to [facility] 01/20/2023 to call and check status of appointment. Assessment & Plan (01/20/2023 9:56 AM EDT): Diagnosed on Dexa scan 07/2020. -Continue Vitamin D. -Discontinued Fosamax 11/30/2022. -Dexa scan ordered 11/30/2022. -Advised exercise with light weights. -repeat DEXA 12/2022 with severe osteoporosis, referred to endocrinology 12/26/2022 for assistance in tx due to not tolerating oral bisphosphonate -Pt was given the number to [facility] 01/20/2023 to call and check status [...] 3-5 years, 03/2025 Primary hypertension 07/22/2021 Overview (01/22/2025): -Blood pressure is slightly above goal -Has been intermittently enrolled in Collaborative Drug Therapy Managment Program with our PharmD since 02/2023 -Previously been on Amlodipine 10mg and carvedilol (Coreg) 3.125 MG - Placed another referral back to Pharmacy Collaborative Drug Therapy Managment Program with our PharmD, [facility] 10/31/24 -Continue lifestyle modifications -Continue current medications -Start enalapril-hydroCHLOROthiazide (Vasoretic) 10-25 MG 5/22/25 Placed another referral back to Pharmacy Collaborative Drug Therapy Managment Program with our PharmALBERTO Brannon 01/22/25 -Restarted enalapril-hydroCHLOROthiazide (Vasoretic) 10-25 MG 01/22/25 Assessment & Plan (01/22/2025 4:09 PM EDT): -Blood pressure is slightly above goal 01/22/25, due to not taking medications. -Has been intermittently enrolled in Collaborative Drug Therapy Managment Program with our PharmD since 02/2023 -Previously been on Amlodipine 10mg and carvedilol (Coreg) 3.125 MG - Placed another referral back to Pharmacy Collaborative Drug Therapy Managment Program with our PharmDALBERTO 10/31/24 -Continue lifestyle modifications -Continue current medications -Start enalapril-hydroCHLOROthiazide (Vasoretic) 10-25 MG 10/31/24 Placed another referral back to Pharmacy Collaborative Drug Therapy Managment Program with our PharmDALBERTO 01/22/25 -Restarted enalapril-hydroCHLOROthiazide (Vasoretic) 10-25 MG 01/22/25 Orders: enalapril-hydroCHLOROthiazide (Vasoretic) 10-25 MG tablet; Take 1 tablet by mouth Once per day. Referral to Pharmacy CDTM Albumin, Random Urine W/Creatinine; Future Basic Metabolic Panel; Future Assessment & Plan (10/31/2024 12:06 PM EDT): -Blood pressure is slightly above goal -Has been intermittently enrolled in Collaborative Drug Therapy Managment Program with our PharmD since 02/2023 -Previously been on Amlodipine 10mg and carvedilol (Coreg) 3.125 MG - Placed another referral back to Pharmacy Collaborative Drug Therapy Managment Program with our PharmALBERTO Brannon 10/31/24 -Continue lifestyle modifications -Continue current medications [...] modifications -Continue current medications Gout 07/22/2021 Overview (02/02/2025): - Highest uric acid was 8.8 in December 2017 , uric acid on current dose was 5.7 in November 2018. Lab Results Component Value Date URICACID 7.9 (H) 01/31/2025 URICACID 6.9 (H) 02/15/2024 URICACID 6.2 12/02/2022 Restart allopurinol 100mg po daily 02/02/25 Avoid foods high in uric acid including -Organ and glandular meats -Red meat. Limit serving sizes of beef, cole and pork. -Seafood: anchovies, shellfish, sardines and tuna -High-purine vegetables: such as asparagus, spinach -Alcohol. Beer, distilled liquors, moderate amount of wine is good -Sugary foods and beverages, sweetened cereals, bakery goods, candies. Limit consumption of naturally sweet fruit juices. Best Foods for a Gout Diet -Low-fat and nondairy fat products, such as yogurt and skim milk. -Fresh fruits and vegetables. -Nuts, peanut butter, and grains. -Fat and oil. -Potatoes, rice, bread, and pasta. -Eggs (in moderation) -Meats like fish, chicken, and red meat are fine in moderation (around 4 to 6 ounces per day). Assessment & Plan (05/22/2024 4:16 PM EST): [...] 25-Hydroxy, Total, Immunoassay 05/22/24 Assessment & Plan (01/22/2025 4:09 PM EDT): Vitamin D,1,25 (OH)2, Total Date Value Ref Range Status 12/02/2022 66 18 - 72 pg/mL Final -Continue D3 Super Strength 50 MCG (2000 UT) Assessment & Plan (05/22/2024 4:21 PM EST): [...] before bed 05/22/24 Celiac disease 02/14/2013 Overview (01/09/2025): -biopsy confirmed with positive labs. Diagnosed based [...] 6 months, sooner on as needed basis. -note drostaci Jackson 12/2024 reveiwed Assessment & Plan (01/22/2025 4:09 PM EDT): -biopsy confirmed with positive labs. Diagnosed [...] 6 months, sooner on as needed basis. -note drom Dr. Jackson 12/2024 reveiwed Assessment & Plan (12/18/2023 11:01 AM EDT): [...] free diet Anxiety 08/30/2012 Dyslipidemia 02/24/2012 Overview (01/22/2025): Lab Results Component Value Date CHOL 225 (H) 10/31/2024 CHOL 160 02/15/2024 CHOL 171 11/27/2023 TRIG 214 (H) 10/31/2024 TRIG 191 (H) 02/15/2024 TRIG 119 11/27/2023 TRIG 158 (H) 12/02/2022 HDL 46 10/31/2024 HDL 47 02/15/2024 HDL 48 11/27/2023 LDLCHOLCAL 137 (H) 10/31/2024 LDLCHOLCAL 75 02/15/2024 LDLCHOLCAL 100 (H) 11/27/2023 -been on 20 mg Atorvastatin for a while with elevated levels - Atorvastatin to 40 mg increased 12/2023 - ordered repeat labs 01/22/25 - restarted Atorvastatin 40 mg 01/22/25 Assessment & Plan (01/22/2025 4:09 PM EDT): Lab Results Component Value Date CHOL 225 (H) 10/31/2024 CHOL 160 02/15/2024 CHOL 171 11/27/2023 TRIG 214 (H) 10/31/2024 TRIG 191 (H) 02/15/2024 TRIG 119 11/27/2023 TRIG 158 (H) 12/02/2022 HDL 46 10/31/2024 HDL 47 02/15/2024 HDL 48 11/27/2023 LDLCHOLCAL 137 (H) 10/31/2024 LDLCHOLCAL 75 02/15/2024 LDLCHOLCAL 100 (H) 11/27/2023 -been on 20 mg Atorvastatin for a while with elevated levels - Atorvastatin to 40 mg increased 12/2023 - ordered repeat labs 01/22/25 - restarted Atorvastatin 40 mg 01/22/25 Orders: atorvastatin (Lipitor) 40 MG tablet; Take 1 tablet (40 mg) by mouth in the morning. Referral to Pharmacy CDTM Hepatic Function Panel; Future Lipid Panel, Standard; Future Assessment & Plan (05/22/2024 4:22 PM EST): [...] Depressive disorder 12/23/2011 Gastroesophageal reflux disease 12/23/2011 Overview (12/11/2024): -followed by STACEY Jackson, note from 12/04/24 reviewed -continue omeprazole 40mg daily Primary insomnia 12/23/2011 Overview (12/15/2023): Pt report [...] Problem Noted Date Diagnosed Date Resolved Date Physical exam 12/18/2023 11/14/2024 Exercise counseling 12/18/2023 11/01/19 25 Dietary counseling 12/18/2023 5 Encounters Date Type Department Care Team Description 03/03/2025 5:00 PM EDT Office Visit [facility] [address] [address] Billie Emerson FNP Vaginal itching 03/03/2025 Travel 02/18/2025 Travel 02/05/2025 Results Follow-Up [address] [address] Kaylan Posada RN T-SPOT .TB 02/02/2025 Results Follow-Up [address] [address] Albertina Danielle MD Uric acid, Vitamin D, 25-Hydroxy, Total, Immunoassay 02/02/2025 Orders Only [address] [address] Albertina Daneille MD Gout of right foot, unspecified cause, unspecified chronicity (Primary Dx) 01/31/[address] [address] Albertina Danielle MD 01/23/[address] [address] Albertina Danielle MD 01/23/[address] [address] Albertina Danielle MD Lab Orders 01/22/2025 3:15 PM EDT Office Visit [address] [address] Albertina Danielle MD Preop examination (Primary Dx); Celiac disease; Mild intermittent asthma without complication; Dyslipidemia; Prediabetes; Primary hypertension; Vitamin D deficiency; Constipation, unspecified constipation type; Right shoulder pain, unspecified chronicity; Class 1 obesity due to excess calories with serious comorbidity and body mass index (BMI) of 30.0 to 30.9 in adult; Dietary counseling; Exercise counseling; Other specified health status 01/22/[address] [address] Albertina Danielle MD Paperwork/Forms 01/22/2025 Travel 01/21/2025 Telephone [facility] [address] [place] [address] Albertina Danielle MD CHART PREP 01/08/2025 Telephone [facility] [address] [place] [address] Albertina Danielle MD pre op 12/29/2024 Orders Only [facility] External Provider, [facility] Right shoulder pain, unspecified chronicity (Primary Dx) from Last 3 Months Immunizations Immunization Administration [...] (179 lb) 03/03/2025 5:12 PM EDT Height 162.6 cm (5' 4 ) 10/31/2024 11:29 AM EDT Body Mass Index 30.73 10/31/2024 11:29 AM EDT Plan of Treatment Upcoming Encounters Date Type Department Care Team (Late st Contact Info) Description 03/11/2025 1:30 PM EDT Medication Management [facility] [address] [place], [place] [phone] Erika Pratt, PharmD [address] [place] [address] Health Maintenance Due Date Last Done Comments CT Colonography 1955 FIT DNA/Cologuard 1955 FIT 1955 FOBT 1955 Sigmoidoscopy 1955 COVID-19 Vaccine ( season) 2025 12/21/2020, 11/23/2020 Influenza Vaccine (#1) 2025 03/13/2009 SDOH Screening 05/22/2025 05/22/2024 Depression Screening 10/31/2025 10/31/2024, 11/01/19 Diabetes: Hemoglobin A1C 10/31/2025 025, 02/15/2024, 12/18/2023, Additional history exists Alcohol/Substance Use Screening 01/22/2026 01/22/2025 Mammogram 02/20/2026 02/21/2024, 12/10, 07/02/2021, Additional history exists Tobacco Screening 03/03/2026 03/03/2025 DTaP/Tdap/Td Vaccines (2 - Td or Tdap) 06/29/2027 06/29/2017 Colonoscopy 03/06/2028 03/06/2023, 03/17/2020 Colorectal Cancer Screening 03/06/2028 Lipid Panel 01/31/2030 01/31/2025, 10/11, 02/15/2024, Additional history exists Zoster Vaccines Completed 08/05/2021, [...] 025 5:12 PM EDT) No Erika Lockett, Vidhya Procedures Procedure Name Priority Date/Time Associated Diagnosis Comments BACTERIAL VAGINOSIS PANEL Routine 03/03/2025 5:14 PM EDT Vaginal itching CHLAMYDIA/N. GONORRHOEAE RNA, TMA, UROGENITAL Routine 03/03/2025 5:14 PM EDT Vaginal itching T-SPOT(R).TB Routine 01/31/2025 1:19 PM EDT Screening for tuberculosis LIPID PANEL, STANDARD Routine 01/31/2025 1:19 PM EDT Dyslipidemia HEPATIC FUNCTION PANEL Routine 01/31/2025 1:19 PM EDT Dyslipidemia ALBUMIN, RANDOM URINE W/CREATININE Routine 01/31/2025 1:19 PM EDT Primary hypertension BASIC METABOLIC PANEL Routine 01/31/2025 1:19 PM EDT Primary hypertension VITAMIN D,25-OH,TOTAL,IA Routine 01/31/2025 1:19 PM EDT Vitamin D deficiency URIC ACID Routine 01/31/2025 1:19 PM EDT Gout of right foot, unspecified cause, unspecified chronicity MR SHOULDER WO CONTRAST RIGHT Routine 01/01/2025 4:13 PM EDT HEMOGLOBIN A1C Routine 10/31/2024 12:21 PM EDT Prediabetes BI MAMMOGRAM SCREENING TOMOSYNTHESIS BILATERAL Routine 02/21/2024 11:40 AM EDT HM COLONOSCOPY Routine 03/06/2023 HEPATITIS C ANTIBODY (EXTERNAL RESULTS ONLY) Routine 10/29/2021 3:52 PM EDT from Last 3 Months or Most Recently Relevant to Health Maintenance Results * (ABNORMAL) Bacterial Vaginosis (03/03/2025 5:14 PM EDT) TRICHOMONAS VAGINALIS DETECTION BY PCR DETECTED(A) Not Detect [facility] BACTERIAL VAGINOSIS DETECTION BY PCR POSITIVE(A) Negative [facility] Comment:The BV organism targ ets [...] DETECTION BY PCR NOT DETECTED Not Detect [facility] Kassy glab krusei PCR NOT DETECTED Not Detect [facility] Swab Vaginal structure / Unknown 03/03/2025 5:14 PM EDT 03/04/2025 12:17 PM EDT Billie Emerson [facility] MICROBIOLOGY - GENERAL ORD ERABLES Final Result [facility] [address] [place] [phone] * Chlamydia/N. Gonorrhoeae RNA, TMA, Urogenitial (03/03/2025 5:14 PM EDT) CT PCR NOT DETECTED Not Detect. [facility] Comment:A not detected test result [...] psychologicalconsequences. NG PCR NOT DETECTED Not Detect. [facility] Comment:A not detected test result [...] EDT 03/04/2025 12:17 PM EDT Billie Emerson [facility] MICROBIOLOGY - GENERAL ORD ERABLES Final Result [facility] [place] [address] [phone] * Vitamin D, 25-Hydroxy, Total, Immunoassay (01/31/2025 1:19 PM EDT) Vitamin D 25-OH Total 43.6 >30 ng/mL [facility] Comment: Health Based Reference Values*< 20 ng/mL [id number] ng/mL Insufficient> 30 ng/mL Sufficient*Cristian JOSEPH. N Engl J Med. 2007;357:266-280There is no well-established upper level of normal vitamin Dlevels. Some laboratories use 50 ng/mL as an upper limit ofnormal. However, toxicity is patient-dependent and may occurat any level. Careful correlation with the patient'spresentation is necessary and, if there is concern forvitamin D toxicity, treatment should be consideredirrespective of the serum level.Care must be taken in interpreting Vitamin D results fromdifferent laboratories and methodologies. Published datademonstrated that results from patients undergoinghemodialysis may show a negative bias when tested withvarious automated 25-OH vitamin D assays when compared toLC-MS/MS.When testing samples from patients whose predominant form ofVitamin D is Vitamin D2, such as patients receiving VitaminD2 supplementation, results that are subtherapeutic shouldbe confirmed with another method such as LC-MS/MS. Blood Venous blood specimen / Unknown 01/31/2025 1:19 PM EDT 01/31/2025 2:35 PM EDT Albertina Danielle MD LAB BLOOD ORDERABLES Final Result [facility] [address] [place] [phone] * T-SPOT??.TB (01/31/2025 1:19 PM EDT) [facility] T Spot TB Negative Negative [facility] Comment:A negative test resu lt does not exclude the possibilityof exposure to or infection with Mycobacteriumtuberculosis (M. tuberculosis). Patients with recentexposure to TB infected individuals exhibiting anegative T-SPOT.TB result should be considered forretesting within 6 weeks or if other relevant clinicalsymptoms indicate. Results from T-SPOT.TB testing mustbe used in conjunction with each individual'sepidemiological history, current medical status,and results of other diagnostic evaluations.The T-SPOT.TB test is qualitative and results arereported as positive, borderline, or negative, giventhat the test controls perform as expected. In linewith the Centers for Disease Control and Prevention's2010 recommendation to report quantitative measurementsalongside the qualitative result, the laboratoryprovides spot counts for informational purposes only.The T-SPOT.TB test should not be interpreted as aquantitative test. TS PANEL A 0 [facility] TS PANEL B 0 [facility] Negative Control Passed [facility] Positive Control Passed [facility] Comment:For additional infor pramod, please refer tohttp://education.Sogou/faq/PVG674(This link is being provided for informational/educational purposes only.)THIS TEST WAS PERFORMED AT:[employer] [id number] [place] [address]PDQCOHWYUMIKO GROVES MD,PHD 01/31/2025 1:19 PM EDT 01/31/2025 2:35 PM EDT Albertina Danielle MD LAB BLOOD ORDERABLES Final Result Performing Organization Address [facility]/ZIP Co de Phone Number [facility] [address] [place] [phone] * Albumin, Random Urine W/Creatinine (01/31/2025 1:19 PM EDT) Creatinine, Urine 83.48 mg/dL [facility] Microalbumin Urine 5.0 mg/L [facility] Microalbum Creatinine Ratio Ur 5.9 <30 ug/mg cr [facility] Comment:Albumin/Creatinine R atio Reference Ranges: Normal: < 30 ug/mg creatinine Microalbuminuria: 30 - 300 ug/mg creatinineClinical Albuminuria: > 300 ug/mg creatinine Urine 01/31/2025 1:19 PM EDT 01/31/2025 2:37 PM EDT Albertina Danielle MD LAB URINE ORDERABLES Final Result Performing Organization Address [facility]/ZIP Co de Phone Number [facility] [address] [place] [phone] * (ABNORMAL) Uric acid (01/31/2025 1:19 PM EDT) Uric Acid 7.9(H) 2.4 - 5.7 mg/dL [facility] Blood Venous blood specimen / Unknown 01/31/2025 1:19 PM EDT 01/31/2025 2:35 PM EDT Albertina Danielle MD LAB BLOOD ORDERABLES Final Result Performing Organization Address City/[facility]/ZIP Co de Phone Number [facility] [address] [place] [phone] * (ABNORMAL) Hepatic Function Panel (01/31/2025 1:19 PM EDT) [facility] Bilirubin, Total 0.7 0.0 - 1.0 mg/dL [facility] Bilirubin, Direct 0.2 0.0 - 0.5 mg/dL [facility] Aspartate Amino Transferase 40(H) 5 - 31 U/L [facility] Alanine Aminotransferase 43(H) 0 - 31 U/L [facility] Total Protein 8.1(H) 6.5 - 8.0 g/dL [facility] Albumin Level 4.6 3.5 - 5.0 g/dL [facility] Alkaline Phosphatase 114 39 - 117 U/L [facility] Blood Venous blood specimen / Unknown 01/31/2025 1:19 PM EDT 01/31/2025 2:35 PM EDT Albertina Danielle MD LAB BLOOD ORDERABLES Final Result Performing Organization Address [facility]/ZIP Co de Phone Number [facility] [address] [place] [phone] * (ABNORMAL) Lipid Panel, Standard (01/31/2025 1:19 PM EDT) Pathologist [facility] Triglycerides 217(H) <150 mg/dL [facility] Comment:Desirable Triglyceri de: less than 150 mg/dLBorderline High Triglyceride 150-199 mg/dLHigh Triglyceride: 200-499 mg/dLVery High Triglyceride: greater than or equal to 5OO mg/dL Cholesterol 182 <200 mg/dL [facility] Comment:Desirable Cholestero l: less than 200 mg/dLBorderline High Cholesterol: 200-239 mg/dLHigh Cholesterol: greater than 239 mg/dL LDL Cholesterol Calculated 91 <100 mg/dL [facility] Comment:Desirable LDL: less than 100 mg/dLNear Optimal/Above Optimal LDL: 110- 129 mg/dLBorderline High LDL: 130-159 mg/dLHigh LDL: 160-189 mg/dLVery High LDL: greater than or equal to 190 mg/dL HDL Cholesterol 48 >40 mg/dL [facility] Comment:Desirable HDL: great er than 40 mg/dL Note: This HDL assay may give artificially low results in patients with liver disease. Blood Venous blood specimen / Unknown 01/31/2025 1:19 PM EDT 01/31/2025 2:35 PM EDT us Albertina Danielle MD LAB BLOOD ORDERABLES Final Result [facility] [address] [place] [address] [phone] * (ABNORMAL) Basic Metabolic Panel (01/31/2025 1:19 PM EDT) Sodium 136 135 - 145 mmol/L [facility] Potassium 3.8 3.3 - 5.1 mmol/L [facility] Chloride 101 96 - 108 mmol/L [facility] Carbon Dioxide 25 22 - 29 mmol/L [facility] Anion Gap 14 12 - 20 [facility] Urea Nitrogen (BUN) 14 9 - 16 mg/dL [facility] Creatinine, Serum 0.89 0.5 - 1.4 mg/dL [facility] Estimated Glomerular Filt Rate >60 [facility] Comment:Chronic Kidney Disea se: Estimated GFR < 60 mL/min/1.03c2Tajjhn Kidney Disease: Estimated GFR < 15 mL/min/1.73m2 Glucose 119(H) 60 - 115 mg/dL [facility] Calcium 9.5 8.4 - 10.2 mg/dL [facility] Blood Venous blood specimen / Unknown 01/31/2025 1:19 PM EDT 01/31/2025 2:35 PM EDT us Albertina Danielle MD LAB BLOOD ORDERABLES Final Result Performing Organization Address City/State/[facility] Co de Phone Number [facility] [address] [place] [phone] * MR Shoulder w/o Contrast Right (01/01/2025 4:13 PM EDT) Anatomical Region Laterality Modality Upper Extremities, Shoulder Right Magn etic Resonance 01/01/2025 4:13 PM EDT Narrative 01/01/2025 4:14 PM EDT [address] [address] Magnetic Resonance Report Signed Patient: Elizabet Castillo MR#: [id number] 2 : 1955 Acct:[id number] Age/Sex: 69 / F ADM Date: 12/29/24 Loc: HO.MRI Attending Dr: Fletcher Wong MD Ordering Physician: Fletcher Wong MD Date of Service: 12/29/24 Procedure(s): MR shoulder RT wo con Accession Number(s): [id number] cc: Albertina Danielle MD; Fletcher Wong MD CLINICAL HISTORY: M25.311 - Other instability, right shoulder MR right shoulder without contrast Comparison: MR/PA/SR - MR SHOULDER WITHOUT IV CONTRAST RIGHT - 05/08/23 19:29 EST CR/PA/SR - XR SHOULDER 2 OR MORE VIEWS RIGHT - 02/20/23 12:44 EDT Findings: No fracture or dislocation of the osseous structures. There is edema in the humeral head deep to the supraspinatus footplate, increased. Cystic change in the humeral head deep to subscapularis, unchanged. Edema in the glenoid most prominent at the anterior aspect, increased. Glenoid cystic change, also present on the prior study. Acromioclavicular joint degenerative change with mild joint space narrowing, moderate osteophytosis and mild subchondral edema, similar to the prior study. Small joint effusion, similar to the prior study. Trace fluid in the subacromial/subdeltoid bursa, increased. There is increased signal in the supraspinatus, infraspinatus and subscapularis tendons, increased. There is a partial tear of the supraspinatus tendon at the bursal and articular surfaces, greater of the bursal surface, more pronounced than on the prior study. No complete tear or retraction. No muscular atrophy. There is a partial tear of the infraspinatus tendon along the articular surface, new. There is a partial tear of the subscapularis tendon along the articular surface, unchanged. There is no complete tear of infraspinatus or subscapularis. No muscular atrophy. Teres minor is unremarkable. There is a tear the labrum which is more extensive than on the prior study and involves the superior /posterior, posterior and inferior aspects. The anterior superior labrum is favored to be intact with sublabral recess, although a tear may also be considered. At the inferior aspect of the labrum there is paralabral cyst measuring 9 mm, new. There is full-thickness glenohumeral chondromalacia with large osteophytosis, similar to the prior study. The biceps tendon and bicipital-labral anchor are intact. The coracoacromial and coracohumeral ligaments are intact. Cutaneous and subcutaneous tissues are normal. The quadrilateral space is unremarkable. Impression: Interval increase in degenerative edema within the humeral head and glenoid. Small joint effusion, similar to the prior study. Trace fluid in the subacromial/subdeltoid bursa, increased. Interval worsening of supraspinatus, infraspinatus and subscapularis tendinopathy. Increase in partial tear of the supraspinatus tendon. New partial tear of the infraspinatus tendon. Unchanged partial tear of the subscapularis tendon. Tear of the labrum which is more extensive than on the prior study. New paralabral cyst at the inferior aspect. This document has been electronically signed by: Bryanna Hamilton MD on 01/01/2025 16:13:28 Dictated By: Bryanna Lemus MD Signed By: <Electronically signed by Bryanna Lemus MD in OV> 01/01/25 1614 DD/ 1613 TD/TT: 01/01/25 1613 Magnetic Resonance Technologist: Procedure Note Donotuseinterpreter, Image - 01/01/2025 [place] [address] Magnetic Resonance Report Signed Patient: Rell Castillo#: [id number] 2 : 6Acct:[id number] Age/Sex: 69 / FADM Date: 12/29/24 Loc: HO.MRI Attending Dr: Fletcher Wong MD Ordering Physician: Fletcher Wong MD Date of Service: 12/29/24 Procedure(s): MR shoulder RT wo con Accession Number(s): [id number] cc: Albertina Danielle MD; Fletcher Wong MD CLINICAL HISTORY: M25.311 - Other instability, right shoulder MR right shoulder without contrast Comparison: MR/PA/SR - MR SHOULDER WITHOUT IV CONTRAST RIGHT - 05/08/23 19:29 EST CR/PA/SR - XR SHOULDER 2 OR MORE VIEWS RIGHT - 02/20/23 12:44 EDT Findings: No fracture or dislocation of the osseous structures. There is edema in the humeral head deep to the supraspinatus footplate, increased. Cystic change in the humeral head deep to subscapularis, unchanged. Edema in the glenoid most prominent at the anterior aspect, increased. Glenoid cystic change, also present on the prior study. Acromioclavicular joint degenerative change with mild joint space narrowing, moderate osteophytosis and mild subchondral edema, similar to the prior study. Small joint effusion, similar to the prior study. Trace fluid in the subacromial/subdeltoid bursa, increased. There is increased signal in the supraspinatus, infraspinatus and subscapularis tendons, increased. There is a partial tear of the supraspinatus tendon at the bursal and articular surfaces, greater of the bursal surface, more pronounced than on the prior study. No complete tear or retraction. No muscular atrophy. There is a partial tear of the infraspinatus tendon along the articular surface, new. There is a partial tear of the subscapularis tendon along the articular surface, unchanged. There is no complete tear of infraspinatus or subscapularis. No muscular atrophy. Teres minor is unremarkable. There is a tear the labrum which is more extensive than on the prior study and involves the superior /posterior, posterior and inferior aspects. The anterior superior labrum is favored to be intact with sublabral recess, although a tear may also be considered. At the inferior aspect of the labrum there is paralabral cyst measuring 9 mm, new. There is full-thickness glenohumeral chondromalacia with large osteophytosis, similar to the prior study. The biceps tendon and bicipital-labral anchor are intact. The coracoacromial and coracohumeral ligaments are intact. Cutaneous and subcutaneous tissues are normal. The quadrilateral space is unremarkable. Impression: Interval increase in degenerative edema within the humeral head and glenoid. Small joint effusion, similar to the prior study. Trace fluid in the subacromial/subdeltoid bursa, increased. Interval worsening of supraspinatus, infraspinatus and subscapularis tendinopathy. Increase in partial tear of the supraspinatus tendon. New partial tear of the infraspinatus tendon. Unchanged partial tear of the subscapularis tendon. Tear of the labrum which is more extensive than on the prior study. New paralabral cyst at the inferior aspect. This document has been electronically signed by: Bryanna Hamilton MD on 01/01/2025 16:13:28 Dictated By: Bryanna Lemus MD Signed By: <Electronically signed by Bryanna Lemus MD in OV> 01/01/25 1614 DD/ 1613 TD/TT: 01/01/25 1613 Magnetic Resonance Technologist: us [facility] External Provider IMG MRI PROCEDURES Final Result * Hemoglobin A1c (10/31/2024 12:21 PM EDT) Hemoglobin A1c 6.0 <6.0 % [facility] Comment:Hemoglobin A1C Refer ence Range Adults: 4.8 - 6.0 % Non diabetic: < 6.0 % Goal: < 7.0 %Additional Action Suggested: > 8.0 %Note: Hemoglobin A1c results are invalid for patients with abnormal amounts of HbF. Blood transfusions may impact the HbA1c concentration in the patient sample. Estimated Average Glucose 126 mg/dL [facility] Comment:eAG = Estimated ave rage glucose which is %A1C expressed asaverage glucose, using the formula of the L9R-WpqmazsRirnxsl Glucose study (ADAG), Diabetes Care, Vol.31,#8,Jan. 2007 Blood Venous blood specimen / Unknown 10/31/2024 12:21 PM EDT 10/31/2024 1:04 PM EDT us Albertina Danielle MD LAB BLOOD ORDERABLES Final Result [facility] [address] [place], [place] [phone] * BI Mammogram Screening Tomosynthesis Bilateral (02/21/2024 11:40 AM EDT) Anatomical Region Laterality Modality Breast Bilateral Mammography 02/21/2024 11:4 0 AM EDT Narrative 03/06/2024 10:24 AM EDT [facility] [address] [place] [address] Mammography Report Signed Patient: Elizabet Castillo MR#: [id number] 2 : 1955 Acct:[id number] Age/Sex: 68 / F ADM Date: 02/21/24 Loc: HO.MAMMO Attending Dr: Albertina Danielle MD Ordering Physician: Albertina Danielle MD Results: 1N egative Date of Service: 02/21/24 Follow Up: 1 Year From Orig ina Mammogram Procedure(s): MM tomosynthesis screening BI Accession Number(s): [id number] cc: Albertina Danielle MD EXAMINATION: MM SCREENING [...] Carmen Kyle DO 03/06/2024 10:21 AM EDT Dictated By: Carmen Kyle DO Signed By: <Electronically signed by Carmen Kyle DO in OV> 03/06/24 1021 DD/ 1140 TD/TT: 02/21/24 1158 Magnetic Resonance Technologist: Procedure Note Donotuseinterpreter, Image - 03/06/2024 [facility] [address] [place] [address] Mammography Report Signed Patient: Elizabet CastilloMR#: [id number] 2 : 6Acct:[id number] Age/Sex: 68 / FADM Date: 02/21/24 Loc: HO.MAMMO Attending Dr: Albertina Danielle MD Ordering Physician: Albertina Danielle MDResults: 1N egative Date of Service: 02/21/24Follow Up: 1 Year From Orig ina Mammogram Procedure(s): MM tomosynthesis screening BI Accession Number(s): [id number] cc: Albertina Danielle MD EXAMINATION: MM SCREENING [...] Kyle DO 03/06/2024 10:21 AM EDT RP Workstation: [employer] Dictated By: Carmen Kyle DO Signed By: <Electronically signed by Carmen yKle DO in OV> 03/06/24 1021 DD/ 1140 TD/TT: 02/21/24 1158 Magnetic Resonance Technologist: Albertina Danielle MD IMG BI PROCEDURES Edited R esult - Final * (ABNORMAL) Colonoscopy (03/06/2023) Colonoscopy Abnormal( A) Normal Comment:tubular adenoma Historical Provider HEALTH MAINTENANCE Final Result * Hepatitis C Antibody (10/29/2021 3:52 PM EDT) Hepatitis C Antibody Nonreactive Blood 10/29/2021 3:52 PM EDT Historical Provider POINT OF CARE TEST ENTER/ EDIT ORDERABLES Final Result from Last 3 Months or Most Recently Relevant to Health Maintenance Insurance [facility] CARE HOME OPTIONS (HMO D-SNP) [place] [id number] [facility] Advance Directives Documents on File Type Date Recorded Patient Associate Program Manager Expl anation Advance Directives and Living Will 12/18/2023 Health Care Proxy 12/18/23 Care Teams Trapper Animal Relationship Specialty Start Date End Date Shashi, MD Albertina [address] [place] [address] PCP - General Family Medicine 06/12/18 April Jackson [address] [place] [address] Dr 3rd Floor [place], [place] Gastroenterology 05/22/24 Fletcher Wong MD [address] [place] [address] [address] [place], [place] Orthopaedic Surgery 12/19/24 Erika Pratt, Vidhya [address] [place] [phone] Pharmacist Pharmacy 02/20/25
--- OUTSIDE RECORDS SUMMARY | 2025-03-04 15:10 | XMS_ITS | Encounter Summary ---
Author Organization [employer] Address [address] [facility] 7t [place] [address] Care Team Providers Care Putter In Name Role Phone Albertina Danielle MD Primary Care Provider + [phone] Erika Pratt PharmD Unavailable April Jackson Unavailable Fletcher Wong MD Unavailable Erika Pratt PharmD Unavailable [phone] Encounter Details Date Type Department Care Team (Late st Contact Info) Description 10/02/2023 Orders Only [facility] [address] [place], [place] [phone] Albertina Danielle MD [address] [place], [place] [phone] Prediabetes (Primary Dx) Social History Tobacco Use [...] the past 12 months, has t he [employer] gas, oil or water company threatened to [...] Description 03/11/2025 1:30 PM EDT Medication Management [facility] [address] [place] [address] Erika Pratt PharmD [address] [place] [address] documented as of this encounter Goals Goal [...] documented as of this encounter Care Teams Putter In Relationship Specialty Start Date End Date Albertina Danielle MD [address] [place] [address] PCP - General Family Medicine 06/12/18 Erika Pratt, PharmD [address] [place] [address] Pharmacist Internal Medicine 03/01/23 04/17/24 April Jackson [address] 3rd Floor [place], [place] Gastroenterology 05/22/24 Fletcher Wong MD [address] [place] [address] Orthopaedic Surgery 12/19/24 Erika Pratt, PharmD [address] [place] [address] Pharmacist Pharmacy 02/20/25 documented as of this encounter
--- OUTSIDE RECORDS SUMMARY | 2025-03-04 15:10 | XMS_ITS | Encounter Summary ---
Author Organization [employer] Address [address] [facility] 7t [place] [address] Care Team Providers Care Aircraft Maintenance Supervisor Name Role Phone Albertina Danielle MD Primary Care Provider [phone] Erika Pratt PharmD Unavailable [phone] April Jackson Unavailable Fletcher Wong MD Unavailable Erika Pratt PharmD Unavailable [phone] Encounter Details Date Type Department Care Team (Late st Contact Info) Description 06/28/2022 Abstract [facility] [address] [place], [place] [phone] Albertina Danielle MD [address] [place], [place] [phone] Social History Tobacco Use Types Packs/Day Years [...] Description 03/11/2025 1:30 PM EDT Medication Management [facility] [address] [place] [address] Erika Pratt PharmD [address] [place] [address] documented as of this encounter Procedures Procedure [...] L ORDERABLES Final Result Performing Organization Address [facility]/ZIP Co de Phone Number [facility] [address] [place] [phone] * Pap Smear (09/17/2015 12:00 AM EDT) Swab Historical Provider LAB CYTOLOGY ORDERABLES F inal Result Performing Organization Address [facility] Co de Phone Number [facility] [address] [place] [phone] documented in this encounter Visit Diagnoses Not on filedocumented in this encounter Care Teams Aircraft Maintenance Supervisor Relationship Specialty Start Date End Date Albertina Danielle MD [address] [place] [address] PCP - General Family Medicine 06/12/18 Erika Pratt PharmD [address] [place] [address] Pharmacist Internal Medicine 03/01/23 04/17/24 April Jackson [address] [place] [address] 3rd Floor [place], [place] Gastroenterology 05/22/24 Fletcher Wong MD [address] [place] [address] [address] [place] [address] Orthopaedic Surgery 12/19/24 Erika Pratt, RomanD [address] [place] [address] Pharmacist Pharmacy 02/20/25 documented as of this encounter
--- OUTSIDE RECORDS SUMMARY | 2025-03-04 15:10 | XMS_ITS | Encounter Summary ---
Author Organization [employer] Address [address] [facility] 7t [place] [address] Care Team Providers Care Mattress Weaver Name Role Phone Albertina Danielle MD Primary Care Provider [phone] Erika Pratt PharmD Unavailable April Jackson Unavailable Fletcher Wong MD Unavailable Erika Pratt PharmD Unavailable Encounter Details Date Type Department Care Team (Late st Contact Info) Description 03/09/2023 Abstract [facility] [address] [place], [place] [phone] Albertina Danielle MD [address] [place], [place] [phone] Tubular adenoma Social History Tobacco Use Types [...] Description 03/11/2025 1:30 PM EDT Medication Management [facility] [address] [facility] [place] [address] Erika Pratt PharmD [address] [facility] [place] [address] documented as of this encounter Goals Goal [...] adenoma Historical Provider HEALTH MAINTENANCE Final Result documented in this encounter Visit Diagnoses Diagnosis Tubular adenoma Benign neoplasm of unspecified site documented in this encounter Additional Health Concerns Assessment Noted Time PHQ-9 Depression Total Score: 7 12/01/19 23 3:41 PM EDT documented as of this encounter Care Teams Mattress Weaver Relationship Specialty Start Date End Date Albertina Danielle MD [address] [place] [address] PCP - General Family Medicine 06/12/18 Erika Pratt, PharmD [address] [place] [address] Pharmacist Internal Medicine 03/01/23 04/17/24 April Jackson [address] [place] [address] 3rd Floor [place] Gastroenterology 05/22/24 Fletcher Wong MD [address] [place] [address] Dr [address] [place] [address] Orthopaedic Surgery 12/19/24 Erika Pratt, PharmD [address] [place] [phone] Pharmacist Pharmacy 02/20/25 documented as of this encounter
== END 2025-03-03 10:01 | disposition home or self-care (01) ==
LOC: HO.HHCLNP 10:00
PROVIDERS: Visit Provider Nurse Practitioner Family
DX: N89.8 Other specified noninflammatory disorders of vagina (principal)
CPT/HCPCS: 81515; 87491; 87591

== ENCOUNTER 2025-03-25 13:36 | Outpatient (AMB) | payer OTHER, SELFPAY ==
--- NOTE | 2025-03-25 13:49 | MHC.OFFVIS ---
Vital Signs 03/25/25 13:54 Height 5 ft 4 in Weight 167 lb BMI 28.7 Intake Visit Reasons: PO RT shoulder 02/07/25 DR Intake Note: Elizabet is a 69 year old female who presents with complaints of moderate discomfort in her right shoulder after undergoing right shoulder arthroscopic surgery on 02/07/2025. The patient continues to stretch on her own. She does not wish to go to formal physical therapy. She states that she has had difficulty sleeping. She has taken oxycodone which gives her minimal relief. Allergies cheese (CHEESE) Allergy (Unknown, Verified 03/25/25 13:55) + ALLERGY TESTING egg (EGGS) Allergy (Unknown, Verified 03/25/25 13:55) + ALLERGY TEST gluten (GLUTEN) Allergy (Unknown, Verified 03/25/25 13:55) + ALLERGY TEST milk (MILK) Allergy (Unknown, Verified 03/25/25 13:55) + ALLERGY TEST No Known Drug Allergies Allergy (Unknown, Verified 03/25/25 13:55) none soy (SOY) Allergy (Unknown, Verified 03/25/25 13:55) + ALLERGY TEST strawberry (STRAWBERRY) Allergy (Unknown, Verified 03/25/25 13:55) + ALLERGY TEST banana (BANANA) Adverse Reaction (Unknown, Verified 03/25/25 13:55) + ALLERGY TEST Medication List - Last Reconciled 03/25/25 by Fletcher Wong MD acetaminophen (Tylenol Extra Strength) 1,000 mg (2 x 500 mg) PO QID PRN albuterol sulfate 90 mcg/actuation (Ventolin HFA) 2 puffs inhalation Q6-8H PRN albuterol sulfate mg inhalation allopurinol 100 mg PO DAILY amlodipine 10 mg PO QAM atorvastatin 40 mg PO QAM bisacodyl 10 mg (2 x 5 mg) PO BEDTIME cholecalciferol (vitamin D3) (Vitamin D3) 50 mcg PO DAILY diazepam (Valium) 5 mg PO TID PRN fluticasone propionate 50 mcg/actuation 1 spray intranasal BID glycerin (adult) (Fleet Glycerin (Adult) rectal suppository) 1 supp DC DAILY PRN lactobacillus combination no.9 (Adult 50 Plus Probiotic) 4,000 mmu cells PO DAILY loratadine 10 mg PO DAILY omeprazole 40 mg PO DAILY oxycodone 5 mg PO Q4H PRN polyethylene glycol 3350 (Miralax) 17 grams PO DAILY PFSH Medical History Teeth missing HLD (hyperlipidemia) Chronic sinusitis GERHARD (obstructive sleep apnea) Diverticulosis Tubular adenoma Hx of hemorrhoids Vitamin B1 deficiency Hemorrhoids Overweight (BMI 25.0-29.9) Obesity (BMI 30-39.9) Insomnia Allergic rhinitis Urinary incontinence Chronic idiopathic constipation Arthritis Celiac disease GERD (gastroesophageal reflux disease) TIA (transient ischemic attack) Depression Elevated cholesterol HTN (hypertension) Surgical History S/P colonoscopy H/O hemorrhoidectomy Hx of cholecystectomy History of bladder suspension procedure H/O: hysterectomy H/O shoulder surgery Hx of colonoscopy Hx of esophagogastroduodenoscopy Family History Father Myocardial infarction NIDDY (non-insulin dependent diabetes mellitus in young) Mother Breast cancer Colon cancer NIDDY (non-insulin dependent diabetes mellitus in young) Hypertension Sister AIDS (acquired immune deficiency syndrome) NIDDY (non-insulin dependent diabetes mellitus in young) Hypertension Maternal Grandfather Bone cancer Maternal Grandmother Bone cancer Social History Household Members: None Housing: Apartment Are you a primary emergency care tech to a significant other at home: No Do you presently have visiting nurse or other home services: No 75 years or older and lives alone: No Alcohol intake: never Patient Tobacco Use Status: Former Tobacco user Tobacco use type: Cigarette Physical Exam Vital Signs: BMI result Body Mass Index 28.7 Extrem Other: Right shoulder examination shows that the surgical incisions are well healed, no erythema, mild to moderate discomfort with range of motion, no instability Assessment & Plan Assessment & Plan (1) Right shoulder pain: Code(s): M25.511 - Pain in right shoulder Category: Medical Plan Ms. Castillo continues to do fairly well after undergoing right shoulder surgery on 02/07/2025. The patient will continue with her home stretching program. The do's and don'ts of lifting were discussed at length with the patient. She does not wish to go to formal physical therapy. I did give her a prescription for gabapentin. She will contact me prior to her follow-up appointment in 2 months should any questions or concerns arise. Medications: New gabapentin 100 mg PO BEDTIME 30 caps 2RF Coding Level of Care Code Global (09070) Diagnoses Right shoulder pain M25.511
[2025-03-25 13:54] VITALS: BMI 28.7
--- OUTSIDE RECORDS SUMMARY | 2025-03-25 16:33 | XMS_ITS | Encounter Summary ---
Author Organization [employer] Address [address] [facility] 7t [place] [address] Care Team Providers Care Stock Puller Name Role Phone Albertina Danielle MD Primary Care Provider [phone]- [phone] Piers-Luzmaria, Erika PharmD Unavailable [phone] April Jackson Unavailable Fletcher Wong MD Unavailable Piers-Dutta, Erika PharmD Unavailable [phone] Encounter Details Date Type Department Care Team (Late st Contact Info) Description 07/04/2022 Orders Only [facility] MEDICINE [address] [place], [place] [phone] Dolores Sue LPN Social History Tobacco Use [...] Care Team (Late st Contact Info) Description 04/08/2025 2:00 PM EDT Medication Management [facility] [address] [place], [place] [phone] PiersChristine Cordobasa, PharmD 230 [place] [address] documented as of this encounter Visit Diagnoses Not on filedocumented in this encounter Care Teams Stock Puller Relationship Specialty Start Date End Date Albertina Danielle MD [address] [place] [address] PCP - General Family Medicine 06/12/18 Erika Pratt, PharmD [address] [place] [address] Pharmacist Internal Medicine 03/01/23 04/17/24 April Jackson [address] [place] [address] 3rd Floor [place], [place] Gastroenterology 05/22/24 Fletcher Wong MD [address] [place] [address] [address] [place] [address] Orthopaedic Surgery 12/19/24 Erika Pratt, PharmD [address] [place] [address] Pharmacist Pharmacy 02/20/25 documented as of this encounter
--- OUTSIDE RECORDS SUMMARY | 2025-03-25 16:33 | XMS_ITS | Encounter Summary ---
Author Organization [employer] Address [address] [facility] 7t [place] [address] Care Team Providers Care Still Cleaner Name Role Phone Albertina Danielle MD Primary Care Provider [phone]- [phone] Piers-Luzmaria, Erika PharmD Unavailable April Jackson Unavailable Fletcher Wong MD Unavailable Piers-Dutta, Erika PharmD Unavailable Encounter Details Date Type Department Care Team (Late st Contact Info) Description 02/14/2024 Telephone [facility] MEDICINE 230 [place] [address] Piers-Dutta, Erika, PharmD [address] [place], [place] [phone] Social History Tobacco Use Types Packs/Day Years [...] for this patient to continue care in [facility] - Hypertension clinic. Please send at your earliest convenience. documented in this encounter Plan of Treatment Upcoming Encounters Date Type Department Care Team (Late st Contact Info) Description 04/08/2025 2:00 PM EDT Medication Management [facility] MEDICINE [address] [place], [place] [phone] Erika Pratt PharmD [address] [place] [address] documented as of this encounter Goals Goal Patient Goal Type Associated Problems Recent Progress Patient-Stated? Author Blood Pressure < 150/90 Blood Pressure 148/70( 025 1:48 PM EDT) No Erika Lockett, PharmD documented as of this encounter Visit Diagnoses Not on filedocumented in this encounter Additional Health Concerns Assessment Noted Time PHQ-9 Depression Total Score: 0 12/18/19 24 10:49 AM EDT documented as of this encounter Care Teams Still Cleaner Relationship Specialty Start Date End Date Albertina Danielle MD [address] [place] [address] PCP - General Family Medicine 06/12/18 Erika Pratt, PharmD [address] [place] [address] Pharmacist Internal Medicine 03/01/23 04/17/24 April Jackson [address] [place] [address] Dr 3rd Floor [place], [place] Gastroenterology 05/22/24 Fletcher Wong MD [address] [place] [address] Dr [address] [place] [address] Orthopaedic Surgery 12/19/24 Erika Pratt, PharmD [address] [place] [address] Pharmacist Pharmacy 02/20/25 documented as of this encounter
--- OUTSIDE RECORDS SUMMARY | 2025-03-25 16:33 | XMS_ITS | Encounter Summary ---
Author Organization [employer] Address [address] [facility] 7t [place] [address] Care Team Providers Care Production Lead Name Role Phone Albertina Danielle MD Primary Care Provider [phone]- [phone] Erika Pratt PharmD Unavailable April Jackson Unavailable Fletcher Wong MD Unavailable Erika Pratt PharmD Unavailable [phone] Encounter Details Date Type Department Care Team (Late st Contact Info) Description 12/30/2022 Abstract [facility] MEDICINE 230 [place], [place] [phone] Albertina Danielle MD 230 [place], [place] [phone] Social History Tobacco Use Types Packs/Day Years [...] Description 04/08/2025 2:00 PM EDT Medication Management [facility] MED[facility]INE 230 [place] [address] Erika Pratt PharmD 230 [place] [address] documented as of this encounter Visit Diagnoses Not on filedocumented in this encounter Additional Health Concerns Assessment Noted Time PHQ-9 Depression Total Score: 7 12/01/19 3:41 PM EDT documented as of this encounter Care Teams Production Lead Relationship Specialty Start Date End Date Albertina Danielle MD [address] [place] [address] PCP - General Family Medicine 06/12/18 Erika Pratt PharmD [address] [place] [phone] Pharmacist Internal Medicine 03/01/23 04/17/24 April Jackson [address] [place] [address] Dr 3rd Floor [place] Gastroenterology 05/22/24 Fletcher Wong MD [address] [place] [address] Dr [address] [place] [address] Orthopaedic Surgery 12/19/24 Erika Pratt PharmD [address] [place] [address] Pharmacist Pharmacy 02/20/25 documented as of this encounter
--- OUTSIDE RECORDS SUMMARY | 2025-03-25 16:33 | XMS_ITS | Encounter Summary ---
Author Organization [employer] Address [address] [facility] 7t [place] [address] Care Team Providers Care Principal Law Clerk Name Role Phone Albertina Danielle MD Primary Care Provider [phone]- [phone] Terence, Erika PharmD Unavailable April Jackson Unavailable Fletcher Wong MD Unavailable PiersJose GDutta, Erika PharmD Unavailable [phone] Reason for Visit * Reason Comments Med Refill Encounter Details Date Type Department Care Team ([facility] st Contact Info) Description 09/09/2022 Refill [facility] MEDICINE 230 [place] [address] Marcela Norwood FNP [address] [place], [place] [phone] Total body pain Social History Tobacco Use [...] Description 04/08/2025 2:00 PM EDT Medication Management [facility] MEDICINE [address] [place] [address] Erika Pratt PharmD 230 [place] [address] documented as of this encounter Visit Diagnoses Diagnosis Total body pain documented in this encounter Care Teams Principal Law Clerk Relationship Specialty Start Date End Date Albertina Danielle MD [address] [place] [address] [phone] PCP - General Family Medicine 06/12/18 Erika Pratt, RomanD [address] [place] [address] Pharmacist Internal Medicine 03/01/23 04/17/24 April Jackson [address] [place] [address] Dr 3rd Floor [place], [place] Gastroenterology 05/22/24 Fletcher Wong MD [address] [place] [address] 203 [place] [address] Orthopaedic Surgery 12/19/24 Erika Pratt, PharmD [address] [place] [address] Pharmacist Pharmacy 02/20/25 documented as of this encounter
--- OUTSIDE RECORDS SUMMARY | 2025-03-25 16:33 | XMS_ITS | Encounter Summary ---
Author Organization [employer] Address [address] [facility] 7t [place] [address] Care Team Providers Care Tie Puller Name Role Phone Albertina Danielle MD Primary Care Provider Christine Prattsa PharmD Unavailable [phone] April Jackson Unavailable Fletcher Wong MD Unavailable PiersAdalid, Erika PharmD Unavailable [phone] Reason for Visit * Reason Comments Med Refill Encounter Details Date Type Department Care Team ([facility] st Contact Info) Description 01/23/2024 Refill [facility] MEDICINE 230 [place], [place] [phone] Yeny Billings DO 230 [place], [place] [phone] Social History Tobacco Use Types Packs/Day Years [...] Description 04/08/2025 2:00 PM EDT Medication Management [facility] MEDICINE 230 [place] [address] Erika Pratt PharmD 230 [place] [address] documented as of this encounter Goals Goal [...] documented as of this encounter Care Teams Tie Puller Relationship Specialty Start Date End Date Albertina Danielle MD [address] [place] [address] PCP - General Family Medicine 06/12/18 Erika Pratt, PharmD [address] [place] [address] Pharmacist Internal Medicine 03/01/23 04/17/24 April Jackson [address] [place] [address] Dr 3rd Floor [place], [place] Gastroenterology 05/22/24 Fletcher Wong MD [address] [place] [address] Dr [address] [place] [address] Orthopaedic Surgery 12/19/24 Erika Pratt, PharmD [address] [place] [address] Pharmacist Pharmacy 02/20/25 documented as of this encounter
--- OUTSIDE RECORDS SUMMARY | 2025-03-25 16:33 | XMS_ITS | Encounter Summary ---
Author Organization [employer] Address [address] [facility] 7t [place] [address] Care Team Providers Care Cartoon Artist Name Role Phone Albertina Danielle MD Primary Care Provider [phone]- [phone] Erika Pratt PharmD Unavailable April Jackson Unavailable Fletcher Wong MD Unavailable Erika Pratt PharmD Unavailable Encounter Details Date Type Department Care Team (Late st Contact Info) Description 06/28/2022 Abstract [facility] MEDICINE 230 [place], [place] [phone] Albertina Danielle MD 230 [place], [place] [phone] Social History Tobacco Use Types Packs/Day Years [...] 2:00 PM EDT Medication Management [facility] MEDICINE [address] [place] [address] Erika Pratt PharmD [address] [place] [address] documented as of this encounter Procedures Procedure [...] L ORDERABLES Final Result Performing Organization Address [facility]/ZIP Co de Phone Number [facility] [address] [place] [phone] * Pap Smear (09/17/2015 12:00 AM EDT) Swab Historical Provider LAB CYTOLOGY ORDERABLES F inal Result Performing Organization Address [facility] Co de Phone Number [facility] [address] [place] [phone] documented in this encounter Visit Diagnoses Not on filedocumented in this encounter Care Teams Cartoon Artist Relationship Specialty Start Date End Date Albertina Danielle MD [address] [place] [address] PCP - General Family Medicine 06/12/18 Erika Pratt, Vidhya [address] [place] [address] Pharmacist Internal Medicine 03/01/23 04/17/24 April Jackson [address] [place] [address] 3rd Floor [place], [place] Gastroenterology 05/22/24 Fletcher Wong MD [address] [place] [address] [address] [place] [address] Orthopaedic Surgery 12/19/24 Erika Pratt, RomanD [address] [place] [address] Pharmacist Pharmacy 02/20/25 documented as of this encounter
--- OUTSIDE RECORDS SUMMARY | 2025-03-25 16:33 | XMS_ITS | Clinical Summary ---
Author Organization [employer] Address [address] [facility] [address] [place] [address] Care Team Providers Care Bulker Name Role Phone Albertina Danielle MD Primary Care Provider [phone] April Jackson Unavailable Fletcher Wong MD Unavailable Erika Pratt PharmD Unavailable [phone] Allergies No known active allergies Medications Blood Glucose Monitoring Suppl (FreeStyle Lite) w/Device kitIndications: Prediabetes 1 each Once per day. 1 kit 024 Active Lancets 33G miscIndications :Prediabetes Test blood sugar once daily 100 each 11 024 Active D3 Super Strength 50 MCG (2000 UT) capsuleIndicati ons:Vitamin D deficiency Take 1 capsule (50 mcg) by mouth Once per day. 30 capsule 2 Active albuterol 108 (90 Base) MCG/ACT inhalerIndicati ons:Mild intermittent asthma without complication Inhale 2 puffs every 4 (four) hours if needed for wheezing. 18 g 024 2024 Active cyclobenzaprine (Flexeril) 10 MG tabletIndicatio ns:Total body pain One tab po at bedtime prn pain of muscles, do not drive with medicaion 30 tablet 3 024 Active glycerin (Adult) 2 g suppositoryIndi cations:Constip ation, unspecified constipation type Insert 1 suppository (2 g) into the rectum if needed each day for constipation. 30 suppository 2 Active polyethylene glycol, PEG, 3350 (MiraLax) 17 GM/SCOOP powderIndicatio ns:Constipation , unspecified constipation type 17 grams in 8-12 oz fluid like water at bedtime prn constipation 527 g 2 Active senna (Senokot) 8.6 MG tabletIndicatio ns:Constipation , unspecified constipation type Take 1 tablet (8.6 mg) by mouth at bedtime. 60 tablet 2 Active atorvastatin (Lipitor) 40 MG tabletIndicatio ns:Dyslipidemia Take 1 tablet (40 mg) by mouth in the morning. 90 tablet Active allopurinol (Zyloprim) 100 MG tabletIndicatio ns:Gout of right foot, unspecified cause, unspecified chronicity Take 1 tablet (100 mg) by mouth Once per day. 90 tablet 3 025 2025 Active famotidine (Pepcid) 40 MG tablet Take 40 mg by mouth at bedtime. Active omeprazole (PriLOSEC) [address] capsule Take 1 capsule by mouth Once per day. Active oxyCODONE (Roxicodone) 5 MG immediate release tablet Active losartan (Cozaar) 50 MG tabletIndicatio ns:Primary hypertension Take 1 tablet (50 mg) by mouth Once per day. 90 tablet Active amLODIPine (Norvasc) 10 MG tabletIndicatio ns:Primary hypertension TAKE 1 TABLET BY MOUTH EVERY MORNING 90 tablet Active carvedilol (Coreg) 3.125 MG tabletIndicatio ns:Primary hypertension Take 1 tablet (3.125 mg) by mouth with breakfast and with evening meal. 60 tablet 11 024 2024 Discontinued(N on-compliance) amLODIPine (Norvasc) 10 MG tabletIndicatio ns:Primary hypertension TAKE 1 TABLET BY MOUTH EVERY MORNING 30 tablet 5 025 2024 Discontinued(R eorder (will not trigger notification to Pharmacy)) enalapril-hydro CHLOROthiazide (Vasoretic) 10-25 MG tabletIndicatio ns:Primary hypertension Take 1 tablet by mouth Once per day. 30 tablet 11 025 2024 Discontinued(O ther) metroNIDAZOLE (Flagyl) 500 MG tabletIndicatio ns:Trichomonas vaginitis,Bacte rial vaginosis Take 1 tablet (500 mg) by mouth 2 times daily for 7 days. 14 tablet 025 2024 Active Problems Patient Care Coordination No te Formatting of this note migh t be different from the original. CDTM HTN with Erika Pratt, Vidhya [facility] Rail Technician: Mckayla, member services number [phone], provider services line, , option 4 Inside Sales Person Agency: [facility] Problem Noted Date Diagnosed Date Trichomonas vaginitis 03/05/2025 Bacterial vaginosis 03/05/2025 Constipation 11/14/2024 Overview (11/14/2024): Chronic constipation in [...] tearing. Thus, I will send the patien t for an MRI of her right shoulder [...] due after 01/22/26. -Eye care done in [facility], last done 10/2022. -Follow with [facility] dentist -Healthcare proxy given and filled Assessment & Plan (01/22/2025 4:09 PM EDT): -next comprehensive annual evaluation due after 01/22/26. -Eye care done in [facility], last done 10/2022. -Follow with [facility] dentist -Healthcare proxy given and filled Assessment & Plan (12/18/2023 11:13 AM EDT): -Next PE due after 12/17/2024. -Eye care done in [facility], last done 10/2022. -Follow with [facility] dentist -Healthcare proxy given and filled Assessment & Plan (11/30/2022 4:08 PM EDT): Next PE due after 12/01/2023. Eye care done in [facility], last done 10/2022. 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 -Continue Vitamin D. -Discontinued Fosamax 11/30/2022. -Dexa scan ordered 11/30/2022. -Advised exercise with light weights. -repeat DEXA 12/2022 with severe osteoporosis, referred to endocrinology 12/26/2022 for assistance in tx due to not tolerating oral bisphosphonate -Pt was given the number to [facility] 01/20/2023 to call and [...] bisphosphonate -Pt was given the number to [facility] Endocrinology 01/20/2023 to call and [...] bisphosphonate -Pt was given the number to [facility] Endocrinology 01/20/2023 to call and [...] Collaborative Drug Therapy Managment Program with our ALBERTO Kee 10/31/24 -Continue lifestyle modifications -Continue current medications [...] Collaborative Drug Therapy Managment Program with our ALBERTO Kee 01/22/25 -Restarted enalapril-hydroCHLOROthiazide (Vasoretic) 10-25 MG 01/22/25 [...] Drug Therapy Managment Program with [facility] 05/22/24 Assessment & Plan (12/18/2023 10:56 AM [...] - Prescribed D3 Super Strength 50 MCG (1999 UT) capsule 05/22/24 - Ordered Vitamin D, [...] with GI biopsy -EGD 01/03/[address] Norman bx consistent with celiac diease -Note from Dr. Jackson, 03/11/24 reviewed: Continue gluten free diet. Continue omeprazole and famotidine. Avoid dietary triggers and late night snacking. Staying upright for minimum 3 hours after meals discussed with patient. Continue Dulcolax tablets daily. Increase fluid intake and activity to promote better bowel motility. Follow-up in the office in 6 months, sooner on as needed basis. -note crow Jackson 12/2024 reveiwed Assessment & Plan (01/22/2025 [...] months, sooner on as needed basis. -note crow Jackson 12/2024 reveiwed Assessment & Plan (12/18/2023 [...] mouth in the morning. Referral to Pharmacy [facility] Hepatic Function Panel; Future Lipid Panel, Standard; [...] reflux disease 12/23/2011 Overview (12/11/2024): -followed by GI Dr. Jackson, note from 12/04/24 reviewed -continue omeprazole [...] exam 12/18/2023 11/14/2024 Exercise counseling 12/18/2023 11/01/19 Dietary counseling 12/18/2023 Encounters Date Type Department Care Team Description 03/11/2025 Travel 03/05/2025 Results Follow-Up [address] [address] Billie Emerson FNP Chlamydia/N. Gonorrhoeae RNA, TMA, Urogenitial, Bacterial Vaginosis 03/03/2025 5:00 PM EDT Office Visit [facility] [address] [place] [phone] Billie Emerson FNP Vaginal itching 03/03/2025 Travel 02/18/2025 Travel 02/05/2025 Results Follow-Up [address] [address] Kaylan Posada RN T-SPOT .TB 02/02/2025 Results Follow-Up [address] [address] Albertina Danielle MD Uric acid, Vitamin D, 25-Hydroxy, Total, Immunoassay 02/02/2025 Orders Only [address] [address] Albertina Danielle MD Gout of right foot, unspecified cause, unspecified chronicity (Primary Dx) 01/31/[address] [address] Albertina Danielle MD 01/23/[address] [address] Albertina Danielle MD 01/23/[address] [address] Albertina Danielle MD Lab Orders 01/22/2025 3:15 PM EDT Office Visit [address] [address] Albertina Danielle MD Preop examination (Primary Dx); Celiac disease; Mild intermittent asthma without complication; Dyslipidemia; Prediabetes; Primary hypertension; Vitamin D deficiency; Constipation, unspecified constipation type; Right shoulder pain, unspecified chronicity; Class 1 obesity due to excess calories with serious comorbidity and body mass index (BMI) of 30.0 to 30.9 in adult; Dietary counseling; Exercise counseling; Other specified health status 01/22/[address] [address] Albertina Danielle MD Paperwork/Forms 01/22/2025 Travel 01/21/[address] [address] Albertina Danielle MD CHART PREP 01/08/[address] [address] Albertina Danielle MD pre op 12/29/2024 Orders Only [facility] External Provider, [facility] Right shoulder pain, unspecified chronicity (Primary Dx) [...] Sign Reading Time Taken Comments Blood Pressure 148/70 03/11/2025 1:48 PM EDT Pulse 78 03/11/2025 1:46 PM EDT Temperature 36.7 C (98.1 F) [...] Description 04/08/2025 2:00 PM EDT Medication Management [facility] [address] [place], [place] [phone] Erika Pratt, PharmD [address], [place] [phone] Health Maintenance Due Date Last Done Comments CT Colonography 1955 FIT DNA/Cologuard 1955 FIT 1955 FOBT 1955 Sigmoidoscopy 1955 COVID-19 Vaccine ( season) 2025 12/21/2020, 11/23/2020 Influenza Vaccine (#1) 2025 03/13/2009 SDOH Screening 05/22/2025 05/22/2024 Depression Screening 10/31/2025 10/31/2024, 11/01/19 25 Diabetes: Hemoglobin A1C 10/31/2025 025, 02/15/2024, 12/18/2023, [...] 025 1:48 PM EDT) No Erika Lockett, Vidhya Procedures [...] VAGINALIS DETECTION BY PCR DETECTED(A) Not Detect [facility] BACTERIAL VAGINOSIS DETECTION BY PCR POSITIVE(A) Negative [facility] Comment:The BV organism targ ets of [...] DETECTION BY PCR NOT DETECTED Not Detect [facility] Kassy glab krusei PCR NOT DETECTED Not Detect [facility] Swab Vaginal structure / Unknown 03/03/2025 5:14 PM EDT 03/04/2025 12:17 PM EDT Billieilana Emerson [facility] MICROBIOLOGY - GENERAL ORD ERABLES Final Result [facility] [address] [place] [address] [phone] * Chlamydia/N. Gonorrhoeae RNA, TMA, Urogenitial (03/03/2025 5:14 PM EDT) CT PCR NOT DETECTED Not Detect. [facility] Comment:A not detected test result does [...] psychologicalconsequences. NG PCR NOT DETECTED Not Detect. [facility] Comment:A not detected test result does [...] EDT 03/04/2025 12:17 PM EDT Billie Emerson [facility] MICROBIOLOGY - GENERAL ORD ERABLES Final Result [facility] [address] [place] [phone] * Vitamin D, 25-Hydroxy, Total, Immunoassay (01/31/2025 1:19 PM EDT) Vitamin D 25-OH Total 43.6 >30 ng/mL [facility] Comment: Health Based Reference Values*< 20 ng/mL Yhhszuqik28-39 ng/mL Insufficient> 30 ng/mL Sufficient*Cristian JOSEPH. N [...] BLOOD ORDERABLES Final Result Performing Organization Address City/[facility]/ZIP Co de Phone Number [facility] [address] [place] [phone] * T-SPOT??.TB (01/31/2025 1:19 PM EDT) [facility] T Spot TB Negative Negative [facility] Comment:A negative test resu lt does [...] as aquantitative test. TS PANEL A 0 [facility] TS PANEL B 0 [facility] Negative Control Passed [facility] Positive Control Passed [facility] Comment:For additional infor pramod, please refer [email or web address].[facility].Unii/faq/ROM074(This link is being provided for informational/educational purposes only.)THIS TEST WAS PERFORMED AT:[employer] [id number] [place] [address]IRDSSKHYUMIKO GROVES MD,PHD 01/31/2025 1:19 PM EDT 01/31/2025 2:35 PM EDT Albertina Danielle MD LAB BLOOD ORDERABLES Final Result Performing Organization Address [facility]/ZIP Co de Phone Number [facility] [address] [place] [address] [phone] * Albumin, Random Urine W/Creatinine (01/31/2025 1:19 PM EDT) Creatinine, Urine 83.48 mg/dL [facility] Microalbumin Urine 5.0 mg/L [facility] Microalbum Creatinine Ratio Ur 5.9 <30 ug/mg cr [facility] Comment:Albumin/Creatinine R atio Reference Ranges: Normal: < 30 ug/mg creatinine Microalbuminuria: 30 - 300 ug/mg creatinineClinical Albuminuria: > 300 ug/mg creatinine Urine 01/31/2025 1:19 PM EDT 01/31/2025 2:37 PM EDT Albertina Danielle MD LAB URINE ORDERABLES Final Result Performing Organization Address [facility] Co de Phone Number [facility] [address] [place] [phone] * (ABNORMAL) Uric acid (01/31/2025 1:19 PM EDT) Uric Acid 7.9(H) 2.4 - 5.7 mg/dL [facility] Blood Venous blood specimen / Unknown 01/31/2025 1:19 PM EDT 01/31/2025 2:35 PM EDT Albertina Danielle MD LAB BLOOD ORDERABLES Final Result Performing Organization Address [facility] Co de Phone Number [facility] [address] [place] [phone] * (ABNORMAL) Hepatic Function Panel (01/31/2025 1:19 PM EDT) Bilirubin, Total 0.7 0.0 - 1.0 mg/dL [facility] Bilirubin, Direct 0.2 0.0 - 0.5 mg/dL [facility] Aspartate Amino Transferase 40(H) 5 - 31 U/L [facility] Alanine Aminotransferase 43(H) 0 - 31 U/L [facility] Total Protein 8.1(H) 6.5 - 8.0 g/dL [facility] Albumin Level 4.6 3.5 - 5.0 g/dL [facility] Alkaline Phosphatase 114 39 - 117 U/L [facility] Blood Venous blood specimen / Unknown 01/31/2025 1:19 PM EDT 01/31/2025 2:35 PM EDT Albertina Danielle MD LAB BLOOD ORDERABLES Final Result [facility] [address] [place] [phone] * (ABNORMAL) Lipid Panel, Standard (01/31/2025 1:19 PM EDT) Triglycerides 217(H) <150 mg/dL [facility] Comment:Desirable Triglyceri de: less than 150 mg/dLBorderline High Triglyceride 150-199 mg/dLHigh Triglyceride: 200-499 mg/dLVery High Triglyceride: greater than or equal to 5OO mg/dL Cholesterol 182 <200 mg/dL [facility] Comment:Desirable Cholestero l: less than 200 mg/dLBorderline High Cholesterol: 200-239 mg/dLHigh Cholesterol: greater than 239 mg/dL LDL Cholesterol Calculated 91 <100 mg/dL [facility] Comment:Desirable LDL: less than 100 mg/dLNear Optimal/Above Optimal LDL: 110- 129 mg/dLBorderline High LDL: 130-159 mg/dLHigh LDL: 160-189 mg/dLVery High LDL: greater than or equal to 190 mg/dL HDL Cholesterol 48 >40 mg/dL [facility] Comment:Desirable HDL: great er than 40 mg/dL Note: This HDL assay may give artificially low results in patients with liver disease. Blood Venous blood specimen / Unknown 01/31/2025 1:19 PM EDT 01/31/2025 2:35 PM EDT Albertina Danielle MD LAB BLOOD ORDERABLES Final Result Performing Organization Address City/[facility] de Phone Number [facility] [address] [place] [phone] * (ABNORMAL) Basic Metabolic Panel (01/31/2025 1:19 PM EDT) Sodium 136 135 - 145 mmol/L [facility] Potassium 3.8 3.3 - 5.1 mmol/L [facility] Chloride 101 96 - 108 mmol/L [facility] Carbon Dioxide 25 22 - 29 mmol/L [facility] Anion Gap 14 12 - 20 [facility] Urea Nitrogen (BUN) 14 9 - 16 mg/dL [facility] Creatinine, Serum 0.89 0.5 - 1.4 mg/dL [facility] Estimated Glomerular Filt Rate >60 [facility] Comment:Chronic Kidney Disea se: Estimated GFR < 60 mL/min/1.85x3Sjczvx Kidney Disease: Estimated GFR < 15 mL/min/1.73m2 Glucose 119(H) 60 - 115 mg/dL [facility] Calcium 9.5 8.4 - 10.2 mg/dL [facility] Blood Venous blood specimen / Unknown 01/31/2025 1:19 PM EDT 01/31/2025 2:35 PM EDT Albertina Danielle MD LAB BLOOD ORDERABLES Final Result Performing Organization Address [facility] de Phone Number [facility] [address] [place] [phone] * MR Shoulder w/o Contrast Right (01/01/2025 4:13 PM EDT) Anatomical Region Laterality Modality Upper Extremities, Shoulder Right Magn etic Resonance 01/01/2025 4:13 PM EDT Narrative 01/01/2025 4:14 PM EDT [address] [address] Magnetic Resonance Report Signed Patient: Elizabet Castillo MR#: [id number] 2 : 1955 Acct:[id number] Age/Sex: 69 / F ADM Date: 12/29/24 Loc: HO.MRI Attending Dr: Fletcher Wong MD Ordering Physician: Fletcher Wong MD Date of Service: 12/29/24 Procedure(s): MR shoulder RT wo con Accession Number(s): [id number] cc: Albertina Danielle MD; Fletcher Wong MD CLINICAL HISTORY: M25.311 - Other instability, right shoulder MR right shoulder without contrast Comparison: MR/RI/SR - MR SHOULDER WITHOUT IV CONTRAST RIGHT - 05/08/23 19:29 EST CR/RI/SR - XR SHOULDER 2 OR MORE VIEWS [...] 01/01/25 1614 DD/ 1613 TD/TT: 01/01/25 1613 Tunnel Inspector: Procedure Note Donotuseinterpreter, Image - 01/01/2025 [place] [address] Magnetic Resonance Report Signed Patient: Rell Castillo#: [id number] 2 : 6Acct:[id number] Age/Sex: 69 / FADM Date: 12/29/24 Loc: HO.MRI Attending Dr: Fletcher Wong MD Ordering Physician: Fletcher Wong MD Date of Service: 12/29/24 Procedure(s): MR shoulder RT wo con Accession Number(s): [id number] cc: Albertina Danielle MD; Fletcher Wong MD CLINICAL HISTORY: M25.311 - Other instability, right shoulder MR right shoulder without contrast Comparison: MR/RI/SR - MR SHOULDER WITHOUT IV CONTRAST RIGHT - 05/08/23 19:29 EST CR/RI/SR - XR SHOULDER 2 OR MORE VIEWS [...] 01/01/25 1614 DD/ 1613 TD/TT: 01/01/25 1613 Tunnel Inspector: [facility] External Provider IMG MRI PROCEDURES Final Result * Hemoglobin A1c (10/31/2024 12:21 PM EDT) Hemoglobin A1c 6.0 <6.0 % [facility] Comment:Hemoglobin A1C Refer ence Range Adults: 4.8 - 6.0 % Non diabetic: < 6.0 % Goal: < 7.0 %Additional Action Suggested: > 8.0 %Note: Hemoglobin A1c results are invalid for patients with abnormal amounts of HbF. Blood transfusions may impact the HbA1c concentration in the patient sample. Estimated Average Glucose 126 mg/dL [facility] Comment:eAG = Estimated ave rage glucose which is %A1C expressed asaverage glucose, using the formula of the M1Q-NxgpsbzQjemvzk Glucose study (ADAG), Diabetes Care, Vol.31,#8,Jan. 2007 Blood Venous blood specimen / Unknown 10/31/2024 12:21 PM EDT 10/31/2024 1:04 PM EDT Albertina Danielle MD LAB BLOOD ORDERABLES Final Result [facility] [address] [place] [phone] * BI Mammogram Screening Tomosynthesis Bilateral (02/21/2024 11:40 AM EDT) Anatomical Region Laterality Modality Breast Bilateral Mammography 02/21/2024 11:4 0 AM EDT Narrative 03/06/2024 10:24 AM EDT [address] [place] [address] Mammography Report Signed Patient: Elizabet Castillo MR#: [id number] 2 : 1955 Acct:[id number] Age/Sex: 68 / F ADM Date: 02/21/24 Loc: HO.MAMMO Attending Dr: Albertina Danielle MD Ordering Physician: Albertina Danielle MD Results: 1N egative Date of Service: 02/21/24 Follow Up: 1 Year From Orig ina Mammogram Procedure(s): MM tomosynthesis screening BI Accession Number(s): [id number] cc: Albertina Danielle MD EXAMINATION: MM SCREENING [...] 03/06/24 1021 DD/ 1140 TD/TT: 02/21/24 1158 Tunnel Inspector: Procedure Note Donotuseinterpreter, Image - 03/06/[address] [place] [address] Mammography Report Signed Patient: Elizabet CastilloMR#: [id number] 2 : 6Acct:[id number] Age/Sex: 68 / FADM Date: 02/21/24 Loc: HO.MAMMO Attending Dr: Albertina Danielle MD Ordering Physician: Albertina Danielle MDResults: 1N egative Date of Service: 02/21/24Follow Up: 1 Year From Orig inal Mammogram Procedure(s): MM tomosynthesis screening BI Accession Number(s): [id number] cc: Albertina Danielle MD EXAMINATION: MM SCREENING [...] 03/06/24 1021 DD/ 1140 TD/TT: 02/21/24 1158 Tunnel Inspector: Albertina Danielle MD IMG BI PROCEDURES Edited R esult - Final * (ABNORMAL) Hm Colonoscopy (03/06/2023) Colonoscopy Abnormal( A) Normal Comment:tubular adenoma Historical Provider HEALTH MAINTENANCE Final Result * Hepatitis C Antibody (10/29/2021 3:52 PM EDT) Hepatitis C Antibody Nonreactive Blood 10/29/2021 3:52 PM EDT us Historical Provider POINT OF CARE TEST ENTER/ EDIT ORDERABLES Final Result from Last 3 Months or Most Recently Relevant to Health Maintenance Insurance [facility] [employer] (HMO D-SNP) [facility] [address]ARD [address] [place] [phone] [address] [place] [address] Advance Directives Documents on File Type Date Recorded Patient Cadd Drafter Expl anation Advance Directives and Living Will 12/18/2023 Health Care Proxy 12/18/23 Care Teams Bulker Relationship Specialty Start Date End Date Albertina Danielle MD [address] [place] [address] PCP - General Family Medicine 06/12/18 April Jackson [address] [place] [address] Dr [address] [place], [place] Gastroenterology 05/22/24 Fletcher Wong MD [address] [place] [address] Dr [address] [place] [address] Orthopaedic Surgery 12/19/24 Erika Pratt, PharmD [address] [place] [phone] Pharmacist Pharmacy 02/20/25
--- OUTSIDE RECORDS SUMMARY | 2025-03-25 16:33 | XMS_ITS | Encounter Summary ---
Author Organization [employer] Address 75 [facility] 7t [place] [address] Care Team Providers Care Agriculture Laborer Name Role Phone Albertina Danielle MD Primary Care Provider + [phone] Erika Pratt PharmD Unavailable April Jackson Unavailable Fletcher Wong MD Unavailable Erika Pratt PharmD Unavailable [phone] Encounter Details Date Type Department Care Team (Late st Contact Info) Description 10/02/2023 Orders Only [facility] [address] [place], [place] [phone] Albertina Danielle MD 230 [place], [place] [phone] Prediabetes (Primary Dx) Social History Tobacco Use [...] the past 12 months, has t he [employer], gas, oil or water company threatened to [...] Description 04/08/2025 2:00 PM EDT Medication Management [facility] [address] [place] [address] Erika Pratt PharmD 230 [place] [address] documented as of this encounter Goals Goal Patient Goal Type Associated Problems Recent Progress Patient-Stated? Author Blood Pressure < 150/90 Blood Pressure 148/70( 025 1:48 PM EDT) No Erika Lockett PharmD documented as of this encounter Visit Diagnoses Diagnosis Prediabetes- Primary Other abnormal glucose documented in this encounter Additional Health Concerns Assessment Noted Time PHQ-9 Depression Total Score: 7 12/01/19 23 3:41 PM EDT documented as of this encounter Care Teams Agriculture Laborer Relationship Specialty Start Date End Date Albertina Danielle MD 230 [place] [address] PCP - General Family Medicine 06/12/18 Erika Pratt, PharmD 230 [place] [address] Pharmacist Internal Medicine 03/01/23 04/17/24 April Jackson [address] [facility] [address] 3rd Floor [place], [place] Gastroenterology 05/22/24 Fletcher Wong MD [address] [facility] [address] [place] [address] Orthopaedic Surgery 12/19/24 Erika Pratt, PharmD 230 [place] [address] Pharmacist Pharmacy 02/20/25 documented as of this encounter
--- OUTSIDE RECORDS SUMMARY | 2025-03-25 16:33 | XMS_ITS | Encounter Summary ---
Author Organization [employer] Address 75 [facility] 7t [place] [address] Care Team Providers Care Brass Burnisher Name Role Phone Albertina Danielle MD Primary Care Provider +1- [phone] Erika Pratt PharmD Unavailable April Jackson Unavailable Fletcher Wong MD Unavailable Erika Pratt PharmD Unavailable Encounter Details Date Type Department Care Team (Late st Contact Info) Description 03/09/2023 Abstract [facility] MED[facility]INE 230 [place], [place] [phone] Albertina Danielle MD 230 [place], [place] [phone] Tubular adenoma Social History Tobacco Use Types [...] Description 04/08/2025 2:00 PM EDT Medication Management [facility] MED[facility] [address] [place] [address] Erika Pratt PharmD [address] [place] [address] documented as of this encounter Goals Goal [...] documented as of this encounter Care Teams Brass Burnisher Relationship Specialty Start Date End Date Albertina Danielle MD 230 [place] [address] PCP - General Family Medicine 06/12/18 Erika Pratt, PharmD 230 [place] [address] Pharmacist Internal Medicine 03/01/23 04/17/24 April Jackson [address] [place] [address] 3rd Floor [facility] Gastroenterology 05/22/24 Fletcher Wong MD [address] [place] [address] Dr [address] [place] [address] Orthopaedic Surgery 12/19/24 Erika Pratt, PharmD [address] [place] [address] Pharmacist Pharmacy 02/20/25 documented as of this encounter
== END 2025-03-25 14:11 | disposition home or self-care (01) ==
LOC: HO.HOS 13:37
PROVIDERS: PCP Family Medicine; Visit Provider Orthopaedic Surgery
DX: M25.511 Pain in right shoulder (principal)
CPT/HCPCS: 99024

== ENCOUNTER → 2025-03-25 13:36 | Outpatient (BNVA) | payer OTHER, SELFPAY | PROVIDERS: PCP Family Medicine; Visit Provider Orthopaedic Surgery | DX: M25.511 Pain in right shoulder (principal); Z98.890 Other specified postprocedural states | CPT/HCPCS: 99212 ==

== ENCOUNTER 2025-03-26 10:25 | Outpatient (REF) | payer OTHER, SELFPAY ==
[2025-03-26 12:08] LABS: Alanine Aminotransferase 32 U/L (0-31); Albumin Level 4.5 g/dL (3.5-5.0); Alkaline Phosphatase 110 U/L (39-117); Anion Gap 12 (12-20); Aspartate Amino Transferase 40 U/L (5-31); Blood Urea Nitrogen 11 mg/dL (9-16); Calcium 9.4 mg/dL (8.4-10.2); Carbon Dioxide 24 mmol/L (22-29); Chloride 109 mmol/L (96-108); Cholesterol 211 mg/dL (<200); Estimated Glomerular Filt Rate > 60; HDL Cholesterol 50 mg/dL (>40); Potassium 3.9 mmol/L (3.3-5.1); Sodium 141 mmol/L (135-145); Total Protein 7.9 g/dL (6.5-8.0); Triglycerides 168 mg/dL (<150)
--- OUTSIDE RECORDS SUMMARY | 2025-03-26 12:22 | XMS_ITS | Encounter Summary ---
Author Organization [employer] Address 75 [facility] 7t [place] [address] Care Team Providers Care Mechanical Engineering Specialist Name Role Phone Albertina Danielle MD Primary Care Provider +1- [phone] Terence, Erika PharmD Unavailable April Jackson Unavailable Fletcher Wong MD Unavailable PiersJose GDutta, Erika PharmD Unavailable [phone] Reason for Visit * Reason Comments Med Refill Encounter Details Date Type Department Care Team ([facility] st Contact Info) Description 09/09/2022 Refill [facility] MEDICINE [address] [place] [address] Marcela Norwood FNP [address] [place], [place] [phone] Total body pain Social History Tobacco Use [...] Description 04/08/2025 2:00 PM EDT Medication Management [facility] MEDICINE [address] [place] [address] Erika Pratt PharmD 230 [place] [address] documented as of this encounter Visit Diagnoses Diagnosis Total body pain documented in this encounter Care Teams Mechanical Engineering Specialist Relationship Specialty Start Date End Date Albertina Danielle MD [address] [place] [address] [phone] PCP - General Family Medicine 06/12/18 Erika Pratt, RomanD [address] [place] [address] Pharmacist Internal Medicine 03/01/23 04/17/24 April Jackson [address] [place] [address] Dr 3rd Floor [place], [place] Gastroenterology 05/22/24 Fletcher Wong MD [address] [place] [address] 203 [place] [address] Orthopaedic Surgery 12/19/24 Erika Pratt, PharmD [address] [place] [address] Pharmacist Pharmacy 02/20/25 documented as of this encounter
--- OUTSIDE RECORDS SUMMARY | 2025-03-26 12:22 | XMS_ITS | Encounter Summary ---
Author Organization [employer] Address 75 [facility] 7t [place] [address] Care Team Providers Care Principal Systems Architect Name Role Phone Albertina Danielle MD Primary Care Provider +1- [phone] Piers-Luzmaria, Erika PharmD Unavailable [phone] April Jackson Unavailable Fletcher Wong MD Unavailable Piers-Dutta, Erika PharmD Unavailable [phone] Encounter Details Date Type Department Care Team (Late st Contact Info) Description 07/04/2022 Orders Only [facility] MED[facility] 230 [place], [place] [phone] Dolores Sue LPN Social History Tobacco Use [...] Description 04/08/2025 2:00 PM EDT Medication Management [facility] MED[facility]INE 230 [place], [place] [phone] PiersChristine Cordobasa, PharmD 230 [place] [address] documented as of this encounter Visit Diagnoses Not on filedocumented in this encounter Care Teams Principal Systems Architect Relationship Specialty Start Date End Date Albertina Danielle MD [address] [place] [address] PCP - General Family Medicine 06/12/18 Erika Pratt, PharmD [address] [place] [address] Pharmacist Internal Medicine 03/01/23 04/17/24 April Jackson [address] [place] [address] 3rd Floor [place], [place] Gastroenterology 05/22/24 Fletcher Wong MD [address] [place] [address] [address] [place] [address] Orthopaedic Surgery 12/19/24 Erika Pratt, PharmD [address] [place] [address] Pharmacist Pharmacy 02/20/25 documented as of this encounter
--- OUTSIDE RECORDS SUMMARY | 2025-03-26 12:22 | XMS_ITS | Data Portability ---
Author Organization [employer] [facility] [place] [facility] Address [address] [place] [address] Care Team Providers Care Burial Vault Setter Name Role Phone [facility] Referring Provider [phone] Assessment Encounter Date Assessment Date Assessment LastModified by Organization Details LastModified Time 05/29/2023 05/29/2023 I provided real -time medical direction via phone for this encounter, and was available for additional phone based assistance as needed. I have reviewed and agree with the Assessment and Plan as documented by the Line Lead. Patient given the opportunity to ask questions. Advised if develops CP/severe SOB/turning blue/uncontrolle d n/v/d /AMS/ syncope/ hi fever unresponsive to APAP to call 911- verbalized understanding of instructions [email or web address] Not available 05/30/2023 08:57:25 Plan of Treatment Reminders Order Date Submit Date Provider Last Modified By Organization Details Last Modified Time Details Appointments None recorded. Lab rapid SARS CoV 2 Ag, QL IA, respiratory specimen 2022 023 [email or web address], [id number] 3 13:19:56 rapid flu (A+B) 2022 023 [email or web address], [id number] 3 13:20:01 rapid strep group A, throat 2022 023 [email or web address], [id number] 3 13:20:02 Referral None recorded. Procedures None recorded. Surgeries None recorded. Imaging None recorded. Medication Orders ipratropium 0.5 mg-albutero l 3 mg (2.5 mg base)/3 mL nebulizatio n soln 2022 023 [email or web address] 0 Not available 3 13:19:52 albuterol sulfate HFA 90 mcg/actuati on aerosol inhaler 2022 023 [facility], [address] [place], [place], [id number], 3 18:06:11 albuterol sulfate 2.5 mg/3 mL (0.083 %) solution for nebulizatio n 2022 023 [email or web address] 0 [facility], [address] [place], [place], [id number], 3 13:19:51 albuterol sulfate 2.5 mg/3 mL (0.083 %) solution for nebulizatio n 2022 023 [facility], [address] [place] [address], [id number], 4 17:41:44 prednisone 20 mg tablet 2022 023 [facility], [address] [place] [address], [id number], 3 18:06:10 prednisone 20 mg tablet 2022 023 [email or web address] 0 [facility], [address] [place], [place], [id number], 3 13:19:51 azithromyci n 250 mg tablet 2022 023 [facility], [address] [place], [place], [id number], 3 18:06:13 azithromyci n 250 mg tablet 2022 023 [email or web address] 0 [facility], [address] [place] [address], [id number], 13:19:51 Patient TargetsNo targets recorded. Patient InstructionsNo instructions recorded. Reason for Referral None Reported. Results Created Date Observation Date Name Description Value Unit Range Abnormal Flag Note LastModifiedBy Organization Detail LastModifiedTime 05/29/2005/29/2023 rapid strep group A, throa t Strep negati ve Not Available [facility] ed [address] [place] [address], [id number] 05/29/2023 12:40:02 05/29/2005/29/2023 rapid flu (A+B) Flu negati ve Not Available [facility] ed [address] [place] [address], [id number] 05/29/2023 12:39:54 05/29/2005/29/2023 rapid SARS CoV 2 Ag, QL IA, respi rator y speci men rapid SARS CoV 2 Ag, QL IA, respiratory specimen negati ve Not Available [facility] ed [address] [place] [address], [id number] 05/29/2023 12:39:53 Result Notes None recorded. Medical [...] 3 97 % 97 % 98.3 [degF] 43144.3 92 g 162.56 cm 16 /min 89 [...] Diagnosis SNOMED-CT Code Diagnosis ICD10 Code Diagnosis IMO Codes Diagnosis Note [id number] Jocelynn Keller MD Main - instED [address] [place] [phone] 05/29/2023 12:39:11 05/30/2023 10:22:17 Exacerbation of intermittent asthma 863383671 J45.21 With likely bacterial bronchitis /all rapid [...] azithromyc in.She reports she has someone to pick up worker her prescripti ons today aware to start [...] ID Guarantor Name 11/04/2023 1 [facility] - DOS ON OR AFTER 2022 - DUAL ELIGIBLE - SKILLED NURSING OPTIONS AND ONE CARE (MEDICARE REPLACEMENT/ADV ANTAGE - HMO) Elizabet Castillo [id number] Elizabet Castillo Notes Date Note Type Note Provider Name and Address Organization Details Recorded Time 05/29/2023 text/html ROS as noted in the HPI HPI: Member's daughter Yumiko called into the [facility] stating her mother Elizabet is having trouble with her breathing and would like an InstEd visit. She states Elizabet has history of Asthma. Yumiko states that Elizabet started with a cold on with a cough and today she came to Yumiko's house with wheezing and shortness of breathe. Yumiko states she did a home Covid test on Elizabet and it tested negative. ................... ................... ................... ................... ................... ................... ................... ........ [facility] Nursing Assessment: Comments: Reviewed - Bety HANNON ................... ................... ................... ................... ................... ................... ................... ........ Line Lead Note From Norman Dillard: Pt reports dry cough and mild LANDEROS since last Monday. Pt denies sinus congestion, sore throat, CP, SOB at rest, f/n/v/d. Pt has hx of asthma/COPD however does not have an MDI or any maintenance meds. Family has an old functioning neb machine at home, but do not have any in date albuterol. Pt is alert, NAD. VSS. Afebrile. Neuro exam and gait normal. Unremarkable ENT exam. Diffuse rhonchi. Benign ABD exam. No LE edema. Rapid covid, flu and strep negative. Pt treated with 0.5 mg atrovent and 5 mg albuterol via nebulizer resulting in clear LS. Pt also treated with prednisone 40 mg PO and azithromycin 500 mg PO. Pt educated on prescriptions and supportive care measures. Pt instructed to seek emergent medical care for new or worsening sx, which are reviewed with her. ................... ................... ................... ................... ................... ................... ................... ........ Disposition: FulfilledSEGMD: Today is day 6 of symptoms/ congested cough but non productive - Jocelynn Keller MD [address] [facility],[address], [place], [phone], [place] Michael Bieker - vocaltap 05/30/2023 08:59:10 OBGyn Episode No OBEpisode recorded.
--- OUTSIDE RECORDS SUMMARY | 2025-03-26 12:22 | XMS_ITS | Encounter Summary ---
Author Organization [employer] Address 75 [facility] 7t [place] [address] Care Team Providers Care Resident Service Coordinator Name Role Phone Albertina Danielle MD Primary Care Provider Christine Prattsa PharmD Unavailable [phone] April Jackson Unavailable Fletcher Wong MD Unavailable PiersAdalid, Erika PharmD Unavailable [phone] Reason for Visit * Reason Comments Med Refill Encounter Details Date Type Department Care Team ([facility] st Contact Info) Description 01/23/2024 Refill [facility] MED[facility]INE 230 [place], [place] [phone] Yeny Billings DO 230 [place], [place] [phone] Social History Tobacco Use Types Packs/Day Years [...] Description 04/08/2025 2:00 PM EDT Medication Management [facility] [address] [place] [address] Erika Pratt PharmD 230 [place] [address] documented as of this encounter Goals Goal [...] documented as of this encounter Care Teams Resident Service Coordinator Relationship Specialty Start Date End Date Albertina Danielle MD [address] [place] [address] PCP - General Family Medicine 06/12/18 Erika Pratt, PharmD [address] [place] [address] Pharmacist Internal Medicine 03/01/23 04/17/24 April Jackson [address] [place] [address] Dr 3rd Floor [place], [place] Gastroenterology 05/22/24 Fletcher Wong MD [address] [place] [address] Dr [address] [place] [address] Orthopaedic Surgery 12/19/24 Erika Pratt, PharmD [address] [place] [address] Pharmacist Pharmacy 02/20/25 documented as of this encounter
--- OUTSIDE RECORDS SUMMARY | 2025-03-26 12:22 | XMS_ITS | Encounter Summary ---
Author Organization [employer] Address 75 [facility] 7t [place] [address] Care Team Providers Care Animal Laboratory Technician Name Role Phone Albertina Danielle MD Primary Care Provider [phone]- [phone] Piers-Luzmaria, Erika PharmD Unavailable April Jackson Unavailable Fletcher Wong MD Unavailable Piers-Dutta, Erika PharmD Unavailable Encounter Details Date Type Department Care Team (Late st Contact Info) Description 02/14/2024 Telephone [facility] 230 [place] [address] Piers-Dutta, Erika, PharmD 230 [place], [place] [phone] Social History Tobacco Use Types Packs/Day Years [...] for this patient to continue care in [facility] - Hypertension clinic. Please send at your earliest convenience. documented in this encounter Plan of Treatment Upcoming Encounters Date Type Department Care Team (Late st Contact Info) Description 04/08/2025 2:00 PM EDT Medication Management [facility] 230 [place], [place] [phone] Erika Pratt PharmD 230 [place] [address] documented as of this encounter Goals Goal [...] documented as of this encounter Care Teams Animal Laboratory Technician Relationship Specialty Start Date End Date Albertina Danielle MD [address] [place] [address] PCP - General Family Medicine 06/12/18 Erika Pratt, PharmD [address] [place] [address] Pharmacist Internal Medicine 03/01/23 04/17/24 April Jackson [address] [place] [address] Dr 3rd Floor [place], [place] Gastroenterology 05/22/24 Fletcher Wong MD [address] [place] [address] Dr [address] [place] [address] Orthopaedic Surgery 12/19/24 Erika Pratt, PharmD [address] [place] [address] Pharmacist Pharmacy 02/20/25 documented as of this encounter
--- OUTSIDE RECORDS SUMMARY | 2025-03-26 12:22 | XMS_ITS | Encounter Summary ---
Author Organization [employer] Address 75 [facility] 7t [place] [address] Care Team Providers Care Mouthpiece Maker Name Role Phone Albertina Danielle MD Primary Care Provider +1- [phone] Erika Pratt PharmD Unavailable [phone] April Jackson Unavailable Fletcher Wong MD Unavailable Erika Pratt PharmD Unavailable Encounter Details Date Type Department Care Team (Late st Contact Info) Description 12/30/2022 Abstract [facility] MEDICINE 230 [place], [place] [phone] Albertina Danielle MD 230 [place], [place] [phone] Social History Tobacco Use Types Packs/Day Years [...] Description 04/08/2025 2:00 PM EDT Medication Management [facility] MEDICINE 230 [place] [address] Erika Pratt PharmD 230 [place] [address] documented as of this encounter Visit Diagnoses Not on filedocumented in this encounter Additional Health Concerns Assessment Noted Time PHQ-9 Depression Total Score: 7 12/01/19 3:41 PM EDT documented as of this encounter Care Teams Mouthpiece Maker Relationship Specialty Start Date End Date Albertina Danielle MD [address] [place] [address] PCP - General Family Medicine 06/12/18 Erika Pratt PharmD [address] [place] [address] Pharmacist Internal Medicine 03/01/23 04/17/24 April Jackson [address] [place] [address] Dr 3rd Floor [place] Gastroenterology 05/22/24 Fletcher Wong MD [address] [place] [address] Dr [address] [place] [address] Orthopaedic Surgery 12/19/24 Erika Pratt PharmD [address] [place] [address] Pharmacist Pharmacy 02/20/25 documented as of this encounter
--- OUTSIDE RECORDS SUMMARY | 2025-03-26 12:22 | XMS_ITS | Encounter Summary ---
Author Organization [employer] Address 75 [facility] 7t [place] [address] Care Team Providers Care Electrocardiogram Technician Name Role Phone Albertina Danielle MD Primary Care Provider [phone]- [phone] Erika Pratt PharmD Unavailable April Jackson Unavailable Fletcher Wong MD Unavailable Erika Pratt PharmD Unavailable [phone] Encounter Details Date Type Department Care Team (Late st Contact Info) Description 03/09/2023 Abstract [facility] MEDICINE 230 [place], [place] [phone] Albertina Danielle MD 230 [place], [place] [phone] Tubular adenoma Social History Tobacco Use Types [...] Description 04/08/2025 2:00 PM EDT Medication Management [facility] MEDICINE 230 [place] [address] Erika Pratt PharmD [address] [place] [address] documented as of this encounter Goals Goal [...] documented as of this encounter Care Teams Electrocardiogram Technician Relationship Specialty Start Date End Date Albertina Danielle MD 230 [place] [address] PCP - General Family Medicine 06/12/18 Erika Pratt, PharmD 230 [place] [address] Pharmacist Internal Medicine 03/01/23 04/17/24 April Jackson [address] [place] [address] 3rd Floor [facility] G[facility] 05/22/24 Fletcher Wong MD [address] [place] [address] [address] [place] [address] Orthopaedic Surgery 12/19/24 Erika Pratt, PharmD [address] [place] [address] Pharmacist Pharmacy 02/20/25 documented as of this encounter
--- OUTSIDE RECORDS SUMMARY | 2025-03-26 12:22 | XMS_ITS | Encounter Summary ---
Author Organization [employer] Address [address] [facility] 7t [place] [address] Care Team Providers Care Plate Shop Helper Name Role Phone Albertina Danielle MD Primary Care Provider [phone]- [phone] April Jackson Unavailable Fletcher Wong MD Unavailable Erika Pratt PharmD Unavailable Encounter Details Date Type Department Care Team (Late st Contact Info) Description 03/26/2025 Orders Only [facility] [address] [place], [place] [phone] Albertina Danielle MD [address] [place], [place] [phone] Social History Tobacco Use Types Packs/Day Years [...] Description 04/08/2025 2:00 PM EDT Medication Management [facility] [address] [place] [address] Erika Pratt PharmD [address] [place] [address] documented as of this encounter Goals Goal Patient Goal Type Associated Problems Recent Progress Patient-Stated? Author Blood Pressure < 150/90 Blood Pressure 148/70( 025 1:48 PM EDT) No Erika Lockett PharmD documented as of this encounter Procedures Procedure Name Priority Date/Time Associated Diagnosis Comments HEPATIC FUNCTION PANEL Routine 03/26/2025 10:29 AM EDT LIPID PANEL, STANDARD Routine 03/26/2025 10:29 AM EDT documented in this encounter Results * (ABNORMAL) Lipid Panel, Standard (03/26/2025 10:29 AM EDT) Triglycerides 168(H) <150 mg/dL [facility] Comment:Desirable Triglyceri de: less than 150 mg/dLBorderline High Triglyceride 150-199 mg/dLHigh Triglyceride: 200-499 mg/dLVery High Triglyceride: greater than or equal to 5OO mg/dL Cholesterol 211(H) <200 mg/dL [facility] Comment:Desirable Cholestero l: less than 200 mg/dLBorderline High Cholesterol: 200-239 mg/dLHigh Cholesterol: greater than 239 mg/dL LDL Cholesterol Calculated 128(H) <100 mg/dL [facility] Comment:Desirable LDL: less than 100 mg/dLNear Optimal/Above Optimal LDL: 110- 129 mg/dLBorderline High LDL: 130-159 mg/dLHigh LDL: 160-189 mg/dLVery High LDL: greater than or equal to 190 mg/dL HDL Cholesterol 50 >40 mg/dL [facility] Comment:Desirable HDL: great er than 40 mg/dL Note: This HDL assay may give artificially low results in patients with liver disease. 03/26/2025 10:2 9 AM EDT 03/26/2025 11:18 AM EDT Albertina Danielle MD LAB BLOOD ORDERABLES Final Result [facility] [address] [place] [address] [phone] * (ABNORMAL) Hepatic Function Panel (03/26/2025 10:29 AM EDT) Bilirubin, Total 0.8 0.0 - 1.0 mg/dL [facility] Bilirubin, Direct 0.3 0.0 - 0.5 mg/dL [facility] Aspartate Amino Transferase 40(H) 5 - 31 U/L [facility] Alanine Aminotransferase 32(H) 0 - 31 U/L [facility] Total Protein 7.9 6.5 - 8.0 g/dL [facility] Albumin Level 4.5 3.5 - 5.0 g/dL [facility] Alkaline Phosphatase 110 39 - 117 U/L [facility] 03/26/2025 10:2 9 AM EDT 03/26/2025 11:18 AM EDT Albertina Danielle MD LAB BLOOD ORDERABLES Final Result [facility] [address] [place] [address] [phone] documented in this encounter Visit Diagnoses Not on filedocumented in this encounter Additional Health Concerns Assessment Noted Time PHQ-9 Depression Total Score: 8 11/01/19 25 1:07 PM EDT documented as of this encounter Care Teams Plate Shop Helper Relationship Specialty Start Date End Date Albertina Danielle MD [address] [place] [address] PCP - General Family Medicine 06/12/18 April Jackson [address] [place] [address] Dr [address] Floor [place], [place] Gastroenterology 05/22/24 Fletcher Wong MD [address] [place] [address] [address] [place] [address] Orthopaedic Surgery 12/19/24 Erika Pratt, oRmanD [address] [place] [address] Pharmacist Pharmacy 02/20/25 documented as of this encounter
--- OUTSIDE RECORDS SUMMARY | 2025-03-26 12:22 | XMS_ITS | Encounter Summary ---
Author Organization [email or web address] Address [address] [facility] 7t [place] [address] Care Team Providers Care Sole Molder Name Role Phone Albertina Danielle MD Primary Care Provider [phone]- [phone] Erika Pratt PharmD Unavailable April Jackson Unavailable Fletcher Wong MD Unavailable Erika Pratt PharmD Unavailable Encounter Details Date Type Department Care Team (Late st Contact Info) Description 06/28/2022 Abstract [facility] [address] [place], [place] [phone] Albertina Danielle MD [address] [place], [place] [phone] Social History Tobacco Use Types Packs/Day Years [...] Description 04/08/2025 2:00 PM EDT Medication Management [facility] [address] [place] [address] Erika Pratt PharmD [address] [place] [address] documented as of this encounter Procedures Procedure [...] L ORDERABLES Final Result Performing Organization Address [facility]/ZIP Co de Phone Number [facility] [address] [place] [phone] * Pap Smear (09/17/2015 12:00 AM EDT) Swab Historical Provider LAB CYTOLOGY ORDERABLES F inal Result Performing Organization Address [facility] Co de Phone Number [facility] [address] [place] [phone] documented in this encounter Visit Diagnoses Not on filedocumented in this encounter Care Teams Sole Molder Relationship Specialty Start Date End Date Albertina Danielle MD [address] [place] [address] PCP - General Family Medicine 06/12/18 Erika Pratt, Vidhya [address] [place] [address] Pharmacist Internal Medicine 03/01/23 04/17/24 April Jackson [address] [place] [address] 3rd Floor [place], [place] Gastroenterology 05/22/24 Fletcher Wong MD [address] [place] [address] [address] [place] [address] Orthopaedic Surgery 12/19/24 Erika Pratt, RomanD [address] [place] [address] Pharmacist Pharmacy 02/20/25 documented as of this encounter
--- OUTSIDE RECORDS SUMMARY | 2025-03-26 12:22 | XMS_ITS | Encounter Summary ---
Author Organization [employer] Address [address] [facility] 7t [place] [address] Care Team Providers Care Job Lithographer Name Role Phone Albertina Danielle MD Primary Care Provider + [phone] Erika Pratt PharmD Unavailable April Jackson Unavailable Fletcher Wong MD Unavailable Erika Pratt PharmD Unavailable [phone] Encounter Details Date Type Department Care Team (Late st Contact Info) Description 10/02/2023 Orders Only [facility] [address] [place], [place] [phone] Albertina Danielle MD [address] [place], [place] [phone] Prediabetes (Primary Dx) Social History Tobacco Use [...] the past 12 months, has t he [email or web address] gas, oil or water company threatened to [...] Description 04/08/2025 2:00 PM EDT Medication Management [facility] [address] [place] [address] Erika Pratt PharmD [address] [place] [address] documented as of this encounter Goals Goal [...] documented as of this encounter Care Teams Job Lithographer Relationship Specialty Start Date End Date Albertina Danielle MD [address] [place] [address] PCP - General Family Medicine 06/12/18 Erika Pratt, PharmD [address] [place] [address] Pharmacist Internal Medicine 03/01/23 04/17/24 April Jackson [address] [facility] [address] 3rd Floor [place], [place] Gastroenterology 05/22/24 Fletcher Wong MD [address] [facility] [place] [address] Orthopaedic Surgery 12/19/24 Erika Pratt, PharmD [address] [place] [address] Pharmacist Pharmacy 02/20/25 documented as of this encounter
--- OUTSIDE RECORDS SUMMARY | 2025-03-26 12:23 | XMS_ITS | Clinical Summary ---
Author Organization [employer] Address [address] [facility] 7t [place] [address] Care Team Providers Care Ovens Supervisor Name Role Phone Albertina Danielle MD Primary Care Provider [phone] April Jackson Unavailable Fletcher Wong MD Unavailable Erika Pratt PharmD Unavailable Allergies No known active allergies Medications [...] original. CDTM HTN with Erika Pratt, Vidhya [facility] [employer] Professional: Mckayla, member services number [phone], provider services line, , option 4 Ophthalmic Technician Apprentice Agency: [facility] Problem Noted Date Diagnosed Date Trichomonas [...] due after 01/22/26. -Eye care done in [facility], last done 10/2022. -Follow with [facility] dentist -Healthcare proxy given and filled Assessment & Plan (01/22/2025 4:09 PM EDT): -next comprehensive annual evaluation due after 01/22/26. -Eye care done in [facility], last done 10/2022. -Follow with [facility] dentist -Healthcare proxy given and filled Assessment & Plan (12/18/2023 11:13 AM EDT): -Next PE due after 12/17/2024. -Eye care done in [facility], last done 10/2022. -Follow with [facility] dentist -Healthcare proxy given and filled Assessment & Plan (11/30/2022 4:08 PM EDT): Next PE due after 12/01/2023. Eye care done in [facility], last done 10/2022. 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 -Continue Vitamin D. -Discontinued Fosamax 11/30/2022. -Dexa scan ordered 11/30/2022. -Advised exercise with light weights. -repeat DEXA 12/2022 with severe osteoporosis, referred to endocrinology 12/26/2022 for assistance in tx due to not tolerating oral bisphosphonate -Pt was given the number to [facility] 01/20/2023 to call and check status of appointment. Assessment & Plan (02/20/2023 10:47 AM EDT): Diagnosed on Dexa scan 07/2020. -Continue Vitamin D. -Discontinued Fosamax 11/30/2022. -Dexa scan ordered 11/30/2022. -Advised exercise with light weights. -repeat DEXA 12/2022 with severe osteoporosis, referred to endocrinology 12/26/2022 for assistance in tx due to not tolerating oral bisphosphonate -Pt was given the number to [facility] 01/20/2023 to call and check status of appointment. Assessment & Plan (01/20/2023 9:56 AM EDT): Diagnosed on Dexa scan 07/2020. -Continue Vitamin D. -Discontinued Fosamax 11/30/2022. -Dexa scan ordered 11/30/2022. -Advised exercise with light weights. -repeat DEXA 12/2022 with severe osteoporosis, referred to endocrinology 12/26/2022 for assistance in tx due to not tolerating oral bisphosphonate -Pt was given the number to [facility] 01/20/2023 to call and check [...] Drug Therapy Managment Program with our PharmD, [facility] 05/22/24 Assessment & Plan (12/18/2023 10:56 AM [...] mouth in the morning. Referral to Pharmacy [facility] Hepatic Function Panel; Future Lipid Panel, Standard; [...] Encounters Date Type Department Care Team Description 03/26/2025 Orders Only [facility] [address] [place] [phone] Albertina Danielle MD 03/11/2025 Travel 03/05/2025 Results Follow-Up [facility] [address] [place] [phone] Billie Emerson FNP Chlamydia/N. Gonorrhoeae RNA, TMA, Urogenitial, Bacterial Vaginosis 03/03/2025 5:00 PM EDT Office Visit [facility] [address] [place] [phone] Billie Emerson FNP Vaginal itching 03/03/2025 Travel 02/18/2025 Travel 02/05/2025 Results Follow-Up [facility] [address] [place] [address] Kaylan Posada RN T-SPOT .TB 02/02/2025 Results Follow-Up [address] [address] Albertina Danielle MD Uric acid, Vitamin D, 25-Hydroxy, Total, Immunoassay 02/02/2025 Orders Only [facility] [address] [place] [address] Albertina Danielle MD Gout of right foot, unspecified cause, unspecified chronicity (Primary Dx) 01/31/[address] [address] Albertina Danielle MD 01/23/[address] [address] Albertina Danielle MD 01/23/[address] [address] Albertina Danielle MD Lab Orders 01/22/2025 3:15 PM EDT Office Visit [address] [address] Albertina Danielle MD Preop examination (Primary Dx); Celiac disease; Mild intermittent asthma without complication; Dyslipidemia; Prediabetes; Primary hypertension; Vitamin D deficiency; Constipation, unspecified constipation type; Right shoulder pain, unspecified chronicity; Class 1 obesity due to excess calories with serious comorbidity and body mass index (BMI) of 30.0 to 30.9 in adult; Dietary counseling; Exercise counseling; Other specified health status 01/22/[address] [address] Albertina Danielle MD Paperwork/Forms 01/22/2025 Travel 01/21/[address] [address] Albertina Danielle MD CHART PREP 01/08/[address] [address] Albertina Danielle MD pre op 12/29/2024 Orders Only [facility] External Provider, [facility] Right shoulder pain, unspecified chronicity (Primary [...] Description 04/08/2025 2:00 PM EDT Medication Management [facility] [address] [place] [address] Erika Pratt, PharmD [address] [place] [address] Health Maintenance Due Date Last Done Comments [...] 03/17/2020 Colorectal Cancer Screening 03/06/2028 Lipid Panel 03/26/2030 03/26/2025, 01/11, 10/31/2024, Additional history exists Zoster Vaccines Completed 08/05/2021, [...] 1:48 PM EDT) No Erika Lockett PharmD Procedures Procedure Name Priority Date/Time Associated Diagnosis Comments LIPID PANEL, STANDARD Routine 03/26/2025 10:29 AM EDT HEPATIC FUNCTION PANEL Routine 03/26/2025 10:29 AM EDT BASIC METABOLIC PANEL Routine 03/26/2025 10:29 AM EDT Primary hypertension BACTERIAL VAGINOSIS PANEL Routine 03/03/2025 5:14 PM [...] Relevant to Health Maintenance Results * (ABNORMAL) Hepatic Function Panel (03/26/2025 10:29 AM EDT) Only the most recent of2 resultswithin the time period is included. Bilirubin, Total 0.8 0.0 - 1.0 mg/dL [facility] Bilirubin, Direct 0.3 0.0 - 0.5 mg/dL [facility] Aspartate Amino Transferase 40(H) 5 - 31 U/L [facility] Alanine Aminotransferase 32(H) 0 - 31 U/L [facility] Total Protein 7.9 6.5 - 8.0 g/dL [facility] Albumin Level 4.5 3.5 - 5.0 g/dL [facility] Alkaline Phosphatase 110 39 - 117 U/L [facility] 03/26/2025 10:2 9 AM EDT 03/26/2025 11:18 AM EDT us Albertina Danielle MD LAB BLOOD ORDERABLES Final Result [facility] [address] [place] [phone] * (ABNORMAL) Lipid Panel, Standard (03/26/2025 10:29 AM EDT) Only the most recent of2 resultswithin the time period is included. Triglycerides 168(H) <150 mg/dL [facility] Comment:Desirable Triglyceri de: less than 150 mg/dLBorderline High Triglyceride 150-199 mg/dLHigh Triglyceride: 200-499 mg/dLVery High Triglyceride: greater than or equal to 5OO mg/dL Cholesterol 211(H) <200 mg/dL [facility] Comment:Desirable Cholestero l: less than 200 mg/dLBorderline High Cholesterol: 200-239 mg/dLHigh Cholesterol: greater than 239 mg/dL LDL Cholesterol Calculated 128(H) <100 mg/dL [facility] Comment:Desirable LDL: less than 100 mg/dLNear Optimal/Above Optimal LDL: 110- 129 mg/dLBorderline High LDL: 130-159 mg/dLHigh LDL: 160-189 mg/dLVery High LDL: greater than or equal to 190 mg/dL HDL Cholesterol 50 >40 mg/dL [facility] Comment:Desirable HDL: great er than 40 mg/dL Note: This HDL assay may give artificially low results in patients with liver disease. 03/26/2025 10:2 9 AM EDT 03/26/2025 11:18 AM EDT Albertina Danielle MD LAB BLOOD ORDERABLES Final Result Performing Organization Address City/[facility]/ZIP Co de Phone Number [facility] [address] [place] [phone] * (ABNORMAL) Basic Metabolic Panel (03/26/2025 10:29 AM EDT) Only the most recent of2 resultswithin the time period is included. Sodium 141 135 - 145 mmol/L [facility] Potassium 3.9 3.3 - 5.1 mmol/L [facility] Chloride 109(H) 96 - 108 mmol/L [facility] Carbon Dioxide 24 22 - 29 mmol/L [facility] Anion Gap 12 12 - 20 [facility] Urea Nitrogen (BUN) 11 9 - 16 mg/dL [facility] Creatinine, Serum 0.67 0.5 - 1.4 mg/dL [facility] Estimated Glomerular Filt Rate >60 [facility] Comment:Chronic Kidney Disea se: Estimated GFR < 60 mL/min/1.39r5Jupolu Kidney Disease: Estimated GFR < 15 mL/min/1.73m2 Glucose 97 60 - 115 mg/dL [facility] Calcium 9.4 8.4 - 10.2 mg/dL [facility] Blood Venous blood specimen / Unknown 03/26/2025 10:29 AM EDT 03/26/2025 11:18 AM EDT Albertina Danielle MD LAB BLOOD ORDERABLES Final Result Performing Organization Address City/[facility]/ZIP Co de Phone Number [facility] [address] [place] [phone] * (ABNORMAL) Bacterial Vaginosis (03/03/2025 5:14 PM EDT) TRICHOMONAS VAGINALIS DETECTION BY PCR DETECTED(A) Not Detect [facility] BACTERIAL VAGINOSIS DETECTION BY PCR POSITIVE(A) Negative [facility] Comment:The BV organism targ ets of [...] DETECTION BY PCR NOT DETECTED Not Detect [facility] Kassy glab krusei PCR NOT DETECTED Not Detect [facility] Swab Vaginal structure / Unknown 03/03/2025 5:14 PM EDT 03/04/2025 12:17 PM EDT Billie Emerson [facility] MICROBIOLOGY - GENERAL ORD ERABLES Final Result [facility] [address] [place] [phone] * Chlamydia/N. Gonorrhoeae RNA, TMA, Urogenitial (03/03/2025 5:14 PM EDT) CT PCR NOT DETECTED Not Detect. [facility] Comment:A not detected test result does [...] psychologicalconsequences. NG PCR NOT DETECTED Not Detect. [facility] Comment:A not detected test result does [...] EDT 03/04/2025 12:17 PM EDT Billie Emerson [facility] MICROBIOLOGY - GENERAL ORD ERABLES Final Result [facility] [address] [place] [phone] * Vitamin D, 25-Hydroxy, Total, Immunoassay (01/31/2025 1:19 PM EDT) Vitamin D 25-OH Total 43.6 >30 ng/mL [facility] Comment: Health Based Reference Values*< 20 ng/mL Xkpbsadtx21-78 ng/mL Insufficient> 30 ng/mL Sufficient*Cristian JOSEPH. N [...] Danielle MD LAB BLOOD ORDERABLES Final Result [facility] [address] [place] [phone] * T-SPOT??.TB (01/31/2025 1:19 PM EDT) T Spot TB Negative Negative [facility] Comment:A negative test resu lt does [...] as aquantitative test. TS PANEL A 0 [facility] TS PANEL B 0 [facility] Negative Control Passed [facility] Positive Control Passed [facility] Comment:For additional infor matdevika, please refer tohttp://education.[employer]/faq/PLE800(This link is being provided for informational/educational purposes only.)THIS TEST WAS PERFORMED AT:[employer]/[id number] [place] [id number] GROVES MD,PHD 01/31/2025 1:19 PM EDT 01/31/2025 2:35 PM EDT Albertina Danielle MD LAB BLOOD ORDERABLES Final Result Performing Organization Address City/[facility] Co de Phone Number [facility] [address] [place] [phone] * Albumin, Random Urine W/Creatinine (01/31/2025 1:19 PM EDT) Creatinine, Urine 83.48 mg/dL [facility] Microalbumin Urine 5.0 mg/L [facility] Microalbum Creatinine Ratio Ur 5.9 <30 ug/mg cr [facility] Comment:Albumin/Creatinine R atio Reference Ranges: Normal: < 30 ug/mg creatinine Microalbuminuria: 30 - 300 ug/mg creatinineClinical Albuminuria: > 300 ug/mg creatinine Urine 01/31/2025 1:19 PM EDT 01/31/2025 2:37 PM EDT Albertina Danielle MD LAB URINE ORDERABLES Final Result Performing Organization Address [facility] Co de Phone Number [facility] [address] [place] [address] [phone] * (ABNORMAL) Uric acid (01/31/2025 1:19 PM EDT) Uric Acid 7.9(H) 2.4 - 5.7 mg/dL [facility] Blood Venous blood specimen / Unknown 01/31/2025 1:19 PM EDT 01/31/2025 2:35 PM EDT Albertina Danielle MD LAB BLOOD ORDERABLES Final Result [facility] [address] [place] [phone] * MR Shoulder w/o Contrast Right (01/01/2025 4:13 PM EDT) Anatomical Region Laterality Modality Upper Extremities, Shoulder Right Magn etic Resonance 01/01/2025 4:13 PM EDT Narrative 01/01/2025 4:14 PM EDT [address] [address] Magnetic Resonance Report Signed Patient: Elizabet Castillo MR#: [id number] 2 : 1955 Acct:[id number] Age/Sex: 69 / F ADM Date: 12/29/24 Loc: HO.MRI Attending Dr: Fletcher Wong MD Ordering Physician: Fletcher Wong MD Date of Service: 12/29/24 Procedure(s): MR shoulder RT wo con Accession Number(s): [id number] cc: Albertina Danielle MD; Fletcher Wong MD CLINICAL HISTORY: M25.311 - Other instability, right shoulder MR right shoulder without contrast Comparison: MR/CO/SR - MR SHOULDER WITHOUT IV CONTRAST RIGHT - 05/08/23 19:29 EST CR/CO/SR - XR SHOULDER 2 OR MORE VIEWS [...] 01/01/25 1614 DD/ 1613 TD/TT: 01/01/25 1613 Multimedia Technician: Procedure Note Donotuseinterpreter, Image - 01/01/[address] [address] Magnetic Resonance Report Signed Patient: Elizabet Castillo#: [id number] 2 : 6Acct:[id number] Age/Sex: 69 / FADM Date: 12/29/24 Loc: HO.MRI Attending Dr: Fletcher Wong MD Ordering Physician: Fletcher Wong MD Date of Service: 12/29/24 Procedure(s): MR shoulder RT wo con Accession Number(s): [id number] cc: Albertina Danielle MD; Fletcher Wong MD CLINICAL HISTORY: M25.311 - Other instability, right shoulder MR right shoulder without contrast Comparison: MR/CO/SR - MR SHOULDER WITHOUT IV CONTRAST RIGHT - 05/08/23 19:29 EST CR/CO/SR - XR SHOULDER 2 OR MORE VIEWS [...] document has been electronically signed by: Bryanna Haimlton MD on 01/01/2025 16:13:28 Dictated By: Bryanna Lemus MD Signed By: <Electronically signed by Bryanna Lemus MD in OV> 01/01/25 1614 DD/ 1613 TD/TT: 01/01/25 1613 Multimedia Technician: [facility] External Provider IMG MRI PROCEDURES Final Result * Hemoglobin A1c (10/31/2024 12:21 PM EDT) Hemoglobin A1c 6.0 <6.0 % [facility] Comment:Hemoglobin A1C Refer ence Range Adults: 4.8 - 6.0 % Non diabetic: < 6.0 % Goal: < 7.0 %Additional Action Suggested: > 8.0 %Note: Hemoglobin A1c results are invalid for patients with abnormal amounts of HbF. Blood transfusions may impact the HbA1c concentration in the patient sample. Estimated Average Glucose 126 mg/dL [facility] Comment:eAG = Estimated ave rage glucose which is %A1C expressed asaverage glucose, using the formula of the Y4P-UykpixjAlvgjff Glucose study (ADAG), Diabetes Care, Vol.31,#8,2007 Blood Venous blood specimen / Unknown 10/31/2024 12:21 PM EDT 10/31/2024 1:04 PM EDT Albertina Danielle MD LAB BLOOD ORDERABLES Final Result [facility] [address] [place] [phone] [phone] * BI Mammogram Screening Tomosynthesis Bilateral (02/21/2024 11:40 AM EDT) Anatomical Region Laterality Modality Breast Bilateral Mammography 02/21/2024 11:4 0 AM EDT Narrative 03/06/2024 10:24 AM EDT [address] [place] [address] Mammography Report Signed Patient: Elizabet Castillo MR#: [id number] 2 : 1955 Acct:[id number] Age/Sex: 68 / F ADM Date: 02/21/24 Loc: HO.MAMMO Attending Dr: Albertina Danielle MD Ordering Physician: Albertina Danielle MD Results: 1N egative Date of Service: 02/21/24 Follow Up: 1 Year From [facility] Mammogram Procedure(s): MM tomosynthesis screening BI Accession Number(s): [id number] cc: Albertina Danielle MD EXAMINATION: MM SCREENING [...] 03/06/24 1021 DD/ 1140 TD/TT: 02/21/24 1158 Multimedia Technician: Procedure Note Donotuseinterpreter, Image - [facility]/06/20[facility] [address] [place] [address] Mammography Report Signed Patient: Elizabet CastilloMR#: [id number] 2 : 1955cct:[id number] Age/Sex: 68 / FADM Date: 02/21/24 Loc: HO.MAMMO Attending Dr: Albertina Danielle MD Ordering Physician: Albertina Danielle MDResults: 1N egative Date of Service: 02/21/24Follow Up: 1 Year From Orig inal Mammogram Procedure(s): MM tomosynthesis screening BI Accession Number(s): [id number] cc: Albertina Danielle MD EXAMINATION: MM SCREENING [...] 03/06/24 1021 DD/ 1140 TD/TT: 02/21/24 1158 Multimedia Technician: Albertina Danielle MD IMG BI PROCEDURES Edited [...] Relevant to Health Maintenance Insurance [facility] OPTIONS (O D-SNP) [facility] STANDARD * Guarantor: Elizabet Castillo Account Type Relation to Patient Date of Phone Billing Address Personal/Family Self [address] [facility] [address] [place] [phone] * Guarantor: Elizabet Castillo Account Type Relation to Patient Date of Phone Billing Address Personal/Family Self [address] [facility] [address] [place] [phone] * Guarantor: Elizabet Castillo Account Type Relation to Patient Date of Phone Billing Address Personal/Family Self 1955 [address] [facility] [address] [place] [phone] Advance Directives Documents on File Type Date Recorded Patient Dressage Instructor Expl anation Advance Directives and Living Will 12/18/2023 Health Care Proxy 12/18/23 Care Teams Ovens Supervisor Relationship Specialty Start Date End Date [place], MD Albertina [address] [place] [address] PCP - General Family Medicine 06/12/18 April Jackson [address] [place] [address] 3rd Floor [place], [place] Gastroenterology 05/22/24 Fletcher Wong MD [address] [place] [address] [address] [place], [place] Orthopaedic Surgery 12/19/24 Erika Pratt, RomanD [address] [place] [address] Pharmacist Pharmacy 02/20/25
== END 2025-03-26 10:26 | disposition home or self-care (01) ==
LOC: HO.HHCL 10:25
PROVIDERS: PCP Family Medicine; Visit Provider Family Medicine
DX: I10 Essential (primary) hypertension (principal); E78.5 Hyperlipidemia, unspecified
CPT/HCPCS: 36415; 80048; 80061; 80076

== ENCOUNTER 2025-04-11 18:25 | Outpatient (REF) | payer OTHER, SELFPAY ==
--- OUTSIDE RECORDS SUMMARY | 2025-04-11 10:40 | XMS_ITS | Encounter Summary ---
Author Organization [employer] Address 75 [facility] 7t [place] [address] Care Team Providers Care Plant Nursery Worker Name Role Phone Albertina Danielle MD Primary Care Provider [phone]- [phone] April Jackson Unavailable Fletcher Wong MD Unavailable Erika Pratt PharmD Unavailable [phone] Reason for Visit * Reason Comments Vaginal Discharge Encounter Details Date Type Department Care Team (Late st Contact Info) Description 04/11/2025 10:40 AM EDT Office Visit [facility] [address] [place] [address] Claudette North NP [address] [place] [address] Vaginal discharge (Primary Dx); Trichomonas vaginitis Social History Tobacco Use Types Packs/Day Years [...] Sign Reading Time Taken Comments Blood Pressure 138/80 04/11/2025 10:55 AM EDT Pulse 74 04/11/2025 10:55 AM EDT Temperature 36.6 C (97.9 F) 04/11/2025 10:55 AM EDT Respiratory Rate 18 04/11/2025 10:55 AM EDT Oxygen Saturation - - Inhaled Oxygen Concentration - - Weight 81.6 kg (180 lb) 04/11/2025 10:55 AM EDT Height 162.6 cm (5' 4 ) 04/11/2025 10:55 AM EDT Body Mass Index 30.9 04/11/2025 10:55 AM EDT documented in this encounter Progress Notes * Claudette North NP - 04/11/2025 10:40 AM EDT Elizabet Castillo is a 69 y.o. female who presents to the office for Chief Complaint Patient presents with Vaginal Discharge Problem List[1] Medical History[2] Allergies[3] Elizabet Castillo, age 69, female - Had vaginal infection last month, treated - from partner, then reunited; partner did not receive treatment - First episode characterized by significant itching, discharge, and fluid - Current episode described as different from previous, with presence of vaginal discharge - Denies abdominal pain, cramping, and vaginal bleeding - Only one sexual partner Review of Systems Respiratory: Negative for apnea and chest tightness. Cardiovascular: Negative for chest pain. Gastrointestinal: Negative for abdominal distention. Genitourinary: Positive for vaginal discharge. Negative for vaginal bleeding and vaginal pain. BP 138/80 (BP Location: Right arm, Patient Position: Sitting, BP Cuff Size: Adult) Pulse 74 Temp 97.9 ??F (36.6 ??C) (Temporal) Resp 18 Ht 5' 4 (1.626 m) Wt 180 lb (81.6 kg) BMI 30.90 kg/m?? Physical Exam Vitals reviewed. HENT: Head: Normocephalic and atraumatic. Nose: Nose normal. Eyes: Conjunctiva/sclera: Conjunctivae normal. Cardiovascular: Rate and Rhythm: Normal rate and regular rhythm. Pulmonary: Effort: Pulmonary effort is normal. Breath sounds: Normal breath sounds. Abdominal: General: There is no distension. Palpations: There is no mass. Genitourinary: Pubic Area: No rash or pubic lice. Vagina: Vaginal discharge present. Cervix: No discharge, friability or erythema. Comments: Alvares/white thin discharge Musculoskeletal: Cervical back: Normal range of motion and neck supple. Neurological: General: No focal deficit present. Mental Status: She is alert. - GENITOURINARY: Speculum examination performed with lubricant; vaginal discharge observed, not resembling gonorrhea or chlamydia; possible bacterial vaginosis or Trichomonas. Cervix appears normal. Results: wet mount + trichomonas Assessment & Plan Vaginal discharge Orders: Chlamydia/N. Gonorrhoeae RNA, TMA, Urogenitial Bacterial Vaginosis POCT Wet Mount/DAFNE Trichomonas vaginitis Orders: metroNIDAZOLE (Flagyl) 500 MG tablet; Take 1 tablet (500 mg) by mouth 2 times daily for 7 days. POCT Wet Mount/DAFNE Vaginal discharge: - Vaginal discharge likely due to Trichomonas infection, based on microscopy findings and clinical history. Differential includes bacterial vaginosis, but Trichomonas is favored. - Sent samples to the laboratory for confirmation. Treated presumptively for Trichomonas infection based on microscopy and clinical presentation. Will notify with lab results when available. Current Medications[4] Based on our discussion, I have outlined the following instructions for you: - Samples have been sent to the laboratory to confirm the cause of your vaginal discharge. - You have started treatment for a possible Trichomonas infection based on your symptoms and test results. - You will be contacted when your laboratory results are ready. Thank you again for your visit, and we look forward to supporting you in your journey to better health. This note was drafted using Ambient (AI) technology. The patient/patient's guardian has been informed and has consented to the use of this technology: Yes [1] Patient Active Problem List Diagnosis Allergic [...] counseling Mild intermittent asthma without complication Constipation Trichomonas vaginitis Bacterial vaginosis Vaginal discharge [2] No past medical history on file. [3] No Known Allergies [4] Current Outpatient Medications: albuterol 108 (90 Base) MCG/ACT inhaler, Inhale 2 puffs every 4 (four) hours if needed for wheezing., Disp: 18 g, Rfl: 0 allopurinol (Zyloprim) 100 MG tablet, Take 1 tablet (100 mg) by mouth Once per day., Disp: 90 tablet, Rfl: 3 amLODIPine (Norvasc) 10 MG tablet, TAKE 1 TABLET BY MOUTH EVERY MORNING, Disp: 90 tablet, Rfl: 0 atorvastatin (Lipitor) 80 MG tablet, Take 1 tablet (80 mg) by mouth Once per day., Disp: 90 tablet,Rfl: 0 Bisacodyl EC 5 MG EC tablet, take 2 tablets by mouth every day at bedtime, Disp: , Rfl: Blood Glucose Monitoring Suppl (FreeStyle Lite) w/Device kit, 1 each Once per day., Disp: 1 kit, Rfl: 0 D3 Super Strength 50 MCG (2000 UT) capsule, Take 1 capsule (50 mcg) by mouth Once per day., Disp: 30 capsule, Rfl: 2 famotidine (Pepcid) 40 MG tablet, Take 40 mg by mouth at bedtime., Disp: , Rfl: gabapentin (Neurontin) 100 MG capsule, Take 100 mg by mouth at bedtime., Disp: , Rfl: glycerin (Adult) 2 g suppository, Insert 1 suppository (2 g) into the rectum if needed each day forconstipation., Disp: 30 suppository, Rfl: 2 Lancets 33G misc, Test blood sugar once daily, Disp: 100 each, Rfl: 11 losartan (Cozaar) 100 MG tablet, Take 1 tablet (100 mg) by mouth Once per day., Disp: 90 tablet, Rfl: 0 metroNIDAZOLE (Flagyl) 500 MG tablet, Take 1 tablet (500 mg) by mouth 2 times daily for 7 days., Disp: 14 tablet, Rfl: 0 omeprazole (PriLOSEC) [address] capsule, Take 1 capsule by mouth Once per day., Disp: , Rfl: oxyCODONE (Roxicodone) 5 MG immediate release tablet, , Disp: , Rfl: polyethylene glycol, PEG, 3350 (MiraLax) 17 GM/SCOOP powder, 17 grams in 8-12 oz fluid like water at bedtime prn constipation, Disp: 527 g, Rfl: 2 senna (Senokot) 8.6 MG tablet, Take 1 tablet (8.6 mg) by mouth at bedtime., Disp: 60 tablet, Rfl: 2 documented in this encounter Miscellaneous Notes * Assessment & Plan Note - Claudette North NP - 04/11/2025 10:40 AM EDTAssociated Problem(s): Vaginal discharge Orders: Chlamydia/N. Gonorrhoeae RNA, TMA, Urogenitial Bacterial Vaginosis POCT Wet Mount/DAFNE * Assessment & Plan Note - Claudette North NP - 04/11/2025 10:40 AM EDTAssociated Problem(s): Trichomonas vaginitis Orders: metroNIDAZOLE (Flagyl) 500 MG tablet; Take 1 tablet (500 mg) by mouth 2 times daily for 7 days. POCT Wet Mount/DAFNE documented in this encounter Plan of Treatment Upcoming Encounters Date Type Department Care Team (Late st Contact Info) Description 05/05/2025 3:00 PM EST Medication Management [facility] [address] [place] [phone] Erika Pratt, PharmD [address] [place] [address] 05/21/2025 11:00 AM EST Office Visit [facility] [address] [place] [phone] Albertina Danielle MD [address] [place] [address] Scheduled Orders Name Type Priority Associated Diagnoses Orde r Schedule Chlamydia/N. Gonorrhoeae RNA, TMA, Urogenitial Microbiology Routine Vaginal discharge Ordered: 04/11/2025 Bacterial Vaginosis Microbiology Routine Vaginal discharge Ordered: 04/11/2025 documented as of this encounter Goals Goal Patient Goal Type Associated Problems Recent Progress Patient-Stated? Author Blood Pressure < 150/90 Blood Pressure 138/80( 025 10:55 AM EDT) No Erika Lockett PharmD documented as of this encounter Procedures Procedure Name Priority Date/Time Associated Diagnosis Comments POCT WET MOUNT/DAFNE Routine 04/11/2025 11 :32 AM EDT Vaginal discharge Trichomonas vaginitis documented in this encounter Results * (ABNORMAL) POCT Wet Mount/DAFNE (04/11/2025 11:32 AM EDT) DAFNE Prep Negative Vaginal Fluid Vaginal structure / Unknown 04/11/2025 11:32 AM EDT Result [facility] Claudette North NP POINT OF CARE TEST ENTER/EDIT OR DERABLES Final Result documented in this encounter Visit Diagnoses Diagnosis Vaginal discharge- Primary Leukorrhea, not specified as infective Trichomonas vaginitis Trichomonal vulvovaginitis documented in this encounter Additional Health Concerns Assessment Noted Time PHQ-9 Depression Total Score: 8 11/01/19 25 1:07 PM EDT documented as of this encounter Care Teams Plant Nursery Worker Relationship Specialty Start Date End Date Albertina Danielle MD [address] [place] [address] PCP - General Family Medicine 06/12/18 April Jackson [address] [place] [address] Dr 3rd Floor [place], [place] Gastroenterology 05/22/24 Fletcher Wong MD [address] [place] [address] Dr [address] [place] [address] Orthopaedic Surgery 12/19/24 Erika Pratt, PharmD [address] [place] [address] Pharmacist Pharmacy 02/20/25 documented as of this encounter
--- OUTSIDE RECORDS SUMMARY | 2025-04-11 18:30 | XMS_ITS | Data Portability ---
Author Organization [employer] [facility] Address [address] [place] [address] Care Team Providers Care Coffee Roaster Helper Name Role Phone [facility] Referring Provider Assessment Encounter Date Assessment Date Assessment LastModified by Organization Details LastModified Time 05/29/2023 05/29/2023 I provided real -time medical direction via phone for this encounter, and was available for additional phone based assistance as needed. I have reviewed and agree with the Assessment and Plan as documented by the Switchboard Wire Worker Helper. Patient given the opportunity to ask questions. Advised if develops CP/severe SOB/turning blue/uncontrolle d n/v/d /AMS/ syncope/ hi fever unresponsive to APAP to call 911- verbalized understanding of instructions [email or web address] Not available 05/30/2023 08:57:25 Plan of Treatment Reminders Order Date Submit Date Provider Last Modified By Organization Details Last Modified Time Details Appointments None recorded. Lab rapid SARS CoV 2 Ag, QL [place], respiratory specimen 2022 023 [email or web address], [phone] 3 13:19:56 rapid flu (A+B) 2022 023 [email or web address] 0 [facility], [address] [place] [address], [id number] 3 13:20:01 rapid strep group A, throat 2022 023 [email or web address], [phone] 3 13:20:02 Referral None recorded. Procedures None recorded. Surgeries None recorded. Imaging None recorded. Medication Orders ipratropium 0.5 mg-albutero l 3 mg (2.5 mg base)/3 mL nebulizatio n soln 2022 023 [email or web address] 0 Not available 3 13:19:52 albuterol sulfate HFA 90 mcg/actuati on aerosol inhaler 2022 023 [facility], [address] [place], [place], [id number], 3 18:06:11 albuterol sulfate 2.5 mg/3 mL (0.083 %) solution for nebulizatio n 2022 023 [email or web address] 0 [facility], [address] [place], [place], [id number], 3 13:19:51 albuterol sulfate 2.5 mg/3 mL (0.083 %) solution for nebulizatio n 2022 023 [facility], [address] [place] [address], [id number], 4 17:41:44 prednisone 20 mg tablet 2022 023 [facility], [address] [place] [address], [id number], 3 18:06:10 prednisone 20 mg tablet 2022 023 [email or web address] 0 [facility], [address] [place], [place], [id number], 3 13:19:51 azithromyci n 250 mg tablet 2022 023 [facility], [address] [place], [place], [id number], 3 18:06:13 azithromyci n 250 mg tablet 2022 023 [email or web address] 0 [facility], [address] [place] [address], [id number], 13:19:51 Patient TargetsNo targets recorded. Patient InstructionsNo instructions recorded. Reason for Referral None Reported. Results Created Date Observation Date Name Description Value Unit Range Abnormal Flag Note LastModifiedBy Organization Detail LastModifiedTime 05/29/2005/29/2023 rapid strep group A, throa t Strep negati ve Not Available [facility] ed [address] [place] [address], [id number] 05/29/2023 12:40:02 05/29/2005/29/2023 rapid flu (A+B) Flu negati ve Not Available [facility] ed [address] [place] [address], [id number] 05/29/2023 12:39:54 05/29/2005/29/2023 rapid SARS CoV 2 Ag, QL IA, respi rator y speci men rapid SARS CoV 2 Ag, QL IA, respiratory specimen negati ve Not Available [facility] ed [address] [place] [address], [id number] 05/29/2023 12:39:53 Result Notes None recorded. Medical [...] 3 97 % 97 % 98.3 [degF] 28876.3 92 g 162.56 cm 16 /min 89 [...] ICD10 Code Diagnosis IMO Codes Diagnosis Note [id number] Jocelynn Keller MD Main - [facility] [address] [place] [phone] 05/29/2023 12:39:11 05/30/2023 10:22:17 Exacerbation of intermittent asthma [id number] J45.21 With likely bacterial bronchitis /all rapid [...] azithromyc in.She reports she has someone to lemon picker her prescripti ons today aware to [...] Mendoza Member ID Guarantor Name 11/04/2023 1 [facility] - DOS ON OR AFTER 2022 - DUAL ELIGIBLE - CUSTODIAL OPTIONS AND ONE CARE (MEDICARE REPLACEMENT/ADV ANTAGE - HMO) Elizabet Castillo [id number] Elizabet Castillo Notes Date Note Type Note [...] ................... ................... ................... ................... ................... ................... ........ Switchboard Wire Worker Helper Note From Norman Dillard: Pt reports dry [...] non productive - Jocelynn Keller MD [address] [facility],[address], [place], [address], [place] [email or web address] 05/30/2023 08:59:10 OBGyn Episode No OBEpisode recorded.
--- OUTSIDE RECORDS SUMMARY | 2025-04-11 18:30 | XMS_ITS | Encounter Summary ---
Author Organization [employer] Address 75 [facility] 7t [place] [address] Care Team Providers Care Orchestra Director Name Role Phone Albertina Danielle MD Primary Care Provider +1- [phone] Erika Pratt PharmD Unavailable April Jackson Unavailable Fletcher Wong MD Unavailable Erika Pratt PharmD Unavailable Encounter Details Date Type Department Care Team (Late st Contact Info) Description 03/09/2023 Abstract [facility] [address] [place], [place] [phone] Albertina Danielle MD [address] [place], [place] [phone] Tubular adenoma Social History Tobacco Use Types [...] Description 05/05/2025 3:00 PM EST Medication Management [facility] [place] [place] [address] Erika [place] [address] 05/21/2025 11:00 AM EST Office Visit [facility] [place] [address] Albertina Danielle MD [address] [place], [place] [phone] documented as of this encounter Goals Goal [...] documented as of this encounter Care Teams Orchestra Director Relationship Specialty Start Date End Date Albertina Danielle MD [address] [place], [place] [phone] PCP - General Family Medicine 06/12/18 Erika Pratt PharmD [address] [place] [address] [phone] Pharmacist Internal Medicine 03/01/23 04/17/24 April Jackson [address] [place] [address] 3rd Floor [place], [place] Gastroenterology 05/22/24 Fletcher Wong MD [address] [place] [address] [place] [address] [place] [address] Orthopaedic Surgery 12/19/24 Erika Pratt, RmoanD [address] [place] [address] Pharmacist Pharmacy 02/20/25 documented as of this encounter
--- OUTSIDE RECORDS SUMMARY | 2025-04-11 18:30 | XMS_ITS | Encounter Summary ---
Author Organization [employer] Address 75 [facility] 7t [place] [address] Care Team Providers Care Exceptional Needs Teacher Name Role Phone Albertina Danielle MD Primary Care Provider [phone]- [phone] April Jackson Unavailable Fletcher Wong MD Unavailable Erika Pratt PharmD Unavailable Reason for Visit * Reason Onset Date Comments Appointment Request 04/11/2025 Encounter Details Date Type Department Care Team (Late st Contact Info) Description 04/11/2025 Telephone [facility] [address] [place], [place] [phone] Albertina Danielle MD [address] [place], [place] [phone] Appointment Request Social History Tobacco Use Types Packs/Day Years [...] encounter Miscellaneous Notes * Telephone Encounter - Sada Painting - 04/11/2025 11:41 AM EDT Per Patient she would like call back with soonest appointment with Dr. Danielle. FD offered next available 05/12 but Patient said she wants sooner. Patient wants RN to move schedule around and make space for her documented in this encounter Plan of Treatment Upcoming Encounters Date Type Department Care Team (Late st Contact Info) Description 05/05/2025 3:00 PM EST Medication Management [facility] [address] [place] [address] Erika Pratt, PharmD [address] [place] [address] 05/21/2025 11:00 AM EST Office Visit [facility] [address] [place] [address] Albertina Danielle MD [address] [place] [address] documented as of this encounter Goals Goal Patient Goal Type Associated Problems Recent Progress Patient-Stated? Author Blood Pressure < 150/90 Blood Pressure 138/80( 025 10:55 AM EDT) No Erika Lockett, PharmD documented as of this encounter Visit Diagnoses Not on filedocumented in this encounter Additional Health Concerns Assessment Noted Time PHQ-9 Depression Total Score: 8 11/01/19 25 1:07 PM EDT documented as of this encounter Care Teams Exceptional Needs Teacher Relationship Specialty Start Date End Date Albertina Danielle MD [address] [place] [address] PCP - General Family Medicine 06/12/18 April Jackson [address] [place] [address] Dr 3rd Floor [place], [place] Gastroenterology 05/22/24 Fletcher Wong MD [address] [place] [address] [address] [place] [address] Orthopaedic Surgery 12/19/24 Erika Pratt, PharmD [address] [place] [address] Pharmacist Pharmacy 02/20/25 documented as of this encounter
--- OUTSIDE RECORDS SUMMARY | 2025-04-11 18:30 | XMS_ITS | Encounter Summary ---
Author Organization [employer] Address 75 [facility] 7t [place] [address] Care Team Providers Care Tattoo And Body Artist Name Role Phone Albertina Danielle MD Primary Care Provider + [phone] Erika Pratt PharmD Unavailable Aprli Jackson Unavailable Fletcher Wong MD Unavailable Erika Pratt PharmD Unavailable [phone] Encounter Details Date Type Department Care Team (Late st Contact Info) Description 10/02/2023 Orders Only [facility] [address] [place], [place] [phone] Albertina Danielle MD [address] [place], [place] [phone] Prediabetes (Primary Dx) Social History Tobacco Use [...] the past 12 months, has t he [employer], gas, oil or water company threatened to [...] Description 05/05/2025 3:00 PM EST Medication Management [facility] [address] [place] [phone] Erika Pratt PharmD [address] [place] [address] 05/21/2025 11:00 AM EST Office Visit [facility] [address] [place] [phone] Albertina Danielle MD [address] [place] [phone] documented as of this encounter Goals Goal [...] documented as of this encounter Care Teams Tattoo And Body Artist Relationship Specialty Start Date End Date Albertina Danielle MD [address] [place] [address] PCP - General Family Medicine 06/12/18 Erika Pratt, PharmD [address] [place] [phone] Pharmacist Internal Medicine 03/01/23 04/17/24 April Jackson [address] [place] [address] Dr 3rd Floor [place], [place] Gastroenterology 05/22/24 Fletcher Wong MD [address] [place] [address] Dr [address] [place] [address] Orthopaedic Surgery 12/19/24 Erika Pratt, PharmD [address] [place] [address] Pharmacist Pharmacy 02/20/25 documented as of this encounter
--- OUTSIDE RECORDS SUMMARY | 2025-04-11 18:30 | XMS_ITS | Encounter Summary ---
Author Organization [employer] Address 75 [facility] 7t [place] [address] Care Team Providers Care Ticket Machine Operator Name Role Phone Albertina Danielle MD Primary Care Provider +- [phone] April Jacskon Unavailable Fletcher Wong MD Unavailable Erika Pratt PharmD Unavailable [phone] Encounter Details Date Type Department Care Team (Latest Contact Info) Description 04/08/2025 Travel Social History Tobacco Use Types Packs/Day [...] Description 05/05/2025 3:00 PM EST Medication Management [facility] [address] [place] [phone] Erika Pratt, PharmD [address] [place] [phone] 05/21/2025 11:00 AM EST Office Visit [facility] [address] [place] [address] Albertina Danielle MD [address] [place] [phone] documented as of this encounter Goals Goal Patient Goal Type Associated Problems Recent Progress Patient-Stated? Author Blood Pressure < 150/90 Blood Pressure 138/80( 025 10:55 AM EDT) No Erika Lockett PharmD documented as of this encounter Visit Diagnoses Not on filedocumented in this encounter Additional Health Concerns Assessment Noted Time PHQ-9 Depression Total Score: 8 05/22/20 25 1:07 PM EDT documented as of this encounter Care Teams Ticket Machine Operator Relationship Specialty Start Date End Date Albertina Danielle MD [address] [place] [address] PCP - General Family Medicine 06/12/18 April Jackson [address] [place] [address] Dr 3rd Floor [place], [place] Gastroenterology 05/22/24 Fletcher Wong MD [address] [place] [address] Dr [address] [place] [address] Orthopaedic Surgery 12/19/24 Erika Pratt, PharmD [address] [place] [address] Pharmacist Pharmacy 02/20/25 documented as of this encounter
--- OUTSIDE RECORDS SUMMARY | 2025-04-11 18:30 | XMS_ITS | Encounter Summary ---
Author Organization [employer] Address [address] [facility] [address] [place] [address] Care Team Providers Care Market Development Analyst Name Role Phone Albertina Danielle MD Primary Care Provider Christine Prattsa PharmD Unavailable [phone] April Jackson Unavailable Fletcher Wong MD Unavailable PiersAdalid, Erika PharmD Unavailable [phone] Reason for Visit * Reason Comments Med Refill Encounter Details Date Type Department Care Team ([facility] st Contact Info) Description 01/23/2024 Refill [facility] [address] [place], [place] [phone] Yeny Billings DO [address] [place], [place] [phone] Social History Tobacco Use Types Packs/Day Years [...] Description 05/05/2025 3:00 PM EST Medication Management [facility] [address] [place] [phone] Erika Pratt, RomanD [address] [place] [phone] 05/21/2025 11:00 AM EST Office Visit [facility] [address] [place] [phone] Albertina Danielle MD [address] [place] [phone] documented as of this encounter Goals Goal [...] documented as of this encounter Care Teams Market Development Analyst Relationship Specialty Start Date End Date Albertina Danielle MD [address] [place] [phone] PCP - General Family Medicine 06/12/18 Erika Pratt, PharmD [address] [place] [phone] Pharmacist Internal Medicine 03/01/23 04/17/24 April Jackson [address] [place] [address] Dr 3rd Floor [place], [place] Gastroenterology 05/22/24 Fletcher Wong MD [address] [place] [address] [address] [place] [address] Orthopaedic Surgery 12/19/24 Erika Pratt, PharmD [address] [place] [phone] Pharmacist Pharmacy 02/20/25 documented as of this encounter
--- OUTSIDE RECORDS SUMMARY | 2025-04-11 18:30 | XMS_ITS | Encounter Summary ---
Author Organization [employer] Address [address] [facility] 7t [place] [address] Care Team Providers Care Casino Dealer Name Role Phone Albertina Danielle MD Primary Care Provider [phone] Erika Pratt PharmD Unavailable April Jackson Unavailable Fletcher Wong MD Unavailable Erika Pratt PharmD Unavailable [phone] Encounter Details Date Type Department Care Team (Late st Contact Info) Description 06/28/2022 Abstract [facility]INE [address] [place], [place] [phone] Albertina Danielle MD [address] [place], [place] [phone] Social History Tobacco Use Types Packs/Day Years [...] Description 05/05/2025 3:00 PM EST Medication Management [facility] [address] [place] [phone] Erika Pratt, PharmD [address] [place] [address] 05/21/2025 11:00 AM EST Office Visit [facility] [address] [place] [address] Albertina Danielle MD [address] [place] [address] documented as of this encounter Procedures Procedure [...] L ORDERABLES Final Result Performing Organization Address City/[facility]/ZIP Co de Phone Number [facility] [address] [place] [phone] * Pap Smear (09/17/2015 12:00 AM EDT) Swab Historical Provider LAB CYTOLOGY ORDERABLES F inal Result Performing Organization Address [facility] Co de Phone Number [facility] [address] [place] [phone] documented in this encounter Visit Diagnoses Not on filedocumented in this encounter Care Teams Casino Dealer Relationship Specialty Start Date End Date Albertina Danielle MD [address] [place] [address] PCP - General Family Medicine 06/12/18 Erika Pratt, PharmD [address] [place] [phone] Pharmacist Internal Medicine 03/01/23 04/17/24 April Jackson [address] [place] [address] Dr 3[address] Floor [place], [place] Gastroenterology 05/22/24 Fletcher Wong MD [address] [place] [address] Dr [address] [place] [address] Orthopaedic Surgery 12/19/24 Erika Pratt, PharmD [address] [place] [phone] Pharmacist Pharmacy 02/20/25 documented as of this encounter
--- OUTSIDE RECORDS SUMMARY | 2025-04-11 18:30 | XMS_ITS | Clinical Summary ---
Author Organization [employer] Address [address] [place] [address] Care Team Providers Care Supervisor Kosher Dietary Service Name Role Phone Albertina Danielle MD Primary Care Provider [phone] April Jackson Unavailable Fletcher Wong MD Unavailable [...] mouth Once per day. 30 capsule 2 024 Active albuterol 108 (90 Base) MCG/ACT inhalerIndicati ons:Mild intermittent asthma without complication Inhale 2 puffs every 4 (four) hours if needed for wheezing. 18 g 024 2024 Active glycerin (Adult) 2 g suppositoryIndi cations:Constip ation, unspecified constipation type Insert 1 suppository (2 g) into the rectum if needed each day for constipation. 30 suppository 2 025 Active polyethylene glycol, PEG, 3350 (MiraLax) 17 GM/SCOOP powderIndicatio ns:Constipation , unspecified constipation type 17 grams in 8-12 oz fluid like water at bedtime prn constipation 527 g 2 Active senna (Senokot) 8.6 MG tabletIndicatio ns:Constipation , unspecified constipation type Take 1 tablet (8.6 mg) by mouth at bedtime. 60 tablet 2 Active allopurinol (Zyloprim) 100 MG tabletIndicatio ns:Gout [...] (Roxicodone) 5 MG immediate release tablet Active amLODIPine (Norvasc) 10 MG tabletIndicatio ns:Primary hypertension TAKE 1 TABLET BY MOUTH EVERY MORNING 90 tablet Active Bisacodyl EC 5 MG EC tablet take 2 tablets by mouth every day at bedtime Active gabapentin (Neurontin) 100 MG capsule Take 100 mg by mouth at bedtime. Active losartan (Cozaar) 100 MG tabletIndicatio ns:Primary hypertension Take 1 tablet (100 mg) by mouth Once per day. 90 tablet Active atorvastatin (Lipitor) 80 MG tabletIndicatio ns:Dyslipidemia Take 1 tablet (80 mg) by mouth Once per day. 90 tablet Active metroNIDAZOLE (Flagyl) 500 MG tabletIndicatio ns:Trichomonas vaginitis Take 1 tablet (500 mg) by mouth 2 times daily for 7 days. 14 tablet 025 2024 Active cyclobenzaprine (Flexeril) 10 MG tabletIndicatio ns:Total body pain One tab po at bedtime prn pain of muscles, do not drive with medicaion 30 tablet 3 024 2024 Discontinued(M ed list cleanup (will not trigger notification to Pharmacy)) atorvastatin (Lipitor) 40 MG tabletIndicatio ns:Dyslipidemia Take 1 tablet (40 mg) by mouth in the morning. 90 tablet 025 2024 Discontinued(D ose adjustment) metroNIDAZOLE (Flagyl) 500 MG tabletIndicatio ns:Trichomonas vaginitis,Bacte rial vaginosis Take 1 tablet (500 mg) by mouth 2 times daily for 7 days. 14 tablet 025 2024 losartan (Cozaar) 50 MG tabletIndicatio ns:Primary hypertension Take 1 tablet (50 mg) by mouth Once per day. 90 tablet 025 2024 Discontinued(D ose adjustment) Active Problems Patient Care Coordination No te Formatting of this note migh t be different from the original. 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 Gonorrhoeae RNA, TMA, Urogenitial Bacterial Vaginosis POCT Wet Mount/DAFNE Trichomonas vaginitis 03/05/2025 Assessment & Plan (04/11/2025 12:36 PM EDT): Orders: metroNIDAZOLE (Flagyl) 500 MG tablet; Take 1 tablet (500 mg) by mouth 2 times daily for 7 days. POCT Wet Mount/DAFNE Bacterial vaginosis 03/05/2025 Constipation 11/14/2024 Overview (11/14/2024): [...] due after 01/22/26. -Eye care done in [facility], last done 10/2022. -Follow with [facility] dentist -Healthcare proxy given and filled Assessment & Plan (01/22/2025 4:09 PM EDT): -next comprehensive annual evaluation due after 01/22/26. -Eye care done in [facility], last done 10/2022. -Follow with [facility] dentist -Healthcare proxy given and filled Assessment & Plan (12/18/2023 11:13 AM EDT): -Next PE due after 12/17/2024. -Eye care done in [facility], last done 10/2022. -Follow with [facility] dentist -Healthcare proxy given and filled Assessment & Plan (11/30/2022 4:08 PM EDT): Next PE due after 12/01/2023. Eye care done in [facility], last done 10/2022. 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 -Continue Vitamin D. -Discontinued Fosamax 11/30/2022. -Dexa scan ordered 11/30/2022. -Advised exercise with light weights. -repeat DEXA 12/2022 with severe osteoporosis, referred to endocrinology 12/26/2022 for assistance in tx due to not tolerating oral bisphosphonate -Pt was given the number to [facility] 01/20/2023 to call and check status of appointment. Assessment & Plan (02/20/2023 10:47 AM EDT): Diagnosed on Dexa scan 07/2020. -Continue Vitamin D. -Discontinued Fosamax 11/30/2022. -Dexa scan ordered 11/30/2022. -Advised exercise with light weights. -repeat DEXA 12/2022 with severe osteoporosis, referred to endocrinology 12/26/2022 for assistance in tx due to not tolerating oral bisphosphonate -Pt was given the number to [facility] 01/20/2023 to call and check status of appointment. Assessment & Plan (01/20/2023 9:56 AM EDT): Diagnosed on Dexa scan 07/2020. -Continue Vitamin D. -Discontinued Fosamax 11/30/2022. -Dexa scan ordered 11/30/2022. -Advised exercise with light weights. -repeat DEXA 12/2022 with severe osteoporosis, referred to endocrinology 12/26/2022 for assistance in tx due to not tolerating oral bisphosphonate -Pt was given the number to [facility] 01/20/2023 to call and check [...] 3-5 years, 03/2025 Primary hypertension 07/22/2021 Overview (04/08/2025): -Blood pressure is slightly above goal -Has [...] Collaborative Drug Therapy Managment Program with our PharmDABLERTO 01/22/25 -Restarted enalapril-hydroCHLOROthiazide (Vasoretic) 10-25 MG 01/22/25 *Patient was last seen in [facility] clinic 04/08/25: - enalapril/hydrochlorothiazide previous discontinued by [facility] and replaced with losartan due to potential beneficial effects on uric acid. Losartan was increased from 50mg once daily to 100mg once daily by [facility] due to ongoing uncontrolled hypertension -Patient was not taking carvedilol for an extended period of time and was previously formally discontinued by [facility] Assessment & Plan (01/22/2025 4:09 PM EDT): [...] Therapy Managment Program with our PharmD, ALBERTO 01/22/25 -Restarted enalapril-hydroCHLOROthiazide (Vasoretic) 10-25 MG 01/22/25 [...] Therapy Managment Program with our PharmD, ALBERTO 05/22/24 Assessment & Plan (12/18/2023 10:56 AM [...] drostaci Jackson 12/2024 reveiwed Assessment & Plan (12/18/2023 [...] free diet Anxiety 08/30/2012 Dyslipidemia 02/24/2012 Overview (04/08/2025): Lab Results Component Value Date CHOL 211 (H) 03/26/2025 CHOL 182 01/31/2025 CHOL 225 (H) 10/31/2024 TRIG 168 (H) 03/26/2025 TRIG 217 (H) 01/31/2025 TRIG 214 (H) 10/31/2024 TRIG 158 (H) 12/02/2022 HDL 50 03/26/2025 HDL 48 01/31/2025 HDL 46 10/31/2024 LDLCHOLCAL 128 (H) 03/26/2025 LDLCHOLCAL 91 01/31/2025 LDLCHOLCAL 137 (H) 10/31/2024 -been on 20 mg Atorvastatin for a while with elevated levels - Atorvastatin to 40 mg increased 12/2023 - ordered repeat labs 01/22/25 - restarted Atorvastatin 40 mg 01/22/25 *Patient was last seen in [facility] 04/08/25: repeat LDL was further elevated and atorvastatin was increased from 40mg once daily to 80mg once daily Assessment & Plan (01/22/2025 4:09 PM EDT): [...] Exercise counseling 12/18/2023 11/01/19 Dietary counseling 12/18/2023 5 Encounters Date Type Department Care Team Description 04/11/2025 10:40 AM EDT [facility] [address] [address] Claudette North NP Vaginal discharge (Primary Dx); Trichomonas vaginitis 04/11/[address] [address] Albertina Danielle MD Appointment Request 04/11/2025 Travel 04/08/2025 Travel 04/01/2025 Travel 03/26/2025 Results [facility] [address] [address] Albertina Danielle MD Hepatic Function Panel, Lipid Panel, Standard 03/26/2025 Orders Only [address] [address] Albertina Danielle MD 03/11/2025 Travel 03/05/2025 Results Follow-Up [address] [address] Billie Emerson, HISTOTECHNOLOGIST Chlamydia/N. Gonorrhoeae RNA, TMA, Urogenitial, Bacterial Vaginosis 03/03/2025 5:00 PM EDT [facility] [address] [address] Billie Emerson, HISTOTECHNOLOGIST Vaginal itching 03/03/2025 Travel 02/18/2025 Travel 02/05/2025 Results Follow-Up [address] [address] Kaylan Posada RN T-SPOT .TB 02/02/2025 Results Follow-Up [address] [address] Albertina Danielle MD Uric acid, Vitamin D, 25-Hydroxy, Total, Immunoassay 02/02/2025 Orders Only [address] [address] Albertina Danielle MD Gout of right foot, unspecified cause, unspecified chronicity (Primary Dx) 01/31/[address] [address] Albertina Danielle MD 01/23/[address] [address] Albertina Danielle MD 01/23/[address] [address] Albertina Danielle MD Lab Orders 01/22/2025 3:15 PM EDT Office Visit [address] [address] Albertina Danielle MD Preop examination (Primary Dx); Celiac disease; Mild intermittent asthma without complication; Dyslipidemia; Prediabetes; Primary hypertension; Vitamin D deficiency; Constipation, unspecified constipation type; Right shoulder pain, unspecified chronicity; Class 1 obesity due to excess calories with serious comorbidity and body mass index (BMI) of 30.0 to 30.9 in adult; Dietary counseling; Exercise counseling; Other specified health status 01/22/[address] [address] Albertina Danielle MD Paperwork/Forms 01/22/2025 Travel 01/21/[address] [address] Albertina Danielle MD CHART PREP from Last 3 Months Immunizations Immunization Administration [...] 18 04/11/2025 10:55 AM EDT Oxygen Saturation 99% 03/03/2025 5:12 PM EDT Inhaled Oxygen Concentration - - Weight 81.6 kg (180 lb) 04/11/2025 10:55 AM EDT Height 162.6 cm (5' 4 ) 04/11/2025 10:55 AM EDT Body Mass Index 30.9 04/11/2025 10:55 AM EDT Plan of Treatment Upcoming Encounters Date Type Department Care Team (Late st Contact Info) Description 05/05/2025 3:00 PM EST Medication Management [facility] [address] [place] [phone] Erika Pratt, RomanD [address] [place] [address] 05/21/2025 11:00 AM EST Office Visit [facility] [address] [place] [phone] Albertina Danielle MD [address] [place] [address] Health Maintenance Due Date Last Done Comments CT Colonography 1955 FIT DNA/Cologuard 1955 FIT 1955 FOBT 1955 Sigmoidoscopy 1955 COVID-19 Vaccine ( season) 2025 12/21/2020, 11/23/2020 Influenza Vaccine (#1) 2025 03/13/2009 SDOH Screening 05/22/2025 05/22/2024 Depression Screening 10/31/2025 10/31/2024, 11/01/19 25 Alcohol/Substance Use Screening 01/22/2026 01/22/2025 Mammogram 02/20/2026 02/21/2024, 12/10, 07/02/2021, Additional history exists Diabetes: Hemoglobin A1C 04/08/2026 025, 10/31/2024, 02/15/2024, Additional history exists Tobacco Screening 04/11/2026 04/11/2025 DTaP/Tdap/Td Vaccines (2 - Td or Tdap) [...] 10:55 AM EDT) No Erika Lockett PharmD Procedures Procedure Name Priority Date/Time Associated Diagnosis Comments POCT WET MOUNT/DAFNE Routine 04/11/2025 11 :32 AM EDT Vaginal discharge Trichomonas vaginitis POCT GLYCATED HEMOGLOBIN, TOTAL Routine 04/08/2025 2:12 PM EDT Prediabetes LIPID PANEL, STANDARD Routine 03/26/2025 10:29 AM [...] of right foot, unspecified cause, unspecified chronicity BI MAMMOGRAM SCREENING TOMOSYNTHESIS BILATERAL Routine 02/21/2024 11:40 AM EDT HM COLONOSCOPY Routine 03/06/2023 HEPATITIS C ANTIBODY (EXTERNAL RESULTS ONLY) Routine 10/29/2021 3:52 PM EDT from Last 3 Months or Most Recently Relevant to Health Maintenance Results * (ABNORMAL) POCT Wet Mount/DAFNE (04/11/2025 11:32 AM EDT) DAFNE Prep Negative Vaginal Fluid Vaginal structure / Unknown 04/11/2025 11:32 AM EDT Claudette North NP POINT OF CARE TEST ENTER/EDIT OR DERABLES Final Result * (ABNORMAL) POCT A1c (04/08/2025 2:12 PM EDT) Hemoglobin A1C 6.2(A) 4.0 - 5.7 % QC Media Lot # [id number] Lot# Expiration Date Blood 04/08/2025 2:12 PM EDT Albertina Danielle MD POINT OF CARE TEST ENTER/E DIT ORDERABLES Final Result * (ABNORMAL) Hepatic Function Panel (03/26/2025 10:29 AM EDT) Only the most recent of2 resultswithin the time period is included. Bilirubin, Total 0.8 0.0 - 1.0 mg/dL [facility] Bilirubin, Direct 0.3 0.0 - 0.5 mg/dL [facility] Aspartate Amino Transferase 40(H) 5 - 31 U/L [facility] Alanine Aminotransferase 32(H) 0 - 31 U/L [facility] Total Protein 7.9 6.5 - 8.0 g/dL [facility] Albumin Level 4.5 3.5 - 5.0 g/dL [facility] Alkaline Phosphatase 110 39 - 117 U/L [facility] 03/26/2025 10:2 9 AM EDT 03/26/2025 11:18 AM EDT Albertina Danielle MD LAB BLOOD ORDERABLES Final Result [facility] [address] [place] [phone] * (ABNORMAL) Lipid Panel, Standard (03/26/2025 10:29 AM EDT) Only the most recent of2 resultswithin the time period is included. Triglycerides 168(H) <150 mg/dL [facility] Comment:Desirable Triglyceri de: less than 150 mg/dLBorderline High Triglyceride 150-199 mg/dLHigh Triglyceride: 200-499 mg/dLVery High Triglyceride: greater than or equal to 5OO mg/dL Cholesterol 211(H) <200 mg/dL [facility] Comment:Desirable Cholestero l: less than 200 mg/dLBorderline High Cholesterol: 200-239 mg/dLHigh Cholesterol: greater than 239 mg/dL LDL Cholesterol Calculated 128(H) <100 mg/dL [facility] Comment:Desirable LDL: less than 100 mg/dLNear Optimal/Above Optimal LDL: 110- 129 mg/dLBorderline High LDL: 130-159 mg/dLHigh LDL: 160-189 mg/dLVery High LDL: greater than or equal to 190 mg/dL HDL Cholesterol 50 >40 mg/dL [facility] Comment:Desirable HDL: great er than 40 mg/dL Note: This HDL assay may give artificially low results in patients with liver disease. 03/26/2025 10:2 9 AM EDT 03/26/2025 11:18 AM EDT Albertina Danielle MD LAB BLOOD ORDERABLES Final Result [facility] [address] [place] [phone] * (ABNORMAL) Basic Metabolic Panel (03/26/2025 10:29 AM EDT) Only the most recent of2 resultswithin the time period is included. Pathologist [facility] Sodium 141 135 - 145 mmol/L [facility] Potassium 3.9 3.3 - 5.1 mmol/L [facility] Chloride 109(H) 96 - 108 mmol/L [facility] Carbon Dioxide 24 22 - 29 mmol/L [facility] Anion Gap 12 12 - 20 [facility] Urea Nitrogen (BUN) 11 9 - 16 mg/dL [facility] Creatinine, Serum 0.67 0.5 - 1.4 mg/dL [facility] Estimated Glomerular Filt Rate >60 [facility] Comment:Chronic Kidney Disea se: Estimated GFR < 60 mL/min/1.56x7Gnaufr Kidney Disease: Estimated GFR < 15 mL/min/1.73m2 Glucose 97 60 - 115 mg/dL [facility] Calcium 9.4 8.4 - 10.2 mg/dL [facility] Blood Venous blood specimen / Unknown 03/26/2025 10:29 AM EDT 03/26/2025 11:18 AM EDT us Albertina Danielle MD LAB BLOOD ORDERABLES Final Result Performing Organization Address [facility] Co de Phone Number [facility] [address] [place] [phone] * (ABNORMAL) Bacterial Vaginosis (03/03/2025 5:14 PM EDT) TRICHOMONAS VAGINALIS DETECTION BY PCR DETECTED(A) Not Detect [facility] BACTERIAL VAGINOSIS DETECTION BY PCR POSITIVE(A) Negative [facility] Comment:The BV organism targ ets of [...] DETECTION BY PCR NOT DETECTED Not Detect [facility] Kassy glab krusei PCR NOT DETECTED Not Detect [facility] Swab Vaginal structure / Unknown 03/03/2025 5:14 PM EDT 03/04/2025 12:17 PM EDT us Billie CORRALP LAB MICROBIOLOGY - GENERAL ORD ERABLES Final Result Performing Organization Address [facility]/ZIP Co de Phone Number [facility] [address] [place] [phone] * Chlamydia/N. Gonorrhoeae RNA, TMA, Urogenitial (03/03/2025 5:14 PM EDT) CT PCR NOT DETECTED Not Detect. [facility] Comment:A not detected test result does [...] psychologicalconsequences. NG PCR NOT DETECTED Not Detect. [facility] Comment:A not detected test result does [...] 5:14 PM EDT 03/04/2025 12:17 PM EDT us Billie Emerson [facility] MICROBIOLOGY - GENERAL ORD ERABLES Final Result [facility] [address] [place] [phone] [phone] * Vitamin D, 25-Hydroxy, Total, Immunoassay (01/31/2025 1:19 PM EDT) [facility] Vitamin D 25-OH Total 43.6 >30 ng/mL [facility] Comment: Health Based Reference Values*< 20 ng/mL [id number] ng/mL Insufficient> 30 ng/mL Sufficient*Cristian JOSEPH. N [...] Danielle MD LAB BLOOD ORDERABLES Final Result [facility] [address] [place] [phone] * T-SPOT??.TB (01/31/2025 1:19 PM EDT) [facility] T Spot TB Negative Negative [facility] Comment:A negative test resu lt does [...] as aquantitative test. TS PANEL A 0 [facility] TS PANEL B 0 [facility] Negative Control Passed [facility] Positive Control Passed [facility] Comment:For additional infor pramod, please refer tohttp://education.[employer]/faq/MEJ164(This link is being provided for informational/educational purposes only.)THIS TEST WAS PERFORMED AT:[employer] [id number] [place] [address]NLAOUGPYUMIKO GROVES MD,PHD 01/31/2025 1:19 PM EDT 01/31/2025 2:35 PM EDT us Albertina Danielle MD LAB BLOOD ORDERABLES Final Result [facility] [address] [place] [phone] * Albumin, Random Urine W/Creatinine (01/31/2025 1:19 PM EDT) Creatinine, Urine 83.48 mg/dL [facility] Microalbumin Urine 5.0 mg/L [facility] Microalbum Creatinine Ratio Ur 5.9 <30 ug/mg cr [facility] Comment:Albumin/Creatinine R atio Reference Ranges: Normal: < 30 ug/mg creatinine Microalbuminuria: 30 - 300 ug/mg creatinineClinical Albuminuria: > 300 ug/mg creatinine Urine 01/31/2025 1:19 PM EDT 01/31/2025 2:37 PM EDT Albertina Danielle MD LAB URINE ORDERABLES Final Result Performing Organization Address City/[facility]/ZIP Co de Phone Number [facility] [address] [place] [phone] * (ABNORMAL) Uric acid (01/31/2025 1:19 PM EDT) Uric Acid 7.9(H) 2.4 - 5.7 mg/dL [facility] Blood Venous blood specimen / Unknown 01/31/2025 1:19 PM EDT 01/31/2025 2:35 PM EDT Albertina Danielle MD LAB BLOOD ORDERABLES Final Result Performing Organization Address [facility] Co de Phone Number [facility] [address] [place] [phone] * BI Mammogram Screening Tomosynthesis Bilateral (02/21/2024 11:40 AM EDT) Anatomical Region Laterality Modality Breast Bilateral Mammography 02/21/2024 11:4 0 AM EDT Narrative 03/06/2024 10:24 AM EDT [address] [place] [address] Mammography Report Signed Patient: Elizabet Castillo MR#: [id number] 2 : 1955 Acct:[id number] Age/Sex: 68 / F ADM Date: 02/21/24 Loc: HO.MAMMO Attending Dr: Albertina Danielle MD Ordering Physician: Albertina Danielle MD Results: 1N egative Date of Service: 02/21/24 Follow Up: 1 Year From Orig inal Mammogram Procedure(s): MM tomosynthesis screening BI Accession Number(s): [id number] cc: Albertina Danielle MD EXAMINATION: MM SCREENING [...] 03/06/24 1021 DD/ 1140 TD/TT: 02/21/24 1158 Team Leader Surgery: Procedure Note Donotuseinterpreter, Image - 03/06/2024 [facility] [address] [place] [address] Mammography Report Signed Patient: Rell Castillo#: [id number] 2 : 6Acct:[id number] Age/Sex: 68 / FADM Date: 02/21/24 Loc: HO.MAMMO Attending Dr: Albertina Danielle MD Ordering Physician: Albertina Danielle MDResults: 1N egative Date of Service: 02/21/24Follow Up: 1 Year From Orig inal Mammogram Procedure(s): MM tomosynthesis screening BI Accession Number(s): [id number] cc: Albertina Danielle MD EXAMINATION: MM SCREENING [...] DO 03/06/2024 10:21 AM EDT RP Workstation: [employer] Dictated By: Carmen Kyle DO Signed By: <Electronically signed by Carmen Kyle DO in OV> 03/06/24 1021 DD/ 1140 TD/TT: 02/21/24 1158 Team Leader Surgery: Albertina Danielle MD IMG BI PROCEDURES Edited [...] Recently Relevant to Health Maintenance Insurance [facility] OPTIONS (O D-SNP) [facility] STANDARD Advance Directives Documents on File Type Date Recorded Patient Supervisor Cold Rolling Expl anation Advance Directives and Living Will 12/18/2023 Health Care Proxy 12/18/23 Care Teams Supervisor Kosher Dietary Service Relationship Specialty Start Date End Date [place], MD Albertina [address] [place] [phone] PCP - General Family Medicine 06/12/18 April Jackson [address] [place] [address] Dr [address] Floor [place] Gastroenterology 05/22/24 Fletcher Wong MD [address] [place] [phone] Orthopaedic Surgery 12/19/24 Erika Pratt, PharmD [address] [place] [phone] Pharmacist Pharmacy 02/20/25
--- OUTSIDE RECORDS SUMMARY | 2025-04-11 18:30 | XMS_ITS | Encounter Summary ---
Author Organization [employer] Address [address] [facility] 7t [place] [address] Care Team Providers Care Real Estate Asset Manager Name Role Phone Albertina Danielle MD Primary Care Provider Erika Pratt PharmD Unavailable April Jackson Unavailable Fletcher Wong MD Unavailable Erika Pratt PharmD Unavailable Encounter Details Date Type Department Care Team (Late st Contact Info) Description 12/30/2022 Abstract [facility] [address] [place], [place] [phone] Albertina Danielle MD [address] [place], [place] [phone] Social History Tobacco Use Types Packs/Day Years [...] Description 05/05/2025 3:00 PM EST Medication Management [facility] [address] [place] [phone] Erika Pratt PharmD [address] [place] [phone] 05/21/2025 11:00 AM EST Office Visit [facility] [address] [place] [phone] Albertina Danielle MD [address] [place] [phone] documented as of this encounter Visit Diagnoses Not on filedocumented in this encounter Additional Health Concerns Assessment Noted Time PHQ-9 Depression Total Score: 7 12/01/19 23 3:41 PM EDT documented as of this encounter Care Teams Real Estate Asset Manager Relationship Specialty Start Date End Date Albertina Danielle MD [address] [place] [phone] PCP - General Family Medicine 06/12/18 Erika Pratt, PharmD [address] [place] [phone] Pharmacist Internal Medicine 03/01/23 04/17/24 April Jackson [address] [place] [address] 3rd Floor [place] Gastroenterology 05/22/24 Fletcher Wong MD [address] [place] [address] [address] [place] [address] Orthopaedic Surgery 12/19/24 Erika Pratt PharmD [address] [place] [address] Pharmacist Pharmacy 02/20/25 documented as of this encounter
--- OUTSIDE RECORDS SUMMARY | 2025-04-11 18:30 | XMS_ITS | Encounter Summary ---
Author Organization [employer] Address 75 [facility] 7t [place] [address] Care Team Providers Care Hair Spring Winder Name Role Phone Albertina Danielle MD Primary Care Provider +1- [phone] Piers-Luzmaria, Erika PharmD Unavailable April [place] Unavailable Fletcher Wong MD Unavailable Piers-Dutta, Erika PharmD Unavailable Encounter Details Date Type Department Care Team (Late st Contact Info) Description 02/14/2024 Telephone [facility] [address] [place] [address] Piers-Dutta, Erika, PharmD 230 [place], [place] [phone] Social History Tobacco Use Types Packs/Day Years [...] this patient to continue care in [facility] - Hypertension clinic. Please send at your earliest convenience. documented in this encounter Plan of Treatment Upcoming Encounters Date Type Department Care Team (Late st Contact Info) Description 05/05/2025 3:00 PM EST Medication Management [facility] [address] [place], [place] [phone] Erika Pratt PharmD [address] [place] [address] 05/21/2025 11:00 AM EST Office Visit [facility] [address] [place] [address] Albertina Danielle MD [address] [place] [address] documented as of this encounter Goals Goal [...] documented as of this encounter Care Teams Hair Spring Winder Relationship Specialty Start Date End Date Albertina Danielle MD [address] [place] [address] PCP - General Family Medicine 06/12/18 Erika Pratt, PharmD [address] [place] [address] Pharmacist Internal Medicine 03/01/23 04/17/24 April [place] [address] [place] [address] Dr 3rd Floor [place], [place] Gastroenterology 05/22/24 Fletcher Wong MD [address] [place] [address] [address] [place] [address] Orthopaedic Surgery 12/19/24 Erika Pratt, PharmD [address] [place] [address] Pharmacist Pharmacy 02/20/25 documented as of this encounter
--- OUTSIDE RECORDS SUMMARY | 2025-04-11 18:30 | XMS_ITS | Encounter Summary ---
Author Organization [employer] Address 75 [facility] 7t [place] [address] Care Team Providers Care Car Sales Consultant Name Role Phone Albertina Danielle MD Primary Care Provider +- [phone] April [place] Unavailable Fletcher Wong MD Unavailable Erika Pratt PharmD Unavailable Encounter Details Date Type Department Care Team (Latest Contact Info) Description 04/11/2025 Travel Social History Tobacco Use Types Packs/Day [...] Description 05/05/2025 3:00 PM EST Medication Management [facility] [address] [place] [address] Erika Pratt, PharmD [address] [place] [address] 05/21/2025 11:00 AM EST Office Visit [facility] [address] [place] [address] Albertina Danielle MD [address] [place] [address] documented as of this encounter Goals Goal [...] documented as of this encounter Care Teams Car Sales Consultant Relationship Specialty Start Date End Date Albertina Danielle MD 230 [place] [address] PCP - General Family Medicine 06/12/18 April [place] [address] [place] [address] Dr 3rd Floor [place], [place] Gastroenterology 05/22/24 Fletcher Wong MD [address] [place] [address] Dr [address] [place] [address] Orthopaedic Surgery 12/19/24 Erika Pratt, PharmD 230 [place] [address] Pharmacist Pharmacy 02/20/25 documented as of this encounter
--- OUTSIDE RECORDS SUMMARY | 2025-04-11 18:30 | XMS_ITS | Encounter Summary ---
Author Organization [employer] Address 75 [facility] 7t [place] [address] Care Team Providers Care Body Stylist Name Role Phone Albertina Danielle MD Primary Care Provider +1- [phone] Terence, Erika PharmD Unavailable April [place] Unavailable Fletcher Wong MD Unavailable PiersJose GDutta, Erika PharmD Unavailable [phone] Reason for Visit * Reason Comments Med Refill Encounter Details Date Type Department Care Team ([facility] st Contact Info) Description 09/09/2022 Refill [facility] 230 [place] [address] Marcela Norwood FNP 505 [place], [place] [phone] Total body pain Social History Tobacco Use [...] Description 05/05/2025 3:00 PM EST Medication Management [facility] [place] [address] Erika Pratt PharmD [facility] [place] [address] 05/21/2025 11:00 AM EST Office Visit [facility] [place] [address] Albertina Danielle MD [facility] [place] [address] documented as of this encounter Visit Diagnoses Diagnosis Total body pain documented in this encounter Care Teams Body Stylist Relationship Specialty Start Date End Date Albertina Danielle MD [address] [place] [address] PCP - General Family Medicine 06/12/18 Erika Pratt, PharmD [address] [place] [address] Pharmacist Internal Medicine 03/01/23 04/17/24 April [place] [address] [place] [address] Dr 3rd Floor [place] Gastroenterology 05/22/24 Fletcher Wong MD [facility] [address] [place] [address] Orthopaedic Surgery 12/19/24 Erika Pratt, PharmD [address] [place] [address] Pharmacist Pharmacy 02/20/25 documented as of this encounter
--- OUTSIDE RECORDS SUMMARY | 2025-04-11 18:30 | XMS_ITS | Encounter Summary ---
Author Organization [employer] Address 75 [facility] 7t [place] [address] Care Team Providers Care Distribution Sales Manager Name Role Phone Albertina Danielle MD Primary Care Provider +1- [phone] MaximinosAdalid, Erika PharmD Unavailable [phone] April [place] Unavailable Fletcher Wong MD Unavailable PiersAdalid, Erika PharmD Unavailable [phone] Encounter Details Date Type Department Care Team (Late st Contact Info) Description 07/04/2022 Orders Only [facility] [address] [place] [address] [phone] Dolores Sue LPN Social History Tobacco Use [...] Medication Management [facility] 230 [place], [place] [phone] MaxiimnosErika Cordoba, PharmD 230 [place], [place] [phone] 05/21/2025 11:00 AM EST Office Visit [facility] 230 [place] [address] Albertina Danielle MD [address] [place] [address] documented as of this encounter Visit Diagnoses Not on filedocumented in this encounter Care Teams Distribution Sales Manager Relationship Specialty Start Date End Date Albertina Danielle MD [address] [place] [address] [phone] PCP - General Family Medicine 06/12/18 Erika Pratt, PharmD [address] [place] [address] Pharmacist Internal Medicine 03/01/23 04/17/24 April [place] [address] [place] [address] 3rd Floor [place], [place] Gastroenterology 05/22/24 Fletcher Wong MD [address] [place] [address] 203 [place] [address] Orthopaedic Surgery 12/19/24 Erika Pratt, PharmD [address] [place] [address] Pharmacist Pharmacy 02/20/25 documented as of this encounter
[2025-04-12 13:56] LABS: Bacterial Vaginosis PCR NEGATIVE (Negative); Candida Group PCR NOT DETECTED (Not Detect); Candida glab krusei PCR NOT DETECTED (Not Detect); Trichomonas vaginalis PCR DETECTED (Not Detect)
[2025-04-12 14:27] LABS: CT PCR NOT DETECTED (Not Detect.); NG PCR NOT DETECTED (Not Detect.)
== END 2025-04-11 18:26 | disposition home or self-care (01) ==
LOC: HO.HHCLNP 18:25
PROVIDERS: Visit Provider Nurse Practitioner Family
DX: Z20.2 Contact with and (suspected) exposure to infections with a predominantly sexual mode of transmission (principal); N89.8 Other specified noninflammatory disorders of vagina
CPT/HCPCS: 81515; 87491; 87591

== ENCOUNTER 2025-05-27 13:23 | Outpatient (AMB) | payer OTHER, SELFPAY ==
--- NOTE | 2025-05-27 13:26 | MHC.OFFVIS ---
Intake Visit Reasons: RT shoulder 02/07/25 Intake Note: Elizabet is a 69 year old female who presents with complaints of mild to moderate intermittent discomfort in her right shoulder after undergoing right shoulder arthroscopic surgery on 02/07/2025. She denies any fevers or chills. She has taken Tylenol and anti-inflammatory medicines which gave her mild relief. She was not able to tolerate gabapentin because it gave her headaches. Allergies cheese (CHEESE) Allergy (Unknown, Verified 03/25/25 13:55) + ALLERGY TESTING egg (EGGS) Allergy (Unknown, Verified 03/25/25 13:55) + ALLERGY TEST gluten (GLUTEN) Allergy (Unknown, Verified 03/25/25 13:55) + ALLERGY TEST milk (MILK) Allergy (Unknown, Verified 03/25/25 13:55) + ALLERGY TEST No Known Drug Allergies Allergy (Unknown, Verified 03/25/25 13:55) none soy (SOY) Allergy (Unknown, Verified 03/25/25 13:55) + ALLERGY TEST strawberry (STRAWBERRY) Allergy (Unknown, Verified 03/25/25 13:55) + ALLERGY TEST banana (BANANA) Adverse Reaction (Unknown, Verified 03/25/25 13:55) + ALLERGY TEST Medication List - Last Reconciled 05/27/25 by Fletcher Wong MD acetaminophen (Tylenol Extra Strength) 1,000 mg (2 x 500 mg) PO QID PRN albuterol sulfate 90 mcg/actuation (Ventolin HFA) 2 puffs inhalation Q6-8H PRN albuterol sulfate mg inhalation allopurinol 100 mg PO DAILY amlodipine 10 mg PO QAM atorvastatin 40 mg PO QAM bisacodyl 10 mg (2 x 5 mg) PO BEDTIME cholecalciferol (vitamin D3) (Vitamin D3) 50 mcg PO DAILY cyclobenzaprine 5 mg PO Q12H PRN diazepam (Valium) 5 mg PO TID PRN fluticasone propionate 50 mcg/actuation 1 spray intranasal BID gabapentin 100 mg PO BEDTIME glycerin (adult) (Fleet Glycerin (Adult) rectal suppository) 1 supp DE DAILY PRN lactobacillus combination no.9 (Adult 50 Plus Probiotic) 4,000 mmu cells PO DAILY loratadine 10 mg PO DAILY omeprazole 40 mg PO DAILY polyethylene glycol 3350 (Miralax) 17 grams PO DAILY PFSH Medical History Teeth missing HLD (hyperlipidemia) Chronic sinusitis GERHARD (obstructive sleep apnea) Diverticulosis Tubular adenoma Hx of hemorrhoids Vitamin B1 deficiency Hemorrhoids Overweight (BMI 25.0-29.9) Obesity (BMI 30-39.9) Insomnia Allergic rhinitis Urinary incontinence Chronic idiopathic constipation Arthritis Celiac disease GERD (gastroesophageal reflux disease) TIA (transient ischemic attack) Depression Elevated cholesterol HTN (hypertension) Surgical History S/P colonoscopy H/O hemorrhoidectomy Hx of cholecystectomy History of bladder suspension procedure H/O: hysterectomy H/O shoulder surgery Hx of colonoscopy Hx of esophagogastroduodenoscopy Family History Father Myocardial infarction NIDDY (non-insulin dependent diabetes mellitus in young) Mother Breast cancer Colon cancer NIDDY (non-insulin dependent diabetes mellitus in young) Hypertension Sister AIDS (acquired immune deficiency syndrome) NIDDY (non-insulin dependent diabetes mellitus in young) Hypertension Maternal Grandfather Bone cancer Maternal Grandmother Bone cancer Social History Household Members: None Housing: Apartment Are you a primary home health care coordinator to a significant other at home: No Do you presently have visiting nurse or other home services: No 75 years or older and lives alone: No Alcohol intake: never Patient Tobacco Use Status: Former Tobacco user Tobacco use type: Cigarette Physical Exam Extrem Other: Right shoulder examination shows that the surgical incisions are well healed, no erythema, slightly decreased range of motion when compared to her left shoulder, 5/5 strength with supraspinatus testing, no instability Assessment & Plan Assessment & Plan (1) Right shoulder pain: Code(s): M25.511 - Pain in right shoulder Category: Medical Plan Ms. Castillo continues to do fairly well after undergoing right shoulder arthroscopic surgery on 02/07/2025. She will continue with her home stretching program. I did give her a prescription for Flexeril to help with her discomfort. She will contact me prior to her follow-up appointment in 3 months should any questions or concerns arise. Feel free to call me at any time should questions regarding her orthopedic management arise. I spent 22 minutes in reviewing the patient's records and imaging studies, seeing the patient and documenting in the medical record. Medications: New cyclobenzaprine 5 mg PO Q12H PRN 20 tabs 0RF muscle spasm Coding Level of Care Code Est Pt Level 3 (37711) Add On Problem Visit Only Diagnoses Right shoulder pain M25.511
--- OUTSIDE RECORDS SUMMARY | 2025-05-27 17:27 | XMS_ITS | Encounter Summary ---
Author Organization [employer] Address 75 [facility] 7t [place] [address] Care Team Providers Care Hvac Sheet Metal Installer Helper Name Role Phone Albertina Danielle MD Primary Care Provider Christine Prattsa PharmD Unavailable [phone] April [place] Unavailable Fletcher Wong MD Unavailable PiersAdalid, Erika PharmD Unavailable [phone] Reason for Visit * Reason Comments Med Refill Encounter Details Date Type Department Care Team ([facility] st Contact Info) Description 01/23/2024 Refill [facility] 230 [place], [place] [phone] Yeny Billings DO 230 [place], [place] [phone] Social History Tobacco Use Types Packs/Day Years [...] Care Team (Late st Contact Info) Description 07/23/2025 2:00 PM EST Office Visit [facility] 230 [place] [address] Albertina Danielle MD 230 [place] [address] documented as of this encounter Goals Goal Patient Goal Type Associated Problems Recent Progress Patient-Stated? Author Blood Pressure < 150/90 Blood Pressure 138/80( 025 10:55 AM EDT) No Maximinos-Erika [place], PharmD documented as of this encounter Visit Diagnoses Not on filedocumented in this encounter Additional Health Concerns Assessment Noted Time PHQ-9 Depression Total Score: 0 12/18/19 10:49 AM EDT documented as of this encounter Care Teams Hvac Sheet Metal Installer Helper Relationship Specialty Start Date End Date Albertina Danielle MD 230 [place] [address] PCP - General Family Medicine 06/12/18 Erika Pratt, PharmD [address] [place] [address] Pharmacist Internal Medicine 03/01/23 04/17/24 April [place] [address] [place] [address] Dr 3rd Floor [place], [place] Gastroenterology 05/22/24 Fletcher Wong MD [address] [place] [address] [address] [place] [address] Orthopaedic Surgery 12/19/24 Erika Pratt, PharmD [address] [place] [address] Pharmacist Pharmacy 02/20/25 documented as of this encounter
--- OUTSIDE RECORDS SUMMARY | 2025-05-27 17:27 | XMS_ITS | Encounter Summary ---
Author Organization [employer] Address 75 [facility] 7t [place] [address] Care Team Providers Care Curing Supervisor Name Role Phone [place], Albertina RAVI Primary Care Provider +1- [phone] April [place] Unavailable Fletcher Wong MD Unavailable Erika Pratt PharmD Unavailable Encounter Details Date Type Department Care Team (Late st Contact Info) Description 04/15/2025 Results Follow-Up [facility] 230 [place] [address] Claudette North NP 230 [place] [address] Chlamydia/N. Gonorrhoeae RNA, TMA, Urogenitial, Bacterial Vaginosis Social History Tobacco Use Types Packs/Day Years [...] as of this encounter Miscellaneous Notes * Result Encounter Note - Claudette North NP - 04/15/2025 1:32 PM EST Discussed with patient documented in this encounter Plan of Treatment Upcoming Encounters Date Type Department Care Team (Late st Contact Info) Description 07/23/2025 2:00 PM EST Office Visit [facility] 230 [place] [address] Albertina Danielle MD 230 [place], [place] [phone] documented as of this encounter Goals Goal [...] documented as of this encounter Care Teams Curing Supervisor Relationship Specialty Start Date End Date Albertina Danielle MD 230 [place] [address] PCP - General Family Medicine 06/12/18 April [place] [address] [place] [address] 3rd Floor [place] Gastroenterology 05/22/24 Fletcher Wong MD [address] [place] [address] [address] [place] [address] Orthopaedic Surgery 12/19/24 Erika Pratt, PharmD 230 [place] [address] Pharmacist Pharmacy 02/20/25 documented as of this encounter
--- OUTSIDE RECORDS SUMMARY | 2025-05-27 17:27 | XMS_ITS | Encounter Summary ---
Author Organization [employer] Address 75 [facility] 7t [place] [address] Care Team Providers Care County Home Demonstrator Name Role Phone Albertina Danielle MD Primary Care Provider + [phone] Erika Pratt PharmD Unavailable [phone] April [place] Unavailable Fletcher Wong MD Unavailable Erika Pratt PharmD Unavailable [phone] Encounter Details Date Type Department Care Team (Late st Contact Info) Description 10/02/2023 Orders Only [facility] 230 [place], [place] [phone] Albertina Danielle MD 230 [place], [place] [phone] Prediabetes (Primary Dx) Social History Tobacco Use [...] the past 12 months, has t he [employer], gas, oil or water company threatened to [...] Description 07/23/2025 2:00 PM EST Office Visit [facility] [address] [place] [address] [phone] Albertina Danielle MD [address] [place] [address] documented as of this encounter Goals Goal [...] documented as of this encounter Care Teams County Home Demonstrator Relationship Specialty Start Date End Date Albertina Danielle MD [address] [place] [address] PCP - General Family Medicine 06/12/18 Erika Pratt, PharmD 230 [place] [address] Pharmacist Internal Medicine 03/01/23 04/17/24 April [place] [address] [place] [address] 3rd [place], [place] Gastroenterology 05/22/24 Fletcher Wong MD [address] [place] [address] [address] Orthopaedic Surgery 12/19/24 Erika Pratt, PharmD 230 [place] [address] Pharmacist Pharmacy 02/20/25 documented as of this encounter
--- OUTSIDE RECORDS SUMMARY | 2025-05-27 17:27 | XMS_ITS | Encounter Summary ---
Author Organization [employer] Address 75 [facility] 7t [place] [address] Care Team Providers Care Used Car Salesperson Name Role Phone Albertina Danielle MD Primary Care Provider +1- [phone] Terence, Erika PharmD Unavailable April [place] Unavailable Fletcher Wong MD Unavailable PiersJose GDutta, Erika PharmD Unavailable [phone] Reason for Visit * Reason Comments Med Refill Encounter Details Date Type Department Care Team ([facility] st Contact Info) Description 09/09/2022 Refill [facility] 230 [place] [address] Marcela Norwood FNP 505 [place], [place] [phone] Total body pain Social History Tobacco Use [...] Description 07/23/2025 2:00 PM EST Office Visit [facility] 230 [facility] [address] Albertina Danielle MD 230 [place] [address] documented as of this encounter Visit Diagnoses Diagnosis Total body pain documented in this encounter Care Teams Used Car Salesperson Relationship Specialty Start Date End Date Albertina Danielle MD [address] [place] [address] [place], [place] [phone] PCP - General Family Medicine 06/12/18 Erika Pratt, PharmD [address] [place] [address] Pharmacist Internal Medicine 03/01/23 04/17/24 April [place] [address] [place] [address] Dr 3rd Floor [place], [place] Gastroenterology 05/22/24 Fletcher Wong MD [address] [place] [address] [address] [place] [address] Orthopaedic Surgery 12/19/24 Erika Pratt, PharmD [address] [place] [address] Pharmacist Pharmacy 02/20/25 documented as of this encounter
--- OUTSIDE RECORDS SUMMARY | 2025-05-27 17:27 | XMS_ITS | Encounter Summary ---
Author Organization [employer] Address 75 [facility] 7t [place] [address] Care Team Providers Care Proofer Apprentice Name Role Phone Albertina Danielle MD Primary Care Provider +1- [phone] Erika Pratt PharmD Unavailable April [place] Unavailable Fletcher Wong MD Unavailable Erika Pratt PharmD Unavailable Encounter Details Date Type Department Care Team (Late st Contact Info) Description 12/30/2022 Abstract [facility] 230 [place], [place] [phone] Albertina Danielle MD 230 [place], [place] [phone] Social History Tobacco Use Types Packs/Day Years [...] Description 07/23/2025 2:00 PM EST Office Visit [facility] 230 [place] [address] Albertina Danielle MD 230 [place] [address] documented as of this encounter Visit Diagnoses Not on filedocumented in this encounter Additional Health Concerns Assessment Noted Time PHQ-9 Depression Total Score: 7 12/01/19 3:41 PM EDT documented as of this encounter Care Teams Proofer Apprentice Relationship Specialty Start Date End Date Albertina Danielle MD [address] [place] [address] PCP - General Family Medicine 06/12/18 Erika Pratt PharmD [address] [place] [address] Pharmacist Internal Medicine 03/01/23 04/17/24 April [place] [address] [place] [address] Dr 3rd Floor [place], [place] Gastroenterology 05/22/24 Fletcher Wong MD [facility] [address] [place] [address] Orthopaedic Surgery 12/19/24 Erika Pratt PharmD [address] [place] [address] Pharmacist Pharmacy 02/20/25 documented as of this encounter
--- OUTSIDE RECORDS SUMMARY | 2025-05-27 17:27 | XMS_ITS | Encounter Summary ---
Author Organization [employer] Address 75 [facility] 7t [place] [address] Care Team Providers Care Professor Sculpture Name Role Phone Albertina Danielle MD Primary Care Provider +1- [phone] Erika Pratt PharmD Unavailable April [place] Unavailable Fletcher Wong MD Unavailable Erika Pratt PharmD Unavailable Encounter Details Date Type Department Care Team (Late st Contact Info) Description 03/09/2023 Abstract [facility] 230 [place], [place] [phone] Albertina Danielle MD 230 [place], [place] [phone] Tubular adenoma Social History Tobacco Use Types [...] Description 07/23/2025 2:00 PM EST Office Visit [facility] 230 [facility] [place] [address] Albertina Danielle MD 230 [facility] [place] [address] documented as of this encounter Goals Goal [...] documented as of this encounter Care Teams Professor Sculpture Relationship Specialty Start Date End Date Albertina Danielle MD 230 [place] [address] PCP - General Family Medicine 06/12/18 Erika Pratt, PharmD [address] [place] [address] Pharmacist Internal Medicine 03/01/23 04/17/24 April [place] [address] [place] [address] 3rd Floor [place] Gastroenterology 05/22/24 Fletcher Wong MD [address] [place] [address] [address] [place] [address] Orthopaedic Surgery 12/19/24 Erika Pratt, PharmD [address] [place] [address] Pharmacist Pharmacy 02/20/25 documented as of this encounter
--- OUTSIDE RECORDS SUMMARY | 2025-05-27 17:27 | XMS_ITS | Encounter Summary ---
Author Organization [employer] Address 75 [facility] 7t [place] [address] Care Team Providers Care Carton Maker Name Role Phone Albertina Danielle MD Primary Care Provider Erika Pratt PharmD Unavailable April [place] Unavailable Fletcher Wong MD Unavailable MaximinosAdalid Erika PharmD Unavailable [phone] Encounter Details Date Type Department Care Team (Late st Contact Info) Description 07/04/2022 Orders Only [facility] [address] [place] [address] [phone] Dolores Sue LPN Social History Tobacco Use [...] Description 07/23/2025 2:00 PM EST Office Visit [facility] [address] [place] [address] [phone] Albertina Danielle MD 230 [place], [place] [phone] documented as of this encounter Visit Diagnoses Not on filedocumented in this encounter Care Teams Carton Maker Relationship Specialty Start Date End Date Albertina Danielle MD 230 [place] [address] PCP - General Family Medicine 06/12/18 Erika Pratt, PharmD [address] [place] [address] Pharmacist Internal Medicine 03/01/23 04/17/24 April [place] [address] [place] [address] Dr 3rd Floor [place], [place] Gastroenterology 05/22/24 Fletcher Wong MD [address] [place] [address] Dr [address] [place] [address] Orthopaedic Surgery 12/19/24 Erika Pratt, PharmD [address] [place] [address] Pharmacist Pharmacy 02/20/25 documented as of this encounter
--- OUTSIDE RECORDS SUMMARY | 2025-05-27 17:27 | XMS_ITS | Data Portability ---
Author Organization [employer] [facility], [place] [facility] Address [address] [place] [address] Care Team Providers Care Skiing Teacher Name Role Phone [facility] Referring Provider [phone] Assessment Encounter Date Assessment Date Assessment LastModified by Organization Details LastModified Time 05/29/2023 05/29/2023 I provided real -time medical direction via phone for this encounter, and was available for additional phone based assistance as needed. I have reviewed and agree with the Assessment and Plan as documented by the Cardiac Nurse Practitioner. Patient given the opportunity to ask questions. Advised if develops CP/severe SOB/turning blue/uncontrolle d n/v/d /AMS/ syncope/ hi fever unresponsive to APAP to call 911- verbalized understanding of instructions [email or web address] Not available 05/30/2023 08:57:25 Plan of Treatment Reminders Order Date Submit Date Provider Last Modified By Organization Details Last Modified Time Details Appointments None recorded. Lab rapid SARS CoV 2 Ag, QL IA, respiratory specimen 2022 023 [email or web address], [phone] 3 13:19:56 rapid flu (A+B) 2022 023 [email or web address], [phone] 3 13:20:01 rapid strep group A, throat 2022 023 [email or web address], [address] 3 13:20:02 Referral None recorded. Procedures None recorded. Surgeries None recorded. Imaging None recorded. Medication Orders ipratropium 0.5 mg-albutero l 3 mg (2.5 mg base)/3 mL nebulizatio n soln 2022 023 [email or web address] 0 Not available 3 13:19:52 albuterol sulfate HFA 90 mcg/actuati on aerosol inhaler [address] [facility], [address] [place], [id number], 3 18:06:11 albuterol sulfate 2.5 mg/3 mL (0.083 %) solution for nebulizatio n 2022 023 [email or web address] 0 [facility], [address] [place], [place], [id number], 3 13:19:51 albuterol sulfate 2.5 mg/3 mL (0.083 %) solution for nebulizatio n [address] [facility], [address] [place] [address], [id number], 4 17:41:44 prednisone 20 mg tablet [address] [facility], [address] [place] [address], [id number], 3 18:06:10 prednisone 20 mg tablet 2022 023 [email or web address] 0 [facility], [address] [place], [place], [id number], 3 13:19:51 azithromyci n 250 mg tablet [address] [facility], [address] [place], [place], [id number], 3 18:06:13 azithromyci n 250 mg tablet 2022 023 [email or web address] 0 [facility], [address] [place] [address], [id number], 13:19:51 Patient TargetsNo targets recorded. Patient InstructionsNo instructions recorded. Reason for Referral None Reported. Results Created Date Observation Date Name Description Value Unit Range Abnormal Flag Note LastModifiedBy Organization Detail LastModifiedTime 05/29/2005/29/2023 rapid strep group A, throa t Strep negati ve Not Available [facility] ed [address] [place] [address], [phone] 05/29/2023 12:40:02 05/29/2005/29/2023 rapid flu (A+B) Flu negati ve Not Available [facility] ed [address] [place] [address], [phone] 05/29/2023 12:39:54 05/29/2005/29/2023 rapid SARS CoV 2 Ag, QL IA, respi rator y speci men rapid SARS CoV 2 Ag, QL IA, respiratory specimen negati ve Not Available [facility] ed [address] [place] [address], [phone] 05/29/2023 12:39:53 Result Notes None recorded. Medical [...] t Available Vitals Date Recorded Oxygen saturation Body temperature Body weight Body height Respiratory rate Heart rate Systolic And Diastolic Provider Name and Address Organization Details Last Updated DateTime 3 97 % 98.3 [degF] 99250.3 92 g 162.56 cm 16 /min 89 [...] ICD10 Code Diagnosis IMO Codes Diagnosis Note [id number] Jocelynn Keller MD Main - [facility] [address] [place] [phone] 05/29/2023 12:39:11 05/30/2023 10:22:17 Exacerbation of intermittent asthma [id number] J45.21 With likely bacterial bronchitis /all rapid [...] azithromyc in.She reports she has someone to sampler pickup her prescripti ons today aware to start [...] Mendoza Member ID Guarantor Name 11/04/2023 1 [facility] - DOS ON OR AFTER 2022 - DUAL ELIGIBLE - CORRECTION OPTIONS AND ONE CARE (MEDICARE REPLACEMENT/ADV ANTAGE - HMO) Elizabet Castillo [id number] Elizabet Castillo Notes Date Note Type Note [...] ................... ................... ................... ................... ................... ................... ........ Cardiac Nurse Practitioner Note From Norman Dillard: Pt reports dry [...] non productive - Jocelynn Keller MD [address] [facility],[address], [place], [address], Medio 05/30/2023 08:59:10 OBGyn Episode No OBEpisode recorded.
--- OUTSIDE RECORDS SUMMARY | 2025-05-27 17:27 | XMS_ITS | Encounter Summary ---
Author Organization [employer] Address [address] [facility] 7t [place] [address] Care Team Providers Care System Dispatcher Name Role Phone Albertina Danielle MD Primary Care Provider +1- [phone] Piers-Luzmaria, Erika PharmD Unavailable April Jackson Unavailable Fletcher Wong MD Unavailable Piers-Dutta, Erika PharmD Unavailable Encounter Details Date Type Department Care Team (Late st Contact Info) Description 02/14/2024 Telephone [facility] [address] [place] [address] Piers-Dutta, Erika, PharmD [address] [place], [place] [phone] Social History Tobacco Use Types Packs/Day Years [...] for this patient to continue care in [facility] - Hypertension clinic. Please send at your earliest convenience. documented in this encounter Plan of Treatment Upcoming Encounters Date Type Department Care Team (Late st Contact Info) Description 07/23/2025 2:00 PM EST Office Visit [facility] [address] [place], [place] [phone] Albertina Danielle MD [address] [place], [place] [phone] documented as of this encounter Goals Goal [...] documented as of this encounter Care Teams System Dispatcher Relationship Specialty Start Date End Date Albertina Danielle MD [address] [place] [address] PCP - General Family Medicine 06/12/18 Erika Pratt, PharmD [address] [place] [phone] Pharmacist Internal Medicine 03/01/23 04/17/24 April Jackson [address] [place] [address] Dr 3rd Floor [place], [place] Gastroenterology 05/22/24 Fletcher Wong MD [address] [place] [address] Dr [address] [place] [address] Orthopaedic Surgery 12/19/24 Erika Pratt, PharmD [address] [place] [phone] Pharmacist Pharmacy 02/20/25 documented as of this encounter
--- OUTSIDE RECORDS SUMMARY | 2025-05-27 17:28 | XMS_ITS | Clinical Summary ---
Author Organization [employer] Address [address] [facility] 7t [place] [address] Care Team Providers Care Granulating Machine Operator Name Role Phone Albertina Danielle MD Primary Care Provider +1- [phone] April Jackson Unavailable Fletcher Wong MD Unavailable [...] day. 30 capsule 2 05/22/20 24 Active albuterol 108 (90 Base) MCG/ACT inhalerIndicatio ns:Mild intermittent asthma without complication Inhale 2 puffs every 4 (four) hours if needed for wheezing. 18 g 05/22/20 24 Active glycerin (Adult) 2 g suppositoryIndic ations:Constipat [...] by mouth at bedtime. 60 tablet 2 5 3:56 PM EST 11/15/19 25 Active allopurinol (Zyloprim) 100 MG tabletIndication s:Gout [...] MG immediate release tablet 02/08/20 25 Active amLODIPine (Norvasc) 10 MG tabletIndication s:Primary hypertension TAKE 1 TABLET BY MOUTH EVERY MORNING 90 tablet 03/12/20 25 Active Bisacodyl EC 5 MG EC tablet take 2 tablets by mouth every day at bedtime 03/14/20 25 Active gabapentin (Neurontin) 100 MG capsule Take 100 mg by mouth at bedtime. 03/25/20 25 Active losartan (Cozaar) 100 MG tabletIndication s:Primary hypertension Take 1 tablet (100 mg) by mouth Once per day. 90 tablet 04/08/20 25 Active atorvastatin (Lipitor) 80 MG tabletIndication s:Dyslipidemia Take 1 tablet (80 mg) by mouth Once per day. 90 tablet 04/08/20 25 Active Active Problems Patient Care Coordination No te Formatting of this note migh t be different from the original. CDTM HTN with Erika Pratt PharmD [facility] Cosmetic Consultant: Mckayla, member services number [phone], provider services line, , option 4 Document Management Technician Agency: [facility] Problem Noted Date Diagnosed Date Vaginal [...] due after 01/22/26. -Eye care done in [facility], last done 10/2022. -Follow with [facility] dentist -Healthcare proxy given and filled Assessment & Plan (01/22/2025 4:09 PM EDT): -next comprehensive annual evaluation due after 01/22/26. -Eye care done in [facility], last done 10/2022. -Follow with [facility] dentist -Healthcare proxy given and filled Assessment & Plan (12/18/2023 11:13 AM EDT): -Next PE due after 12/17/2024. -Eye care done in [facility], last done 10/2022. -Follow with [facility] dentist -Healthcare proxy given and filled Assessment & Plan (11/30/2022 4:08 PM EDT): Next PE due after 12/01/2023. Eye care done in [facility], last done 10/2022. 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 -Continue Vitamin D. -Discontinued Fosamax 11/30/2022. -Dexa scan ordered 11/30/2022. -Advised exercise with light weights. -repeat DEXA 12/2022 with severe osteoporosis, referred to endocrinology 12/26/2022 for assistance in tx due to not tolerating oral bisphosphonate -Pt was given the number to [facility] 01/20/2023 to call and [...] bisphosphonate -Pt was given the number to [facility] 01/20/2023 to call and [...] bisphosphonate -Pt was given the number to [facility] Endocr[facility]ology 01/20/2023 to call and [...] MG 01/22/25 *Patient was last seen in [facility] clinic 04/08/25: - enalapril/hydrochlorothiazide previous discontinued by [facility] and replaced with losartan due to potential beneficial effects on uric acid. Losartan was increased from 50mg once daily to 100mg once daily by [facility] due to ongoing uncontrolled hypertension -Patient was not taking carvedilol for an extended period of time and was previously formally discontinued by [facility] Assessment & Plan (01/22/2025 4:09 PM EDT): [...] mouth Once per day. Referral to Pharmacy [facility] Albumin, Random Urine W/Creatinine; Future Basic Metabolic [...] mg 01/22/25 *Patient was last seen in [facility] 04/08/25: repeat LDL was further elevated and [...] 4.1 01/01/2021 Dermatitis 02/24/2012 Allergic rhinitis 12/23/2011 Recurrent major depressive disorder, in partial remission 12/23/2011 Gastroesophageal reflux disease 12/23/2011 Overview (12/11/2024): [...] Encounters Date Type Department Care Team Description 05/20/2025 Telephone [facility] [address] [place] [phone] Aislinn Robertson MA chart prep 04/15/2025 Results Follow-Up [address] [address] Claudette North NP Chlamydia/N. Gonorrhoeae RNA, TMA, Urogenitial, Bacterial Vaginosis 04/11/2025 10:40 AM EDT Office Visit [facility] [address] [place] [phone] Claudette North NP Vaginal discharge (Primary Dx); Trichomonas vaginitis 04/11/2025 Telephone [facility] [address] [place] [phone] Albertina Danielle MD Appointment Request 04/11/2025 Travel 04/08/2025 Travel 04/01/2025 Travel 03/26/2025 Results Follow-Up [facility] [address] [place] [phone] Albertina Danielle MD Hepatic Function Panel, Lipid Panel, Standard 03/26/2025 Orders Only [facility] [address] [facility] [place] [address] Albertina Danielle MD 03/11/2025 Travel 03/05/2025 Results Follow-Up [facility] [address] [place] [address] Jackshabnam Billie, CASH PERSON Chlamydia/N. Gonorrhoeae RNA, TMA, Urogenitial, Bacterial Vaginosis 03/03/2025 5:00 PM EDT Office Visit [facility] [address] [place] [address] Billie Emerson, CASH PERSON Vaginal itching 03/03/2025 Travel from Last 3 Months Immunizations Immunization [...] Description 07/23/2025 2:00 PM EST Office Visit [facility] [address] [place] [address] Albertina Danielle MD [address] [place] [address] Health Maintenance Due Date Last Done Comments CT Colonography 1955 FIT DNA/Cologuard 1955 FIT 1955 FOBT 1955 Sigmoidoscopy 1955 COVID-19 Vaccine ( season) 2025 12/21/2020, 11/23/2020 Influenza Vaccine (#1) 2025 03/13/2009 SDOH Screening 05/22/2025 05/22/2024 Depression Screening 10/31/2025 10/31/2024, 11/01/19 Alcohol/Substance Use Screening 01/22/2026 01/22/2025 Mammogram 02/20/2026 [...] Blood Pressure 138/80( 025 10:55 AM EDT) Erika Hernandez PharmD Procedures Procedure Name Priority Date/Time Associated Diagnosis Comments POCT WET MOUNT/DAFNE Routine 04/11/2025 11 :32 AM EDT Vaginal discharge Trichomonas vaginitis BACTERIAL VAGINOSIS PANEL Routine 04/11/2025 11:24 AM EDT Vaginal discharge CHLAMYDIA/N. GONORRHOEAE RNA, TMA, UROGENITAL Routine 04/11/2025 11:24 AM EDT Vaginal discharge POCT GLYCATED HEMOGLOBIN, TOTAL Routine 04/08/2025 2:12 PM EDT Prediabetes LIPID PANEL, STANDARD Routine 03/26/2025 10:29 AM EDT HEPATIC FUNCTION PANEL Routine 03/26/2025 10:29 AM EDT BASIC METABOLIC PANEL Routine 03/26/2025 10:29 AM EDT Primary hypertension BACTERIAL VAGINOSIS PANEL Routine 03/03/2025 5:14 PM EDT Vaginal itching CHLAMYDIA/N. GONORRHOEAE RNA, TMA, UROGENITAL Routine 03/03/2025 5:14 PM EDT Vaginal itching BI MAMMOGRAM SCREENING TOMOSYNTHESIS BILATERAL Routine 02/21/2024 11:40 AM EDT HM COLONOSCOPY Routine 03/06/2023 HEPATITIS C ANTIBODY (EXTERNAL RESULTS ONLY) Routine 10/29/2021 3:52 PM EDT from Last 3 Months or Most Recently Relevant to Health Maintenance Results * (ABNORMAL) POCT Wet Mount/DAFNE (04/11/2025 11:32 AM EDT) DAFNE Prep Negative Vaginal Fluid Vaginal structure / Unknown 04/11/2025 11:32 AM EDT us Claudette North NP POINT OF CARE TEST ENTER/EDIT OR DERABLES Final Result * (ABNORMAL) Bacterial Vaginosis (04/11/2025 11:24 AM EDT) Only the most recent of2 resultswithin the time period is included. TRICHOMONAS VAGINALIS DETECTION BY PCR DETECTED(A) Not Detect [facility] BACTERIAL VAGINOSIS DETECTION BY PCR NEGATIVE Negative [facility] Comment:The BV organism targ ets [...] DETECTION BY PCR NOT DETECTED Not Detect [facility] Kassy glab krusei PCR NOT DETECTED Not Detect [facility] Swab Vaginal structure / Unknown 04/11/2025 11:24 AM EDT 04/11/2025 6:26 PM EDT us Claudette North NP LAB MICROBIOLOGY - GENERAL ORDER JAMIL Final Result [facility] [address] [place] [phone] * Chlamydia/N. Gonorrhoeae RNA, TMA, Urogenitial (04/11/2025 11:24 AM EDT) Only the most recent of2 resultswithin the time period is included. CT PCR NOT DETECTED Not Detect. [facility] Comment:A not detected test result [...] psychologicalconsequences. NG PCR NOT DETECTED Not Detect. [facility] Comment:A not detected test result [...] to adverse medical, social or psychologicalconsequences. Swab Vaginal structure / Unknown 04/11/2025 11:24 AM EDT 04/11/2025 6:26 PM EDT us Claudette North NP LAB MICROBIOLOGY - GENERAL ORDER JAMIL Final Result [facility] [address] [place] [address] [phone] * (ABNORMAL) POCT A1c (04/08/2025 2:12 PM EDT) Hemoglobin A1C 6.2(A) 4.0 - 5.7 % QC Media Lot # [id number] Lot# Expiration Date ,[id number] Blood 04/08/2025 2:12 PM EDT Albertina Danielle MD POINT OF CARE TEST ENTER/E DIT ORDERABLES Final Result * (ABNORMAL) Hepatic Function Panel (03/26/2025 10:29 AM EDT) Bilirubin, Total 0.8 0.0 - 1.0 mg/dL [facility] Bilirubin, Direct 0.3 0.0 - 0.5 mg/dL [facility] Aspartate Amino Transferase 40(H) 5 - 31 U/L [facility] Alanine Aminotransferase 32(H) 0 - 31 U/L [facility] Total Protein 7.9 6.5 - 8.0 g/dL [facility] Albumin Level 4.5 3.5 - 5.0 g/dL [facility] Alkaline Phosphatase 110 39 - 117 U/L [facility] 03/26/2025 10:2 9 AM EDT 03/26/2025 11:18 AM EDT Albertina Danielle MD LAB BLOOD ORDERABLES Final Result [facility] [address] [place] [phone] * (ABNORMAL) Lipid Panel, Standard (03/26/2025 10:29 AM EDT) Triglycerides 168(H) <150 mg/dL [facility] Comment:Desirable Triglyceri de: less than 150 mg/dLBorderline High Triglyceride 150-199 mg/dLHigh Triglyceride: 200-499 mg/dLVery High Triglyceride: greater than or equal to 5OO mg/dL Cholesterol 211(H) <200 mg/dL [facility] Comment:Desirable Cholestero l: less than 200 mg/dLBorderline High Cholesterol: 200-239 mg/dLHigh Cholesterol: greater than 239 mg/dL LDL Cholesterol Calculated 128(H) <100 mg/dL [facility] Comment:Desirable LDL: less than 100 mg/dLNear Optimal/Above Optimal LDL: 110- 129 mg/dLBorderline High LDL: 130-159 mg/dLHigh LDL: 160-189 mg/dLVery High LDL: greater than or equal to 190 mg/dL HDL Cholesterol 50 >40 mg/dL [facility] Comment:Desirable HDL: great er than 40 mg/dL Note: This HDL assay may give artificially low results in patients with liver disease. 03/26/2025 10:2 9 AM EDT 03/26/2025 11:18 AM EDT us Albertina Danielle MD LAB BLOOD ORDERABLES Final Result [facility] [address] [place] [phone] * (ABNORMAL) Basic Metabolic Panel (03/26/2025 10:29 AM EDT) Sodium 141 135 - 145 mmol/L [facility] Potassium 3.9 3.3 - 5.1 mmol/L [facility] Chloride 109(H) 96 - 108 mmol/L [facility] Carbon Dioxide 24 22 - 29 mmol/L [facility] Anion Gap 12 12 - 20 [facility] Urea Nitrogen (BUN) 11 9 - 16 mg/dL [facility] Creatinine, Serum 0.67 0.5 - 1.4 mg/dL [facility] Estimated Glomerular Filt Rate >60 [facility] Comment:Chronic Kidney Disea se: Estimated GFR < 60 mL/min/1.20t9Dnejes Kidney Disease: Estimated GFR < 15 mL/min/1.73m2 Glucose 97 60 - 115 mg/dL [facility] Calcium 9.4 8.4 - 10.2 mg/dL [facility] Blood Venous blood specimen / Unknown 03/26/2025 10:29 AM EDT 03/26/2025 11:18 AM EDT Albertina Danielle MD LAB BLOOD ORDERABLES Final Result [facility] [address] [place] [phone] [phone] * BI Mammogram Screening Tomosynthesis Bilateral (02/21/2024 11:40 AM EDT) Anatomical Region Laterality Modality Breast Bilateral Mammography 02/21/2024 11:4 0 AM EDT Narrative 03/06/2024 10:24 AM EDT [address] [place] [address] Mammography Report Signed Patient: Elizabet Castillo MR#: [id number] 2 : 1955 Acct:[id number] Age/Sex: 68 / F ADM Date: 02/21/24 Loc: HO.MAMMO Attending Dr: Albertina Danielle MD Ordering Physician: Albertina Danielle MD Results: 1N egative Date of Service: 02/21/24 Follow Up: 1 Year From Orig inal Mammogram Procedure(s): MM tomosynthesis screening BI Accession Number(s): [id number] cc: Albertina Danielle MD EXAMINATION: MM SCREENING [...] 03/06/24 1021 DD/ 1140 TD/TT: 02/21/24 1158 Medical Secretary Receptionist: Procedure Note Donotuseinterpreter, Image - 03/06/2024 [facility] [address] [place] [address] Mammography Report Signed Patient: Elizabet CastilloMR#: [id number] 2 : 1955cct:[id number] Age/Sex: 68 / FADM Date: 02/21/24 Loc: HO.MAMMO Attending Dr: Albertina Danielle MD Ordering Physician: Albertina Danielle MDResults: 1N egative Date of Service: 02/21/24Follow Up: 1 Year From Orig inal Mammogram Procedure(s): MM tomosynthesis screening BI Accession Number(s): [id number] cc: Albertina Danielle MD EXAMINATION: MM SCREENING [...] 03/06/24 1021 DD/ 1140 TD/TT: 02/21/24 1158 Medical Secretary Receptionist: Albertina Danielle MD IMG BI PROCEDURES Edited [...] Most Recently Relevant to Health Maintenance Insurance [facility] [employer]ED [employer] (HMO D-SNP) [facility] STANDARD [address] [place] [phone] Advance Directives Documents on File Type Date Recorded Patient Studio Data Analyst Expl anation Advance Directives and Living Will 12/18/2023 Health Care Proxy 12/18/23 Care Teams Granulating Machine Operator Relationship Specialty Start Date End Date [place], [place] Albertina [address] [place] [address] PCP - General Family Medicine 06/12/18 April Jackson [address] [place] [address] 3rd Floor [place], [place] Gastroenterology 05/22/24 Fletcher Wong MD [address] [place] [address] [address] [place] [address] Orthopaedic Surgery 12/19/24 Erika Pratt, RomanD [address] [place] [address] Pharmacist Pharmacy 02/20/25
--- OUTSIDE RECORDS SUMMARY | 2025-05-27 17:28 | XMS_ITS | Encounter Summary ---
Author Organization [employer] Address [address] [facility] 7t [place] [address] Care Team Providers Care It Professional Name Role Phone Albertina Danielle MD Primary Care Provider +1- [phone] Erika Pratt PharmD Unavailable [phone] April [place] Unavailable Fletcher Wong MD Unavailable Erika Pratt PharmD Unavailable Encounter Details Date Type Department Care Team (Late st Contact Info) Description 06/28/[address] [facility] [address] [place], [place] [phone] Albertina Danielle MD [address] [place], [place] [phone] Social History Tobacco Use Types Packs/Day Years [...] Description 07/23/2025 2:00 PM EST Office Visit [facility] [address] [place] [address] Albertina Danielle MD [address] [place] [address] documented as of this encounter Procedures Procedure [...] L ORDERABLES Final Result Performing Organization Address [facility]/ZIP Co de Phone Number [facility] [address] [place] [phone] * Pap Smear (09/17/2015 12:00 AM EDT) Swab [facility] Provider LAB CYTOLOGY ORDERABLES F inal Result Performing Organization Address [facility] Co de Phone Number [facility] [address] [place] [phone] documented in this encounter Visit Diagnoses Not on filedocumented in this encounter Care Teams It Professional Relationship Specialty Start Date End Date Albertina Danielle MD [address] [place] [address] PCP - General Family Medicine 06/12/18 Erika Pratt, PharmD [address] [place] [address] Pharmacist Internal Medicine 03/01/23 04/17/24 April [place] [address] [place] [address] 3rd Floor [place], [place] Gastroenterology 05/22/24 Fletcher Wong MD [address] [place] [address] [address] [place] [address] Orthopaedic Surgery 12/19/24 Erika Pratt, Vidhya [address] [place] [address] Pharmacist Pharmacy 02/20/25 documented as of this encounter
== END 2025-05-27 13:41 | disposition home or self-care (01) ==
LOC: HO.HOS 13:24
PROVIDERS: PCP Family Medicine; Visit Provider Orthopaedic Surgery
DX: M25.511 Pain in right shoulder (principal)
CPT/HCPCS: 99213; G2211

== ENCOUNTER → 2025-05-27 13:23 | Outpatient (BNVA) | payer OTHER, SELFPAY | PROVIDERS: PCP Family Medicine; Visit Provider Orthopaedic Surgery | DX: M25.511 Pain in right shoulder (principal) | CPT/HCPCS: 99212 ==